=== PATIENT | female | born 1990 | race Caucasian/White ===

== ENCOUNTER 2019-10-26 16:44 | Emergency (ER) | payer SELFPAY ==
--- NOTE | ~2019-10-26 | XR_ITS ---
EXAMINATION: XR hand LT min 3V DATE: 10/26/2019 17:41 INDICATION: Left fourth finger swelling TECHNIQUE: Posteroanterior, lateral, and oblique views of the left hand were obtained. COMPARISON: 10/22/2012 FINDINGS: There is soft tissue swelling of the fourth finger. A tiny heterotopic ossification project s at the palmar base of the fourth middle phalanx on the lateral view. The joint spaces are normal. IMPRESSION: 1. Possible avulsion injury involving the palmar base of the fourth middle phalanx. Reviewed, dictated and finalized at location A. IMPRESSION: 1. Possible avulsion injury involving the palmar base of the fourth middle phal anx.
[2019-10-26 16:55] VITALS: BP 167/100; PULSE 101; RESP 20; TEMP 36.7; O2SAT 97
--- NOTE | 2019-10-26 17:15 | ED.GENADULT ---
HPI - General Adult General Chief complaint: Extremity Problem,Nontraumatic Stated complaint: swelling finger/ hand is throbbing Source: patient Mode of arrival: ambulatory Limitations: no limitations History of Present Illness HPI narrative: Samantha is a previously 28F that presented to the emergency department with pain in her left 4th digit of her hand. last night she started having increasing swelling and pain in her hand. It is worse with activity and better with rest. It is only comfortable if she holds it in a slightly flexed position. If it is straightened hurts. It is starting to develop some redness particularly on the lateral side. It is tender to the touch on the anterior side. she denies any chest pain, shortness of breath, nausea, vomiting, dizziness, and fatigue. Related Data Allergies Allergy/AdvReac Type Severity Reaction Status Date / Time No Known Allergies Allergy Unverified 12/03/18 13:46 Review of Systems Constitutional: Constitutional: Denies chills, Denies fatigue and Denies fever(s) Eyes: Eyes: Reports no additional eye complaints ENT: Reports system reviewed and no additional complaints, except as documented Cardiovascular: Cardiovascular: Reports no additional cardiovascular complaints Respiratory: Respiratory: Reports no additional respiratory complaints Gastrointestinal: Gastrointestinal: Reports no additional gastrointestinal complaints Genitourinary: Genitourinary: Reports no additional female genitourinary complaints Musculoskeletal: Musculoskeletal: Reports as per HPI Integumentary/Breasts: Skin/Breast: Reports system reviewed and no additional complaints, except as docu Neurologic: Reports system reviewed and no additional complaints, except as documented Psychiatric: Psychiatric: Reports no additional psychiatric complaints Endocrine: Endocrine: Reports no additional endocrine complaints Hematologic/Lymphatic: Hematologic/Lymphatic: Reports no additional hematologic/lymphatic complaints Allergic/Immunologic: Allergic/Immunologic: Reports no additional allergic/immunologic complaints [facility] Social History Social History Gender identity (if verbalized by the patient): Female Exam Const: General: no acute distress and alert Orientation/consciousness: patient oriented x3 Limitations: No altered mental status HENMT: Other: normocephalic, atraumatic Eyes: Conjunctivae: conjunctivae normal Pupils: Equal, round and reactive pupils present Neck: Neck: normal visual inspection Resp: Effort & Inspection: normal respiratory effort Auscultation: clear to auscultation bilaterally Cardio: Rate: regular rate Rhythm: regular rhythm GI: GI Palp: Yes Soft to palpation and No Tenderness to palpation present (GI) Skin: Other: The lateral side of the 4th digit of the left hand had mild to moderate erythema Neuro: General: patient oriented x3 and moves all extremities Other: Sensation intact in all of the 4th digit of the left hand Extrem: Other: The 4th digit of the left hand was circumferentially swollen proximally and distally, held in a flexed position, and had pain with passive extension, and the flexor surface was tender to palpation throughout the finger Psych: Mental Status: mental status grossly normal Course Course Emergency Course: Samantha was seen and evaluated. Her presentation was concerning for flexor tenosynovitis so labs and radiographs were ordered as well as labs. She was given vancomycin and ceftriaxone. As she had leukocytosis and the concerning symptoms Dr. Serrato of hand surgery at [facility] was consulted. She recommended sending the images over to [place] and to follow up with clinic at 0900. Further history revealed that she is monogamous with her and has no symptoms at this time. Vital Signs Vital signs: Vital Signs Temperature 36.7 C 10/26/19 16:5
[2019-10-26 17:37] LABS: Basophils Absolute Auto 0.05 K/mm3 (0.00-0.10); Basophils Percent Auto 0.4 % (0.0-1.0); Eosinophils Absolute Auto 0.47 K/mm3 (0.02-0.50); Eosinophils Percent Auto 4.2 % (1.0-6.0); Hematocrit 41.7 % (35.0-49.0); Hemoglobin 14.3 g/dL (12.0-15.0); Immature Granulocyte Absolute 0.03 K/mm3 (0.00-0.00); Immature Granulocyte Percent A 0.3 % (0.0-0.0); Lymphocytes Absolute Auto 3.08 K/mm3 (1.10-4.50); Lymphocytes Percent Auto 27.3 % (18.0-42.0); Mean Corpuscular HGB Conc 34.3 g/dL (32.0-36.0); Mean Corpuscular Hemoglobin 29.6 pg (27.0-31.0); Mean Corpuscular Volume 86.3 fL (78.0-102.0); Mean Platelet Volume 10.2 fl (9.2-11.8); Monocytes Absolute Auto 0.55 K/mm3 (0.10-0.90); Monocytes Percent Auto 4.9 % (2.0-11.0); Neutrophils Absolute Auto 7.1 K/mm3 (1.7-7.2); Neutrophils Percent Auto 62.9 % (50.0-70.0); Platelet Count Result 376 K/mm3 (150-420); Red Blood Count 4.83 M/mm3 (4.20-5.40); White Blood Count 11.3 K/mm3 (4.8-10.8)
[2019-10-26 17:52] LABS: Alanine Aminotransferase 22 U/L (14-59); Albumin Level 4.1 g/dL (3.4-5.0); Alkaline Phosphatase 73 U/L (46-116); Anion Gap 14.6 mmol/L (7-16); Aspartate Amino Transferase 18 U/L (15-37); Bilirubin,Total 0.3 mg/dL (0.00-1.00); Blood Urea Nitrogen 11 mg/dL (7-18); Calcium 9.5 mg/dL (8.5-10.1); Carbon Dioxide 30 mmol/L (21-32); Chloride 100 mmol/L (98-108); Estimated CRCL calculation 92 ml/min; Estimated Glomerular Filt Rate 57; Glucose 89 mg/dL (70-99); Osmolality Calculated 290 mOsm/kg (285-295); Potassium 3.6 mmol/L (3.5-5.1); Sodium 141 mmol/L (136-145); Total Protein 7.8 g/dL (6.4-8.2)
[2019-10-26 17:57] LABS: CRP 0.7 mg/dL (0.0-0.9)
--- NOTE | 2019-10-26 18:00 | PC.NURSE ---
Pt resting. Aware of plan for IV antibiotics and consult to [facility]. Will continue to monitor.
[2019-10-26] MEDS: WATER, STERILE FOR INJECTION 10 ML VIAL 40 ML XX (18:08)
[2019-10-26 18:39] LABS: Erythrocyte Sedimentation Rate 16 mm/hr (0-15)
--- NOTE | 2019-10-26 19:00 | PC.NURSE ---
Pt aware that IV Vancomycin infusion will be complete at approximately 1999. Requesting pain medication. Dr Funez aware, order rcvd.
[2019-10-26 19:01] LABS: Pregnancy On Board Control POS; Specific Gravity Ur <= 1.005 (1.010-1.035); Urine Pregnancy Test Negative
[2019-10-26] MEDS: IBUPROFEN 600 MG TABLET PO (19:26)
[2019-10-26 20:22] VITALS: BP 153/90; PULSE 80; RESP 20; O2SAT 98
== END 2019-10-26 20:23 | disposition home or self-care (01) ==
PROVIDERS: Emergency Provider Family Medicine; PCP Emergency Medicine
DX: M65.142 Other infective (teno)synovitis, left hand (principal)
CPT/HCPCS: 36415; 73130; 80053; 81025; 85025; 85610; 85652; 86140; 87040; 87077; 96365; 96366; 96367; 99283; 99284; A9270; J0696; J3370

== ENCOUNTER 2020-10-14 15:19 | Emergency (ER) | payer SELFPAY ==
[2020-10-14 15:30] VITALS: BP 170/105; PULSE 83; RESP 20; TEMP 36.4; O2SAT 99
--- NOTE | 2020-10-14 16:07 | ED.EYEPROB ---
HPI - Eye Problem General Chief complaint: Eye Problems Stated complaint: swollen eye Time Seen by Provider: 10/14/20 15:35 Source: patient and family Mode of arrival: ambulatory Limitations: no limitations History of Present Illness HPI Narrative: Patient comes in because she had felt she had irritated her eye yesterday. She left her contacts out and started wearing her glasses. This has continued to progress and she comes in now because she has been uncomfortable with irritation and what looks like a conjunctivitis to the left eye , and discomfort in that eye, chief complaint: eye pain and eye redness Onset (ago): hour(s) Onset description: sudden Duration: constant Location: left eye Eye Symptoms: burning, redness, pain and foreign body sensation Place: home and work Severity: moderate Severity scale (1-10): 4 If Pain, Quality: burning Associated symptoms: headache Treatments Prior to Arrival: other (removal of contants) Related Data Home Medications Medication Instructions Recorded Confirmed No Home Medications 10/14/20 10/14/20 Allergies Allergy/AdvReac Type Severity Reaction Status Date / Time morphine Allergy Itching Verified 10/14/20 16:01 Review of Systems Constitutional: Constitutional: Reports no additional constitutional complaints Eyes: Eyes: Reports photophobia ENT: Reports system reviewed and no additional complaints, except as documented Cardiovascular: Cardiovascular: Reports no additional cardiovascular complaints Respiratory: Respiratory: Reports no additional respiratory complaints Gastrointestinal: Gastrointestinal: Reports no additional gastrointestinal complaints Genitourinary: Genitourinary: Reports no additional female genitourinary complaints Musculoskeletal: Musculoskeletal: Reports no additional musculoskeletal complaints Integumentary/Breasts: Skin/Breast: Reports system reviewed and no additional complaints, except as docu Neurologic: Reports system reviewed and no additional complaints, except as documented Psychiatric: Psychiatric: Reports no additional psychiatric complaints Endocrine: Endocrine: Reports no additional endocrine complaints Hematologic/Lymphatic: Hematologic/Lymphatic: Reports no additional hematologic/lymphatic complaints Allergic/Immunologic: Allergic/Immunologic: Reports no additional allergic/immunologic complaints PMFSH Past Medical History Medical History No significant medical problems Surgical History Surgical History No significant past surgical history Family History Family History Mother Diabetes mellitus Heart disease Hypertension Father Hypertension Social History Social History Smoking packs per day: 0.33 Smoking cigarettes per day: 6.6 Smoking status: Current every day smoker Tobacco type: cigarettes Alcohol intake: never Gender identity (if verbalized by the patient): Female Exam Const: General: no acute distress and alert Orientation/consciousness: patient oriented x3 HENMT: Head: normal to inspection Ears: external ears normal and TM's normal bilaterally General nose exam: Normal external nose present Mouth: Yes Normal oral and palatal mucosa present Throat: posterior oropharynx normal Eyes: Other: She appears to have a conjunctivitis on the left eye, with mild inflammation and some discomfort from that eye. Exam with fluorescein to left eye was unremarkable. I saw no foreign objects in the eye, she does appear to have a tiny corneal abrasion though. Neck: Neck: normal visual inspection and no lymphadenopathy Chest: Chest palpation & inspection: normal inspection of the chest Resp: Effort & Inspection: normal respiratory effort Auscultation: clear to auscultation bilaterally Cardio:
[2020-10-14] MEDS: ERYTHROMYCIN OPHTH OINTMENT 3.5 GM TUBE 1 APPLIC LEFT EYE (16:11)
[2020-10-14 16:15] VITALS: BP 143/93; PULSE 80; RESP 20; TEMP 36.7; O2SAT 98
== END 2020-10-14 16:29 | disposition home or self-care (01) ==
PROVIDERS: Emergency Provider Emergency Medicine; PCP Emergency Medicine
DX: H10.9 Unspecified conjunctivitis (principal)
CPT/HCPCS: 99282; 99283; A9270

== ENCOUNTER 2021-10-28 19:43 | Emergency (ER) | payer MEDICAID, SELFPAY ==
[2021-10-28 19:48] VITALS: BP 148/101; PULSE 83; RESP 17; TEMP 37.3; O2SAT 100
[2021-10-28 22:07] LABS: Basophils Absolute Auto 0.1 K/mm3 (0.0-0.1); Basophils Percent Auto 0.5 % (0.2-1.2); Eosinophils Absolute Auto 0.4 K/mm3 (0-0.3); Eosinophils Percent Auto 4.2 % (0-4.4); Hematocrit 35.9 % (37.0-47.0); Hemoglobin 11.9 g/dL (12.0-15.0); Immature Granulocyte Absolute 0.03 K/mm3 (0.00-0.031); Immature Granulocyte Percent A 0.3 % (0-0.5); Lymphocytes Absolute Auto 2.17 K/mm3 (0.9-3.2); Lymphocytes Percent Auto 22.8 % (18.3-44.2); Mean Corpuscular HGB Conc 33.1 g/dl (32-36); Mean Corpuscular Hemoglobin 27.9 pg (26-34); Mean Corpuscular Volume 84.1 fl (80-100); Mean Platelet Volume 9.8 fl (7.4-10.4); Monocytes Absolute Auto 0.5 K/mm3 (0.1-0.6); Monocytes Percent Auto 4.8 % (2.6-8.5); Neutrophils Absolute Auto 6.4 K/mm3 (1.3-6.7); Neutrophils Percent Auto 67.4 % (45.5-73.1); Platelet Count Result 330 k/mm3 (150-375); Red Blood Count 4.27 M/mm3 (4.2-5.4); Red Cell Distribution Width 14.2 % (11.5-14.5); White Blood Count 9.5 K/mm3 (4.5-10.0)
[2021-10-28 22:12] LABS: Add Urine Microscopic? YES; Appearance Urine Cloudy (Clear); Bacteria Urine Trace /hpf; Bilirubin Urine Negative (Negative); Blood Urine Negative (Negative); Color Urine Yellow (Yellow); Glucose Urine UA Negative (Negative); Ketones Urine Negative (Negative); Leukocyte Esterase Ur 3+ LEU/UL (Negative); Nitrate Urine Negative (Negative); Protein Urine Negative (Negative); Specific Grav Ur 1.008 (1.001-1.035); Squamous Epithelial Cell Urine Few /hpf (Few); Urobilinogen Urine Negative mg/dL (<2.0)
[2021-10-28 22:17] LABS: Alanine Aminotransferase 61 U/L (4-35); Albumin Level 4.5 g/dL (3.5-5.1); Alkaline Phosphatase 81 U/L (38-126); Anion Gap 8 mmol/L (8-16); Aspartate Amino Transferase 35 U/L (14-36); Bilirubin,Total 0.4 mg/dL (0.2-1.3); Blood Urea Nitrogen 5 mg/dL (7-17); Calcium 9.3 mg/dL (8.4-10.2); Carbon Dioxide 26 mmol/L (22-30); Chloride 102 mmol/L (98-107); Estimated CRCL calculation 125 ml/min; Estimated Glomerular Filt Rate > 60; Glucose 95 mg/dL (65-110); Lipase 63 U/L (23-300); Potassium 3.2 mmol/L (3.4-5.0); Sodium 136 mmol/L (137-145)
--- NOTE | 2021-10-28 22:47 | ED.GENADULT ---
HPI - General Adult General Chief complaint: GI Bleed Stated complaint: pooping bright red blood x 1 week; no pcp Time Seen by Provider: 10/28/21 22:30 Source: patient Mode of arrival: ambulatory Limitations: no limitations History of Present Illness HPI narrative: Patient is a 30 y/o female who presents to the ED with report of rectal bleeding. Patient states she typically has 3-4 bowel movements a day at baseline. She reports over the past week, she has had bright red bleeding with every bowel movement. She states she has noticed blood mixed in the stool as well as notices blood after the stool has passed. She has had some mild discomfort over the past day with having a bowel movement, which she believes is more rawness from going so frequently. She denies pain with actually passing stool. Denies any abdominal pain, nausea, vomiting, fever, chills, vaginal bleeding, hematuria, dysuria, back pain, dizziness, lightheadedness, weakness. Patient is currently 10 weeks . She had a ultrasound confirming IUP last week. 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 Related Data Allergies Allergy/AdvReac Type Severity Reaction Status Date / Time morphine Allergy Itching Verified 10/14/20 16:01 Review of Systems Review of Systems: CONSTITUTIONAL: Denies fever, chills, or sweats. CARDIOVASCULAR: Denies chest pain, palpitations. RESPIRATORY: Denies cough or dyspnea. GASTROINTESTINAL: Reports bright red blood per rectum. Denies abdominal pain, nausea, vomiting, or diarrhea, constipation. GENITOURINARY: Denies vaginal bleeding, dysuria or hematuria. MUSCULOSKELETAL: Denies back pain, joint pain, or myalgia. NEUROLOGIC: Denies dizziness, lightheadedness, headache, numbness, or weakness.. All systems reviewed & are unremarkable except as noted in HPI and below PMFSH Past Medical History Medical History (Updated 10/29/21 @ 03:15 by Melania Campos PA-C) 10 weeks gestation of No significant medical problems Surgical History Surgical History No significant past surgical history Family History Family History Mother Diabetes mellitus Heart disease Hypertension Father Hypertension Social History Social History Smoking packs per day: 0.33 Smoking cigarettes per day: 6.6 Smoking status: Current every day smoker Tobacco type: cigarettes Alcohol intake: never Gender identity (if verbalized by the patient): Female Exam Narrative: GENERAL: Well appearing, well-nourished, non-toxic, in no acute distress. HEAD: Normocephalic, atraumatic. RESPIRATORY: Airway patent, respirations nonlabored. Clear to auscultation bilaterally, no rales, rhonchi, wheezing. CARDIOVASCULAR: Regular rate and rhythm without murmurs, rubs, or gallops. Peripheral pulses 2+ and equal bilaterally. ABDOMINAL: Soft, nontender, nondistended, no hepatosplenomegaly. Normoactive BS. RECTAL: Normal tone. Small nonerythematous nonthrombosed external hemorrhoid noted. No large internal hemorrhoids palpated on YAZ. Stool w/o gross blood. Guaiac positive. MUSCULOSKELETAL: Moves all extremities. Strength/ROM intact without gross deformities or TTP. No edema. No calf tenderness. SKIN: Warm, dry, normal color. No rashes. NEURO: A&O X3. Speech clear. Cranial nerves II-XII grossly intact. Steady gait. No ataxic movements. PSYCHIATRIC: Appropriate mood and affect. Normal interaction. Course Vital Signs Vital signs: Vital Signs Temperature 99.1 F 10/28/21 19:48 Pulse Rate 83 10/28/21 19:48 Respiratory Rate 17 10/28/21 19:48 Blood Pressure 148/101 H 10/28/21 19:48 Pulse Oximetry 100 10/28/21 19:48 Temperature 99.1 F 10/28/21 19:48 Pulse Rate 78 10/28/21 23:56 Respiratory Rate 14 10/28/21 23:56 Blood Pressure 140/90 10/28/21 23:56
[2021-10-28 23:13] VITALS: BP 139/75; PULSE 72; RESP 18; O2SAT 100
[2021-10-28 23:40] LABS: Pregnancy On Board Control Positive; Urine Pregnancy Test Positive
[2021-10-28] MEDS: POTASSIUM CHLORIDE 20 MEQ TABLET 40 MEQ PO (23:47)
[2021-10-28 23:56] VITALS: BP 140/90; PULSE 78; RESP 14; O2SAT 100
== END 2021-10-28 23:57 | disposition home or self-care (01) ==
PROVIDERS: Physician Assistant; Emergency Provider Emergency Medicine
DX: O99.611 Diseases of the digestive system complicating pregnancy, first trimester (principal); K62.5 Hemorrhage of anus and rectum; O99.331 Smoking (tobacco) complicating pregnancy, first trimester; F17.210 Nicotine dependence, cigarettes, uncomplicated; Z3A.10 10 weeks gestation of pregnancy
CPT/HCPCS: 36415; 80053; 81001; 81025; 83690; 85025; 87086; 87088; 99283; A9270

== ENCOUNTER 2022-04-14 11:03 | Outpatient (RCR) | payer OTHER, MEDICAID, SELFPAY ==
[2022-03-31 10:58] VITALS: BP 128/77; PULSE 109
[2022-04-14 11:34] VITALS: BP 130/74; PULSE 95
== END 2022-06-29 23:59 | disposition home or self-care (01) ==
LOC: ANHOBOP 11:03
PROVIDERS: Visit Provider Obstetrics & Gynecology
DX: O36.8130 Decreased fetal movements, third trimester, not applicable or unspecified (principal); O16.3 Unspecified maternal hypertension, third trimester; Z3A.30 30 weeks gestation of pregnancy
CPT/HCPCS: 59025

== ENCOUNTER 2022-04-30 14:04 | Outpatient (CLI) | payer OTHER, MEDICAID, SELFPAY ==
[2022-04-30] VITALS (13 sets, daily range): BP systolic 128–137; BP diastolic 81–101; PULSE 84–105; RESP 18; TEMP 36.6; BMI 41.3
[2022-04-30 14:53] LABS: Basophils Percent Auto 0.3 % (0.2-1.2); Eosinophils Absolute Auto 0.3 K/mm3 (0-0.3); Eosinophils Percent Auto 2.6 % (0-4.4); Hematocrit 33.3 % (37.0-47.0); Hemoglobin 10.6 g/dL (12.0-15.0); Immature Granulocyte Absolute 0.06 K/mm3 (0.00-0.031); Immature Granulocyte Percent A 0.5 % (0-0.5); Lymphocytes Absolute Auto 1.89 K/mm3 (0.9-3.2); Lymphocytes Percent Auto 16.2 % (18.3-44.2); Mean Corpuscular HGB Conc 31.8 g/dl (32-36); Mean Corpuscular Hemoglobin 25.7 pg (26-34); Mean Corpuscular Volume 80.8 fl (80-100); Monocytes Absolute Auto 0.6 K/mm3 (0.1-0.6); Monocytes Percent Auto 5.2 % (2.6-8.5); Neutrophils Absolute Auto 8.8 K/mm3 (1.3-6.7); Neutrophils Percent Auto 75.2 % (45.5-73.1); Platelet Count Result 289 k/mm3 (150-375); Red Blood Count 4.12 M/mm3 (4.2-5.4); Red Cell Distribution Width 13.9 % (11.5-14.5); White Blood Count 11.7 K/mm3 (4.5-10.0)
[2022-04-30 14:59] LABS: Total Protein Urine Random 17 mg/dL; Ur Ttl Prot Creatinine Ratio 0.13 mg/mg (0-0.20)
[2022-04-30 15:04] LABS: Alanine Aminotransferase 14 U/L (6-35); Albumin Level 3.3 g/dL (3.5-5.1); Alkaline Phosphatase 128 U/L (38-126); Anion Gap 9 mmol/L (8-16); Aspartate Amino Transferase 15 U/L (14-36); Bilirubin,Total 0.3 mg/dL (0.2-1.3); Blood Urea Nitrogen 3 mg/dL (7-17); Calcium 8.5 mg/dL (8.4-10.2); Carbon Dioxide 22 mmol/L (22-30); Chloride 104 mmol/L (98-107); Estimated Glomerular Filt Rate > 60; Glucose 111 mg/dL (65-110); Potassium 3.2 mmol/L (3.4-5.0); Sodium 135 mmol/L (137-145); Uric Acid 4.4 mg/dL (2.5-7.5)
[2022-04-30] MEDS: ACETAMINOPHEN/BUTALBITAL/CAFFEINE 325-50-40 MG TABLET (FIORICET) 1 TAB PO (15:24)
--- NOTE | 2022-04-30 15:58 | PC.NURSE ---
Dr. Segura informed of BP's, reactive NST, and lab results. Discussed pt's BP of 137/101 was taken when pt had just gotten out of bed to use the bathroom and she hopped back into bed for it to take. Repeat was 133/94 and then down to 137/81. informed pt has not taken a dose of her Labetalol since yesterday morning. Pt took 500 mg of Tylenol this morning when she got home from the office. Pt states her headache was starting to go down until the monitor started alarming when her BP was 137/101. informed it hasn't been an hour yet since Fioricet was given. Discussed K+ level. Orders received. May discharge to home if her headache decreases. Don't need to send the UA since pt doesn't have any urinary symptoms. If headache continues, order received for Reglan and Benadryl.
[2022-04-30] MEDS: POTASSIUM CHLORIDE 20 MEQ TABLET PO (16:33)
[2022-04-30] MEDS: LABETALOL HCL 100 MG TABLET 200 MG PO (16:40)
== END 2022-04-30 16:45 | disposition home or self-care (01) ==
LOC: ANHOBOP 14:16 → ANHOBPP 14:16
PROVIDERS: Visit Provider Obstetrics & Gynecology
DX: O13.3 Gestational [pregnancy-induced] hypertension without significant proteinuria, third trimester (principal); Z3A.34 34 weeks gestation of pregnancy
CPT/HCPCS: 36415; 59025; 80053; 82570; 84156; 84550; 85025; 99199; A9270

== ENCOUNTER 2022-05-07 13:07 | Observation (INO) | payer OTHER, MEDICAID, SELFPAY ==
[2022-05-07] VITALS (11 sets, daily range): BP systolic 114–138; BP diastolic 79–90; PULSE 91–106; TEMP 36.2–36.6; BMI 41.5
[2022-05-07] MEDS: FAMOTIDINE 20 MG TABLET PO (14:26)
[2022-05-07 15:08] LABS: Appearance Urine Slightly Cloudy (Clear); Bilirubin Urine Negative (Negative); Blood Urine Trace-intact (Negative); Color Urine Yellow (Yellow); Glucose Urine UA Negative (Negative); Ketones Urine Negative (Negative); Leukocyte Esterase Ur Negative LEU/UL (Negative); Nitrate Urine Negative (Negative); Protein Urine Negative (Negative); Specific Grav Ur 1.015 (1.001-1.035); Urobilinogen Urine 0.2 mg/dL (<2.0)
[2022-05-07 15:33] LABS: Amorphous Sediment Urine Few; Bacteria Urine Trace /hpf; RBC Urine 0-2 /hpf (0-2); Squamous Epithelial Cell Urine Rare /hpf (Few); WBC Urine 0-3 /hpf
[2022-05-07] MEDS: ONDANSETRON HCL ODT 4 MG TABLET PO (15:36)
[2022-05-07 15:40] LABS: Add Urine Microscopic? YES
[2022-05-07] MEDS: TERBUTALINE SULFATE 1 MG/ML VIAL 0.25 MG SUB-Q (16:25)
--- NOTE | 2022-05-09 07:28 | P.PNOB_ITS ---
OB - Triage/Final Diagnosis Visit Information Comments/Additional reasons for admission: I have assessed the risk for this patient, Samantha Templeton, and determined that she would benefit from observation care. Evaluation Laboratory results: Laboratory Tests 05/07/22 15:01 Urine Color Yellow Urine Appearance Slightly cloudy Urine pH 7.0 Ur Specific [place] 1.015 Urine Protein Negative Urine Glucose (UA) Negative Urine Ketones Negative Ur Blood (Man) Trace-intact Urine Nitrate Negative Urine Bilirubin Negative Urine Urobilinogen 0.2 Leukocyte Esterase Rfl Negative Urine RBC 0-2 Urine WBC 0-3 Ur Squamous Epith Cells Rare Amorphous Sediment Few H Urine Bacteria Trace Final Diagnosis (1) contractions: Code(s): O47.00 - False labor before 37 completed weeks of gestation, unspecified trimester Status: Acute
== END 2022-05-07 17:55 | disposition home or self-care (01) ==
PROVIDERS: Admitting Provider Obstetrics & Gynecology; Visit Provider Obstetrics & Gynecology
DX: O47.03 False labor before 37 completed weeks of gestation, third trimester (principal); Z3A.35 35 weeks gestation of pregnancy
CPT/HCPCS: 81001; 96372; A9270; G0378; G0379; J3105

== ENCOUNTER 2022-05-09 11:32 | Observation (INO) | payer OTHER, MEDICAID, SELFPAY ==
[2022-05-09] VITALS (8 sets, daily range): BP systolic 116–134; BP diastolic 74–90; PULSE 90–104; BMI 92.1
--- NOTE | 2022-05-09 11:57 | OBADM ---
This patient, Samantha Templeton, admitted to the OB room [facility] for observation. Patient/family oriented to hospital policies and general routines including ID bracelet, bed and alarms, visiting hours, pain management, procedures, bathroom and other care routines, personal items, smoking policy, room service/diet, and visiting hours. Patient/Family are encouraged to report perceived risks to care and to ask questions if they do not understand what they are told or what they should do.
--- NOTE | 2022-05-09 12:15 | PC.NURSE ---
Pt reports continual low abdominal sharp pain that is constant but has times of increased pain. Pt reports she was evaluated for this last time she is here. Pt is sitting comfortable and does not appear in distress with this sonia. Pt also reports nausea. Pt had a hamburger on the way here and has been able to keep it down. Pt reports contractions are inconsistent and can be about 5-20 minutes apart.
--- NOTE | 2022-05-09 12:51 | PC.NURSE ---
Report given to Dr. Segura about patient. Orders to monitor contractions. If contractions are more than 8 minutes apart and FHR is reassuring pt can be discharged. If FHR is less than 8 minutes apart then check patient and call Dr. Segura back.
[2022-05-09 12:58] LABS: Appearance Urine Slightly Cloudy (Clear); Bilirubin Urine Negative (Negative); Blood Urine Negative (Negative); Color Urine Yellow (Yellow); Glucose Urine UA Negative (Negative); Ketones Urine 1+ mg/dL (Negative); Leukocyte Esterase Ur 1+ LEU/UL (Negative); Nitrate Urine Negative (Negative); Protein Urine Trace mg/dL (Negative); Urobilinogen Urine 0.2 mg/dL (<2.0); pH Urine 7.5 (5.0-9.0)
--- NOTE | 2022-05-09 13:43 | PC.NURSE ---
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 Pt was given button to push when she was having contractions. Pt pressed button indicating contractions 3 times. they were 3-20 minutes apart.
[2022-05-09 14:02] LABS: Add Urine Microscopic? YES; Bacteria Urine Trace /hpf; Mucus Urine Rare /lpf; RBC Urine 0-2 /hpf (0-2); Squamous Epithelial Cell Urine Moderate /hpf (Few); WBC Urine 21-30 /hpf
--- NOTE | 2022-05-09 14:16 | PC.NURSE ---
Urine results discussed with Dr. Segura. No treatment at this time. Will wait for culture.
--- NOTE | 2022-05-14 07:20 | PM.OBTRLD ---
OB - Triage/Final Diagnosis Visit Information Comments/Additional reasons for admission: I have assessed the risk for this patient, Samantha Templeton, and determined that she would benefit from observation care. Evaluation Laboratory results: Laboratory Tests 05/09/22 12:07 Urine Color Yellow Urine Appearance Slightly cloudy Urine pH 7.5 Ur Specific [place] 1.020 Urine Protein Trace Urine Glucose (UA) Negative Urine Ketones 1+ H Ur Blood (Man) Negative Urine Nitrate Negative Urine Bilirubin Negative Urine Urobilinogen 0.2 Leukocyte Esterase Rfl 1+ H Urine RBC 0-2 Urine WBC 21-30 H Ur Squamous Epith Cells Moderate H Urine Bacteria Trace Urine Mucus Rare Final Diagnosis (1) contractions: Code(s): O47.00 - False labor before 37 completed weeks of gestation, unspecified trimester Status: Acute
== END 2022-05-09 13:59 | disposition home or self-care (01) ==
PROVIDERS: Admitting Provider Obstetrics & Gynecology; Visit Provider Obstetrics & Gynecology
DX: O47.00 False labor before 37 completed weeks of gestation, unspecified trimester (principal); O16.9 Unspecified maternal hypertension, unspecified trimester; Z3A.00 Weeks of gestation of pregnancy not specified
CPT/HCPCS: 81001; 87086; 87088; G0378; G0379

== ENCOUNTER 2022-05-23 04:54 | Inpatient (IN) | payer OTHER, MEDICAID, SELFPAY ==
[2022-05-23] VITALS (133 sets, daily range): BP systolic 96–156; BP diastolic 52–92; PULSE 72–199; RESP 16–18; TEMP 36.7–36.9; O2SAT 89–100; BMI 42.0
--- NOTE | 2022-05-23 05:25 | LDADM ---
This patient, Samantha Templeton, was admitted to Labor/Delivery/Recovery 105 on 05/23/22 at 04:54. Plans for labor, pain management and were discussed with patient. Patient/family oriented to hospital policies and general routines including ID bracelet, bed and alarms, visiting hours, pain management, procedures, bathroom and other care routines, personal items, smoking policy, room service/diet and guest tray routines, infant security routines, and visiting hours. Patient/Family are encouraged to report perceived risks to care and to ask questions if they do not understand what they are told or what they should do. See OBIX for further documentation.
[2022-05-23] MEDS: LACTATED RINGERS 1,000 ML 125 ML IV CONT ×3 (05:53→09:06)
[2022-05-23] MEDS: OXYTOCIN 30 UNITS/NS 500 ML 30 UNITS/500 ML BAG IV CONT (05:54)
[2022-05-23 05:56] LABS: Basophils Percent Auto 0.3 % (0.2-1.2); Eosinophils Absolute Auto 0.4 K/mm3 (0-0.3); Eosinophils Percent Auto 3.2 % (0-4.4); Hemoglobin 10.9 g/dL (12.0-15.0); Immature Granulocyte Absolute 0.05 K/mm3 (0.00-0.031); Immature Granulocyte Percent A 0.4 % (0-0.5); Lymphocytes Absolute Auto 2.01 K/mm3 (0.9-3.2); Lymphocytes Percent Auto 17.1 % (18.3-44.2); Mean Corpuscular HGB Conc 32.1 g/dl (32-36); Mean Corpuscular Hemoglobin 25.4 pg (26-34); Mean Corpuscular Volume 79.3 fl (80-100); Mean Platelet Volume 11.2 fl (7.4-10.4); Monocytes Absolute Auto 0.8 K/mm3 (0.1-0.6); Monocytes Percent Auto 6.4 % (2.6-8.5); Neutrophils Absolute Auto 8.5 K/mm3 (1.3-6.7); Neutrophils Percent Auto 72.6 % (45.5-73.1); Platelet Count Result 345 k/mm3 (150-375); Red Blood Count 4.29 M/mm3 (4.2-5.4); Red Cell Distribution Width 14.2 % (11.5-14.5); White Blood Count 11.7 K/mm3 (4.5-10.0)
[2022-05-23 07:08] LABS: Alanine Aminotransferase 11 U/L (6-35); Albumin Level 3.5 g/dL (3.5-5.1); Alkaline Phosphatase 143 U/L (38-126); Anion Gap 8 mmol/L (8-16); Aspartate Amino Transferase 15 U/L (14-36); Bilirubin,Total 0.3 mg/dL (0.2-1.3); Blood Urea Nitrogen 4 mg/dL (7-17); Calcium 8.7 mg/dL (8.4-10.2); Carbon Dioxide 23 mmol/L (22-30); Chloride 104 mmol/L (98-107); Estimated CRCL calculation 143 ml/min; Estimated Glomerular Filt Rate > 60; Glucose 93 mg/dL (65-110); Potassium 3.2 mmol/L (3.4-5.0); Sodium 135 mmol/L (137-145); Uric Acid 4.4 mg/dL (2.5-7.5)
--- NOTE | 2022-05-23 07:41 | PM.IMHP ---
H&P: HPI History of Present Illness Date/Time: 05/23/22 07:41 Chief Complaint: induction of labor Narrative: Samantha is a 31y G [id number] at 38.1 IOL for cHTN. otherwise uncomplicated, GBS neg. Review of Systems Review of Systems: All systems reviewed & are unremarkable except as noted in HPI and below PMFSH Past Medical History Medical History (Updated 05/23/22 @ 07:44 by Lea Segura MD) 10 weeks gestation of No significant medical problems Surgical History Surgical History No significant past surgical history Family History Family History Mother Diabetes mellitus Heart disease Hypertension Father Hypertension Social History Social History Smoking packs per day: 0.33 Smoking cigarettes per day: 6.6 Smoking status: Former smoker Tobacco type: cigarettes Second hand tobacco smoke exposure: Yes Alcohol intake: never Substance use: never Gender identity (if verbalized by the patient): Female Spiritual care concerns: No Meds Home Medications and Allergies Home Medications Medication Instructions Recorded Confirmed Type acetaminophen 500 mg tablet 500 mg PO Q6H PRN Headache 04/30/22 05/23/22 History (Tylenol Extra Strength) labetalol 200 mg tablet 200 mg PO BID 04/30/22 05/23/22 History Allergies Allergy/AdvReac Type Severity Reaction Status Date / Time latex Allergy Rash Verified 05/09/22 11:54 Vital Signs Vital Signs - 24 hr 05/23/22 05:48 05/23/22 05:10 05/23/22 06:51 Temperature Pulse Rate 92 84 Blood Pressure 133/92 H 134/85 Oxygen Delivery Room Air 05/23/22 06:30 05/23/22 07:01 05/23/22 07:31 Temperature 98.3 F Pulse Rate 85 79 Blood Pressure 129/76 144/81 H Oxygen Delivery Exam Const: General: no acute distress Resp: Effort & Inspection: normal respiratory effort Auscultation: clear to auscultation bilaterally Cardio: Rate: regular rate Rhythm: regular rhythm GI: GI Palp: Yes Soft to palpation Extrem: General: normal to inspection H&P: Results Labs Labs: Short CBC 05/23/22 Range/Units 05:23 WBC 11.7 H (4.5-10.0) K/mm3 Hgb 10.9 L (12.0-15.0) g/dL Hct 34.0 L (37.0-47.0) % Plt Count 345 (150-375) k/mm3 BMP 05/23/22 06:41 Sodium 135 L Potassium 3.2 L Chloride 104 Carbon Dioxide 23 BUN 4 L Creatinine 0.70 Glucose 93 Calcium 8.7 Liver Function 05/23/22 Range/Units 06:41 Total Bilirubin 0.3 (0.2-1.3) mg/dL AST 15 (14-36) U/L ALT 11 (6-35) U/L Alkaline Phosphatase 143 H (38-126) U/L Albumin 3.5 (3.5-5.1) g/dL Assessment and Plan Assessment and plan (1) Chronic hypertension affecting : Code(s): O10.919 - Unspecified pre-existing hypertension complicating , unspecified trimester Status: Acute Plan GBS neg FHT category 1 AROM clear 4.5/60/-3 pitocin per protocol anticipate normal PIH labs
--- NOTE | 2022-05-23 07:54 | WPDANESEPP ---
Anes - Eval Pre Procedure Procedure: Labor Epidural Date/Time: 05/23/22 07:54 Surgeon: Colton Preop Diagnosis: Labor Epidural Pre Op Diagnosis: IOL Patient Data Age: 31 Gender: F Height: 1.75 m Weight: 129 kg Last Vital Signs Temp 36.8 C 05/23/22 06:30 Pulse 79 05/23/22 07:31 BP 144/81 H 05/23/22 07:31 O2 Del Method Room Air 05/23/22 05:48 Allergies Allergy/AdvReac Type Severity Reaction Status Date / Time latex Allergy Rash Verified 05/09/22 11:54 Home Medications Medication Instructions Recorded Confirmed Type acetaminophen 500 mg tablet 500 mg PO Q6H PRN Headache 04/30/22 05/23/22 History (Tylenol Extra Strength) labetalol 200 mg tablet 200 mg PO BID 04/30/22 05/23/22 History Laboratory Tests 05/23/22 05/23/22 05/23/22 05:23 05:23 05:23 WBC 11.7 K/mm3 H K/mm3 (4.5-10.0) RBC 4.29 M/mm3 M/mm3 (4.2-5.4) Hgb 10.9 g/dL L g/dL (12.0-15.0) Hct 34.0 % L % (37.0-47.0) MCV 79.3 fl L fl (80-100) MCH 25.4 pg L pg (26-34) MCHC 32.1 g/dl g/dl (32-36) RDW 14.2 % % (11.5-14.5) Plt Count 345 k/mm3 k/mm3 (150-375) MPV 11.2 fl H fl (7.4-10.4) Immature Gran % (Auto) 0.4 % % (0-0.5) Neut % (Auto) 72.6 % % (45.5-73.1) Lymph % (Auto) 17.1 % L % (18.3-44.2) [place] % (Auto) 6.4 % % (2.6-8.5) Eos % (Auto) 3.2 % % (0-4.4) Baso % (Auto) 0.3 % % (0.2-1.2) Lymph # (Auto) 2.01 K/mm3 K/mm3 (0.9-3.2) [place] # (Auto) 0.8 K/mm3 H K/mm3 (0.1-0.6) Eos # (Auto) 0.4 K/mm3 H K/mm3 (0-0.3) Baso # (Auto) 0.0 K/mm3 K/mm3 (0.0-0.1) Abs Immat Gran (auto) 0.05 K/mm3 H K/mm3 (0.00-0.031) Absolute Neuts (auto) 8.5 K/mm3 H K/mm3 (1.3-6.7) Absolute Nucleated RBC 0.0 K/mm3 K/mm3 (0.0-0.012) Nucleated RBC % 0.0 % % (0.0-0.2) Sodium Potassium Chloride Carbon Dioxide Anion Gap BUN Creatinine Estim Creat Clear Calc Estimated GFR Glucose Uric Acid Calcium Total Bilirubin AST ALT Alkaline Phosphatase Total Protein Albumin RPR Pending Blood Type A Positive Antibody Screen Negative 05/23/22 06:41 WBC RBC Hgb Hct MCV MCH MCHC RDW Plt Count MPV Immature Gran % (Auto) Neut % (Auto) Lymph % (Auto) [place] % (Auto) Eos % (Auto) Baso % (Auto) Lymph # (Auto) [place] # (Auto) Eos # (Auto) Baso # (Auto) Abs Immat Gran (auto) Absolute Neuts (auto) Absolute Nucleated RBC Nucleated RBC % Sodium 135 mmol/L L mmol/L (137-145) Potassium 3.2 mmol/L L mmol/L (3.4-5.0) Chloride 104 mmol/L mmol/L (98-107) Carbon Dioxide 23 mmol/L mmol/L (22-30) Anion Gap 8 mmol/L mmol/L (8-16) BUN 4 mg/dL L mg/dL (7-17) Creatinine 0.70 mg/dL mg/dL (0.7-1.0) Estim Creat Clear Calc 143 ml/min ml/min Estimated GFR > 60 (59 - ) Glucose 93 mg/dL mg/dL (65-110) Uric Acid 4.4 mg/dL mg/dL (2.5-7.5) Calcium 8.7 mg/dL mg/dL (8.4-10.2) Total Bilirubin 0.3 mg/dL mg/dL (0.2-1.3) AST 15 U/L U/L (14-36) ALT 11 U/L U/L (6-35) Alkaline Phosphatase 143 U/L H U/L (38-126) Total Protein 6.0 g/dL L g/dL (6.3-8.2) Albumin 3.5 g/dL g/dL (3.5-5.1) RPR Blood Type Antibody Screen : gestational age (OK 06/05/22) Patient hx anesthesia problems: none Family hx anesthesia problems: none Results Review: All pre-operative results and documents have been reviewed as pa
[2022-05-23 12:41] LABS: Rapid Plasma Reagin Non-Reactive (NonReactive)
[2022-05-23] MEDS: FAMOTIDINE 20 MG/2 ML VIAL IV PUSH (13:16)
--- NOTE | 2022-05-23 15:10 | PM.OBPRVD ---
OB - Delivery Note Procedure Delivery date: 05/23/22 Procedure: Events: Chronic Hypertension Induction method: AROM and Per Pitocin Protocol Delivery monitor: External FHT and Internal Uterine Route of delivery: Laceration Description: Periurethral Quantitative Blood Loss (ml): 210 Anesthesia type: Epidural Disposition: Floor Narrative: With adequate expulsive efforts by the mother, the baby's head was delivered OA. The baby's anterior shoulder was delivered under the pubic symphysis without difficulty. The posterior shoulder and the rest of the baby delivered without difficulty. The was placed on the mothers chest and suctioned and stimulated. The cord was clamped and cut after 30 seconds. Mother and baby both stable. Baby Date of : 05/23/22 Time of : 14:54 Weeks of gestation at delivery: 38 Infant gender: Female Weight (pounds): 8 Weight (ounces): 0 presentation: vertex Placenta delivery description: Spontaneous Cord Vessel Description: 3 Vessels and Delayed Cord Clamping score one minute: 8 score five minutes: 9
[2022-05-23] MEDS: OXYTOCIN 30 UNITS/NS 500 ML 30 UNITS/500 ML BAG 125 UNITS IV CONT (15:54)
[2022-05-23] MEDS: WITCH HAZEL 40 PADS 1 PAD TOPICAL (17:07)
[2022-05-23] MEDS: DOCUSATE SODIUM 100 MG CAPSULE PO (17:53)
[2022-05-23] MEDS: IBUPROFEN 600 MG TABLET PO (17:53)
[2022-05-23] MEDS: LABETALOL HCL 100 MG TABLET 200 MG PO (19:09)
[2022-05-24 03:30] VITALS: BP 129/84; PULSE 79; RESP 14; TEMP 36.5; O2SAT 99
[2022-05-24] MEDS: IBUPROFEN 600 MG TABLET PO ×2 (03:31→17:25)
[2022-05-24 05:09] LABS: Hematocrit 30.2 % (37.0-47.0); Hemoglobin 9.5 g/dL (12.0-15.0)
[2022-05-24 08:00] VITALS: BP 146/93; PULSE 81; RESP 16; TEMP 36.5; O2SAT 99
[2022-05-24 09:57] VITALS: PULSE 81
[2022-05-24] MEDS: LABETALOL HCL 100 MG TABLET 200 MG PO ×2 (09:57→17:26)
[2022-05-24] MEDS: POLYSACCHARIDE IRON COMPLEX 150 MG CAPSULE PO ×2 (09:57→17:27)
[2022-05-24] MEDS: MULTIVIT/MIN/PREN/FOL AC/IRON TABLET 1 TAB PO (09:57)
[2022-05-24] MEDS: DOCUSATE SODIUM 100 MG CAPSULE PO (09:57)
[2022-05-24] MEDS: ACETAMINOPHEN 325 MG TABLET 650 MG PO (09:58)
[2022-05-24] MEDS: SIMETHICONE 80 MG TAB.CHEW PO (09:59)
[2022-05-24 11:46] VITALS: BP 141/90; PULSE 96; RESP 14; TEMP 36.6; O2SAT 98
--- NOTE | 2022-05-24 13:01 | WPDANLDPN2 ---
Anes-Prog Note L&D Date/Time: 05/24/22 13:01 Comfortable throughout: labor and delivery Neuraxial method: epidural Epidural/Spinal procedure site: clean & non-tender Neuro status: Neuro function grossly intact. Cardiovascular status: normal Respiratory status: normal Airway patency: baseline Mental status: baseline Post-Op hydration status: normal Vital Signs: Last Vital Signs Temp 36.6 C 05/24/22 11:46 Pulse 96 05/24/22 11:46 Resp 14 05/24/22 11:46 BP 141/90 H 05/24/22 11:46 Pulse Ox 98 05/24/22 11:46 O2 Del Method Room Air 05/23/22 19:00 Pain score (VAS): 08/19 I/O: Intake & Output 05/23/22 05/24/22 05/24/22 23:59 07:59 15:59 Intake Total 480 Output Total 291 Balance 189 Post-procedural complaints: none Patient feedback: Patient satisfied with anesthetic care.
[2022-05-24 17:26] VITALS: PULSE 70
[2022-05-24 19:30] VITALS: BP 127/72; PULSE 77; RESP 18; TEMP 36.6; O2SAT 99
[2022-05-25] VITALS: BP 105/56
[2022-05-25 04:00] VITALS: BP 142/92
[2022-05-25] MEDS: MULTIVIT/MIN/PREN/FOL AC/IRON TABLET 1 TAB PO (10:33)
[2022-05-25 10:34] VITALS: PULSE 80
[2022-05-25] MEDS: LABETALOL HCL 100 MG TABLET 200 MG PO (10:34)
[2022-05-25] MEDS: POLYSACCHARIDE IRON COMPLEX 150 MG CAPSULE PO (10:34)
[2022-05-25 10:42] VITALS: BP 137/88; PULSE 80; RESP 18; TEMP 36.4; O2SAT 99
[2022-05-25] MEDS: IBUPROFEN 600 MG TABLET PO (10:42)
[2022-05-25] MEDS: TETANUS,DIPHTHERIA,AC PERTUSSIS ADULT (0.5 ML) BOOSTRIX IM (10:43)
--- NOTE | 2022-05-25 11:58 | PM.OBPNVD ---
OB - PN: Subj Subjective Date/time seen: 05/25/22 11:58 Patient comments: no complaints, pain well controlled and tolerating diet OB - PN: Obj Data Labs CBC & Chem 7: 05/24/22 03:38 05/23/22 06:41 OB - PN A/P Plan day: 2 Plan: routine care and discharge home Time Spent With Patient Time: Total time spent is greater than 50% in coordination of care (as documented) at patient's floor/unit and/or counseling patient: Exam Const: General: comfortable and no acute distress Resp: Effort & Inspection: normal respiratory effort Auscultation: no rales, no rhonchi and no wheezes Cardio: Rate: regular rate Heart sounds: no click, no murmurs and no rubs GI: GI Palp: Yes Soft to palpation and No Tenderness to palpation present (GI) Auscultation: normal bowel sounds Extrem: General: normal to inspection, no pedal edema and no calf tenderness
--- NOTE | 2022-05-25 11:59 | PM.OBDSVD ---
DS: Admitting Diagnosis Discharge Date 05/25/22 Admitting Diagnosis term OB - DS: Summary OB Procedures : None OB Procedures Intrapartum: Spontaneous Vag Delivery OB Procedures: : None Time Spent with Patient Time attestation: Total time spent providing and/or coordinating discharge services: Discharge Plan Discharge Discharging Clinician: Froy Govea Patient Disposition: Home, Self-Care Activity: pelvic rest Diet: regular Patient Instructions: Antibiotic Form Stand Alone Forms: General Discharge Information Follow-up/Referrals: Froy Govea MD [Physician] - Discharge Medications: Continued labetalol 200 mg tablet 200 mg PO BID acetaminophen [Tylenol Extra Strength] 500 mg Tablet 500 mg PO Q6H PRN (Reason: Headache) Date of admission: 05/23/22 04:54 Primary Care Provider: UNKNOWN,DOCTOR Admitting Provider: Lea Segura Attending physician on admission: Lea Segura Condition: Stable
[2022-05-26 14:25] VITALS: BP 131/77; PULSE 82; RESP 20; TEMP 36.8; O2SAT 100
== END 2022-05-25 13:05 | disposition home or self-care (01) | DRG 807 ==
LOC: ANHOB2 05-25 12:06 → ANHLDR 05-28 07:02 → ANHOB2 05-28 07:02
PROVIDERS: Admitting Provider Obstetrics & Gynecology; Visit Provider Obstetrics & Gynecology
DX: O10.02 Pre-existing essential hypertension complicating childbirth (principal); Z37.0 Single live birth; O70.0 First degree perineal laceration during delivery; Z3A.38 38 weeks gestation of pregnancy; Z87.891 Personal history of nicotine dependence
CPT/HCPCS: 36415; 80053; 84550; 85014; 85018; 85025; 86592; 86850; 86900; 86901; 90715; A9270; J2590; J2795; J7120

== ENCOUNTER 2023-05-04 16:28 | Outpatient (CLI) | payer OTHER, MEDICAID, SELFPAY ==
[2023-05-04 17:20] VITALS: BP 144/84; PULSE 92
[2023-05-04 17:33] VITALS: BP 144/84; PULSE 88
== END 2023-05-04 17:30 | disposition home or self-care (01) ==
LOC: ANHOBOP 17:17 → ANHLDR 17:18
PROVIDERS: Visit Provider Obstetrics & Gynecology
DX: O42.90 Premature rupture of membranes, unspecified as to length of time between rupture and onset of labor, unspecified weeks of gestation (principal)
CPT/HCPCS: 59025; 84112; 99199

== ENCOUNTER 2023-05-15 05:56 | Inpatient (IN) | payer OTHER, MEDICAID, SELFPAY ==
[2023-05-15] VITALS (176 sets, daily range): BP systolic 100–157; BP diastolic 53–117; PULSE 79–113; RESP 18; TEMP 36.4–36.9; O2SAT 95–100; BMI 43.2
--- NOTE | 2023-05-15 06:34 | LDADM ---
This patient, Samantha Templeton, was admitted to Labor/Delivery/Recovery 105 on 05/15/23 at 05:56. Plans for labor, pain management and were discussed with patient. Patient/family oriented to hospital policies and general routines including ID bracelet, bed and alarms, visiting hours, pain management, procedures, bathroom and other care routines, personal items, smoking policy, room service/diet and guest tray routines, infant security routines, and visiting hours. Patient/Family are encouraged to report perceived risks to care and to ask questions if they do not understand what they are told or what they should do. See OBIX for further documentation.
[2023-05-15 06:50] LABS: Basophils Percent Auto 0.4 % (0.2-1.2); Eosinophils Absolute Auto 0.4 K/mm3 (0-0.3); Eosinophils Percent Auto 3.1 % (0-4.4); Hematocrit 31.9 % (37.0-47.0); Hemoglobin 9.8 g/dL (12.0-15.0); Immature Granulocyte Absolute 0.11 K/mm3 (0.00-0.031); Lymphocytes Absolute Auto 1.84 K/mm3 (0.9-3.2); Lymphocytes Percent Auto 16.3 % (18.3-44.2); Mean Corpuscular HGB Conc 30.7 g/dl (32-36); Mean Corpuscular Hemoglobin 23.8 pg (26-34); Mean Corpuscular Volume 77.6 fl (80-100); Mean Platelet Volume 11.2 fl (7.4-10.4); Monocytes Absolute Auto 0.8 K/mm3 (0.1-0.6); Monocytes Percent Auto 6.6 % (2.6-8.5); Neutrophils Absolute Auto 8.2 K/mm3 (1.3-6.7); Neutrophils Percent Auto 72.6 % (45.5-73.1); Platelet Count Result 330 k/mm3 (150-375); Red Blood Count 4.11 M/mm3 (4.2-5.4); Red Cell Distribution Width 15.4 % (11.5-14.5); White Blood Count 11.3 K/mm3 (4.5-10.0)
[2023-05-15] MEDS: OXYTOCIN 30 UNITS/NS 500 ML 30 UNITS/500 ML BAG IV CONT (07:05)
[2023-05-15] MEDS: LACTATED RINGERS 1,000 ML 125 ML IV CONT ×2 (07:05→11:39)
[2023-05-15] MEDS: FAMOTIDINE 20 MG/2 ML VIAL IV PUSH (07:14)
--- NOTE | 2023-05-15 08:27 | WPDHPUPDATE1 ---
History and Physical Update Update Date/Time: 05/15/23 08:27 32-year-old female, multipara, who presents for induction of labor -elective. Reassuring status. Artificial rupture membranes-clear. Cervical exam 70%/ 4 cm/ minus 2 position. IUPC was placed. Expected management History and Physical has been reviewed, including an updated exam of the patient. There are NO changes in the patient's condition. Risks, benefits, and alternatives have been discussed and questions answered. Patient agrees to proceed with procedure.
[2023-05-15] MEDS: ONDANSETRON INJ 4 MG/2 ML VIAL IV PUSH (09:00)
[2023-05-15 09:38] LABS: Rapid Plasma Reagin Non-Reactive (NonReactive)
--- NOTE | 2023-05-15 10:49 | WPDANESEPP ---
Anes - Eval Pre Procedure Procedure: labor epidural Date/Time: 05/15/23 10:49 Surgeon: Jeferson Preop Diagnosis: Labor Pain Pre Op Diagnosis: Induction of Labor Patient Data Age: 32 Gender: F Height: 1.75 m Weight: 133 kg Last Vital Signs Temp 36.7 C 05/15/23 08:24 Pulse 85 05/15/23 10:47 BP 100/56 L 05/15/23 10:47 O2 Del Method Room Air 05/15/23 06:33 Allergies Allergy/AdvReac Type Severity Reaction Status Date / Time adhesive Allergy Itching, Verified 05/15/23 06:31 hives latex Allergy Rash, Hives Verified 05/15/23 06:31 Home Medications Medication Instructions Recorded Confirmed Type acetaminophen 500 mg tablet 500 mg PO Q6H PRN Headache 04/30/22 05/15/23 History (Tylenol Extra Strength) labetalol 200 mg tablet 200 mg PO BID 04/30/22 05/15/23 History Laboratory Tests 05/15/23 06:26 WBC 11.3 H K/mm3 (4.5-10.0) RBC 4.11 L M/mm3 (4.2-5.4) Hgb 9.8 L g/dL (12.0-15.0) Hct 31.9 L % (37.0-47.0) MCV 77.6 L fl (80-100) MCH 23.8 L pg (26-34) MCHC 30.7 L g/dl (32-36) RDW 15.4 H % (11.5-14.5) Plt Count 330 k/mm3 (150-375) MPV 11.2 H fl (7.4-10.4) Immature Gran % (Auto) 1.0 H % (0-0.5) Neut % (Auto) 72.6 % (45.5-73.1) Lymph % (Auto) 16.3 L % (18.3-44.2) Bee % (Auto) 6.6 % (2.6-8.5) Eos % (Auto) 3.1 % (0-4.4) Baso % (Auto) 0.4 % (0.2-1.2) Lymph # (Auto) 1.84 K/mm3 (0.9-3.2) Bee # (Auto) 0.8 H K/mm3 (0.1-0.6) Eos # (Auto) 0.4 H K/mm3 (0-0.3) Baso # (Auto) 0.0 K/mm3 (0.0-0.1) Abs Immat Gran (auto) 0.11 H K/mm3 (0.00-0.031) Absolute Neuts (auto) 8.2 H K/mm3 (1.3-6.7) Absolute Nucleated RBC 0.0 K/mm3 (0.0-0.012) Nucleated RBC % 0.0 % (0.0-0.2) RPR Non-reactive (NonReactive) Blood Type A Positive Antibody Screen Negative : gestational age ( 1 para 0 OK 05/29/23) Patient hx anesthesia problems: none Family hx anesthesia problems: none Results Review: All pre-operative results and documents have been reviewed as part of the pre-operative evaluation. [facility] Past Medical History Medical History 10 weeks gestation of No significant medical problems Surgical History Surgical History No significant past surgical history Family History Family History Mother Diabetes mellitus Heart disease Hypertension Father Hypertension Social History Social History Smoking packs per day: 0.33 Smoking cigarettes per day: 6.6 Smoking status: Never smoker Tobacco type: cigarettes Second hand tobacco smoke exposure: Yes Alcohol intake: never Substance use: never Lack of Transportation: No Lack of Food: Never True Current Housing: I Have Housing Concerned About Future Housing: No Difficulty Paying Gas/Electric Bills: No Difficulty Paying for Meds: No Currently Unemployed: No Education: High School Diploma/GED Difficulty w/ Childcare or Family Care: No Gender identity (if verbalized by the patient): Female Spiritual care concerns: No Exam Day of Procedure 05/15/23 10:49 Patient weight: morbidly obese Heart: regular rate and rhythm Lungs: normal air movement Airway: Mallampati scale class II Neurological: alert and oriented
--- NOTE | 2023-05-15 16:01 | PC.NURSE ---
DENIS Christian asked RN to pull Fentanyl from Pyxis to mix with epidural bolus. Wasted ungiven amount. Fentanyl given by EARLY CHILDHOOD EDUCATOR AIDE in epidural.
--- NOTE | 2023-05-15 18:25 | PM.OBPRVD ---
OB - Delivery Note Procedure Delivery date: 05/15/23 Procedure: Induction method: AROM and Per Pitocin Protocol Delivery monitor: External FHT and Internal Uterine Route of delivery: Episiotomy description: None Laceration Description: None Quantitative Blood Loss (ml): 350 Anesthesia type: Epidural [place] Baby Date of : 05/15/23 Time of : 18:17 Weeks of gestation at delivery: 39 score one minute: 9 score five minutes: 9
[2023-05-15] MEDS: OXYTOCIN 30 UNITS/NS 500 ML 30 UNITS/500 ML BAG 125 UNITS IV CONT (18:45)
[2023-05-15] MEDS: IBUPROFEN 600 MG TABLET PO (20:39)
[2023-05-15] MEDS: WITCH HAZEL 40 PADS 1 PAD TOPICAL (20:40)
[2023-05-15] MEDS: BENZOCAINE 20% AER SPR (*SP) 56 GM CAN 1 SPRAY TOPICAL (20:40)
[2023-05-15] MEDS: LABETALOL HCL 100 MG TABLET 200 MG PO (20:56)
--- NOTE | 2023-05-15 21:00 | OBPPTRN ---
Patient transferred to post room #286 via (wheelchair). Support person present. Oriented to unit, room, information board, rooming in, admission packet and security measures. Patient verbalizes understanding.
[2023-05-16] VITALS: BP 126/76; PULSE 80; RESP 18; TEMP 36.6; O2SAT 97
[2023-05-16] MEDS: IBUPROFEN 600 MG TABLET PO ×2 (04:39→17:05)
[2023-05-16 05:21] LABS: Hemoglobin 8.5 g/dL (12.0-15.0)
[2023-05-16 08:00] VITALS: BP 142/86; PULSE 75; RESP 16; RESP 18; TEMP 36.4; O2SAT 99
[2023-05-16] MEDS: ACETAMINOPHEN 325 MG TABLET 650 MG PO (08:34)
[2023-05-16 08:37] VITALS: PULSE 74
[2023-05-16] MEDS: LABETALOL HCL 100 MG TABLET 200 MG PO ×2 (08:37→17:04)
[2023-05-16] MEDS: POLYSACCHARIDE IRON COMPLEX 150 MG CAPSULE PO ×2 (08:38→17:04)
[2023-05-16] MEDS: MULTIVIT/MIN/PREN/FOL AC/IRON TABLET 1 TAB PO (08:38)
--- NOTE | 2023-05-16 10:14 | PM.OBPNVD ---
OB - PN: Subj Subjective Date/time seen: 05/16/23 10:14 pp day 1 doing well wants to d/c home OB - PN: Obj Data Labs 05/16/23 04:36 Labs: Laboratory Results - last 24 hr 05/16/23 04:36 Hgb 8.5 L Hct 28.0 L OB - PN A/P Plan day: 1 Plan: routine care and discharge home Time Spent With Patient Time: Total time spent is greater than 50% in coordination of care (as documented) at patient's floor/unit and/or counseling patient: Review of Systems Review of Systems: All systems reviewed & are unremarkable except as noted in HPI and below Exam Const: General: cooperative and healthy appearing Chest: Chest palpation & inspection: normal inspection of the chest Resp: Effort & Inspection: normal respiratory effort Cardio: Rate: regular rate Rhythm: regular rhythm GI: Other: soft Skin: General skin exam: normal color Neuro: General: patient oriented x3 Extrem: Right lower extremity: normal to inspection Left lower extremity: normal to inspection
--- NOTE | 2023-05-16 10:18 | PM.OBDSVD ---
DS: Admitting Diagnosis Discharge Date 05/16/23 Admitting Diagnosis HTN, IOL DS: Discharge Diagnosis Discharge Diagnosis (1) Chronic hypertension affecting : Code(s): O10.919 - Unspecified pre-existing hypertension complicating , unspecified trimester Status: Acute (2) Vaginal delivery: Code(s): O80 - Encounter for full-term uncomplicated delivery Status: Acute OB - DS: Summary OB Procedures : None OB Procedures Intrapartum: Spontaneous Vag Delivery OB Procedures: : None Time Spent with Patient Time attestation: Total time spent providing and/or coordinating discharge services: DS: Data Data Completed and Pending Labs on day of discharge: Labs from last 24 hours 05/16/23 04:36 Hgb 8.5 L Hct 28.0 L Discharge Plan Discharge Attending physician on discharge: Froy Govea Discharging Clinician: Mel Carlson Patient Disposition: Home, Self-Care Activity: pelvic rest Diet: regular Patient Instructions: Antibiotic Form Stand Alone Forms: General Discharge Information Follow-up/Referrals: Froy Govea MD [Physician] - 1 Week Discharge Medications: New polysaccharide iron complex 150 mg iron Capsule 150 mg PO BIDWM Qty: 60 0RF ibuprofen 600 mg Tablet 600 mg PO Q6H PRN (Reason: Cramping) Qty: 30 0RF Continued labetalol 200 mg tablet 200 mg PO BID Discontinued acetaminophen [Tylenol Extra Strength] 500 mg Tablet 500 mg PO Q6H PRN (Reason: Headache) Date of admission: 05/15/23 05:56 Primary Care Provider: UNKNOWN,DOCTOR Admitting Provider: Froy Govea Attending physician on admission: Froy Govea Condition: Stable
--- NOTE | 2023-05-16 15:00 | PC.NURSE ---
PT introductions made and plan of care discussed per post , pain management, breast feeding, daily care activities and pending discharge to home. PT and spouse both recipients of such instructions and no barriers to learning identified at this time. PT received such instructions per one to one discussion, mom baby care guide and demonstrations this shift. PT verbalized understanding of such care.
--- NOTE | 2023-05-16 16:48 | WPDANLDPN2 ---
Anes-Prog Note L&D Date/Time: 05/16/23 16:48 Comfortable throughout: labor and delivery Neuraxial method: epidural Epidural/Spinal procedure site: clean & non-tender Neuro status: Neuro function grossly intact. Cardiovascular status: normal Respiratory status: normal Airway patency: baseline Mental status: baseline Post-Op hydration status: normal Vital Signs: Last Vital Signs Temp 36.4 C 05/16/23 08:00 Pulse 74 05/16/23 08:37 Resp 16 05/16/23 08:00 BP 142/86 H 05/16/23 08:00 Pulse Ox 99 05/16/23 08:00 O2 Del Method Room Air 05/16/23 08:00 Pain score (VAS): /10 I/O: Intake & Output 05/16/23 05/16/23 05/16/23 07:59 15:59 23:59 Intake Total 240 Balance 240 Post-procedural complaints: none Patient feedback: Patient satisfied with anesthetic care.
[2023-05-16 17:00] VITALS: BP 132/75; PULSE 80; RESP 18; TEMP 36.6; O2SAT 97
[2023-05-16 17:04] VITALS: PULSE 80
[2023-05-16] MEDS: DOCUSATE SODIUM 100 MG CAPSULE PO (17:04)
[2023-05-18 14:10] VITALS: BP 135/87; PULSE 92; RESP 18; TEMP 36.8; O2SAT 99
== END 2023-05-16 19:07 | disposition home or self-care (01) | DRG 807 ==
LOC: ANHLDR 06:30 → ANHOB2 21:06
PROVIDERS: Admitting Provider Obstetrics & Gynecology; Visit Provider Obstetrics & Gynecology
DX: O10.92 Unspecified pre-existing hypertension complicating childbirth (principal); Z37.0 Single live birth; Z3A.39 39 weeks gestation of pregnancy
CPT/HCPCS: 36415; 85014; 85018; 85025; 86592; 86850; 86900; 86901; A9270; J2405; J2590; J2795; J7120

== ENCOUNTER 2023-06-21 16:03 | Emergency (ER) | payer OTHER, MEDICAID, SELFPAY ==
--- NOTE | ~2023-06-21 | XR_ITS ---
EXAM: XR lumbar spine 2-3V DATE: 06/21/2023 17:15 HISTORY: BACK PAIN WITH SCIATICA . COMPARISON: None available. FINDINGS: 5 nonrib-bearing lumbar-type vertebral bodies. Pedicles intact. Normal vertebral body alig nment. Vertebral body heights preserved. Disc spaces maintained. Normal facets and posterior elements . No fracture or dislocation. IMPRESSION: Unremarkable lumbar spine radiograph findings. Reviewed, dictated and finalized at location K. D SALES MANAGER
[2023-06-21 16:31] VITALS: BP 146/90; PULSE 81; RESP 16; TEMP 37.3; O2SAT 100
--- NOTE | 2023-06-21 17:21 | ED.BACK ---
HPI - Back Pain/Injury General Chief Complaint: Back Pain/Injury Stated Complaint: Back pain;Hedache Time Seen by Provider: 06/21/23 17:10 Source: patient and RN notes reviewed Mode of arrival: ambulatory Limitations: no limitations History of Present Illness HPI Narrative: 32-year-old female who presents to [facility] Care and lumbar back pain the past 5 weeks. Patient initially stated was intermittently to the left lower back but for the past week pain is there prerry constantly and it runs down the back of her left legs to the ankle area. Patient reports pain in back is right where she had epidural 5 weeks ago for her latest child . Patient denies any tingling or numbness in her legs or any saddle paraesthesia or any difficulty with her bowels or bladder function.Patient is presently breast feeding. Patient reports that pain is worse with sitting and with lying. MD elicited complaint: back pain Pertinent past history: other (recent delivered child 5 weeks ago and had epidural) Onset (ago): week(s) (5 weeks increased 1 week) Pain scale (0-10): 5 Location: lumbar spine Radiation: left leg below the knee Relieving factors: other (less discomfort when standing) Treatments prior to arrival: NSAIDS and other (Lidocaine patch) Related Data Allergies Allergy/AdvReac Type Severity Reaction Status Date / Time adhesive Allergy Itching, Verified 06/21/23 16:50 hives latex Allergy Rash, Hives Verified 06/21/23 16:50 Review of Systems Review of Systems: CONSTITUTIONAL: Denies fever, chills, or sweats. EYES: Denies visual changes, redness, or discharge. ENT: Denies rhinorrhea, congestion, sore throat, or otalgia. CARDIOVASCULAR: Denies chest pain, palpitations, or edema. RESPIRATORY: Denies cough or dyspnea. GASTROINTESTINAL: Denies abdominal pain, nausea, vomiting, or diarrhea. GENITOURINARY: Denies dysuria or hematuria. SKIN: Denies rash or itching. MUSCULOSKELETAL:Reports lumbar back pain down lef le, or myalgia. NEUROLOGIC:Reports some headache,no numbness, or weakness. PSYCHIATRIC: Denies anxiety or depression. All systems reviewed & are unremarkable except as noted in HPI and below PMFSH Past Medical History Medical History (Updated 06/22/23 @ 13:48 by Aminata Keenan NP) 10 weeks gestation of ADHD (attention deficit hyperactivity disorder) as child Asthma as child Depression as adolescent Diverticulitis Hypertension affecting No significant medical problems Surgical History Surgical History Hx of cholecystectomy No significant past surgical history Family History Family History Mother Diabetes mellitus Heart disease Hypertension Father Hypertension Social History Social History Smoking packs per day: 0.33 Smoking cigarettes per day: 6.6 Smoking status: Never smoker Tobacco type: cigarettes Second hand tobacco smoke exposure: Yes Alcohol intake: never Substance use: never Lack of Transportation: No Lack of Food: Never True Current Housing: I Have Housing Concerned About Future Housing: No Difficulty Paying Gas/Electric Bills: No Difficulty Paying for Meds: No Currently Unemployed: No Education: High School Diploma/GED Difficulty w/ Childcare or Family Care: No Gender identity (if verbalized by the patient): Female Spiritual care concerns: No Comments At time of signature, agree with nursing past medical, surgical, social and family history. There is no relevant family history pertinent to the presenting complaint Exam Narrative: GENERAL: Well-appearing, well-nourished, and in no acute distress. HEAD: Normocephalic, atraumatic. EYES: PERRLA and EOMI. ENT: Nares clear, no rhinorrhea or epistaxis. Mucous membranes moist. NECK: Supple.no lymphadenopathy CHEST: Azul
== END 2023-06-21 17:46 | disposition home or self-care (01) ==
PROVIDERS: Emergency Provider Registered Nurse; PCP Emergency Medicine
DX: O90.89 Other complications of the puerperium, not elsewhere classified (principal); M54.50 Low back pain, unspecified
CPT/HCPCS: 72100; 99213; G0463

== ENCOUNTER 2024-12-26 11:00 | Observation (INO) | payer BC, SELFPAY ==
[2024-12-26 11:15] VITALS: BMI 42.1
[2024-12-26 11:30] VITALS: BP 128/80; PULSE 95
[2024-12-26 11:45] VITALS: BP 130/71; PULSE 95
--- OUTSIDE RECORDS SUMMARY | 2024-12-26 11:47 | XMS_ITS | Clinical Summary ---
Author Organization [facility] Address [facility] [place] [address] Phone Care Team Providers Care Customer Experience Manager Name Role Phone Provider, Unknown Primary Care Provider Unavaila ble Allergies No known active allergies Medications No known medications Active Problems No known active problems Social History Tobacco Use Types Packs/Day Years Used Date Smoking Tobacco: Never Smokeless Tobacco: Never Tobacco Cessation:Counseling Given: Not Answered Alcohol Use Standard Drinks/Week Comments Not Currently 0 (1 standard drink = 0.6 oz pur e alcohol) Comments Unknown Sex and Gender Information Value Date Recorded Sex Assigned at Not on file Legal Sex Female 10:58 AM CDT Gender Identity Not on file Sexual Orientation Not on file Last Filed Vital Signs Vital Sign Reading Time Taken Comments Blood Pressure 142/88 10/24/2023 11:06 AM CDT Pulse 82 10/24/2023 11:06 AM CDT Temperature 36.7 C (98 F) 10/24/2023 11:06 AM CDT Respiratory Rate 18 10/24/2023 11:06 AM CDT Oxygen Saturation 98% 10/24/2023 11:06 AM CDT Inhaled Oxygen Concentration - - Weight - - Height - - Body Mass Index - - Plan of Treatment Health Maintenance Due Date Last Done Comments Hepatitis C Virus (HCV) Screening 1989 TdaP Immunization 1989 Hepatitis B Immunization (1 of 3 - 19+ 3-dose series) 2008 Pap Smear 2010 Cervical Cancer Screening (CCS) 10/31/2019 HPV/Cotest 10/31/2019 Influenza Immunization (#1) 2024 SARS-COV-2 Immunization ( season) 2024 Respiratory Syncytial Virus (RSV) Immunization (Adult) (1 - 1-dose 75+ series) 2064 Meningococcal Immunization (ACWY) Aged Out No longer eligible based on patient's age to complete this topic Pneumococcal Immunization Combined Aged Out No longer eligible based on patient's age to complete this topic Rotavirus Immunization Aged Out No lo nger eligible based on patient's age to complete this topic Insurance [facility] Care Teams Customer Experience Manager Relationship Specialty Start Date End Date Provider, Unknown UNKNOWN PCP - General 10/24/23
--- OUTSIDE RECORDS SUMMARY | 2024-12-26 11:47 | XMS_ITS | Data Portability ---
Author Organization [facility] Address [address] [place] [address] Assessment Encounter Date Assessment Date Assessment LastModified by Organization Details LastModified Time 12/23/2024 12/23/2024 Patient is ___33weeks . Discussed plan. Not available 12/23/2024 20:58:46 Plan of Treatment Reminders Order Date Submit Date Provider Last Modified By Organization Details Last Modified Time Details Appointments U/S OB BPP 2024 02:00P M ULTRASOUND Not available Not available Not available NST 2024 02:30P M NST SCHEDULE Not available Not available Not available OB ROUTINE 2024 03:15P M JAMES FabianM Not available Not available Not available U/S OB BPP 2024 03:30P M ULTRASOUND Not available Not available Not available NST 2024 04:00P M NST SCHEDULE Not available Not available Not available OB ROUTINE 2024 04:45P M JAMES FabianM Not available Not available Not available U/S OB BPP 2024 03:30P M ULTRASOUND Not available Not available Not available NST 2024 04:00P M NST SCHEDULE Not available Not available Not available OB ROUTINE 2024 04:30P M JAMES FabianM Not available Not available Not available U/S OB BPP 2024 03:30P M ULTRASOUND Not available Not available Not available NST 2024 04:00P M NST SCHEDULE Not available Not available Not available OB ROUTINE 2024 04:45P M Mel Levygle, CNM Not available Not available Not available U/S OB BPP 2024 03:30P M ULTRASOUND Not available Not available Not available NST 2024 04:00P M NST SCHEDULE Not available Not available Not available OB ROUTINE 2024 04:45P M Mel Levygle, CNM Not available Not available Not available U/S OB BPP 2024 03:30P M ULTRASOUND Not available Not available Not available NST 2024 04:00P M NST SCHEDULE Not available Not available Not available OB ROUTINE 2024 04:45P M Mel Levygle, CNM Not available Not available Not available U/S OB BPP 2024 03:30P M ULTRASOUND Not available Not available Not available NST 2024 04:00P M NST SCHEDULE Not available Not available Not available OB ROUTINE 2024 04:45P M Mel Levygle, CNM Not available Not available Not available Lab bile acids, total, serum [address] [facility] (Lab), [address] [place], [address], 12/26/2024 10:38:38 CMP, serum or plasma [address] [facility] (Lab), [address] [place], [address], 12/23/2024 16:36:04 Referral None recorde d. Procedures None recorde d. Surgeries None recorde d. Imaging US, obstetr ic, biophys ical profile + non-str ess test 2024 025 [email or web address], [address], [place], [address], 12/21/2024 21:18:15 non-str ess test 2024 025 [email or web address] [address], [address], [place], [address], 12/22/2024 06:27:13 US, obstetr ic, follow- up 2024 025 [email or web address] [place], [address], [address], [place], [address], 12/02/2024 17:42:59 Medication Orders None recorde d. Patient TargetsNo targets recorded. Patient InstructionsNo instructions recorded. Reason for Referral None Reported. Results Created Date Observation Date Name Description Value Unit Range Abnormal Flag Note LastModifiedBy Organization Detail LastModifiedTime 12/03/1912/02/2024 HEMAT OCRIT (HCT) HCT 33.6 % (based on docume nted legal sex) 34.0-4 5.0 low Not Available [facility] (Lab) [address], [place], [address], 12/03/2024 13:00:44 12/03/19 25 12/02/2024 HEMOG LOBIN (HGB) HGB 10.4 g/dL (based on docume nted legal sex) 11.6-1 5.4 low Not Available [facility] (Lab) [address], [place], [address], 12/03/2024 13:00:45 12/03/19 25 12/02/2024 GTT - GESTA NICKI L SCREE N, ACOG OB glucose, 1 hour screen 97 mg/dL 70-135 Not Available [facility] (Lab) [address], [place], [address], 12/03/2024 13:00:45 12/03/19 25 12/02/2024 HIV 1/2 ANTIG EN/AN TIBOD Y, REFLE X CONFI RMATI ON HIV antigen/anti body Nonrea ctive nonrea ctive HIV-1 antig en and HIV-1 /HIV- 2 antib odies were not detec radha. No labor atory evide nce of HIV infec tion. Not Available [facility] (Lab) [address], [place], [address], 12/03/2024 13:00:45 12/03/19 25 12/02/2024 RPR SCREE N, REFLE X TITER /CONF IRMAT ION RPR qualitative Nonrea ctive nonrea ctive Not Available [facility] (Lab) [address], [place], [address], 12/03/2024 13:00:45 12/03/19 25 12/02/2024 US, obste tric, follo w-up No observ ation record ed. [email or web address] [facility] [address], [place], [address], 12/02/2024 13:30:23 12/03/19 25 12/02/2024 US, obste tric, follo w-up No observ ation record ed. [email or web address], [place], [address], 12/06/2024 14:21:19 12/22/19 25 12/21/2024 non-s tress test No observ ation record ed. [email or web address] [facility] [address], [place], [address], 12/21/2024 10:14:42 12/22/19 non-s tress test No observ ation record ed. [email or web address] [facility] [address], [place], [address], 12/21/2024 10:17:15 12/22/19 25 12/21/2024 US, adilene calvo, bioph ysica l profi le + non-s tress test No observ ation record ed. [email or web address] [facility] [address], [place], [address], 12/21/2024 10:41:15 12/22/19 25 12/21/2024 US, obste tric, follo w-up No observ ation record ed. [email or web address] [address], [place], [address], 12/22/2024 11:35:09 Result Notes None recorded. Problems Name Problem SNOMED Code Status Onset Date Resolution Date Notes Provider Name and Address Organization Details Recorded Time Polycyst ic ovaries Completed 201010/18/2021 Polycyst ic ovaries; Recorded Elsewher e: No Locat ion: [facility] S ource: EHR Sawmill Hand wes: N Practi ce ID: 0001 Sampson lable Time: 12:00:00 PM Gabrielle duggan [facility] 2 15:08:07 Type 2 diabetes mellitus without complica tion 153182667 Completed 201010/18/2021 Diabetes Mellitus Type 2, Uncompli cated;Re corded Elsewher e: No Locat ion: [facility] S ource: [facility] Hand wes: N Practi ce ID: 0001 Sampson lable Time: 12:00:00 PM Gabrielle duggan, [facility] 2 15:08:18 Amenorrh ea 96082535 Completed 201010/18/2021 Absence of menstrua tion;Rec orded Elsewher e: No Locat ion: [facility] S ource: [facility] Hand wes: N Practi ce ID: 0001 Sampson lable Time: 12:00:00 PM Gabrielle duggan, [facility] 2 15:07:58 Ill-defi tamara intestin al infectio n Completed 201210/18/2021 No Show Fee;Devin akiko ID: 0001 Gabrielle duggan, [facility] 2 15:08:01 Pregnanc y 98071683 Completed 202109/11/2022 Carol duggan, [facility] 5 17:49:46 Pregnanc y-induce d hyperten tiffany 56930552 Completed ASA, Baseline PIH labs WNL Lea Segura MD [address], [place], [address], [facility] 2 17:12:54 Prematur e delivery 648506975 Completed Geno. Radford is approved with insuranc e & sent form to [facility]. Lea Segura MD [address], [place], [address], [facility] 2 16:42:24 Obesity 520764385 Completed Antenata l testing @ 34wks Tracee duggan [facility] 3 14:26:29 Chlamydi al infectio n 649447445 Completed 2021 rpt MENA 12/16 Tracee duggan [facility] 3 14:26:29 Past pregnanc y history of prematur e delivery 664402421 Completed 2021 Radford failed with new insuranc e. pt giving up at 33+ weeks. Tracee duggan, [facility] 3 14:26:29 Past pregnanc y history of prematur e delivery 278359666 Active 2021 Radford failed with new insuranc e. pt giving up at 33+ weeks. Tracee duggan, [facility] 3 14:26:29 Chronic hyperten tiffany in obstetri c context 5264602 Completed supposed to be taking labetalo l 200 BID, delivery 38w Tracee duggan [facility] 3 14:26:29 Anemia 321029605 Completed slowfe 1 tab Tracee duggan [facility] 3 14:26:28 Essentia l hyperten tiffany 10766352 Active 2021 Lea Segura MD [address], [place], [address], [facility] 2 11:25:46 Severe obesity complica ting pregnanc y 5520620668 7159722 Active Gabrielle Jo null, [facility] 4 15:48:56 Pregnanc y 04771258 Completed 202205/25/2023 Carol Devine null, [facility] 5 17:49:46 Chlamydi al infectio n 042190450 Completed 2022 MENA neg - recheck 3rd trimeste r! Britaney Nikko null, [facility] 3 17:01:16 Chronic hyperten tiffany in obstetri c context 9684654 Completed supposed to be taking labetalo l 200 BID, delivery 38w, ante testing 32w Britaney Nikko null, [facility] 3 17:01:16 Pregnanc y-induce d hyperten tiffany 05218248 Completed Labetalo l Lea Segura MD [address], [place], [address], [facility] 3 15:18:38 Prematur e delivery 323916086 Completed 36 weeks - first pregnanc y Britaney Nikko null, [facility] 3 17:01:16 Social problem 993077027 Active with worsenin g MS, can barely walk Britaney Nikko null, [facility] 3 17:01:16 Social problem 156729042 Completed with worsenin g MS, can barely walk Britaney Nikko null, [facility] 3 17:01:16 Obesity 802756031 Completed Antenata l testing @ 34wks Ady El null, [facility] 3 17:01:16 Pregnanc y 58979486 Active 2024 Carol Devine null, [facility] 5 17:49:46 Maternal hyperten tiffany 541922730 Active delivere d at 38 weeks in last two pregnanc ies, well controll ed without medicati ons; baseline labs ordered; discusse d 32 week antenata l testing and 38 week DANIELA HARRISON MD [address], [place], [address], [facility] 5 17:54:57 Maternal hyperten tiffany 567701940 Active delivere d at 38 weeks in last two pregnanc ies, well controll ed without medicati ons; baseline labs ordered; discusse d 32 week antenata l testing and 38 week DANIELA HARRISON MD [address], [place], [address], [facility] 5 17:55:02 Erythema nodosum 87035656 Active LOIS HARRISON MD [address], [place], [address], [facility] 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 5 13:47:13 Body mass index 40+ - severely obese 071021682 Active BMI antenata l testing to start at 34wks Fern Jasper [facility], [facility] 5 13:50:22 Body mass index 40+ - severely obese 090772989 Active BMI antenata l testing to start at 34wks Fernbabak Hutchinson [facility], [facility] 5 13:50:22 Anemia of pregnanc y 81906581 Active 2024 Gabrielle Jo [facility], [facility] 12:26:33 Problem Notes None recorded. Procedures Surgical History Date Name Laterality Status Provider Name and Address Organization Details Recorded Time 09/24/19 23 Date of Last Pap Smear completed Carol Devine [facility] 08/11/2024 17:15:32 08/10/19 12 Date of Last Colonoscopy completed Gabrielle Jo [facility] 10/18/2021 15:09:05 08/10/19 12 Colonoscopy completed Gabrielle Jo [facility] 10/18/2021 16:52:20 08/10/19 09 Laparoscopy completed Gabriellecristóbal Jo [facility] 10/17/2021 15:56:58 08/10/19 06 cholecystectomy completed Gabrielle Jo [facility] 10/18/2021 16:53:20 Imaging Results Imaging Date Name Status LastModified by Organiz ation Details LastModified Time 12/02/2024 US, obstetric, follow-up completed [email or web address] [facility] [address], [place], [address], 12/02/2024 13:30:23 12/02/2024 US, obstetric, follow-up completed [email or web address], [place], [address], 12/06/2024 14:21:19 12/21/2024 non-stress test active [address], [place], [address], 12/21/2024 10:14:42 12/21/2024 non-stress test completed [email or web address] [facility] [address], [place], [address], 12/21/2024 10:17:15 12/21/2024 US, obstetric, biophysical profile + non-stress test completed [email or web address] [facility] [address], [place], [address], 12/21/2024 10:41:15 12/21/2024 US, obstetric, follow-up completed [address], [place], [address], 12/22/2024 11:35:09 Procedure Notes None recorded. Medical Equipment None Reported. Allergies Allergen ID Allergen Name Allergen Category Reaction Reaction Severity Criticality Documentation Date Start Date Code Code System Note Provider Name and Address Organization Details Recorded Time 76952 morphine medicatio n Not available Not available Not available 10/18/2021 7052 RxNorm Nevaeh Holman [facility] 2 16:28:38 51714 latex environme nt,medica tion hives Not available Not available 10/18/2021 55316 91 RxNorm Gabrielle Jo [facility] 2 15:07:48 Medications Name Sig Start Date Stop Date Status Note LastModified by Organization Details LastModified Time labetalol 200 mg tablet TAKE 1 TABLET BY MOUTH TWICE A DAY 07/13 completed Not Available Not Available Not Available ibuprofen 800 mg tablet TAKE 1 TABLET BY MOUTH EVERY 6 HOURS NEEDED 07/13 completed Not Available Not Available Not Available sumatript an 25 mg tablet TAKE 1 TABLET BY MOUTH NEEDED FOR MIGRAINE 12/02 completed Not Available Not Available Not Available hydroxyzi ne pamoate 50 mg capsule TAKE 1 CAPSULE (50 MG) BY ORAL ROUTE 4 TIMES PER DAY NEEDED FOR PAIN 10/17 completed Not Available Not Available Not Available metronida zole 500 mg tablet TAKE 4 TABLETS (2 GRAM) BY ORAL ROUTE ONCE DAILY 10/17 completed Not Available Not Available Not Available tramadol 50 mg tablet TAKE 1 TABLET BY MOUTH EVERY 6 HOURS NEEDED 07/13 completed Not Available Not Available Not Available amoxicill in 875 mg tablet TAKE 1 TABLET BY MOUTH TWICE A DAY 07/13 completed Not Available Not Available Not Available phenazopy ridine 100 mg tablet 10/17 completed Not Available Not Available Not Available pantopraz ole 40 mg tablet,de layed release TAKE 1 TABLET BY MOUTH AT BEDTIME 11/18 completed Not Available Not Available Not Available neomycin- polymyxin -dexameth 3.5 mg/mL-10, 000 unit/mL-0 .1% eye drops INSTILL 1-2 DROPS IN LEFT EYE FOUR TIMES A DAY 10/17 completed Not Available Not Available Not Available hydroxyzi ne HCl 25 mg tablet TAKE 1 TABLET BY MOUTH THREE TIMES DAILY NEEDED active Not Available Not Available No t Available methylpre dnisolone 4 mg tablets in a dose pack TAKE 6 TABLETS ON DAY 1 DIRECTED ON PACKAGE AND DECREASE BY 1 TAB EACH DAY FOR A TOTAL OF 6 DAYS 07/13 completed Not Available Not Available Not Available metoclopr amide 10 mg tablet TAKE 1 TABLET BY MOUTH FOUR TIMES DAILY NEEDED FOR NAUSEA/V OMITING 11/30 completed Not Available Not Available Not Available azithromy loida 500 mg tablet TAKE 2 TABLETS BY MOUTH 1 DOSE 11/12 completed Not Available Not Available Not Available nitrofura ntoin monohydra te/macroc rystals 100 mg capsule TAKE 1 CAPSULE BY MOUTH EVERY 12 HOURS FOR 7 DAYS 09/30 completed Not Available Not Available Not Available active Not Available Not Avai lable Not Available Vitamin 07/13 completed Not Available Not Available Not Available Baby Aspirin active Not Available Not Available Not Available sodium fluoride 1.1 % dental paste USE TO BRUSH TEETH TWICE DAILY 07/13 completed Not Available Not Available Not Available Lo Loestrin Fe 1 mg-10 mcg (24)/10 mcg (2) tablet take 1 tablet by oral route every day 10/17 completed Prescrib ed Elsewher e: No Locat ion: Jess esquivel [facility] M odify By: tgingric h Lois ter DateTime : 09/16/19 12 09:00:00 AM Not Available Not Available Not Available Radford (PF) 275 mg/1.1 mL subcutane ous auto-inje ctor Weekly injectio n 05/19 completed Not Available Not Available Not Available Vitals Date Recorded Body weight Body mass index (BMI) Body height Systolic blood pressure Diastolic blood pressure Provider Name and Address Organization Details Last Updated DateTime 12/02/2024 550628.4 5597 g 43.7 kg/m2 170.82 cm 145 mm[Hg] 88 mm[Hg] Gabrielle Jo [facility] 12:55:24 Date Recorded Body weight Systolic blood pressure Diastolic blood pressure Provider Name and Address Organization Details Last Updated DateTime 12/21/2024 977098.233 08 g 126 mm[Hg] 84 mm[Hg] Patricia Robleroer [facility] 12/21/2024 10:10:44 Date Recorded Body weight Body mass index (BMI) Body height Systolic blood pressure Diastolic blood pressure Provider Name and Address Organization Details Last Updated DateTime 12/23/2024 106611.8 2545 g 44.3 kg/m2 170.82 cm 142 mm[Hg] 90 mm[Hg] Gabrielle Jo [facility] 16:34:32 Social History Question Answer Notes LastModified by Organizat ion Details LastModified Time Tobacco Smoking Status Former Smoker Lara Branch [facility] 06/16/2023 11:15:34 Do You Have An Advance Directive? No [email or web address] Information not available 10/18/2021 If You Are , What Was Your Level Of Alcohol Consumption Prior To ? Occasional [email or web address] Information not available 07/13/2024 Are You Blind Or Do You Have Difficulty Seeing? No Information not available 10/18/2021 What Is Your Level Of Caffeine Consumption? Occasional [email or web address] Information not available 10/18/2021 How Much Tobacco Do You Chew? None Information not available 10/18/2021 In The 14 Days Before Symptom Onset, Have You Had Close Contact With A Laboratory-confir med COVID-19 While That Case Was Ill? No [email or web address] Information not available 10/18/2021 In The 14 Days Before Symptom Onset, Have You Had Close Contact With A Person Who Is Under Investigation For COVID-19 While That Person Was Ill? No [email or web address] Information not available 10/18/2021 Have You Been To An Area Known To Be High Risk For COVID-19? No [email or web address] Information not available 10/18/2021 Are You Deaf Or Do You Have Serious Difficulty Hearing? No [email or web address] Information not available 10/18/2021 What Type Of Diet Are You Following? REGULAR [email or web address] Information not available 08/11/2024 What Is The Highest Grade Or Level Of School You Have Completed Or The Highest Degree You Have Received? [id number] [email or web address] Information not available 10/18/2021 Are There Any Guns Present In Your Home? No [email or web address] Information not available 10/18/2021 Have You Ever Been Counseled For Unhealthy Alcohol Use? No [email or web address] Information not available 06/16/2023 Do You Use Protection During Sex? No [email or web address] Information not available 10/18/2021 Do You Use Your Seat Belt Or Car Seat Routinely? Yes [email or web address] Information not available 10/18/2021 Do You Have Smoke And Carbon Monoxide Detectors In Your Home? Yes [email or web address] Information not available 10/18/2021 How Much Tobacco Do You Smoke? No [email or web address] Information not available 10/18/2021 Do You Use Sunscreen Routinely? No [email or web address] Information not available 10/18/2021 Has Tobacco Cessation Counseling Been Provided? No [email or web address] Information not available 06/16/2023 Have You Used IV Drugs? No [email or web address] Information not available 10/18/2021 Do You Have Difficulty Walking Or Climbing Stairs? No [email or web address] Information not available 06/16/2023 Sex: Unknown Functional Status Question Answer Note LastModified by Organizat ion Details LastModified Time Do you use any illicit or recreational drugs? No Information not available 10/18/2021 Do you or have you ever used any other forms of tobacco or nicotine? No [email or web address] Information not available 06/16/2023 What is your level of alcohol consumption? None [email or web address] Information not available 07/13/2024 Are you able to walk? YESWOREST [email or web address] Information not available 10/18/2021 Are you able to care for yourself? 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 No [email or web address] Information not available 06/16/2023 What is your exercise level? Occasional [email or web address] Information not available 10/18/2021 Mental Status Question Answer Note LastModified by Organization D etails LastModified Time Do you feel stressed (tense, restless, nervous, or anxious, or unable to sleep at night)? [id number] [email or web address] Information not available 05/04/2023 Family History Relationship Description Onset Age of this Age Resolved Age Notes LastModified by Organization Details LastModified Time Maternal Grandmother Diabetes mellitus [email or web address] Not available 10/17 15:55:49 Mother Diabetes mellitus [email or web address] Not available 10/17 15:55:57 Mother Asthma [email or web address] Not available 10/17/2021 15:56:16 Mother Disorder of thyroid gland Not available 10/17 15:56:33 Sister Asthma [email or web address] Not available 10/17/2021 15:56:16 Paternal Grandmother Diabetes mellitus [email or web address] Not available 10/18 15:11:24 Maternal Uncle Malignant neoplasm of prostate [email or web address] Not available 2024 09:24:12 Maternal Aunt Malignant tumor of breast [email or web address] Not available 10/18 15:12:15 Medical History Condition Response Allergies (Food, seasonal, environmental ) N Other Y Breast Cancer N Drug/Latex Allergies/Reactions Y Blood Transfusion N Dermatologic Disorders N Lung Disease N Defects or Inherited Disease N Breast Problem N Gestational Diabetes N Hematologic disorders N Anesthesia Complications N History of STI N Deep Vein Thrombosis N Polycystic ovary syndrome Y Anxiety Disorder Y Autoimmune disease N Arthritis N Infertility N Polyps N Acid Reflux (GERD) N History of abnormal pap N Cancer N Stroke N Varicosities N Neurologic/Epilepsy N Endometriosis N High Cholesterol N Headaches Y Fibromyalgia N Kidney Disease N Heart Problems N Kidney or Bladder Problems N Thyroid Problems N GI Problems Y Eating Disorder N Anemia N Art (IVF or FET) N Psychiatric Illness N Ovarian Cancer N Diabetes N Pulmonary (TB, Asthma) N Hepatitis/Liver Disease N No Past Medical History N Eczema N Urinary Tract Infection N Abuse/Domestic Violence N Asthma N Trauma/Violence N Depression/ depression N Heart Disease N Pre-Eclampsia N Hypertension Y Osteoporosis N Thrombophilias N Gynecological History Statement/Question Response Abnormal Pap N Date of Last Mammogram Date of LMP 05/06/2024 N On BCP's at Conception? N STIs/STDs N Was last menstrual period normal N HPV Vaccine N Duration of Flow (days) 6 Current Control Method Age at First Child 30 Date of Last Colonoscopy 08/10/2011 Frequency of Cycle (Q days) 25 Most Recent Bone Density Sexually Active? Y Condoms Age of first menstrual cycle 12 Date of Last Pap Smear 09/24/2022 Sexual Problems? N LMP Definite Desired Control Method None N Obstetrics History GPAL:G 4 P 2 1 0 3 Type Value Full Term 2 Premature 1 Living 3 Total 4 Past Encounters Encounter ID Performer Location Encounter Start Date Encounter Closed Date Diagnosis/Indication Diagnosis SNOMED-CT Code Diagnosis ICD10 Code Diagnosis Note [id number] Gomez Govea MD [facility] [address] [address] 10/18/2021 13:32:18 10/18/2021 14:30:28 screening 206677192 Z36.87 [id number] Mel Carlson [facility] [address] [place] [address] 10/18/2021 13:33:22 10/18/2021 15:31:44 Amenorrhea 52301720 N91.2 Hypertensive disorder 38 488486 I10 [id number] Mel Carlson [facility] [address] [place] [address] 10/23/2021 18:17:01 10/24/2021 17:15:49 Nausea and vomiting 78249217 R11.2 Chronic hy pertension complicating AND/OR reason for care during 35731559 O16.9 [id number] Gomez Govea MD [facility] [address] [place] [address] 11/18/2021 15:27:10 11/18/2021 16:08:36 screening 191169533 Z36.82 [id number] Gomez Govea MD [facility] [address],[place] [address] 11/18/2021 15:27:51 11/18/2021 17:16:53 Routine care 910779059 Z34.81 [id number] Lea Segura MD [facility] [address],[place] [address] 12/16/2021 16:22:10 12/17/2021 14:47:59 Past history of premature delivery 115233810 Z87.51 Chlamydial infection 105 286165 A74.9 Routine an tenatal care 024191283 Z34.82 [id number] MD Minor Murdock [address],[place] [address] 12/24/2021 13:19:27 12/25/2021 14:29:18 Past history of premature delivery 334963664 Z87.51 [id number] Gomez Govea MD [facility] [address],[place] [address] 12/30/2021 14:41:36 12/31/2021 10:14:17 Past history of premature delivery 953364149 Z87.51 [id number] Lea Segura MD [facility] [address] [address],[place] [address] 01/07/2022 09:30:43 01/09/2022 15:24:53 Past history of premature delivery 306994742 Z87.51 [id number] Lea Segura MD [facility] [address],[place] [address] 1 01/13/2022 09:32:04 01/14/2022 15:28:16 Past history of premature delivery 933672694 Z87.51 [id number] MD Minor Anders [address],[place] [address] 1 01/20/2022 15:24:35 01/20/2022 16:34:42 screening for malformation 335569427 Z36.3 [id number] MD Minor Anders [address],[place] [address] 1 01/20/2022 15:25:06 01/21/2022 13:44:14 Past history of premature delivery 908162356 Z87.51 [id number] Gomez Govea MD [facility] [address],[place] [address] 1 01/27/2022 09:31:52 01/27/2022 17:17:15 Past history of premature delivery 178435789 Z87.51 [id number] Lea Segura MD [facility] [address],[place] [address] 1 02/17/2022 15:07:15 02/18/2022 15:20:43 Routine care 375623827 Z34.82 Past pregn eric history of premature delivery 012551256 Z87.51 [id number] Lea Segura MD [facility] [address],[place] [address] 1 03/12/2022 15:17:08 03/13/2022 15:11:28 Chronic hypertension in obstetric context 8240351 O16.9 Past pregn eric history of premature delivery 771820243 Z87.51 Obesity 479089260 E66.9 [id number] Lea Segura MD [facility] [address],[place] [address] 1 03/24/2022 16:40:28 03/24/2022 17:52:00 Past history of premature delivery 989527076 Z87.51 Chronic hy pertension in obstetric context 1398589 O16.9 [id number] MD Minor Anders [address],[place] [address] 1 04/07/2022 16:23:25 04/07/2022 17:27:28 Chronic hypertension complicating AND/OR reason for care during 59849576 O10.013 O99.213 Z3A.31 [id number] MD Minor Anders [address],[place] [address] 1 04/07/2022 16:24:48 04/07/2022 17:28:03 Maternal obesity complicating , childbirth and the puerperium, antepartum 6725959184 07 O99.213 [id number] Lea Segura MD [facility] [address] [place] [address] 1 04/07/2022 16:25:52 04/07/2022 17:08:28 Chronic hypertension in obstetric context 5117952 O16.9 Past pregn eric history of premature delivery 481682987 Z87.51 [id number] MD Lou [place] [address],[place] [address] 1 04/21/2022 15:48:52 04/21/2022 16:51:40 Maternal obesity complicating , childbirth and the puerperium, antepartum 4174680007 07 O99.213 [id number] Lea Segura MD [facility] [address],[place] [address] 1 04/21/2022 15:49:14 04/21/2022 17:14:13 Chronic hypertension complicating AND/OR reason for care during 97856406 O10.013 O99.213 Z3A.33 [id number] Lea Segura MD [facility] [address],[place] [address] 1 04/21/2022 15:49:33 04/23/2022 15:30:08 Chronic hypertension in obstetric context 9487377 O16.9 Past pregn eric history of premature delivery 345073858 Z87.51 Obesity 209981005 E66.9 [id number] Lea Segura MD [facility] [address],[place] [address] 1 04/28/2022 15:45:22 04/28/2022 16:43:01 Chronic hypertension complicating AND/OR reason for care during 45123962 O10.013 O99.213 Z3A.33 [id number] Lea Segura MD [facility] [address],[place] [address] 1 04/28/2022 15:45:55 04/28/2022 17:26:10 Chronic hypertension complicating AND/OR reason for care during 79171424 O10.013 O99.213 Z3A.34 [id number] Gomez Govea MD [facility] [address],[place] [address] 1 04/28/2022 15:48:38 04/28/2022 18:03:31 Routine care 149264112 Z34.81 [id number] Lea Segura MD [facility] [address],[place] [address] 1 04/30/2022 09:02:33 04/30/2022 13:48:05 Benign essential hypertension complicating , childbirth and the puerperium - not delivered 621337618 O10.019 Pt here for BP check. BP 146/101 upon arrival. Pt c/o headache that is worse today due to completing rpt 1hr gtt. Pt also c/o occasional spots in her visual field. Pt denies epigastric pain and denies generalize d edema. PIH labs drawn prior to BP check. Rpt BP 135/89. Per AD, pt provided with a note to take the day off work and pt instructed to return home, eat, take tylenol, rest, and call us around 12:00 to update us on her headache. Pt informed if her headache has not resolved, we will recommend L & D eval and BP monitoring . Pt verbalized understand ing and will call at 12:00. Rosalee lopez, RN [id number] Lea Segura MD [facility] [address],[place] [address] 1 05/05/2022 15:54:29 05/05/2022 17:04:41 Chronic hypertension complicating AND/OR reason for care during 45818057 O10.013 O99.213 Z3A.34 [id number] Lea Segura MD [facility] [address],[place] [address] 1 05/05/2022 15:55:05 05/05/2022 17:43:34 Chronic hypertension complicating AND/OR reason for care during 22553565 O10.013 O99.213 Z3A.35 [id number] Lea Segura MD [facility] [address],[place] [address] 1 05/05/2022 15:55:58 05/06/2022 15:28:01 Chronic hypertension in obstetric context 9967293 O16.9 Past pregn eric history of premature delivery 048912874 Z87.51 Obesity 058649610 E66.9 [id number] MD Minor Anders [address],[place] [address] 1 05/12/2022 15:47:41 05/12/2022 16:25:06 Chronic hypertension complicating AND/OR reason for care during 12514750 O10.013 O99.213 Z3A.35 [id number] MD Minor Anders [address],[place] [address] 1 05/12/2022 15:48:05 05/12/2022 17:05:05 Chronic hypertension complicating AND/OR reason for care during 32070861 O10.113 Z3A.36 [id number] Lea Segura MD [facility] [address],[place] [address] 1 05/12/2022 15:48:27 05/12/2022 17:18:30 Chronic hypertension in obstetric context 3182314 O16.9 Past pregn eric history of premature delivery 604146068 Z87.51 [id number] MD Minor Anders [address],[place] [address] 1 05/19/2022 16:13:20 05/19/2022 17:55:29 Chronic hypertension complicating AND/OR reason for care during 01105734 O10.013 Z3A.37 O99.213 [id number] MD Minor Anders [address],[place] [address] 1 05/19/2022 16:13:43 05/19/2022 17:06:51 Chronic hypertension complicating AND/OR reason for care during 19077223 O10.013 Z3A.37 O99.213 [id number] MD Minor Anders [address],[place] [address] 1 05/19/2022 16:13:56 05/20/2022 15:31:05 Chronic hypertension in obstetric context 5376344 O16.9 [id number] MD Minor Anders [address],[place] [address] 1 05/30/2022 12:08:59 05/30/2022 13:36:25 Chronic hypertension in obstetric context 3959300 O16.9 Noncomplia nce with treatment 4847289 Z91.199 [id number] Lea Segura MD [facility] [address],[place] [address] 1 06/24/2022 10:54:51 06/24/2022 13:56:06 care 385487111 Z39.2 Essential hypertension 44160079 I10 [id number] Lea Segura MD [facility] [address],[place] [address] 1 09/24/2022 16:46:30 09/24/2022 17:39:08 Screening procedure 36624748 Z13.9 Gynecologi c examination 56809534 Z01.419 Z11.51 test positive 252926114 Z32.01 Chronic hy pertension in obstetric context 7618755 O16.9 Past pregn eric history of premature delivery 083118565 Z87.51 Severe obe sity complicating 4810942659 4035888 O99.211 [id number] Lea Segura MD [facility] [address],[place] [address] 1 09/24/2022 17:06:23 09/24/2022 17:55:06 Uncertain viability of 239782199 O36.80X0 Z3A.00 [id number] Lea Segura MD [facility] [address],[place] [address] 1 10/13/2022 15:28:25 10/13/2022 15:58:29 [id number] Lea Segura MD [facility] [address],[place] [address] 1 10/13/2022 15:28:51 10/15/2022 15:15:22 test positive 540569365 Z32.01 Chronic hy pertension in obstetric context 7410349 O16.9 Past pregn eric history of premature delivery 435624467 Z87.51 Severe obe sity complicating 0242218498 5115396 O99.211 Chlamydial infection 105 243721 A74.9 [id number] Gomez Govea MD [facility] [address],[place] [address] 1 11/12/2022 16:52:23 11/12/2022 17:25:47 [id number] Gomez Govea MD [facility] [address],[place] [address] 1 11/12/2022 16:53:05 11/12/2022 18:31:29 Routine care 703687859 Z34.81 [id number] Gomez Govea MD [facility] [address],[place] [address] 1 12/10/2022 16:13:22 12/10/2022 18:28:33 screening 409930175 Z36.89 Routine an tenatal care 030882385 Z34.81 [id number] MD Minor Anders [address],[place] [address] 01/13/2023 13:54:02 01/13/2023 15:20:35 screening for malformation 867183701 Z36.3 [id number] MD Minor Anders [address],[place] [address] 1 01/13/2023 13:54:27 01/14/2023 10:11:31 Routine care 012224412 Z34.82 [id number] MD Minor Anders [address],[place] [address] 1 02/09/2023 16:37:02 02/11/2023 13:31:06 Routine care 631263979 Z34.82 Chronic hy pertension in obstetric context 8640197 O16.9 [id number] MD Minor Anders [address],[place] [address] 1 03/11/2023 14:55:14 03/11/2023 16:05:31 Chronic hypertension complicating AND/OR reason for care during 73634991 O16.9 O99.213 Z3A.28 [id number] MD Minor Anders [address],[place] [address] 1 03/11/2023 14:55:43 03/12/2023 17:08:32 Chronic hypertension in obstetric context 3827612 O16.9 Severe obe sity complicating 1786208527 5671774 O99.211 [id number] MD Minor Anders [address],[place] [address] 1 03/25/2023 16:53:00 03/26/2023 14:22:29 Chronic hypertension in obstetric context 9398852 O16.9 Severe obe sity complicating 3698647207 3309323 O99.211 Reduced fe geraldo movement 573527269 O36.8199 [id number] Lea Segura MD [facility] [address],[place] [address] 1 03/25/2023 17:22:43 03/25/2023 17:43:24 Reduced movement 571552076 O36.8199 [id number] Lea Segura MD [facility] [address],[place] [address] 1 04/06/2023 16:01:53 04/06/2023 16:48:29 Chronic hypertension complicating AND/OR reason for care during 95480066 O10.013 O99.213 Z3A.32 [id number] Lea Segura MD [facility] [address],[place] [address] 1 04/06/2023 16:02:16 04/06/2023 17:21:40 Chronic hypertension complicating AND/OR reason for care during 59364546 O10.013 O99.213 Z3A.32 [id number] MD Minor Anders [address],[place] [address] 1 04/06/2023 16:02:39 05/03/2023 22:37:08 [id number] MD Minor Anders [address],[place] [address] 1 04/14/2023 15:20:06 04/14/2023 16:14:14 Chronic hypertension complicating AND/OR reason for care during 75996424 O10.013 O99.213 Z3A.33 [id number] MD Minor Anders [address],[place] [address] 1 04/14/2023 15:20:41 04/14/2023 17:59:20 Benign essential hypertension complicating , childbirth and the puerperium - not delivered 840179755 O10.019 Z3A.33 [id number] Lea Segura MD [facility] [address],[place] [address] 1 04/14/2023 15:21:03 04/15/2023 11:29:42 Chronic hypertension in obstetric context 3754190 O16.9 Severe obe sity complicating 0963084918 7267084 O99.211 [id number] Lea Segura MD [facility] [address],[place] [address] 1 04/20/2023 16:00:13 04/20/2023 17:36:43 Chronic hypertension complicating AND/OR reason for care during 19982688 O10.013 O99.213 Z3A.34 [id number] Lea Segura MD [facility] [address],[place] [address] 1 04/20/2023 16:00:36 04/20/2023 17:34:34 Chronic hypertension complicating AND/OR reason for care during 37124540 O10.013 O99.213 Z3A.34 [id number] Lea Segura MD [facility] [address],[place] [address] 1 04/20/2023 16:01:05 04/22/2023 16:05:59 Chronic hypertension in obstetric context 8743516 O16.9 Severe obe sity complicating 7210910913 1649370 O99.211 [id number] Lea Segura MD [facility] [address],[place] [address] 1 04/27/2023 16:06:06 04/27/2023 16:38:28 Chronic hypertension complicating AND/OR reason for care during 56415736 O13.3 O99.213 Z3A.35 [id number] Lea Segura MD [facility] [address],[place] [address] 1 04/27/2023 16:06:28 04/27/2023 17:16:42 Chronic hypertension complicating AND/OR reason for care during 68068257 O13.3 O99.213 Z3A.35 [id number] Lea Segura MD [facility] [address],[place] [address] 1 04/27/2023 16:07:06 04/29/2023 14:31:24 Chronic hypertension in obstetric context 7921258 O16.9 [id number] LOIS HARRISON MD [facility] [address],[place] [address] 1 05/04/2023 15:59:57 05/04/2023 16:42:13 Chronic hypertension complicating AND/OR reason for care during 09863384 O16.9 O99.213 Z3A.36 892113 LOIS HARRISON MD [facility] [address],[place] [address] 1 05/04/2023 16:00:17 05/04/2023 17:23:05 Chronic hypertension complicating AND/OR reason for care during 86953790 O16.9 O99.213 Z3A.36 [id number] LOIS HARRISON MD [facility] [address],[place] [address] 1 05/04/2023 16:01:30 05/04/2023 17:23:17 Routine care 160299278 Z34.93 [id number] Gomez Govea MD [facility] [address],[place] [address] 1 05/11/2023 16:02:32 05/11/2023 16:56:26 Chronic hypertension complicating AND/OR reason for care during 38143817 O10.013 Z3A.37 [id number] Gomez Govea MD [facility] [address],[place] [address] 1 05/11/2023 16:02:54 05/12/2023 09:43:24 -induced hypertension 54902791 O13.9 [id number] Gomez Govea MD [facility] [address],[place] [address] 1 05/11/2023 16:03:10 05/11/2023 18:03:04 Routine care 700037649 Z34.82 [id number] Gomez Govea MD [facility] [address],[place] [address] 1 06/16/2023 11:15:19 06/16/2023 12:25:19 care 616366639 Z39.2 32-year-ol d female presents for follow-up. She is breastfeed ing, she is not bleeding, she is not had sex. She is considerin g subcutaneo us implant or IUD for contracept ion. Her baby is doing well. She is doing well. She will follow-up in 2 months for woman exam. She is to call for contracept ion. [id number] Gomez Govea MD [facility] [address],[place] [address] 1 07/13/2024 14:27:34 07/13/2024 15:10:51 [id number] Mel Carlson [facility] [address],[place] [address] 1 07/13/2024 14:28:47 07/13/2024 16:18:40 Venereal disease screening 430606710 Z11.3 Amenorrhea 00004975 N91. 2 [id number] Gomez Govea MD [facility] [address],[place] [address] 1 08/11/2024 16:22:48 08/11/2024 17:16:29 screening 188288826 Z36.82 Z3A.14 [id number] LOIS HARRISON MD [facility] [address],[place] [address] 1 08/11/2024 16:58:25 08/12/2024 11:05:59 Routine care 065444636 Z34.93 Chronic hy pertension complicating AND/OR reason for care during 13361079 O16.9 O99.213 Z3A.36 - well controlled off BP meds- asymptomat ic- discussed 32 week testing and 38 week MIL Gestation period, 14 weeks 35196989 Z3A.14 [id number] LOIS HARRISON MD [facility] [address],[place] [address] 1 08/31/2024 16:37:16 09/01/2024 09:41:12 Nausea and vomiting 69776596 R11.2 Chronic hy pertension complicating AND/OR reason for care during 01386795 O16.9 - well controlled off BP meds- asymptomat ic- discussed 32 week testing and 38 week MIL Gestation period, 16 weeks 59329832 Z3A.16 [id number] Mel Carlson [facility] [address],[place] [address] 1 09/09/2024 12:08:20 09/09/2024 12:54:06 Urinary symptoms 024257306 R39.9 [id number] Gomez Govea MD [facility] [address],[place] [address] 1 09/29/2024 16:03:36 09/29/2024 17:25:26 screening for malformation 373692582 Z36.3 Z3A.21 [id number] LOIS HARRISON MD [facility] [address],[place] [address] 1 09/30/2024 16:12:13 10/03/2024 09:16:07 Nausea and vomiting in 3752858282 O21.9 Headache 10327223 R51.9 Gestation period, 21 weeks 43524061 Z3A.21 [id number] Gomez Govea MD [facility] [address],[place] [address] 1 10/25/2024 16:50:05 10/25/2024 17:52:31 screening 498009055 Z36.2 Z3A.24 [id number] LOIS HARRISON MD [facility] [address],[place] [address] 1 10/25/2024 16:54:01 11/01/2024 06:40:08 Maternal obesity complicating , childbirth and the puerperium, antepartum 3760708324 07 O99.212 - BMI 43- plan to start testing at 32 weeks for chronic HTN Chronic hy pertension complicating AND/OR reason for care during 22363548 O16.9 - well controlled off BP meds- asymptomat ic- discussed 32 week testing and 38 week MIL Gestation period, 24 weeks 661097134 Z3A.24 [id number] Gomez Govea MD [facility] [address],[place] [address] 1 12/02/2024 11:39:11 12/02/2024 13:03:20 ultrasound scan abnormal 225592837 O35.EXX0 O99.213 Z3A.30 [id number] [facility] [address],[place] [address] 12/02/2024 11:39:39 12/02/2024 13:29:17 Gestation period, 30 weeks 79015062 Z3A.30 Pruritic d isorder of skin 2745906354 L29.9 [id number] [facility] [address],[place] [address] 12/21/2024 09:23:24 12/21/2024 10:15:55 Severe obesity complicating 0281149491 7358825 O99.211 Chronic hy pertension complicating AND/OR reason for care during 92103652 O10.919 [id number] Gomez Govea MD [facility] [address],[place] [address] 1 12/21/2024 09:24:04 12/21/2024 10:40:34 Obesity 121669316 O99.213 O10.013 Z3A.32 [id number] [facility] [address] [place] [address] 1 12/21/2024 09:24:20 12/22/2024 17:47:58 [id number] [facility] [address] [place] [address] 1 12/23/2024 15:52:46 12/24/2024 11:20:42 Pruritic disorder of skin 5046035234 L29.9 Gestation period, 33 weeks 65687176 Z3A.33 Health Concerns Section Related Observation LastModified by Organization Detai ls LastModified Time None Recorded Concern Status LastModified by Organization Details LastModified Time None Recorded Advance Directives Directive N: Payers Encounter Date Sequence Insurance Name Policy Number Policy Acosta Covered Member ID Acosta Member ID Guarantor Name 12/02/2024 1 [place] [id number] Leighanna Ruholl [id number] Leighanna Ruholl 12/21/2024 1 [place] [id number] Leighanna Ruholl [id number] Leighanna Ruholl 12/21/2024 1 [place] [id number] Leighanna Ruholl [id number] Leighanna Ruholl 12/21/2024 1 [place] [id number] Leighanna Ruholl [id number] Leighanna Ruholl 12/23/2024 1 [place] [id number] Leighanna Ruholl [id number] Leighanna Ruholl OBGyn Episode Ob Episode Information Episode Created Date Number of Fetuses Patient Bloodtype Patient rh Status Prepregnancy Weight lbs Domestic Partner Domestic Partner Phone Father Name 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 pt giving up at 33+ weeks. Anemia 115444421 slowfe 1 t ab Chronic hypertension in obstetric context 6228243 supposed t o be taking labetalol 200 BID, delivery 38w Rafal Calculation Initial Rafal Date Initial Exam Date Initial Exam Provider Initial Ultrasound Date Last Menstrual Period Date Ultra Sound Weeks Gestation 06/05/2022 11/18/2021 10/18/2021 09/22/2021 7 Eighteen To Twenty Week Rafal Update Ultra Sound Date Fundal Height At Umbil Quickening Date Ultra Sound Latest Weeks Gestation Final Rafal Confirmed By Final Rafal Confirmed Date Final Rafal Date Ultra Sound Latest Days Gestation 0 [email or web address] 11/18/2021 06/05/20 22 0 Pre- Flowsheet Flowsheet Date 11/18/2021 Mark Score Blood Edema Fundus Height Fundus Units Glucose Ketones Leukocytes Nitrite Labor Signs Protein Cervic Dilation Cervic Effacement Cervic Station 12 Type Weight in lbs Pre/Post Dialysis Refused Weight 270.89637638459 BP Diastolic BP Location Tested BP Systolic BP Type 86 R arm 135 sitting Fetus Heart Rate Present A 172 Fetus Movement Comments this patient is a 31-year-ol d 2 para 0101 at 11 weeks gestation who has a history of gestational hypertension and delivery. She would like to have the weekly progesterone shots. She has no complaints today. We talked about care in detail. She is not vaccinated for COVID. She was given the recommendation. She was given recommendations on flu shot and Tdap 2. I described care care to her in detail. She is given precautions and asked to follow-up in 4 weeks. PIH labs today Flowsheet Date 12/16/2021 Mark Score Blood Edema Fundus Height Fundus Units Glucose Ketones Leukocytes Nitrite Labor Signs Protein Cervic Dilation Cervic Effacement Cervic Station neg none none trace Type Weight in lbs Pre/Post Dialysis Refused Weight 270.83910295056 BP Diastolic BP Location Tested BP Systolic BP Type 81 138 Fetus Heart Rate Present A 150 Fetus Movement A No Comments Feeling well. MENA chlamydia done. Not taking ASA, will start. Has not returned calls re Geno pt given number to call. Will start, as this is also a short interval . BP stable. Anatomy US next visit. Flowsheet Date 12/24/2021 Mark Score Blood Edema Fundus Height Fundus Units Glucose Ketones Leukocytes Nitrite Labor Signs Protein Cervic Dilation Cervic Effacement Cervic Station Type Weight in lbs Pre/Post Dialysis Refused BP Diastolic BP Location Tested BP Systolic BP Type Fetus Heart Rate Present Fetus Movement Comments Radford injection administere d in right hip, patient tolerated well. Lot [id number] [facility] 16914-663-74 Exp 07/2022. 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 Flowsheet Date 12/30/2021 Mark Score Blood Edema Fundus Height Fundus Units Glucose Ketones Leukocytes Nitrite Labor Signs Protein Cervic Dilation Cervic Effacement Cervic Station Type Weight in lbs Pre/Post Dialysis Refused BP Diastolic BP Location Tested BP Systolic BP Type Fetus Heart Rate Present Fetus Movement Comments Flowsheet Date 01/07/2022 Mark Score Blood Edema Fundus Height Fundus Units Glucose Ketones Leukocytes Nitrite Labor Signs Protein Cervic Dilation Cervic Effacement Cervic Station Type Weight in lbs Pre/Post Dialysis Refused BP Diastolic BP Location Tested BP Systolic BP Type Fetus Heart Rate Present Fetus Movement Comments Flowsheet Date 01/13/2022 Mark Score Blood Edema Fundus Height Fundus Units Glucose Ketones Leukocytes Nitrite Labor Signs Protein Cervic Dilation Cervic Effacement Cervic Station Type Weight in lbs Pre/Post Dialysis Refused BP Diastolic BP Location Tested BP Systolic BP Type Fetus Heart Rate Present Fetus Movement Comments Flowsheet Date 01/20/2022 Mark Score Blood Edema Fundus Height Fundus Units Glucose Ketones Leukocytes Nitrite Labor Signs Protein Cervic Dilation Cervic Effacement Cervic Station Type Weight in lbs Pre/Post Dialysis Refused BP Diastolic BP Location Tested BP Systolic BP Type Fetus Heart Rate Present Fetus Movement Comments Flowsheet Date 01/20/2022 Mark Score Blood Edema Fundus Height Fundus Units Glucose Ketones Leukocytes Nitrite Labor Signs Protein Cervic Dilation Cervic Effacement Cervic Station neg none 23 none trace Type Weight in lbs Pre/Post Dialysis Refused Weight 273.792284337656 BP Diastolic BP Location Tested BP Systolic BP Type 90 142 80 132 Fetus Heart Rate Present A 165 Fetus Movement A Yes Comments Doing fine. Never signed lisset trisha form, so never got mroe than first dose. Form signed today, injection given today. Her EMT trained on how to do at home on the weeks she does not have appts. She stopped her labetalol because BPS were normal at home. Discussed BP huntre in 2nd trimester and will likely need labetalol again in the third trimester. Anatomy US today complete and wnl. Flowsheet Date 01/27/2022 Mark Score Blood Edema Fundus Height Fundus Units Glucose Ketones Leukocytes Nitrite Labor Signs Protein Cervic Dilation Cervic Effacement Cervic Station Type Weight in lbs Pre/Post Dialysis Refused BP Diastolic BP Location Tested BP Systolic BP Type Fetus Heart Rate Present Fetus Movement Comments Flowsheet Date 02/17/2022 Mark Score Blood Edema Fundus Height Fundus Units Glucose Ketones Leukocytes Nitrite Labor Signs Protein Cervic Dilation Cervic Effacement Cervic Station neg trace 28 Type Weight in lbs Pre/Post Dialysis Refused Weight 277.606272927069 BP Diastolic BP Location Tested BP Systolic BP Type 88 142 Fetus Heart Rate Present A 155 Fetus Movement A Yes Comments Doing well overall. SOme int ermittent pelvic pressure. GCT next. Not getting her Geno. New insurance, will help to arrange again. Is taking labetalol. Flowsheet Date 03/12/2022 Mark Score Blood Edema Fundus Height Fundus Units Glucose Ketones Leukocytes Nitrite Labor Signs Protein Cervic Dilation Cervic Effacement Cervic Station neg trace 30 none trace Type Weight in lbs Pre/Post Dialysis Refused Weight 276.757207730574 BP Diastolic BP Location Tested BP Systolic BP Type 85 136 Fetus Heart Rate Present Fetus Movement A Yes Comments Doing fine. Still awaiting a pproval of [place] from her new insurance. No s/sx PTL. doing GCT today. Discussed and encouraged Tdap. Stopped her labetalol because didn't get around to picking up refill. Encouraged to restart. testing to start at 32w for presumed cHTN. Flowsheet Date 03/24/2022 Mark Score Blood Edema Fundus Height Fundus Units Glucose Ketones Leukocytes Nitrite Labor Signs Protein Cervic Dilation Cervic Effacement Cervic Station neg trace none trace Type Weight in lbs Pre/Post Dialysis Refused Weight 275.709038478921 BP Diastolic BP Location Tested BP Systolic BP Type 97 146 88 142 Fetus Heart Rate Present Fetus Movement A Yes Comments Flowsheet Date 04/07/2022 Mark Score Blood Edema Fundus Height Fundus Units Glucose Ketones Leukocytes Nitrite Labor Signs Protein Cervic Dilation Cervic Effacement Cervic Station Type Weight in lbs Pre/Post Dialysis Refused BP Diastolic BP Location Tested BP Systolic BP Type Fetus Heart Rate Present Fetus Movement Comments Flowsheet Date 04/07/2022 Mark Score Blood Edema Fundus Height Fundus Units Glucose Ketones Leukocytes Nitrite Labor Signs Protein Cervic Dilation Cervic Effacement Cervic Station Type Weight in lbs Pre/Post Dialysis Refused BP Diastolic BP Location Tested BP Systolic BP Type Fetus Heart Rate Present Fetus Movement Comments Flowsheet Date 04/07/2022 Mark Score Blood Edema Fundus Height Fundus Units Glucose Ketones Leukocytes Nitrite Labor Signs Protein Cervic Dilation Cervic Effacement Cervic Station none none neg Type Weight in lbs Pre/Post Dialysis Refused Weight 278.248868370558 BP Diastolic BP Location Tested BP Systolic BP Type 90 136 Fetus Heart Rate Present A 130 Fetus Movement A Yes Comments Doing well, great FM. [place] led for Tdap next week. NST reactive. US pending. BP stable on labetalol. Next week NST at [place] on holiday. Still trying to get [place]. Flowsheet Date 04/21/2022 Mark Score Blood Edema Fundus Height Fundus Units Glucose Ketones Leukocytes Nitrite Labor Signs Protein Cervic Dilation Cervic Effacement Cervic Station Type Weight in lbs Pre/Post Dialysis Refused BP Diastolic BP Location Tested BP Systolic BP Type Fetus Heart Rate Present Fetus Movement Comments Flowsheet Date 04/21/2022 Mark Score Blood Edema Fundus Height Fundus Units Glucose Ketones Leukocytes Nitrite Labor Signs Protein Cervic Dilation Cervic Effacement Cervic Station Type Weight in lbs Pre/Post Dialysis Refused BP Diastolic BP Location Tested BP Systolic BP Type Fetus Heart Rate Present Fetus Movement Comments Flowsheet Date 04/21/2022 Mark Score Blood Edema Fundus Height Fundus Units Glucose Ketones Leukocytes Nitrite Labor Signs Protein Cervic Dilation Cervic Effacement Cervic Station neg trace 37 none trace Type Weight in lbs Pre/Post Dialysis Refused Weight 279.845073643543 BP Diastolic BP Location Tested BP Systolic BP Type 86 128 Fetus Heart Rate Present A 165 Fetus Movement A Yes Comments Doing well. Giving up on L[place] trisha since almost 34w and hasn't had it most of the . BP great. BPP 05/19. Plan delivery 38w, GBs by 35ish. Flowsheet Date 04/28/2022 Mark Score Blood Edema Fundus Height Fundus Units Glucose Ketones Leukocytes Nitrite Labor Signs Protein Cervic Dilation Cervic Effacement Cervic Station Type Weight in lbs Pre/Post Dialysis Refused BP Diastolic BP Location Tested BP Systolic BP Type Fetus Heart Rate Present Fetus Movement Comments Flowsheet Date 04/28/2022 Mark Score Blood Edema Fundus Height Fundus Units Glucose Ketones Leukocytes Nitrite Labor Signs Protein Cervic Dilation Cervic Effacement Cervic Station Type Weight in lbs Pre/Post Dialysis Refused BP Diastolic BP Location Tested BP Systolic BP Type Fetus Heart Rate Present Fetus Movement Comments Flowsheet Date 04/28/2022 Mark Score Blood Edema Fundus Height Fundus Units Glucose Ketones Leukocytes Nitrite Labor Signs Protein Cervic Dilation Cervic Effacement Cervic Station trace 34 trace trace Type Weight in lbs Pre/Post Dialysis Refused Weight 279.624757101203 BP Diastolic BP Location Tested BP Systolic BP Type 97 148 Fetus Heart Rate Present A 145 Fetus Movement A Decreased Comments no complaints, normal BPP, h igh normal ASHLEE, follow-up in 1 week Flowsheet Date 04/30/2022 Mark Score Blood Edema Fundus Height Fundus Units Glucose Ketones Leukocytes Nitrite Labor Signs Protein Cervic Dilation Cervic Effacement Cervic Station Type Weight in lbs Pre/Post Dialysis Refused BP Diastolic BP Location Tested BP Systolic BP Type Fetus Heart Rate Present Fetus Movement Comments Flowsheet Date 05/05/2022 Mark Score Blood Edema Fundus Height Fundus Units Glucose Ketones Leukocytes Nitrite Labor Signs Protein Cervic Dilation Cervic Effacement Cervic Station Type Weight in lbs Pre/Post Dialysis Refused BP Diastolic BP Location Tested BP Systolic BP Type Fetus Heart Rate Present Fetus Movement Comments Flowsheet Date 05/05/2022 Mark Score Blood Edema Fundus Height Fundus Units Glucose Ketones Leukocytes Nitrite Labor Signs Protein Cervic Dilation Cervic Effacement Cervic Station Type Weight in lbs Pre/Post Dialysis Refused BP Diastolic BP Location Tested BP Systolic BP Type Fetus Heart Rate Present Fetus Movement Comments Flowsheet Date 05/05/2022 Mark Score Blood Edema Fundus Height Fundus Units Glucose Ketones Leukocytes Nitrite Labor Signs Protein Cervic Dilation Cervic Effacement Cervic Station neg trace 40 none trace 3cm 50% -3 Type Weight in lbs Pre/Post Dialysis Refused Weight 282.260851063210 BP Diastolic BP Location Tested BP Systolic BP Type 88 134 Fetus Heart Rate Present A 145 Fetus Movement A No Comments Doing ok, just uncomfortable . Good FM. GBs done and discussed. US today 94%, ASHLEE 24, BPP 05/19. Precautions given, will schedule IOL 38w for cHTN. BP good today. Flowsheet Date 05/12/2022 Mark Score Blood Edema Fundus Height Fundus Units Glucose Ketones Leukocytes Nitrite Labor Signs Protein Cervic Dilation Cervic Effacement Cervic Station Type Weight in lbs Pre/Post Dialysis Refused BP Diastolic BP Location Tested BP Systolic BP Type Fetus Heart Rate Present Fetus Movement Comments Flowsheet Date 05/12/2022 Mark Score Blood Edema Fundus Height Fundus Units Glucose Ketones Leukocytes Nitrite Labor Signs Protein Cervic Dilation Cervic Effacement Cervic Station Type Weight in lbs Pre/Post Dialysis Refused BP Diastolic BP Location Tested BP Systolic BP Type Fetus Heart Rate Present Fetus Movement Comments Flowsheet Date 05/12/2022 Mark Score Blood Edema Fundus Height Fundus Units Glucose Ketones Leukocytes Nitrite Labor Signs Protein Cervic Dilation Cervic Effacement Cervic Station neg trace none trace 4cm 60% -2 Type Weight in lbs Pre/Post Dialysis Refused Weight 278.172073246775 BP Diastolic BP Location Tested BP Systolic BP Type 87 137 Fetus Heart Rate Present A 140 Fetus Movement A Decreased Comments Really uncomforable and real ly wants to deliver. IOL next week. GBS neg. Precautions given. Less FM today, but R NST and BPP 8/8 with normal fluid. Will do kick counts. BP good. Flowsheet Date 05/19/2022 Mark Score Blood Edema Fundus Height Fundus Units Glucose Ketones Leukocytes Nitrite Labor Signs Protein Cervic Dilation Cervic Effacement Cervic Station Type Weight in lbs Pre/Post Dialysis Refused BP Diastolic BP Location Tested BP Systolic BP Type Fetus Heart Rate Present Fetus Movement Comments Flowsheet Date 05/19/2022 Mark Score Blood Edema Fundus Height Fundus Units Glucose Ketones Leukocytes Nitrite Labor Signs Protein Cervic Dilation Cervic Effacement Cervic Station Type Weight in lbs Pre/Post Dialysis Refused BP Diastolic BP Location Tested BP Systolic BP Type Fetus Heart Rate Present Fetus Movement Comments Flowsheet Date 05/19/2022 Mark Score Blood Edema Fundus Height Fundus Units Glucose Ketones Leukocytes Nitrite Labor Signs Protein Cervic Dilation Cervic Effacement Cervic Station neg none trace Type Weight in lbs Pre/Post Dialysis Refused Weight 283.959668738483 BP Diastolic BP Location Tested BP Systolic BP Type 100 150 95 152 Fetus Heart Rate Present A 140 Fetus Movement A Yes Comments Doing well, denies SAN/BV/EP. IOL in 4 days. Precautions given. Discussed IOL. Had fast delivery last labor, but was . BPP 05/19 Flowsheet Date 05/30/2022 Mark Score Blood Edema Fundus Height Fundus Units Glucose Ketones Leukocytes Nitrite Labor Signs Protein Cervic Dilation Cervic Effacement Cervic Station Type Weight in lbs Pre/Post Dialysis Refused Weight 263.589728580350 BP Diastolic BP Location Tested BP Systolic BP Type 96 150 100 152 98 130 Fetus Heart Rate Present Fetus Movement Comments Flowsheet Date 06/24/2022 Mark Score Blood Edema Fundus Height Fundus Units Glucose Ketones Leukocytes Nitrite Labor Signs Protein Cervic Dilation Cervic Effacement Cervic Station Type Weight in lbs Pre/Post Dialysis Refused Weight 264.079475245070 BP Diastolic BP Location Tested BP Systolic BP Type 86 139 Fetus Heart Rate Present Fetus Movement Comments Menstrual History Last Menstrual Date Menses Monthly On Bcp Conception Prior Menses Frequency Hcg Plus Date Menarche Onset Age 0209/22/2021 Genetic Screening And Infection History Question Response Note Mental Retardation/Autism false Patient's Age Will Be 35 Years Or Older At Estim ated Date of Delivery false Thalassemia (Cambodian, Upper Sorbian, Mediterranean, Or Background): MCV < 80 false Neural Tube Defect (Meningomyelocele, Spina Bifi da, Or Anencephaly) false Congenital Heart Defect false Down Syndrome false Shailesh-Sachs (eg, Pentecostal, Cajun, Palauan-German) f alse Daisy Disease false Sickle Cell Disease Or Trait () false Hemophilia Or Other Blood Disorders false Muscular Dystrophy false Cystic Fibrosis false Plumas's Chorea false Intellectual Disability/Autism false If Yes, Was Person Tested For Fragile X? false Other Inherited Genetic Or Chromosomal Disorder false Maternal Metabolic Disorder (eg, Type 1 Diabetes , PKU) false Patient Or Baby's Father Had A Child With Defects Not Listed Above false Recurrent Loss, Or A Stillbirth false Medications (including Suppl ements, Vitamins, Herbs, OTC Drugs), Illicit/Recreational Drugs, Alcohol false If Yes, Agent(s) And Strength/Dosage false Any Other Genetic History false Live With Someone With TB Or Exposed To TB false Patient Or Partner Has History Of Genital Herpes false Rash Or Viral Illness Since Last Menstrual Perio d false History Of STD, Gonorrhea, Chlamydia, HPV, Syphi lis false Other Infection History false History of HIV false History of Hepatitis false Prior GBS-infected child false Hemoglobinopathy Or Carrier false Other Structural Defect false Recent Travel History Outside of Country false Delivery Information Delivery Date Delivery Type Labor Anesthesia Weeks Gestation Incision Type Labor Labor Length Hrs Delivered By Post Complications Tubal Sterilization Discharge Date Comments 2 Induce d Regional-Ep idural 38.1 false Lea Segura MD CHTN & Maternal Obesity Discharge Information Feeding Method Contraceptive Method Maternal HG B and HCT Levels Breast Ob Episode Information Episode Created Date Number of Fetuses Patient Bloodtype Patient rh Status Prepregnancy Weight lbs Domestic Partner Domestic Partner Phone Father Name 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 Status 11/13/19 23 1 269 CLOSED Fetus Data First Name Last Name Admitted to NICU Weight (g) Sex Living Outcome Pediatric Complications Fetus ID Race Codes Race Delivery Type 3146.79 45 F true Full Term [id number] Vaginal Delivery Problems Problem Notes cf/sma negative 11/18/2021, 3RD IN LESS THAN 2 YEARS Problem Name Start Date End Date Resolution Snomed Code Not e Obesity [id number] testing @ 34wks Social problem [id number] [place] with worsening MS, can barely walk Chlamydial infection 09/24/2022 [id number] MENA neg - recheck 3rd trimester! Chronic hypertension in obstetric context [id number] supposed t o be taking labetalol 200 BID, delivery 38w, ante testing 32w Premature delivery [id number] 3 6 weeks - first Rafal Calculation Initial Rafal Date Initial Exam Date Initial Exam Provider Initial Ultrasound Date Last Menstrual Period Date Ultra Sound Weeks Gestation 05/29/2023 11/12/2022 10/13/2022 08/22/2022 7 Eighteen To Twenty Week Rafal Update Ultra Sound Date Fundal Height At Umbil Quickening Date Ultra Sound Latest Weeks Gestation Final Rafal Confirmed By Final Rafal Confirmed Date Final Rafal Date Ultra Sound Latest Days Gestation 0 [email or web address] 11/12/2022 05/29/20 23 0 Pre-annmarie Flowsheet Flowsheet Date 11/12/2022 Mark Score Blood Edema Fundus Height Fundus Units Glucose Ketones Leukocytes Nitrite Labor Signs Protein Cervic Dilation Cervic Effacement Cervic Station 11 Type Weight in lbs Pre/Post Dialysis Refused Weight 274.062234902174 BP Diastolic BP Location Tested BP Systolic BP Type 85 R arm 130 sitting Fetus Heart Rate Present A 156 Fetus Movement Comments This patient is a 32-year-ol d 3 para 08/10/2002 at 11 weeks gestation who presents for initial care. She has had consecutive vaginal births of moderate-sized babies this will be her 3rd in less than 2 years. She has no complaints. History of gestational hypertension, chronic hypertension this ,1st baby was delivery.. We revisited care in great detail. She has not been infected with COVID or vaccinated. Flowsheet Date 12/10/2022 Mark Score Blood Edema Fundus Height Fundus Units Glucose Ketones Leukocytes Nitrite Labor Signs Protein Cervic Dilation Cervic Effacement Cervic Station 16 none trace Type Weight in lbs Pre/Post Dialysis Refused Weight 277.687191974291 BP Diastolic BP Location Tested BP Systolic BP Type 84 R arm 136 sitting Fetus Heart Rate Present A 155 Fetus Movement Comments Blood pressure stable on lab etalol. , no complaints, routine care. Flowsheet Date 01/13/2023 Mark Score Blood Edema Fundus Height Fundus Units Glucose Ketones Leukocytes Nitrite Labor Signs Protein Cervic Dilation Cervic Effacement Cervic Station Type Weight in lbs Pre/Post Dialysis Refused BP Diastolic BP Location Tested BP Systolic BP Type Fetus Heart Rate Present Fetus Movement Comments Flowsheet Date 01/13/2023 Mark Score Blood Edema Fundus Height Fundus Units Glucose Ketones Leukocytes Nitrite Labor Signs Protein Cervic Dilation Cervic Effacement Cervic Station neg trace none trace Type Weight in lbs Pre/Post Dialysis Refused Weight 278.302274796106 BP Diastolic BP Location Tested BP Systolic BP Type 88 138 Fetus Heart Rate Present A 165 Fetus Movement A Yes Comments Doing fine herself, but her 's MS is really bad right now, he can barely walk, and she is struggling to find a neurologist that will take his medicaid. Support given. US today anatomy complete and wnl. Plan growth and ante testing for cHTN. Is taking her labetalol. Flowsheet Date 02/09/2023 Mark Score Blood Edema Fundus Height Fundus Units Glucose Ketones Leukocytes Nitrite Labor Signs Protein Cervic Dilation Cervic Effacement Cervic Station neg trace 27 none trace Type Weight in lbs Pre/Post Dialysis Refused Weight 284.543936770877 BP Diastolic BP Location Tested BP Systolic BP Type 91 139 Fetus Heart Rate Present A 155 Fetus Movement A Yes Comments Doing well, no obstetrical c oncerns. GCT next visit. Growth US next visit. Schedule ante testing next visit. Flowsheet Date 03/11/2023 Mark Score Blood Edema Fundus Height Fundus Units Glucose Ketones Leukocytes Nitrite Labor Signs Protein Cervic Dilation Cervic Effacement Cervic Station Type Weight in lbs Pre/Post Dialysis Refused BP Diastolic BP Location Tested BP Systolic BP Type Fetus Heart Rate Present Fetus Movement Comments Flowsheet Date 03/11/2023 Mark Score Blood Edema Fundus Height Fundus Units Glucose Ketones Leukocytes Nitrite Labor Signs Protein Cervic Dilation Cervic Effacement Cervic Station neg trace none trace Type Weight in lbs Pre/Post Dialysis Refused Weight 290.1598395273 BP Diastolic BP Location Tested BP Systolic BP Type 85 145 90 140 Fetus Heart Rate Present A 150 Fetus Movement A Yes Comments Doing ok except for 2 weeks feeling thirsty, more gerd, vomiting liquids only. Will switch from tums to pepcid. GCT today. WIll do Tdap. US today 56% and BREECH. doing better on meds. BP stable. Discuss contraception next. Flowsheet Date 03/25/2023 Mark Score Blood Edema Fundus Height Fundus Units Glucose Ketones Leukocytes Nitrite Labor Signs Protein Cervic Dilation Cervic Effacement Cervic Station neg trace none trace Type Weight in lbs Pre/Post Dialysis Refused Weight 294.198223108645 BP Diastolic BP Location Tested BP Systolic BP Type 97 145 90 150 Fetus Heart Rate Present A 140 Fetus Movement A Decreased Comments Reports almost no FM for a w [place]. Hasn't slept much in the same amount of time. NST reactive for GA, plenty of FM heard on NST, pt states she does not feel it. Discussed kick counts and to be monitored if not feeling movement. US 2w when testing starts. Is taking iron. GCT wnl. Will do Tdap. SOme back pain, thinks she has UTI- UC sent. Discussed BC as has had 3 pregnancies in a row. She is considering a [facility], info given. Flowsheet Date 03/25/2023 Mark Score Blood Edema Fundus Height Fundus Units Glucose Ketones Leukocytes Nitrite Labor Signs Protein Cervic Dilation Cervic Effacement Cervic Station Type Weight in lbs Pre/Post Dialysis Refused BP Diastolic BP Location Tested BP Systolic BP Type Fetus Heart Rate Present Fetus Movement Comments Flowsheet Date 04/06/2023 Mark Score Blood Edema Fundus Height Fundus Units Glucose Ketones Leukocytes Nitrite Labor Signs Protein Cervic Dilation Cervic Effacement Cervic Station Type Weight in lbs Pre/Post Dialysis Refused BP Diastolic BP Location Tested BP Systolic BP Type Fetus Heart Rate Present Fetus Movement Comments Flowsheet Date 04/06/2023 Mark Score Blood Edema Fundus Height Fundus Units Glucose Ketones Leukocytes Nitrite Labor Signs Protein Cervic Dilation Cervic Effacement Cervic Station Type Weight in lbs Pre/Post Dialysis Refused BP Diastolic BP Location Tested BP Systolic BP Type Fetus Heart Rate Present Fetus Movement Comments Flowsheet Date 04/06/2023 Mark Score Blood Edema Fundus Height Fundus Units Glucose Ketones Leukocytes Nitrite Labor Signs Protein Cervic Dilation Cervic Effacement Cervic Station Type Weight in lbs Pre/Post Dialysis Refused BP Diastolic BP Location Tested BP Systolic BP Type Fetus Heart Rate Present Fetus Movement Comments Flowsheet Date 04/14/2023 Mark Score Blood Edema Fundus Height Fundus Units Glucose Ketones Leukocytes Nitrite Labor Signs Protein Cervic Dilation Cervic Effacement Cervic Station Type Weight in lbs Pre/Post Dialysis Refused BP Diastolic BP Location Tested BP Systolic BP Type Fetus Heart Rate Present Fetus Movement Comments Flowsheet Date 04/14/2023 Mark Score Blood Edema Fundus Height Fundus Units Glucose Ketones Leukocytes Nitrite Labor Signs Protein Cervic Dilation Cervic Effacement Cervic Station Type Weight in lbs Pre/Post Dialysis Refused BP Diastolic BP Location Tested BP Systolic BP Type Fetus Heart Rate Present Fetus Movement Comments Flowsheet Date 04/14/2023 Mark Score Blood Edema Fundus Height Fundus Units Glucose Ketones Leukocytes Nitrite Labor Signs Protein Cervic Dilation Cervic Effacement Cervic Station neg trace none trace Type Weight in lbs Pre/Post Dialysis Refused Weight 293.195247263231 BP Diastolic BP Location Tested BP Systolic BP Type 88 132 Fetus Heart Rate Present A 155 Fetus Movement A Yes Comments Doing well. BPP 8/8, NST non reactive. Vertex now. Some BH and mucous. Precautions given. BP at baseline. Flowsheet Date 04/20/2023 Mark Score Blood Edema Fundus Height Fundus Units Glucose Ketones Leukocytes Nitrite Labor Signs Protein Cervic Dilation Cervic Effacement Cervic Station Type Weight in lbs Pre/Post Dialysis Refused BP Diastolic BP Location Tested BP Systolic BP Type Fetus Heart Rate Present Fetus Movement Comments Flowsheet Date 04/20/2023 Mark Score Blood Edema Fundus Height Fundus Units Glucose Ketones Leukocytes Nitrite Labor Signs Protein Cervic Dilation Cervic Effacement Cervic Station Type Weight in lbs Pre/Post Dialysis Refused BP Diastolic BP Location Tested BP Systolic BP Type Fetus Heart Rate Present Fetus Movement Comments Flowsheet Date 04/20/2023 Mark Score Blood Edema Fundus Height Fundus Units Glucose Ketones Leukocytes Nitrite Labor Signs Protein Cervic Dilation Cervic Effacement Cervic Station neg trace none trace Type Weight in lbs Pre/Post Dialysis Refused Weight 290.8234446041 BP Diastolic BP Location Tested BP Systolic BP Type 96 144 90 142 Fetus Heart Rate Present A 160 Fetus Movement A Yes Comments Doing fine. Planning nexplan on after delivery. BP a little higher than usual, will do PIH labs. FLu shot done, Tdap this week. Wants to schedule IOL next week. BPP 05/19. Flowsheet Date 04/27/2023 Mark Score Blood Edema Fundus Height Fundus Units Glucose Ketones Leukocytes Nitrite Labor Signs Protein Cervic Dilation Cervic Effacement Cervic Station Type Weight in lbs Pre/Post Dialysis Refused BP Diastolic BP Location Tested BP Systolic BP Type Fetus Heart Rate Present Fetus Movement Comments Flowsheet Date 04/27/2023 Mark Score Blood Edema Fundus Height Fundus Units Glucose Ketones Leukocytes Nitrite Labor Signs Protein Cervic Dilation Cervic Effacement Cervic Station Type Weight in lbs Pre/Post Dialysis Refused BP Diastolic BP Location Tested BP Systolic BP Type Fetus Heart Rate Present Fetus Movement Comments Flowsheet Date 04/27/2023 Mark Score Blood Edema Fundus Height Fundus Units Glucose Ketones Leukocytes Nitrite Labor Signs Protein Cervic Dilation Cervic Effacement Cervic Station neg trace trace trace 3cm 50% -2 Type Weight in lbs Pre/Post Dialysis Refused Weight 292.069533776042 BP Diastolic BP Location Tested BP Systolic BP Type 94 148 Fetus Heart Rate Present A 155 Fetus Movement A Yes Comments Doing fine. PIH labs last we ek wnl. PC ratio 0.12. IOL scheduled for 38w on 05/15. Discussed may need delivery before depending on BPs. Is having a stressful few weeks. Precautions given. Denies any PreE sx. Flowsheet Date 05/04/2023 Mark Score Blood Edema Fundus Height Fundus Units Glucose Ketones Leukocytes Nitrite Labor Signs Protein Cervic Dilation Cervic Effacement Cervic Station Type Weight in lbs Pre/Post Dialysis Refused BP Diastolic BP Location Tested BP Systolic BP Type Fetus Heart Rate Present Fetus Movement Comments Flowsheet Date 05/04/2023 Mark Score Blood Edema Fundus Height Fundus Units Glucose Ketones Leukocytes Nitrite Labor Signs Protein Cervic Dilation Cervic Effacement Cervic Station Type Weight in lbs Pre/Post Dialysis Refused BP Diastolic BP Location Tested BP Systolic BP Type Fetus Heart Rate Present Fetus Movement Comments Flowsheet Date 05/04/2023 Mark Score Blood Edema Fundus Height Fundus Units Glucose Ketones Leukocytes Nitrite Labor Signs Protein Cervic Dilation Cervic Effacement Cervic Station trace none neg Type Weight in lbs Pre/Post Dialysis Refused Weight 295.947730500047 BP Diastolic BP Location Tested BP Systolic BP Type 87 144 Fetus Heart Rate Present A 130 Fetus Movement A Yes Comments Reports painful contractions at night. Also reports leakage of clear fluid with standing and coughing. No vaginal bleeding. Good movement. Swelling stable. Denies other preeclampsia symptoms. BP stable. Sent to L&D for rule out rupture. BPP 03/17. NST reactive. Flowsheet Date 05/11/2023 Mark Score Blood Edema Fundus Height Fundus Units Glucose Ketones Leukocytes Nitrite Labor Signs Protein Cervic Dilation Cervic Effacement Cervic Station Type Weight in lbs Pre/Post Dialysis Refused BP Diastolic BP Location Tested BP Systolic BP Type Fetus Heart Rate Present Fetus Movement Comments Flowsheet Date 05/11/2023 Mark Score Blood Edema Fundus Height Fundus Units Glucose Ketones Leukocytes Nitrite Labor Signs Protein Cervic Dilation Cervic Effacement Cervic Station Type Weight in lbs Pre/Post Dialysis Refused BP Diastolic BP Location Tested BP Systolic BP Type Fetus Heart Rate Present Fetus Movement Comments Flowsheet Date 05/11/2023 Mark Score Blood Edema Fundus Height Fundus Units Glucose Ketones Leukocytes Nitrite Labor Signs Protein Cervic Dilation Cervic Effacement Cervic Station 37 Type Weight in lbs Pre/Post Dialysis Refused Weight 293.225078155535 BP Diastolic BP Location Tested BP Systolic BP Type 95 R arm 145 sitting Fetus Heart Rate Present A 145 Fetus Movement Comments Complaints, no problems, to induce in 4 days for chronic hypertension. Menstrual History Last Menstrual Date Menses Monthly On Bcp Conception Prior Menses Frequency Hcg Plus Date Menarche Onset Age 0108/22/2022 Genetic Screening And Infection History Question Response Note Mental Retardation/Autism false Patient's Age Will Be 35 Years Or Older At Estim ated Date of Delivery false Thalassemia (Cambodian, Upper Sorbian, Mediterranean, Or Background): MCV < 80 false Neural Tube Defect (Meningomyelocele, Spina Bifi da, Or Anencephaly) false Congenital Heart Defect false Down Syndrome false Shailesh-Sachs (eg, Pentecostal, Cajun, Palauan-German) f alse Daisy Disease false Sickle Cell Disease Or Trait () false Hemophilia Or Other Blood Disorders false Muscular Dystrophy false Cystic Fibrosis false Plumas's Chorea false Intellectual Disability/Autism false If Yes, Was Person Tested For Fragile X? false Other Inherited Genetic Or Chromosomal Disorder false Maternal Metabolic Disorder (eg, Type 1 Diabetes , PKU) false Patient Or Baby's Father Had A Child With Defects Not Listed Above false Recurrent Loss, Or A Stillbirth false Medications (including Suppl ements, Vitamins, Herbs, OTC Drugs), Illicit/Recreational Drugs, Alcohol false If Yes, Agent(s) And Strength/Dosage false Any Other Genetic History false Live With Someone With TB Or Exposed To TB false Patient Or Partner Has History Of Genital Herpes false Rash Or Viral Illness Since Last Menstrual Perio d false History Of STD, Gonorrhea, Chlamydia, HPV, Syphi lis false Other Infection History false History of HIV false History of Hepatitis false Prior GBS-infected child false Hemoglobinopathy Or Carrier false Other Structural Defect false Recent Travel History Outside of Country false Delivery Information Delivery Date Delivery Type Labor Anesthesia Weeks Gestation Incision Type Labor Labor Length Hrs Delivered By Post Complications Tubal Sterilization Discharge Date Comments 3 Induce d [facility] 38 oGmez Escobedo MD Chlamydia l infection , GHTN, Chronic hypertens ion in obstetric context, Obesity Discharge Information Feeding Method Contraceptive Method Maternal HG B and HCT Levels Ob Episode Information Episode Created Date Number of Fetuses Patient Bloodtype Patient rh Status Prepregnancy Weight lbs Domestic Partner Domestic Partner Phone Father Name 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 Status 10/18/19 22 1 CLOSED Fetus Data First Name Last Name Admitted to NICU Weight (g) Sex Living Outcome Pediatric Complications Fetus ID Race Codes Race Delivery Type 2948.34 8 M Prematur e [id number] Vaginal Delivery Rafal Calculation Initial Rafal Date Initial Exam Date Initial Exam Provider Initial Ultrasound Date Last Menstrual Period Date Ultra Sound Weeks Gestation 0 Eighteen To Twenty Week Rafal Update Ultra Sound Date Fundal Height At Umbil Quickening Date Ultra Sound Latest Weeks Gestation Final Rafal Confirmed By Final Rafal Confirmed Date Final Rafal Date Ultra Sound Latest Days Gestation 0 0 Menstrual History Last Menstrual Date Menses Monthly On Bcp Conception Prior Menses Frequency Hcg Plus Date Menarche Onset Age Delivery Information Delivery Date Delivery Type Labor Anesthesia Weeks Gestation Incision Type Labor Labor Length Hrs Delivered By Post Complications Tubal Sterilization Discharge Date Comments 1 36.3 true GHTN Discharge Information Feeding Method Contraceptive Method Maternal HG B and HCT Levels Ob Episode Information Episode Created Date Number of Fetuses Patient Bloodtype Patient rh Status Prepregnancy Weight lbs Domestic Partner Domestic Partner Phone Father Name 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 Status 08/11/19 25 1 A Positive OPEN Fetus Data First Name Last Name Admitted to NICU Weight (g) Sex Living Outcome Pediatric Complications Fetus ID Race Codes Race Delivery Type [id number] Problems Problem Notes Problem Name Start Date End Date Resolution Snomed Code Not e Erythema nodosum [id number] Body mass index 40+ - severely obese 143930347 BMI testing to start at 34wks Maternal hypertension [id number] 1 delivered at 38 weeks in last two pregnancies, well controlled without medications; baseline labs ordered; discussed 32 week testing and 38 week MIL Dilatation of renal pelvis [id number] Anemia of 12/05/2024 [id number] Rafal Calculation Initial Rafal Date Initial Exam Date Initial Exam Provider Initial Ultrasound Date Last Menstrual Period Date Ultra Sound Weeks Gestation 02/09/2025 08/11/2024 07/13/2024 05/05/2024 9 Eighteen To Twenty Week Rafal Update Ultra Sound Date Fundal Height At Umbil Quickening Date Ultra Sound Latest Weeks Gestation Final Rafal Confirmed By Final Rafal Confirmed Date Final Rafal Date Ultra Sound Latest Days Gestation 0 [email or web address] 08/11/2024 02/10/20 25 0 Pre- Flowsheet Flowsheet Date 08/11/2024 Mark Score Blood Edema Fundus Height Fundus Units Glucose Ketones Leukocytes Nitrite Labor Signs Protein Cervic Dilation Cervic Effacement Cervic Station Type Weight in lbs Pre/Post Dialysis Refused Weight 272.416094693464 BP Diastolic BP Location Tested BP Systolic BP Type 84 L arm 136 sitting Fetus Heart Rate Present A Present Fetus Movement Comments Patient presents to [facility] care. Has had some swelling in her legs already, no calf pain or redness. Hx of cHTN with her prior two pregnancies, well controlled off of medications. Discussed ldASA ppx starting now. Also discussed 32 week testing and 38 week MIL. otherwise uncomplicated. No severe nausea or cramping. NT/NB wnl today, declines NIPT. Will draw new OB labs today. RTC 4 weeks for routine care. Flowsheet Date 08/31/2024 Mark Score Blood Edema Fundus Height Fundus Units Glucose Ketones Leukocytes Nitrite Labor Signs Protein Cervic Dilation Cervic Effacement Cervic Station neg trace Type Weight in lbs Pre/Post Dialysis Refused 276.573109862992 BP Diastolic BP Location Tested BP Systolic BP Type 88 L arm 142 sitting Fetus Heart Rate Present A 140 Fetus Movement A Yes Comments Patient c/o slight nausea, l ower back pain, and constant leg pain. Erythema nodosum of , discussed tylenol, heating pad, compression stockings. Denies symptoms of preeclampsia. Started ldASA. Discussed anatomy US for next visit. Other new OB labs wnl. RTC 4 weeks. Flowsheet Date 09/09/2024 Mark Score Blood Edema Fundus Height Fundus Units Glucose Ketones Leukocytes Nitrite Labor Signs Protein Cervic Dilation Cervic Effacement Cervic Station neg none Type Weight in lbs Pre/Post Dialysis Refused 276.015125489145 BP Diastolic BP Location Tested BP Systolic BP Type 95 136 Fetus Heart Rate Present A 155 Present Fetus Movement A Decreased Comments Patient is having left abdom inal pain, back and leg pain, nausea and vomiting and decrease movement since yesterday. increase hydration good FHR, send urine for culture, hip/ back stretches f/u ob as scheduled. ED precautions reviewed Flowsheet Date 09/29/2024 Mark Score Blood Edema Fundus Height Fundus Units Glucose Ketones Leukocytes Nitrite Labor Signs Protein Cervic Dilation Cervic Effacement Cervic Station Type Weight in lbs Pre/Post Dialysis Refused BP Diastolic BP Location Tested BP Systolic BP Type Fetus Heart Rate Present Fetus Movement Comments Flowsheet Date 09/30/2024 Mark Score Blood Edema Fundus Height Fundus Units Glucose Ketones Leukocytes Nitrite Labor Signs Protein Cervic Dilation Cervic Effacement Cervic Station neg none Type Weight in lbs Pre/Post Dialysis Refused Weight 278.84704849601 BP Diastolic BP Location Tested BP Systolic BP Type 87 L arm 144 sitting Fetus Heart Rate Present A 150 Fetus Movement A Yes Comments Patient c/o of lower abdomen pains, and slight nausea. Patient reports increased headaches, unrelieved with tylenol. Will try reglan and sumatriptan. Anatomy incomplete, need AA, spine and lateral foot views. Repeat in 4 weeks. RTC 4 weeks. Flowsheet Date 10/25/2024 Mark Score Blood Edema Fundus Height Fundus Units Glucose Ketones Leukocytes Nitrite Labor Signs Protein Cervic Dilation Cervic Effacement Cervic Station Type Weight in lbs Pre/Post Dialysis Refused BP Diastolic BP Location Tested BP Systolic BP Type Fetus Heart Rate Present Fetus Movement Comments Flowsheet Date 10/25/2024 Mark Score Blood Edema Fundus Height Fundus Units Glucose Ketones Leukocytes Nitrite Labor Signs Protein Cervic Dilation Cervic Effacement Cervic Station neg none Type Weight in lbs Pre/Post Dialysis Refused Weight 281.340172511062 BP Diastolic BP Location Tested BP Systolic BP Type 83 L arm 139 sitting Fetus Heart Rate Present A Present Fetus Movement A Yes Comments Good movement. No cram ping or bleeding. Headaches resolved overall. Having a boy! Discussd GCT and labs for next visit. EFW 72%, anatomy now complete and normal aside from mild bilateral pyelectasis. Repeat in 4 weeks. RTC 4 weeks. Flowsheet Date 12/02/2024 Mark Score Blood Edema Fundus Height Fundus Units Glucose Ketones Leukocytes Nitrite Labor Signs Protein Cervic Dilation Cervic Effacement Cervic Station Type Weight in lbs Pre/Post Dialysis Refused BP Diastolic BP Location Tested BP Systolic BP Type Fetus Heart Rate Present Fetus Movement Comments Flowsheet Date 12/02/2024 Mark Score Blood Edema Fundus Height Fundus Units Glucose Ketones Leukocytes Nitrite Labor Signs Protein Cervic Dilation Cervic Effacement Cervic Station neg trace Type Weight in lbs Pre/Post Dialysis Refused 281.946405028734 BP Diastolic BP Location Tested BP Systolic BP Type 88 145 Fetus Heart Rate Present Fetus Movement A Yes Comments Patient is having cramping i n legs, rash all over and swelling. reviewed US, mild dilation bilateral renal pelvis, breech, start testing, hydroxyzine called to pharmacy precautions and education f/u 2 weeks Flowsheet Date 12/21/2024 Mark Score Blood Edema Fundus Height Fundus Units Glucose Ketones Leukocytes Nitrite Labor Signs Protein Cervic Dilation Cervic Effacement Cervic Station Type Weight in lbs Pre/Post Dialysis Refused 284.066965374191 BP Diastolic BP Location Tested BP Systolic BP Type 84 L arm 126 sitting Fetus Heart Rate Present Fetus Movement A Yes Comments Flowsheet Date 12/21/2024 Mark Score Blood Edema Fundus Height Fundus Units Glucose Ketones Leukocytes Nitrite Labor Signs Protein Cervic Dilation Cervic Effacement Cervic Station Type Weight in lbs Pre/Post Dialysis Refused BP Diastolic BP Location Tested BP Systolic BP Type Fetus Heart Rate Present Fetus Movement Comments Flowsheet Date 12/21/2024 Mark Score Blood Edema Fundus Height Fundus Units Glucose Ketones Leukocytes Nitrite Labor Signs Protein Cervic Dilation Cervic Effacement Cervic Station Type Weight in lbs Pre/Post Dialysis Refused BP Diastolic BP Location Tested BP Systolic BP Type Fetus Heart Rate Present Fetus Movement Comments Flowsheet Date 12/23/2024 Mark Score Blood Edema Fundus Height Fundus Units Glucose Ketones Leukocytes Nitrite Labor Signs Protein Cervic Dilation Cervic Effacement Cervic Station neg trace 148 cm Type Weight in lbs Pre/Post Dialysis Refused 285.307966363729 BP Diastolic BP Location Tested BP Systolic BP Type 90 142 Fetus Heart Rate Present Fetus Movement A Yes Comments Patient is having itching, p ain, contractions, discharge and swelling. reviewd bpp 05/19 +FM check labs precautions and education f/u one week. call for preadmit Menstrual History Last Menstrual Date Menses Monthly On Bcp Conception Prior Menses Frequency Hcg Plus Date Menarche Onset Age 0905/05/2025 Delivery Information Delivery Date Delivery Type Labor Anesthesia Weeks Gestation Incision Type Labor Labor Length Hrs Delivered By Post Complications Tubal Sterilization Discharge Date Comments Discharge Information Feeding Method Contraceptive Method Maternal HG B and HCT Levels
--- OUTSIDE RECORDS SUMMARY | 2024-12-26 11:47 | XMS_ITS | Data Portability ---
Author Organization [facility] , [facility] Address [address] [place] [address] Assessment Encounter Date Assessment Date Assessment LastModified by Organization Details LastModified Time 06/18/2021 06/18/2021 Continue twice weekly NST's and weekly BPP. IOL scheduled on 06/26 at 2000. [email or web address] Not available 06/18/2021 17:39:27 Plan of Treatment Reminders Order Date Submit Date Provider Last Modified By Organization Details Last Modified Time Details Appointments None recorded. Lab None recorded. Referral None recorded. Procedures None recorded. Surgeries None recorded. Imaging US, obstetric, biophysical profile + non-stress test 2020 021 [email or web address] Not available 17:40:58 Medication Orders None recorded. Patient TargetsNo targets recorded. Patient Instructions Encounter Date Encounter Id Patient Instructions Last Modified By Organization Details Last Modified Time 07/08/2021 [id number] edinburgh depression scale* [email or web address] Not available 07/08/2021 13:24:36 08/05/2021 [id number] Care at Home With Your Baby: Care Instructions [email or web address] Not available 08/05/2021 12:09:08 edinburgh depression scale* [email or web address] Not available 09/12/2021 17:39:37 control after counseling [email or web address] Not available 08/05/2021 12:09:08 Reason for Referral None Reported. Results Created Date Observation Date Name Description Value Unit Range Abnormal Flag Note LastModifiedBy Organization Detail LastModifiedTime 06/18/20 21 06/18/2021 US, obste tric, bioph ysica l profi le + non-s tress test No observ ation record ed. [email or web address] [address], [place], [address], 06/20/2021 17:10:44 07/11/2006/18/2021 US, obste tric, bioph ysica l profi le + non-s tress test No observ ation record ed. [email or web address] [address], [place], [address], 08/27/2021 16:56:30 Result Notes None recorded. 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 ; Severity : Moderate Progress : Stable Added By: Bianca Garcia Add to Current Problems : YES ProblemS tatus: Current Evelyn Castellanos null, [place] [facility] IV 16:24:51 Gestatio n period, 20 weeks [id number] Completed 202006/18/2021 20 weeks gestatio n of pregnanc y; Severity : Moderate Progress : Stable Added By: Hailey Stover Add to Current Problems : YES ProblemS tatus: Current Evelyn Castellanos null, [place] [facility] IV 16:24:56 Syphilis test finding [id number] Completed 202006/18/2021 Encounte r for screenin g for infectio ns with a predomin antly sexual mode of transmis tiffany; Severity : Moderate Progress : Stable Added By: Evelyn Castellanos Add to Current Problems : YES ProblemS tatus: Current Evelyn Castellanos null, [place] [facility] IV 16:24:33 Gestatio n period, 17 weeks [id number] Completed 202006/18/2021 17 weeks gestatio n of pregnanc y; Severity : Moderate Progress : Stable Added By: Bianca Garcia Add to Current Problems : YES ProblemS tatus: Current Evelyn Castellanos null, [place] [facility] IV 16:24:24 Pregnanc y, childbir th and puerperi um finding Completed 202006/18/2021 Encounte r for supervis ion of normal first pregnanc y, second trimeste r; Severity : Moderate Progress : Stable Added By: Evelyn Castellanos Add to Current Problems : YES ProblemS tatus: Current Evelyn Castellanos null, [place] [facility] 16:24:45 Clinical finding Completed 202006/18/2021 Other specifie d pregnanc y related conditio ns, unspecif ied trimeste r; Severity : Moderate Progress : Stable Added By: Tabby Atwood Add to Current Problems : YES ProblemS tatus: Current Evelyn Cheng null, [facility] IV 16:25:02 Clinical finding Completed 202006/18/2021 Other general symptoms and signs; Severity : Moderate Progress : Stable Added By: Tabby Atwood Add to Current Problems : YES ProblemS tatus: Current Evelyn Castellanos null, [place] [facility] IV 16:24:59 Pregnanc y, childbir th and puerperi um finding Completed 202006/18/2021 Encounte r for supervis ion of normal first pregnanc y, first trimeste r; Severity : Moderate Progress : Stable Added By: Evelyn Castellanos Add to Current Problems : YES ProblemS tatus: Current Evelyn Cheng null, [place] [facility] 16:24:43 Maternal hyperten tiffany 144153564 Active 2020 Gestatio nal [pregnan cy-induc ed] hyperten tiffany without signific ant proteinu merari, second trimeste r; Progress : Stable Added By: Alesha Mendez Add to Current Problems : YES ProblemS tatus: Current Not Available [facility] 2 15:23:57 Pregnanc y, childbir th and puerperi um finding Active 2020 Encounte r for supervis ion of normal first pregnanc y, third trimeste r; Progress : Stable Added By: Hailey Stover Add to Current Problems : YES ProblemS tatus: Current Not Available [facility] 2 15:23:56 Gestatio n period, 24 weeks [id number] Completed 202006/18/2021 24 weeks gestatio n of pregnanc y; Severity : Moderate Progress : Stable Added By: Evelyn Castellanos Add to Current Problems : YES ProblemS tatus: Current Evelyn Castellanos null, [facility] 16:24:26 Gestatio n period, 28 weeks [id number] Completed 202006/18/2021 28 weeks gestatio n of pregnanc y; Severity : Moderate Progress : Stable Added By: Suellen Taylor Add to Current Problems : YES ProblemS tatus: Current Evelyn Castellanos null, [facility] 16:24:28 Normal pregnanc y in multigra kyle [id number] 4106 Completed 202006/18/2021 Encounte r for supervis ion of other normal pregnanc y, third trimeste r; Severity : Moderate Progress : Stable Added By: Suellen Taylor Add to Current Problems : YES ProblemS tatus: Current Arlene Mcmahan MD [address] [facility], [place], [address] , [place] [facility] IV 17:15:20 Gestatio n period, 29 weeks 11613087 Completed 202006/18/2021 29 weeks gestatio n of pregnanc y; Severity : Moderate Progress : Stable Added By: Hailey Stover Add to Current Problems : YES ProblemS tatus: Current Evelyn Castellanos null, [facility] 16:24:53 Pregnanc y 27242852 Completed 202008/05/2021 Hailey Stover null, [facility] 12/27/202 1 11:32:02 Blood pressure taking Active 2020 Encounte r for examinat ion of blood pressure without abnormal findings ; Progress : Stable Added By: Hailey Stover Add to Current Problems : YES ProblemS tatus: Current Not Available [facility] 2 15:23:57 Screenin g for malignan t neoplasm of cervix Active 2020 Encounte r for screenin g for malignan t neoplasm of cervix; Progress : Stable Added By: Evelyn Castellanos Add to Current Problems : YES ProblemS tatus: Current Not Available [facility] 2 15:23:58 Gestatio n period, 35 weeks 90436912 Active 2020 35 weeks gestatio n of pregnanc y; Progress : Stable Added By: Evelyn Castellanos Add to Current Problems : YES ProblemS tatus: Current Not Available [facility] 2 15:23:58 Gestatio n period, 32 weeks 3369038 Active 2020 32 weeks gestatio n of pregnanc y; Progress : Stable Added By: Hailey Stover Add to Current Problems : YES ProblemS tatus: Current Not Available [facility] 2 15:23:58 Gestatio n period, 34 weeks 49431011 Active 2020 34 weeks gestatio n of pregnanc y; Progress : Stable Added By: Bianca Garcia Add to Current Problems : YES ProblemS tatus: Current Not Available [facility] 2 15:23:59 Gestatio n period, 30 weeks 30712967 Active 2020 30 weeks gestatio n of pregnanc y; Progress : Stable Added By: Hailey Stover Add to Current Problems : YES ProblemS tatus: Current Not Available [facility] 2 15:24:00 Antenata l screenin g for malforma tion Active 2020 Encounte r for antenata l screenin g for malforma tions; Progress : Stable Added By: Hailey Stover Add to Current Problems : YES ProblemS tatus: Current Not Available [facility] 2 15:24:01 Antenata l screenin g Active 2020 Encounte r for antenata l screenin g for Streptoc occus B; Progress : Stable Added By: Evelyn Castellanos Add to Current Problems : YES ProblemS tatus: Current Encounte r for antenata l screenin g for cervical length; Progress : Stable Added By: Hailey Stover Add to Current Problems : YES ProblemS tatus: Current; Start Date : 03/01/20 21 Encou nter for other specifie d antenata l screenin g; Progress : Stable Added By: Evelyn Castellanos Add to Current Problems : YES ProblemS tatus: Current; Start Date : 01/11/20 21 Not Available [facility] 2 15:24:[address] Concept Active 2020 Supervis ion of other high risk pregnanc ies, third trimeste r; Progress : Stable Added By: Evelyn Castellanos Add to Current Problems : YES ProblemS tatus: Current Not Available [facility] 2 21:42:49 Gestatio n period, 33 weeks 59650096 Active 2020 33 weeks gestatio n of pregnanc y; Progress : Stable Added By: Bianca Garcia Add to Current Problems : YES ProblemS tatus: Current Not Available [facility] 2 21:42:49 Problem Notes None recorded. Procedures Surgical History Date Name Laterality Status Provider Name and Address Organization Details Recorded Time 01/11/20 Date of Last Pap Smear completed [facility] 06/17/2021 20:36:36 cholecystectomy completed [facility] 06/17/2021 20:37:22 Removal of ovarian cyst(s) completed [facility] 06/17/2021 20:37:30 Imaging Results Imaging Date Name Status LastModified by Organcarrier clinic Details LastModified Time 06/18/2021 US, obstetric, biophysical profile + non-stress test completed [email or web address] [address], [place], [address], 06/20/2021 17:10:44 06/18/2021 US, obstetric, biophysical profile + non-stress test completed [facility] [address], [place], [address], 08/27/2021 16:56:30 Procedure Notes None recorded. Medical Equipment None Reported. Allergies No known drug allergies Medications Name Sig Start Date Stop Date Status Note LastModified by Organization Details LastModified Time labetalol 200 mg tablet take 2 tablet (400 mg) by oral route 2 times per day active labetalo L 200 mg oral tablet RxNorm: 436465 Allow Substitu tion: True Refill Denied: No Edited by: Alesha Graham) on 05/28/20 Stopped by: Alesha Graham) on Not Available Not Available Not Available Flagyl 500 mg tablet take 4 tablets (2 gram) by oral route once daily 02/25 completed FlagyL 500 mg oral tablet RxNorm: 204421 Allow Substitu tion: True Refill Denied: No Edited by: Evelyn Ziegler ) on 02/26/20 Stopped by: Evelyn Ziegler ) on 02/26/20 Not Available Not Available Not Available neomycin- polymyxin -dexameth 3.5 mg/mL-10, 000 unit/mL-0 .1% eye drops 07/08 completed Not Available Not Available Not Available labetalol 100 mg tablet take 1 tablet (100 mg) by oral route 2 times per day with 200mg dose to equal 300mg po BID 2020 active labetalo L 100 mg oral tablet RxNorm: 728793 Allow Substitu tion: True Refill Denied: No Edited by: Alesha Graham) on 05/31/20 Stopped by: Alesha Graham) on Not Available Not Available Not Available Vistaril 50 mg capsule take 1 capsule (50 mg) by oral route 4 times per day prn pain 03/29 completed VistariL 50 mg oral capsule RxNorm: 598925 Allow Substitu tion: True Refill Denied: No Edited by: Evelyn Ziegler ) on 03/29/20 Stopped by: Evelyn Ziegler ) on 03/29/20 Not Available Not Available Not Available azithromy loida 500 mg tablet take 2 tablets (1,000 mg) by oral route once 02/25 completed azithrom ycin 500 mg oral tablet RxNorm: 864542 Allow Substitu tion: True Refill Denied: No Edited by: Evelyn Ziegler ) on 02/26/20 Stopped by: Evelyn Ziegler ) on 02/26/20 Not Available Not Available Not Available 01/14 completed Refill Denied: No Refill Note: Refill Prescrib ed Refill DateOccu rred: 01/11/20 Edited by: Evelyn Ziegler ) on 01/11/20 Stopped by: Evelyn Ziegler ) on 01/15/20 Not Available Not Available Not Available vit no.95-rupesh ronny fumarate 28 mg-folic acid 800 mcg tablet Take 1 po daily 08/05 completed PNV cmb#95-f errous fumarate -FA 28 mg iron- 800 mcg oral tablet Allow Substitu tion: True Refill Denied: No Edited by: Alesha Graham) on 01/15/20 Stopped by: Alesha Graham) on Not Available Not Available Not Available Vitals Date Recorded Body height Body mass index (BMI) Body weight Body temperature Systolic blood pressure Diastolic blood pressure Provider Name and Address Organization Details Last Updated DateTime 1 175.26 cm 41.9 kg/m2 190270. 773511 g 97.5 [degF] 140 mm[Hg] 88 mm[Hg] Evelyn Castellanos [facility] IV 16:23:35 Date Recorded Body height Body mass index (BMI) Body weight Body temperature Systolic blood pressure Diastolic blood pressure Provider Name and Address Organization Details Last Updated DateTime 1 175.26 cm 38.7 kg/m2 398662. 992505 g 97.8 [degF] 124 mm[Hg] 84 mm[Hg] Hailey Clements Ck [facility] 12:49:38 Date Recorded Body height Body mass index (BMI) Body weight Body temperature Systolic blood pressure Diastolic blood pressure Provider Name and Address Organization Details Last Updated DateTime 1 175.26 cm 38 kg/m2 043204. 91717 g 97.4 [degF] 134 mm[Hg] 82 mm[Hg] Hailey Stover [facility] 11:30:32 Date Recorded Systolic blood pressure Diastolic blood pressure Provider Name and Address Organization Details Last Updated DateTime 06/20/2021 141 mm[Hg] 83 mm[Hg] Not Available [facility] 10/23/2021 08:23:09 Social History Question Answer Notes LastModified by Organizat ion Details LastModified Time Tobacco Smoking Status Former Smoker Lea Flores olga lidia, [facility] 06/17/2021 20:37:13 Are You Blind Or Do You Have Difficulty Seeing? No [email or web address] Information not available 07/08/2021 Are You Deaf Or Do You Have Serious Difficulty Hearing? No [email or web address] Information not available 07/08/2021 What Is The Highest Grade Or Level Of School You Have Completed Or The Highest Degree You Have Received? [id number] [email or web address] Information not available 07/08/2021 When Did You Quit Smoking? 1-5yearssince lastcigarette Information not available 06/17/2021 How Many Children Do You Have? 1 [email or web address] Information not available 07/08/2021 What Is Your Relationship Status? [email or web address] Information not available 07/08/2021 Are You Sexually Active? Yes [email or web address] Information not available 08/05/2021 At What Age Did You Start Smoking Tobacco? 24 [email or web address] Information not available 07/08/2021 Sex: Female Functional Status Question Answer Note LastModified by Organizat ion Details LastModified Time Do you use any illicit or recreational drugs? No [email or web address] Information not available 06/17/2021 Do you or have you ever used any other forms of tobacco or nicotine? No [email or web address] Information not available 06/17/2021 What is your level of alcohol consumption? 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 [employer], [employer] Information not available 07/08/2021 Mental Status None recorded. Family History Relationship Description Onset Age of this Age Resolved Age Notes LastModified by Organization Details LastModified Time Maternal Grandmother Malignant tumor of breast [email or web address] Not available 2020 20:36:54 Medical History No medical history recorded. Gynecological History Statement/Question Response Date of last HPV 01/10/2021 Date of LMP Date of Last Pap Smear 01/10/2021 Most Recent Mammogram Current Control Method None Age at Menarche 13 Obstetrics History GPAL:G 1 P 0 1 0 1 Type Value Premature 1 Living 1 Total 1 Past Encounters Encounter ID Performer Location Encounter Start Date Encounter Closed Date Diagnosis/Indication Diagnosis SNOMED-CT Code Diagnosis ICD10 Code Diagnosis Note [id number] Arlene Mcmahan MD [facility] [address] [place] [address] 06/18/2021 16:00:17 06/19/2021 17:40:58 Chronic hypertension in obstetric context 1937711 O16.9 Routine an tenatal care 443506931 Z34.03 [id number] Alesha Mendez CNM [facility] [address] [place] [address] 07/08/2021 12:42:15 07/08/2021 13:15:10 state, 2 weeks 56796557 Z39.2 Unsure of contracept ion at 6 week appt. Breastfeed ing, discussed options and will decide at 6 week follow up. [id number] Alesha Mendez CNM [facility] [address] [place] [address] 08/05/2021 11:03:56 08/05/2021 11:48:30 state 61150823 Z39.2 Health Concerns Section Related Observation LastModified by Organization Detai ls LastModified Time None Recorded Concern Status LastModified by Organization Details LastModified Time None Recorded Advance Directives Directive None Recorded Payers Insurance Date Sequence Insurance Name Policy Number Policy Acosta Covered Member ID Acosta Member ID Guarantor Name 08/02/2021 1 [facility] Samantha Templeton [id number] Samantha Templeton Notes Date Note Type Note Provider Name and Address Organization Details Recorded Time 06/18/2021 text/html Samantha is being followed for chronic hypertension, and her NST and BPP are good today. She is supposed to be on labetalol 300 mg bid, and recent PIH labs were all WNL. She is unclear on her dosage of labetalol, and says she is taking one pill bid, and thinks it is 800 mg. I asked her to bring her actual pill bottle with her next time. Growth was excellent on US on 05/28/21. Recent GBS was negative. She has lower back and sometimes pelvic pain with movement. She is scheduled for Cytotec at 1999 on 06/26. Arlene Mcmahan MD [facility] [place], [address], [facility] 06/18/2021 17:49:19 07/08/2021 text/html VisitReported bypatient.Onset/Young ing:date of delivery: (06-22-21) Quality: Context:complicatio ns of : GHTN; complications of labor: none; complications: none; feeding choice: breast; good support from partner/family Associated Symptoms:baby blues Contraception Plan:declines contraceptionNotes: was shipped to [facility] for lung immaturity, doing well. Alesha Mendez CNM [address] [place], [address], [facility] 07/09/2021 10:02:41 08/05/2021 text/html VisitReported bypatient.Onset/Young ing:date of delivery: (06/22/2021) Quality: Context:complicatio ns of : GHTN; complications of labor: none; complications: none; feeding choice: breast; good support from partner/family; resumed sexual activity Associated Symptoms:no abnormal bleeding; no vaginal discharge; no pelvic pain; laceration well healed; no constipation; no fecal incontinence; no dysuria; no urinary incontinence; no fever; no problems; no mastitis; normal mood Contraception Plan:declines contraception Alesha Mendez CNM [address] [place], [address], [facility] 08/05/2021 15:14:35 OBGyn Episode Ob Episode Information Episode Created Date Number of Fetuses Patient Bloodtype Patient rh Status Prepregnancy Weight lbs Domestic Partner Domestic Partner Phone Father Name Independent Living Instructor Status 06/17/20 21 1 A Positive CLOSED Fetus Data First Name Last Name Admitted to NICU Weight (g) Sex Living Outcome Pediatric Complications Fetus ID Race Codes Race Delivery Type Nicholasiso n Ruhol l true 2948.34 8 M [place] [address] 2106-3 White Rafal Calculation Initial Rafal Date Initial Exam Date Initial Exam Provider Initial Ultrasound Date Last Menstrual Period Date Ultra Sound Weeks Gestation 07/17/2021 06/17/2021 01/10/2021 10/10/2020 13 Eighteen To Twenty Week Rafal Update Ultra Sound Date Fundal Height At Umbil Quickening Date Ultra Sound Latest Weeks Gestation Final Rafal Confirmed By Final Rafal Confirmed Date Final Rafal Date Ultra Sound Latest Days Gestation 0 07/17/20 21 0 Pre-annmarie Flowsheet Flowsheet Date 06/18/2021 Mark Score Blood Edema Fundus Height Fundus Units Glucose Ketones Leukocytes Nitrite Labor Signs Protein Cervic Dilation Cervic Effacement Cervic Station 1+ 38 none Backpain neg Type Weight in lbs Pre/Post Dialysis Refused Weight 283.056686031797 BP Diastolic BP Location Tested BP Systolic BP Type 88 140 Fetus Heart Rate Present A 130 Fetus Movement A Yes Comments Flowsheet Date 07/08/2021 Mark Score Blood Edema Fundus Height Fundus Units Glucose Ketones Leukocytes Nitrite Labor Signs Protein Cervic Dilation Cervic Effacement Cervic Station Type Weight in lbs Pre/Post Dialysis Refused Weight 262.617846518780 BP Diastolic BP Location Tested BP Systolic BP Type 84 R arm 124 sitting Fetus Heart Rate Present Fetus Movement Comments Flowsheet Date 08/05/2021 Mark Score Blood Edema Fundus Height Fundus Units Glucose Ketones Leukocytes Nitrite Labor Signs Protein Cervic Dilation Cervic Effacement Cervic Station Type Weight in lbs Pre/Post Dialysis Refused Weight 257.777056274357 BP Diastolic BP Location Tested BP Systolic BP Type 82 R arm 134 sitting Fetus Heart Rate Present Fetus Movement Comments Menstrual History Last Menstrual Date Menses Monthly On Bcp Conception Prior Menses Frequency Hcg Plus Date Menarche Onset Age 0310/10/2020 Genetic Screening And Infection History Question Response Note History Of STD, Gonorrhea, Chlamydia, HPV, Syphi lis true chlamydia and trich Delivery Information Delivery Date Delivery Type Labor Anesthesia Weeks Gestation Incision Type Labor Labor Length Hrs Delivered By Post Complications Tubal [facility]ilization Discharge Date Comments [facility]M None 06/22/2021 Discharge Information Feeding Method Contraceptive Method Maternal HG B and HCT Levels Ob Episode Information Episode Created Date Number of Fetuses Patient Bloodtype Patient rh Status Prepregnancy Weight lbs Domestic Partner Domestic Partner Phone Father Name Independent Living Instructor Status 07/08/20 21 1 CLOSED Fetus Data First Name Last Name Admitted to NICU Weight (g) Sex Living Outcome Pediatric Complications Fetus ID Race Codes Race Delivery Type 2948.34 8 M Prematur [place] [id number] Rafal Calculation Initial Rafal Date Initial Exam [...] Complications Tubal Sterilization Discharge Date Comments 1 [facility] idural 36.3 true Discharge Information Feeding Method Contraceptive Method Maternal HG B and HCT Levels Ob Episode Information Episode Created Date Number of Fetuses Patient Bloodtype Patient rh Status Prepregnancy Weight lbs Domestic Partner Domestic Partner Phone Father Name Independent Living Instructor Status 10/25/19 22 1 CLOSED Fetus Data First Name Last Name Admitted to NICU Weight (g) Sex Living Outcome Pediatric Complications Fetus ID Race Codes Race Delivery Type F [id number] Rafal Calculation Initial Rafal Date Initial Exam [...] Complications Tubal Sterilization Discharge Date Comments 1 None false Discharge Information Feeding Method Contraceptive Method Maternal HG B and HCT Levels
--- OUTSIDE RECORDS SUMMARY | 2024-12-26 11:47 | XMS_ITS | Continuity of Care Document ---
Author Organization [facility] Address [address] [facility] [place] [address] Phone Care Team Providers Care Button Buttonhole Marker Name Role Phone Yamil ANTON, William Unavailable Unavailable Allergies, Adverse Reactions, Alerts Substance Reaction Status Criticality No Known Allergies Active No Inform ation Medications Medication Instructions Dosage Effective Dates (start - stop) Status Comments ProAir HFA 90 mcg/actuation Aerosol Inhaler inhale 2 puff by inhalation route every 4 - 6 hours as needed - Active Protonix 40 mg tablet,delayed release take 1 tablet (40MG) by oral route every day 40 MG - Active amitriptyline 10 mg tablet take 1 tablet (10MG) by oral route every bedtime 10 MG - Active Procedures Procedure Date OFFICE/OUTPATIENT VISIT, EST PREV VISIT, EST, AGE 18-39 OFFICE/OUTPATIENT VISIT, EST OFFICE/OUTPATIENT VISIT, EST Advance Directives Directive Yes / No Effective Date File Name No Information Encounters Encounter Description Practice Location Reason(s) For Visit Diagnoses Date Provider Providers Copied on Encounter [facility], [address] [place], [id number], [place] tel:[phone] [facility] No Information 0 4 Yamil Thomas. [address] [facility] [facility] [place] [address] , [place]. tel:[phone] Referring Provider: William Lobo, [address] [facility] [address], [place], [place], [address]. tel:[phone] OFFICE/OUTPA TIENT VISIT, EST [facility], [address], [place], [place], [address], [place] tel:[phone] [facility] Medicine chest pain (chief complaint) knee (chief complaint) Chest Pain, UnspecifiedRespirat ory abnormality, unspecifiedPain in joint involving lower legDietary surveillance and counselingHypertens ion, Unspecified 3 Yamil Thomas. [address], [place], [place], [address] , [place]. [phone] Referring Provider: Rohan Orosco [address], [place], [place], [address]. tel:[phone] PREV VISIT, EST, AGE 18-39 [facility], [address], [place], [place], [address], [place] tel:[phone] [facility] Physical (chief complaint) Dietary surveillance and counselingRoutine Medical ExamGERDPain in joint involving lower legHypertension, UnspecifiedRoutine Medical Exam 3 Yamil Thomas. [address], [place], [place], [address] , [place]. tel:[phone] Referring Provider: Rohan Orosco [address], [place], [place], [address]. tel:[phone] OFFICE/OUTPA TIENT VISIT, EST [facility], [address], [place], [place], [address], [place] tel:[phone] [facility] Medicine chest pain (chief complaint) abdominal pain (chief complaint) SOB (chief complaint) Dietary surveillance and counselingGERDChest Pain, UnspecifiedRespirat ory abnormality, unspecified 2 Yamil Thomas. [address], [place], [place], [address] , [place]. tel:[phone] Referring Provider: [address], [place], [place], [address]. tel:[phone] Family History Family Member Type Diagnosis Age At Onset Mother Problem (finding) CHF Sister Problem (finding) Alive and well Problem (finding) Family history of Diabe johann mellitus Father Problem (finding) Alive and well Mother Problem (finding) No Family hist ory of No history of Coronary artery disease Payers Payer name Insurance type Covered green party ID Authoriza tion(s) No Information Social History Type Description Quantity Date Captured Comments Sex Female Smoking Status No Information Chief Complaint And Reason For Visit No Information Plan Of Treatment Date Type Action Status Referral Ordered: Ortho Surg ordered Referral Ordered: CHEST X-RAY PA/LAT TWO-VIEWS ordered Referral Ordered: CARDIOVASCULAR STRESS TEST ordered Referral Ordered: Referral: Ortho Surg. Evaluate and treat. ordered Referral Ordered: KNEE XRAY TWO-VIEW ordered Referral Referred To: Physical Therapy Ordered: Referral: Physical Therapy. ordered History Of Present Illness Encounter Date Complaint History Of Prese nt Illness No Information Instructions Date Instruction Additional Infor maria luisa Decrease caloric intake Related to Dietary surveillance counseling Dietary counseling Related to Di etary surveillance counseling Decrease caloric intake Related to Dietary surveillance counseling Dietary counseling Related to Di etary surveillance counseling Decrease caloric intake Related to Dietary surveillance counseling Dietary counseling Related to Di etary surveillance counseling Assessments Type Assessment Date No Information
[2024-12-26 12:35] LABS: Add Urine Microscopic? YES; Appearance Urine Turbid (Clear); Bacteria Urine 4+ /hpf; Bilirubin Urine Negative (Negative); Blood Urine Negative (Negative); Color Urine Dark Yellow (Yellow); Glucose Urine UA Negative (Negative); Ketones Urine Trace mg/dL (Negative); Leukocyte Esterase Ur 3+ LEU/UL (Negative); Need Manual Microscopic Reviewed; Nitrate Urine Negative (Negative); Non Pathogenic Casts 0-2; Protein Urine 1+ mg/dL (Negative); Specific Grav Ur 1.023 (1.001-1.035); Squamous Epithelial Cell Urine Many /hpf (Few); WBC Urine >100 /hpf (0-3); pH Urine 6.5 (5.0-9.0)
--- NOTE | 2024-12-26 13:01 | PC.NURSE ---
Dr Govea notified of UA results. Orders received.
--- NOTE | 2025-01-17 07:37 | PM.OBTRLD ---
OB - Triage/Final Diagnosis Visit Information Comments/Additional reasons for admission: I have assessed the risk for this patient, Samantha Ceballos, and determined that she would benefit from observation care. Evaluation Laboratory results: Laboratory Tests 12/26/24 11:58 Urine Color Dark yellow Urine Appearance Turbid H Urine pH 6.5 Ur Specific [place] 1.023 Urine Protein 1+ H Urine Glucose (UA) Negative Urine Ketones Trace H Ur Blood (Man) Negative Urine Nitrate Negative Urine Bilirubin Negative Urine Urobilinogen 1.0 Ur Leukocyte Esterase 3+ H Add Ur Microanalysis Reviewed Urine RBC 11-20 H Urine WBC >100 H Ur Squamous Epith Cells Many H Urine Bacteria 4+ H Urine Casts 0-2 Final Diagnosis (1) Dizziness: Code(s): R42 - Dizziness and giddiness Status: Acute
== END 2024-12-26 13:11 | disposition home or self-care (01) ==
PROVIDERS: Admitting Provider Obstetrics & Gynecology; PCP Emergency Medicine; Referring Provider Advanced Practice Midwife; Visit Provider Obstetrics & Gynecology
DX: O26.893 Other specified pregnancy related conditions, third trimester (principal); R42 Dizziness and giddiness; Z3A.33 33 weeks gestation of pregnancy
CPT/HCPCS: 81001; 87086; G0378; G0379

== ENCOUNTER 2025-01-04 17:22 | Outpatient (CLI) | payer BC, SELFPAY ==
--- OUTSIDE RECORDS SUMMARY | 2025-01-04 17:28 | XMS_ITS | Data Portability ---
Author Organization [employer] [facility] , [facility] Address [address] [place] [address] Assessment Encounter Date Assessment Date Assessment LastModified [...] By Organization Details Last Modified Time 07/08/2021 [id number] edinburgh depression scale* [email or web address] Not available 07/08/2021 13:24:36 08/05/2021 [id number] Care at Home With Your Baby: Care Instructions [email or web address] Not available 08/05/2021 12:09:08 edinburgh depression scale* Not available 09/12/2021 17:39:37 control after counseling [email or web address] Not available 08/05/2021 12:09:08 Reason for Referral None Reported. Results Created Date Observation Date Name Description Value Unit Range Abnormal Flag Note LastModifiedBy Organization Detail LastModifiedTime 06/18/20 21 06/18/2021 [place], obste tric, bioph ysica l profi le + non-s tress test No observ ation record ed. [facility] [address], [place], [address], 06/20/2021 17:10:44 07/11/2006/18/2021 [place], obste tric, bioph ysica l profi le + non-s tress test No observ ation record ed. [email or web address] [address], [place], [address], 08/27/2021 16:56:30 Result Notes None recorded. 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 ; Severity : Moderate Progress : Stable Added By: Bianca Garcia Add to Current Problems : YES ProblemS tatus: Current Evelyn Castellanos null, [place] [facility] 16:24:51 Gestatio n period, 20 weeks [id number] Completed 202006/18/2021 20 weeks gestatio n of pregnanc y; Severity : Moderate Progress : Stable Added By: Hailey Stover Add to Current Problems : YES ProblemS tatus: Current Evelyn Castellanos null, [place] [facility] 16:24:56 Syphilis test finding [id number] Completed 202006/18/2021 Encounte r for screenin g for infectio ns with a predomin antly sexual mode of transmis tiffany; Severity : Moderate Progress : Stable Added By: Evelyn Castellanos Add to Current Problems : YES ProblemS tatus: Current Evelyn Castellanos null, [place] [facility] 16:24:33 Gestatio n period, 17 weeks 10239465 Completed 202006/18/2021 17 weeks gestatio n of [...] [facility] 16:24:43 Maternal hyperten tiffany 452474871 Active 2020 Gestatio nal [pregnan cy-induc ed] [...] : YES ProblemS tatus: Current Not Available [facility] 2 15:23:56 Gestatio n period, 24 weeks 490882787 Completed 202006/18/2021 24 weeks gestatio n of pregnanc y; Severity : Moderate Progress : Stable Added By: Evelyn Castellanos Add to Current Problems : YES ProblemS tatus: Current Evelyn Castellanos null, [place] [facility] 16:24:26 Gestatio n period, 28 weeks 80520933 Completed 202006/18/2021 28 weeks gestatio n of pregnanc y; Severity : Moderate Progress : Stable Added By: Suellen Taylor Add to Current Problems : YES ProblemS tatus: Current Evelyn Castellanos null, [place] [facility] 16:24:28 Normal pregnanc y in multigra kyle [id number] 4106 Completed 202006/18/2021 Encounte r for supervis ion of other normal pregnanc y, third trimeste r; Severity : Moderate Progress : Stable Added By: Suellen Taylor Add to Current Problems : YES ProblemS tatus: Current Arlene Mcmahan MD [address] [facility] [address], [place], [address] , [place] [facility] 17:15:20 Gestatio n period, 29 weeks 72755814 Completed 202006/18/2021 29 weeks gestatio n of pregnanc y; Severity : Moderate Progress : Stable Added By: Hailey Stover Add to Current Problems : YES ProblemS tatus: Current Evelyn Castellanos null, [place] [facility] 16:24:53 Pregnanc y 44133109 Completed 202008/05/2021 Hailey Stover null, [place] [facility] 12/27/202 1 11:32:02 Blood pressure taking Active 2020 Encounte r for examinat ion of blood pressure without abnormal findings ; Progress : Stable Added By: Hailey Stover Add to Current Problems : YES ProblemS tatus: Current Not Available [facility] 2 15:23:57 Screenin g for malignan t neoplasm of cervix Active 2020 Encounte r for screenin g for malignan t neoplasm of cervix; Progress : Stable Added By: Evelyn Castellanos Add to Current Problems : YES ProblemS tatus: Current Not Available [facility] 2 15:23:58 Gestatio n period, 35 weeks 53944904 Active 2020 35 weeks gestatio n of pregnanc y; Progress : Stable Added By: Evelyn Castellanos Add to Current Problems : YES ProblemS tatus: Current Not Available [facility] 2 15:23:58 Gestatio n period, 32 weeks 9660421 Active 2020 32 weeks gestatio n of pregnanc y; Progress : Stable Added By: Hailey Stover Add to Current Problems : YES ProblemS tatus: Current Not Available [facility] 2 15:23:58 Gestatio n period, 34 weeks 69169566 Active 2020 34 weeks gestatio n of pregnanc y; Progress : Stable Added By: Bianca Garcia Add to Current Problems : YES ProblemS tatus: Current Not Available [facility] 2 15:23:59 Gestatio n period, 30 weeks 19985558 Active 2020 30 weeks gestatio n of pregnanc y; Progress : Stable Added By: Hailey Stover Add to Current Problems : YES ProblemS tatus: Current Not Available [facility] 2 15:24:00 Antenata l screenin g for malforma tion Active 2020 Encounte r for antenata l screenin g for malforma tions; Progress : Stable Added By: Hailey Stover Add to Current Problems : YES ProblemS tatus: Current Not Available [facility] 2 15:24:01 Antenata l screenin g Active [...] ProblemS tatus: Current; Start Date : 03/01/20 Encou nter for other specifie d antenata l screenin g; Progress : Stable Added By: Evelyn Castellanos Add to Current Problems : YES ProblemS tatus: Current; Start Date : 01/11/20 21 Not Available [facility] 2 15:24:[address] Concept Active 2020 Supervis ion of other high risk pregnanc ies, third trimeste r; Progress : Stable Added By: Evelyn Castellanos Add to Current Problems : YES ProblemS tatus: Current Not Available [facility] 2 21:42:49 Gestatio n period, 33 weeks 42197961 Active 2020 33 weeks gestatio n of pregnanc y; Progress : Stable Added By: Bianca Garcia Add to Current Problems : YES ProblemS tatus: Current Not Available [facility] 2 21:42:49 Problem Notes None recorded. Procedures Surgical History Date Name Laterality Status Provider Name and Address Organization Details Recorded Time 01/11/20 Date of Last Pap Smear completed [facility] 06/17/2021 20:36:36 cholecystectomy completed [facility] 06/17/2021 20:37:22 Removal of ovarian cyst(s) completed [facility] 06/17/2021 20:37:30 Imaging Results None recorded. Procedure Notes None recorded. Medical Equipment None Reported. Allergies No known drug allergies Medications Name Sig Start Date Stop Date Status Note LastModified by Organization Details LastModified Time labetalol 200 mg tablet take 2 tablet (400 mg) by oral route 2 times per day active labetalo L 200 mg oral tablet RxNorm: 260269 Allow Substitu tion: True Refill Denied: No Edited by: Alesha Graham) on 05/28/20 21 Stopped by: Alesha Graham) on Not Available Not Available Not Available Flagyl 500 mg tablet take 4 tablets (2 gram) by oral route once daily 02/25 completed FlagyL 500 mg oral tablet RxNorm: 410085 Allow Substitu tion: True Refill Denied: No Edited by: Evelyn Ziegler ) on 02/26/20 Stopped by: jermain(Evelyn Greene ) on 02/26/20 Not Available Not Available Not Available neomycin- polymyxin -dexameth 3.5 mg/mL-10, 000 unit/mL-0 .1% eye drops 07/08 completed Not Available Not Available Not Available labetalol 100 mg tablet take 1 tablet (100 mg) by oral route 2 times per day with 200mg dose to equal 300mg po BID 2020 active labetalo L 100 mg oral tablet RxNorm: 980974 Allow Substitu tion: True Refill Denied: No Edited by: Alesha Graham) on 05/31/20 Stopped by: Alesha Graham) on Not Available Not Available Not Available Vistaril 50 mg capsule take 1 capsule (50 mg) by oral route 4 times per day prn pain 03/29 completed VistariL 50 mg oral capsule RxNorm: 436486 Allow Substitu tion: True Refill Denied: No Edited by: Evelyn Ziegler ) on 03/29/20 Stopped by: Evelyn Ziegler ) on 03/29/20 Not Available Not Available Not Available azithromy loida 500 mg tablet take 2 tablets (1,000 mg) by oral route once 02/25 completed azithrom ycin 500 mg oral tablet RxNorm: 201621 Allow Substitu tion: True Refill Denied: No Edited by: Evelyn Ziegler ) on 02/26/20 Stopped by: Evelyn Ziegler ) on 02/26/20 Not Available Not Available Not Available 01/14 completed Refill Denied: No Refill Note: Refill Prescrib ed Refill DateOccu rred: 01/11/20 Edited by: Evelyn Ziegler ) on 01/11/20 21 Stopped by: [email or web address](Evelyn Greene ) on 01/15/20 21 Not Available Not Available Not Available vit [...] Updated DateTime 1 175.26 cm 41.9 kg/m2 034305. 777905 g 97.5 [degF] 140 mm[Hg] 88 mm[Hg] Evelyn Castellanos [facility] 1 16:23:35 Date Recorded Systolic blood pressure Diastolic blood pressure Provider Name and Address Organization Details Last Updated DateTime 06/20/2021 141 mm[Hg] 83 mm[Hg] Not Available [facility] 0 10/23/2021 08:23:09 Date Recorded Body height Body mass index (BMI) Body weight Body temperature Systolic blood pressure Diastolic blood pressure Provider Name and Address Organization Details Last Updated DateTime 1 175.26 cm 38.7 kg/m2 153381. 065136 g 97.8 [degF] 124 mm[Hg] 84 mm[Hg] Hailey Starr [facility] 1 12:49:38 Date Recorded Body height Body mass index (BMI) Body weight Body temperature Systolic blood pressure Diastolic blood pressure Provider Name and Address Organization Details Last Updated DateTime 1 175.26 cm 38 kg/m2 547272. 29668 g 97.4 [degF] 134 mm[Hg] 82 mm[Hg] Hailey Clements Stover [facility] 11:30:32 Social History Question Answer Notes LastModified by Organizat ion Details LastModified Time Tobacco Smoking Status [facility]/17/2021 20:37:13 Are You Blind Or Do You Have Difficulty Seeing? No Information not available 07/08/2021 Are You Deaf Or Do You Have Serious Difficulty Hearing? No [email or web address] Information not available 07/08/2021 What Is The Highest Grade Or Level Of School You Have Completed Or The Highest Degree You Have Received? XV61618-2 [email or web address] Information not available 07/08/2021 When Did You Quit Smoking? 1-5yearssince lastcigarette [email or web address] Information not available 06/17/2021 How Many Children Do You Have? 1 [email or web address] Information not available 07/08/2021 What Is Your Relationship Status? [email or web address] Information not available 07/08/2021 Are You Sexually Active? Yes [email or web address] Information not available 08/05/2021 At What Age Did You Start Smoking Tobacco? 24 [email or web address] Information not available 07/08/2021 Sex: Female Functional Status Question Answer Note LastModified by Organizat ion Details LastModified Time Do you use any illicit or recreational drugs? No Information not available 06/17/2021 Do you or have you ever used any other forms of tobacco or nicotine? No [email or web address] Information not available 06/17/2021 What is your level of alcohol consumption? None [email or web address] Information not available 06/17/2021 Are you currently employed? 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 Family History Relationship Description Onset Age of this Age Resolved Age Notes LastModified by Organization Details LastModified Time Maternal Grandmother Malignant tumor of breast [email or web address] Not available 2020 20:36:54 Medical History No [...] SNOMED-CT Code Diagnosis ICD10 Code Diagnosis Note [id number] Arlene Mcmahan MD [facility] [address] [place] [address] 06/18/2021 16:00:17 06/19/2021 17:40:58 Chronic hypertension in obstetric context 9412213 O16.9 Routine an tenatal care 683869503 Z34.03 [id number] Alesha Mendez CNM [facility] [address] [place] [address] 07/08/2021 12:42:15 07/08/2021 13:15:10 state, 2 weeks 19984745 Z39.2 Unsure of contracept ion at 6 week appt. Breastfeed ing, discussed options and will decide at 6 week follow up. [id number] Alesha Mendez CNM [facility] [address] [place] [address] 08/05/2021 11:03:56 08/05/2021 11:48:30 state 29434023 Z39.2 Health Concerns Section Related Observation LastModified by Organization Detai ls LastModified Time None Recorded Concern Status LastModified by Organization Details LastModified Time None Recorded Advance Directives Directive None Recorded Payers Insurance Date Sequence Insurance Name Policy Number Policy Acosta Covered Member ID Acosta Member ID Guarantor Name 08/02/2021 1 [place] [facility] Samantha Fuller Jareth [id number] Samantha Templeton Notes Date Note Type Note [...] at 1999 on 06/26. Arlene Mcmahan MD [address] [place], [address], [facility] 06/18/2021 17:49:19 07/08/2021 text/html VisitReported bypatient.Onset/Young ing:date of delivery: (06-22-21) Quality: Context:complicatio ns of : GHTN; complications of labor: none; complications: none; feeding choice: breast; good support from partner/family Associated Symptoms:baby blues Contraception Plan:declines contraceptionNotes: was shipped to [facility] for lung immaturity, doing well. Alesha Mendez CNM [address] [place], [address], [facility] 07/09/2021 10:02:41 08/05/2021 text/html VisitReported bypatient.Onset/Young [...] Contraception Plan:declines contraception Alesha Mendez CNM [address] [place], [address], [facility] 08/05/2021 15:14:35 OBGyn Episode Ob Episode Information Episode Created Date Number of Fetuses Patient Bloodtype Patient rh Status Prepregnancy Weight lbs Domestic Partner Domestic Partner Phone Father Name Elementary Special Education Teacher Status 06/17/20 21 1 A Positive CLOSED Fetus Data First Name Last Name Admitted to NICU Weight (g) Sex Living Outcome Pediatric Complications Fetus ID Race Codes Race Delivery Type Rivera Mohamud l true 2948.34 8 M true Prematur e 73169 2106-3 White Rafal Calculation Initial Rafal Date [...] Weight in lbs Pre/Post Dialysis Refused Weight 283.780839569189 BP Diastolic BP Location Tested BP Systolic BP Type 88 140 Fetus Heart Rate Present A 130 Fetus Movement A Yes Comments Flowsheet Date 07/08/2021 Mark Score Blood Edema Fundus Height Fundus Units Glucose Ketones Leukocytes Nitrite Labor Signs Protein Cervic Dilation Cervic Effacement Cervic Station Type Weight in lbs Pre/Post Dialysis Refused Weight 262.255707792057 BP Diastolic BP Location Tested BP Systolic BP Type 84 R arm 124 sitting Fetus Heart Rate Present Fetus Movement Comments Flowsheet Date 08/05/2021 Mark Score Blood Edema Fundus Height Fundus Units Glucose Ketones Leukocytes Nitrite Labor Signs Protein Cervic Dilation Cervic Effacement Cervic Station Type Weight in lbs Pre/Post Dialysis Refused Weight 257.489482001849 BP Diastolic BP Location Tested BP Systolic [...] Post Complications Tubal Sterilization Discharge Date Comments [facility] 36.3 Alesha Mendez CNM None 06/22/2021 Discharge Information Feeding Method Contraceptive Method Maternal HG B and HCT Levels Ob Episode Information Episode Created Date Number of Fetuses Patient Bloodtype Patient rh Status Prepregnancy Weight lbs Domestic Partner Domestic Partner Phone Father Name Elementary Special Education Teacher Status 07/08/20 21 1 CLOSED Fetus Data First Name Last Name Admitted to NICU Weight (g) Sex Living Outcome Pediatric Complications Fetus ID Race Codes Race Delivery Type 2948.34 8 M Prematur e 72702 Rafal Calculation Initial Rafal Date Initial Exam [...] Complications Tubal Sterilization Discharge Date Comments 1 Regional- idural 36.3 true Discharge Information Feeding Method Contraceptive Method Maternal HG B and HCT Levels Ob Episode Information Episode Created Date Number of Fetuses Patient Bloodtype Patient rh Status Prepregnancy Weight lbs Domestic Partner Domestic Partner Phone Father Name Elementary Special Education Teacher Status 10/25/19 22 1 CLOSED Fetus Data First Name Last Name Admitted to NICU Weight (g) Sex Living Outcome Pediatric Complications Fetus ID Race Codes Race Delivery Type F [id number] Rafal Calculation Initial Rafal Date Initial Exam [...]
--- OUTSIDE RECORDS SUMMARY | 2025-01-04 17:28 | XMS_ITS | Clinical Summary ---
Author Organization [facility] Address [facility] [place] [address] Phone Care Team Providers Care Band Tacker Name Role Phone Provider, Unknown Primary Care [...] patient's age to complete this topic Insurance [facility] Care Teams Band Tacker Relationship Specialty Start Date End Date Provider, Unknown UNKNOWN PCP - General 10/24/23
--- OUTSIDE RECORDS SUMMARY | 2025-01-04 17:29 | XMS_ITS | Continuity of Care Document ---
Author Organization [facility] Address [address] [place] [address] Phone Care Team Providers Care Upward Bound Director Name Role Phone Yamil ANTON, William Unavailable [...] Diagnoses Date Provider Providers Copied on Encounter [facility], [address] [place], [id number], [place] tel:[phone] [facility] No Information 0 4 Yamil Thomas. [address] [place], [id number] , [place]. tel:[phone] Referring Provider: William Lobo, [address] [facility] [address], [place], [place], [id number]. tel:[phone] OFFICE/OUTPA TIENT VISIT, EST [facility], [address], [place], [place], [id number], [place] tel:[phone] [facility] chest pain (chief complaint) knee (chief complaint) Chest Pain, UnspecifiedRespirat ory abnormality, unspecifiedPain in joint involving lower legDietary surveillance and counselingHypertens ion, Unspecified 3 Yamil Thomas. [address], [place], [place], [address] , [place]. [phone] Referring Provider: Rohan Orosco [address], [place], [place], [id number]. tel:[phone] PREV VISIT, EST, AGE 18-39 [facility], [address], [place], [place], [id number], [place] tel:[phone] [facility] Physical (chief complaint) Dietary surveillance and counselingRoutine Medical ExamGERDPain in joint involving lower legHypertension, UnspecifiedRoutine Medical Exam 3 Yamil Thomas. [address], [place], [place], [id number] , [place]. tel:[phone] Referring Provider: Rohan Orosco [address], [place], [place], [id number]. tel:[phone] OFFICE/OUTPA TIENT VISIT, EST [facility], [address], [place], [place], [id number], [place] tel:[phone] [facility] chest pain (chief complaint) abdominal pain (chief complaint) SOB (chief complaint) Dietary surveillance and counselingGERDChest Pain, UnspecifiedRespirat ory abnormality, unspecified 2 Yamil Thomas. [address], [place], [place], [address] , [place]. tel:[phone] Referring Provider: [address], [place], [place], [id number]. tel:[phone] Family History Family Member Type Diagnosis Age At Onset Mother Problem (finding) CHF Sister Problem (finding) Alive and well Problem (finding) Family history of Diabe johann mellitus Father Problem (finding) Alive and well Mother Problem (finding) No Family hist ory of No history of Coronary artery disease Payers Payer name Insurance type Covered democrat ID Authoriza tion(s) No Information Social History [...]
--- OUTSIDE RECORDS SUMMARY | 2025-01-04 17:29 | XMS_ITS | Data Portability ---
Author Organization [facility] Address [address] [place] [address] Assessment No assessment recorded. Plan of Treatment Reminders Order Date Submit Date Provider Last Modified By Organization Details Last Modified Time Details Appointments U/S OB BPP 2024 03:30P M ULTRASOUND Not available Not available Not available NST 2024 04:00P M NST SCHEDULE Not available Not available Not available OB ROUTINE 2024 04:45P M Mel Carlson CNM Not available Not available Not available U/S OB BPP 2024 03:30P M ULTRASOUND Not available Not available Not available NST 2024 04:00P M NST SCHEDULE Not available Not available Not available OB ROUTINE 2024 04:30P M Mel Carlson CNM Not available Not available Not available U/S OB BPP 2024 03:30P M ULTRASOUND Not available Not available Not available NST 2024 04:00P M NST SCHEDULE Not available Not available Not available OB ROUTINE 2024 04:45P M Mel Carlson CNM Not available Not available Not available INDUCTI ON 2024 04:00P M Mel Carlson CNM Not available Not available Not available U/S OB BPP 2024 03:30P M ULTRASOUND Not available Not available Not available NST 2024 04:00P M NST SCHEDULE Not available Not available Not available OB ROUTINE 2024 04:45P M Mel Carlson CNM Not available Not available Not available U/S OB BPP 2024 03:30P M ULTRASOUND Not available Not available Not available NST 2024 04:00P M NST SCHEDULE Not available Not available Not available OB ROUTINE 2024 04:45P M Mel Carlson, CNM Not available Not available Not available U/S OB BPP 2024 03:30P M ULTRASOUND Not available Not available Not available NST 2024 04:00P M NST SCHEDULE Not available Not available Not available OB ROUTINE 2024 04:45P M Mel Carlson, CNM Not available Not available Not available Lab None recorde d. Referral None recorde d. Procedures None recorde d. Surgeries None recorde d. Imaging US, obstetr ic, biophys ical profile + non-str ess test 2024 [address], [address], [place], [address], 01/04/2025 17:11:03 non-str ess test 2024 [address], [address], [place], [address], 12/29/2024 14:02:16 US, obstetr ic, follow- up [address], [address], [place], [address], 12/29/2024 18:29:56 US, obstetr ic, biophys ical profile + non-str ess test [address], [address], [place], [address], 12/29/2024 18:29:56 Medication Orders None recorde d. Patient TargetsNo targets recorded. Patient InstructionsNo instructions recorded. Reason for Referral None Reported. Results Created Date Observation Date Name Description Value Unit Range Abnormal Flag Note LastModifiedBy Organization Detail LastModifiedTime 12/03/19 12/02/2024 HEMAT OCRIT (HCT) HCT 33.6 % (based on docume nted legal sex) 34.0-4 5.0 low Not Available [facility] (Lab) [address], [place], [address], 12/03/2024 13:00:44 12/03/19 25 12/02/2024 HEMOG LOBIN (HGB) HGB 10.4 g/dL (based on docume nted legal sex) 11.6-1 5.4 low Not Available [facility] (Lab) [address], [place], [address], 12/03/2024 13:00:45 12/03/19 25 12/02/2024 GTT - GESTA NICKI L SCREE N, ACOG OB glucose, 1 hour screen 97 mg/dL 70-135 Not Available [facility] (Lab) [address], [place], [address], 12/03/2024 13:00:45 12/03/19 25 12/02/2024 HIV 1/2 ANTIG EN/AN TIBOD Y, REFLE X CONFI RMATI ON HIV antigen/anti body Nonrea ctive nonrea ctive HIV-1 antig en and HIV-1 /HIV- 2 antib odies were not detec radha. No labor atory evide nce of HIV infec tion. Not Available [facility] (Lab) [address], [place], [address], 12/03/2024 13:00:45 12/03/19 25 12/02/2024 RPR SCREE N, REFLE X TITER /CONF IRMAT ION RPR qualitative Nonrea ctive nonrea ctive Not Available [facility] (Lab) [address] [place], [address], 12/03/2024 13:00:45 12/24/19 25 12/23/2024 CBC W/DIF F WBC 14.4 10'3/ uL 3.5-10 .5 high Not Available [facility] (Lab) [address], [place], [address], 12/26/2024 10:38:36 12/24/1912/23/2024 CBC W/DIF F RBC 4.48 10'6/ uL (based on docume nted legal sex) 3.80-5 .20 Not Available [facility] (Lab) [address], [place], [address], 12/26/2024 10:38:36 12/24/19 25 12/23/2024 CBC W/DIF F HGB 10.7 g/dL (based on docume nted legal sex) 11.6-1 5.4 low Not Available [facility] (Lab) [address], [place], [address], 12/26/2024 10:38:36 12/24/19 25 12/23/2024 CBC W/DIF F HCT 35.5 % (based on docume nted legal sex) 34.0-4 5.0 Not Available [facility] (Lab) [address], [place], [address], 12/26/2024 10:38:36 12/24/1912/23/2024 CBC W/DIF F MCV 79.2 fL 80.0-9 9.0 low Not Available [facility] (Lab) [address], [place], [address], 12/26/2024 10:38:36 12/24/1912/23/2024 CBC W/DIF F MCH 23.9 pg 27.0-3 4.0 low Not Available [facility] (Lab) [address] [place], [address], 12/26/2024 10:38:36 12/24/19 25 12/23/2024 CBC W/DIF F MCHC 30.1 g/dL 32.0-3 5.5 low Not Available [facility] (Lab) [address] [place], [address], 12/26/2024 10:38:36 12/24/19 25 12/23/2024 CBC W/DIF F RDW 14.9 % 11.0-1 5.0 Not Available [facility] (Lab) [address], [place], [address], 12/26/2024 10:38:36 12/24/19 25 12/23/2024 CBC W/DIF F plt 376 10'3/ uL 150-40 0 Not Available [facility] (Lab) [address], [place], [address], 12/26/2024 10:38:36 12/24/19 25 12/23/2024 CBC W/DIF F MPV 11.3 fL 8.8-12 .1 Not Available [facility] (Lab) [address], [place], [address], 12/26/2024 10:38:36 12/24/19 25 12/23/2024 CBC W/DIF F NRBC's 0.0 % 0.0 Not Available [facility] (Lab) [address], [place], [address], 12/26/2024 10:38:36 12/24/19 25 12/23/2024 CBC W/DIF F absolute NRBCs 0.0 10'3/ uL no refere nce range establ ished Not Available [facility] (Lab) [address], [place], [address], 12/26/2024 10:38:36 12/24/19 25 12/23/2024 CBC W/DIF F neutrophils 72.7 % 34.0-7 3.0 Not Available [facility] (Lab) [address], [place], [address], 12/26/2024 10:38:36 12/24/19 25 12/23/2024 CBC W/DIF F lymphocytes 18.0 % 15.0-5 0.0 Not Available [facility] (Lab) [address], [place], [address], 12/26/2024 10:38:36 12/24/19 25 12/23/2024 CBC W/DIF F monocytes 5.5 % 1.0-15 .0 Not Available [facility] (Lab) [address], [place], [address], 12/26/2024 10:38:36 12/24/19 25 12/23/2024 CBC W/DIF F eosinophils 2.7 % 0.0-8. 0 Not Available [facility] (Lab) [address], [place], [address], 12/26/2024 10:38:36 12/24/19 25 12/23/2024 CBC W/DIF F basophils 0.4 % 0.0-2. 0 Not Available [facility] (Lab) [address], [place], [address], 12/26/2024 10:38:36 12/24/19 25 12/23/2024 CBC W/DIF F immature granulocytes 0.7 % no define d refere nce range Immat ure Granu locyt es (IG) repre sents autom ated enume ratio n of Metam yeloc ytes, Myelo cytes and Promy elocy johann when IG is < 5%. Blast s are not inclu ded in IG and repor radha separ ately if prese nt. Not Available [facility] (Lab) [address], [place], [address], 12/26/2024 10:38:36 12/24/19 25 12/23/2024 CBC W/DIF F absolute neutrophils 10.5 10'3/ uL 1.5-8. 0 high Not Available [facility] (Lab) [address], [place], [address], 12/26/2024 10:38:36 12/24/19 25 12/23/2024 CBC W/DIF F absolute lymphocytes 2.6 10'3/ uL 1.0-4. 0 Not Available [facility] (Lab) [address], [place], [address], 12/26/2024 10:38:36 12/24/19 25 12/23/2024 CBC W/DIF F absolute monocytes 0.8 10'3/ uL 0.2-1. 0 Not Available [facility] (Lab) [address], [place], [address], 12/26/2024 10:38:36 12/24/19 25 12/23/2024 CBC W/DIF F absolute eosinophils 0.4 10'3/ uL 0.0-0. 6 Not Available [facility] (Lab) [address], [place], [address], 12/26/2024 10:38:36 12/24/19 25 12/23/2024 CBC W/DIF F absolute basophils 0.1 10'3/ uL 0.0-0. 3 Not Available [facility] (Lab) [address], [place], [address], 12/26/2024 10:38:36 12/24/1912/23/2024 CBC W/DIF F absolute immature granulocytes 0.1 10'3/ uL 0.00-0 .10 Refer ence range s for nonbi nary/ inter sex or unspe cifie d gende r patie nts have not been estab lishe d. Pleas e refer to the jerrodo wing table for range s estab lishe d for cisge nder patie nts and evalu ate in the clini candis sobeida xt of the indiv idual patie nt: [email or web address] :[email or web address] ishaan book. nm.or g/gen derx Not Available [facility] (Lab) [address], [place], [address], 12/26/2024 10:38:36 12/24/19 25 12/23/2024 PROTE IN/CR EATIN INE RATIO , URINE creatinine, urine 25.4 mg/dL R-No refer ence range estab lishe d for this assay Not Available [facility] (Lab) [address], [place], [address], 12/26/2024 10:38:37 12/24/19 25 12/23/2024 PROTE IN/CR EATIN INE RATIO , URINE protein, urine <4 mg/dL R-No refer ence range estab lishe d for this assay Not Available [facility] (Lab) [address], [place], [address], 12/26/2024 10:38:37 12/24/19 25 12/23/2024 PROTE IN/CR EATIN INE RATIO , URINE protein/crea tinine ratio, urine . No Refer ence Range avail able for Rando m Urine s. Unabl e to perfo rm calcu latio n due to low nneka te deepika ntrat ion A prote in to creat inine ratio of >=0.1 9 is a good predi ctor of signi fican t prote inuri a. A level of <0.14 can rule out signi fican t prote inuri a. Not Available [facility] (Lab) [address], [place], [address], 12/26/2024 10:38:37 12/24/19 25 12/23/2024 CMP(C OMPRE HENSI VE METAB OLIC PANEL ) sodium 136 mmol/ L 133-14 6 Not Available [facility] (Lab) [address] [place], [address], 12/26/2024 10:38:37 12/24/19 25 12/23/2024 CMP(C OMPRE HENSI VE METAB OLIC PANEL ) potassium 3.7 mmol/ L 3.5-5. 1 Not Available [facility] (Lab) [address] [place], [address], 12/26/2024 10:38:37 12/24/19 25 12/23/2024 CMP(C OMPRE HENSI VE METAB OLIC PANEL ) chloride 103 mmol/ L 98-107 Not Available [facility] (Lab) [address] [facility] [place], [address], 12/26/2024 10:38:37 12/24/19 25 12/23/2024 CMP(C OMPRE HENSI VE METAB OLIC PANEL ) carbon dioxide 25 mmol/ L 21-31 Not Available [facility] (Lab) [address], [place], [address], 12/26/2024 10:38:37 12/24/19 25 12/23/2024 CMP(C OMPRE HENSI VE METAB OLIC PANEL ) anion gap 8 mmol/ L 4-13 Not Available [facility] (Lab) [address], [place], [address], 12/26/2024 10:38:37 12/24/19 25 12/23/2024 CMP(C OMPRE HENSI VE METAB OLIC PANEL ) blood urea nitrogen 3 mg/dL 7-25 low Not Available [facility] (Lab) [address], [place], [address], 12/26/2024 10:38:37 12/24/19 25 12/23/2024 CMP(C OMPRE HENSI VE METAB OLIC PANEL ) creatinine 0.77 mg/dL 0.60-1 .30 Not Available [facility] (Lab) [address], [place], [address], 12/26/2024 10:38:37 12/24/19 25 12/23/2024 CMP(C OMPRE HENSI VE METAB OLIC PANEL ) egfrcr (CKD-epi 2020) >90 mL/mi n/1.7 3_m2 >=60 Not Available [facility] (Lab) [address], [place], [address], 12/26/2024 10:38:37 12/24/19 25 12/23/2024 CMP(C OMPRE HENSI VE METAB OLIC PANEL ) calcium 9.0 mg/dL 8.3-10 .5 Not Available [facility] (Lab) [address], [place], [address], 12/26/2024 10:38:37 12/24/19 25 12/23/2024 CMP(C OMPRE HENSI VE METAB OLIC PANEL ) glucose 81 mg/dL 70-100 Not Available [facility] (Lab) [address], [place], [address], 12/26/2024 10:38:37 12/24/19 25 12/23/2024 CMP(C OMPRE HENSI VE METAB OLIC PANEL ) protein, total 6.4 g/dL 6.4-8. 3 Not Available [facility] (Lab) [address], [place], [address], 12/26/2024 10:38:37 12/24/19 25 12/23/2024 CMP(C OMPRE HENSI VE METAB OLIC PANEL ) albumin 3.6 g/dL 3.5-5. 0 Not Available [facility] (Lab) [address], [place], [address], 12/26/2024 10:38:37 12/24/19 25 12/23/2024 CMP(C OMPRE HENSI VE METAB OLIC PANEL ) ALT 7 units /L 9-43 low Not Available [facility] (Lab) [address], [place], [address], 12/26/2024 10:38:37 12/24/19 25 12/23/2024 CMP(C OMPRE HENSI VE METAB OLIC PANEL ) alkaline phosphatase 114 units /L 34-104 high Not Available [facility] (Lab) [address], [place], [address], 12/26/2024 10:38:37 12/24/19 25 12/23/2024 CMP(C OMPRE HENSI VE METAB OLIC PANEL ) AST 9 units /L 13-39 low Not Available [facility] (Lab) [address], [place], [address], 12/26/2024 10:38:37 12/24/19 25 12/23/2024 CMP(C OMPRE HENSI VE METAB OLIC PANEL ) bilirubin, total 0.3 mg/dL 0.2-1. 2 Not Available [facility] (Lab) [address], [place], [address], 12/26/2024 10:38:37 12/24/19 25 12/23/2024 URIC ACID uric acid 4.6 mg/dL 2.3-6. 6 Not Available [facility] (Lab) [address], [place], [address], 12/26/2024 10:38:38 12/24/19 25 12/23/2024 BILE ACIDS , TOTAL bile acids, total 5 umol/ L 0-10 Test Perfo rmed by: [facility] [address] [address] Not Available [facility] (Lab) [address], [place], [address], 12/26/2024 10:38:38 12/03/19 25 12/02/2024 US, obste tric, follo w-up No observ ation record ed. [email or web address] [address], [place], [address], 12/02/2024 13:30:23 12/03/19 25 12/02/2024 US, obste tric, follo w-up No observ ation record ed. [address] [facility], [place], [address], 12/06/2024 14:21:19 12/22/19 25 12/21/2024 non-s tress test No observ ation record ed. [email or web address] [address], [place], [address], 12/21/2024 10:14:42 12/22/19 non-s tress test No observ ation record ed. [email or web address] [address], [place], [address], 12/21/2024 10:17:15 12/22/19 25 12/21/2024 US, obste tric, bioph ysica l profi le + non-s tress test No observ ation record ed. [email or web address] [address], [place], [address], 12/21/2024 10:41:15 12/22/19 25 12/21/2024 US, obste tric, follo w-up No observ ation record ed. [email or web address] [address], [place], [address], 12/22/2024 11:35:09 12/29/19 25 12/29/2024 US, obste tric, follo w-up No observ ation record ed. [email or web address] [address], [place], [address], 12/29/2024 11:29:40 12/29/19 25 12/29/2024 US, obste tric, bioph ysica l profi le + non-s tress test No observ ation record ed. [email or web address] [address], [place], [address], 12/29/2024 11:29:51 12/29/19 25 12/28/2024 US, obste tric, follo w-up No observ ation record ed. [email or web address] [address], [place], [address], 01/03/2025 22:22:46 12/29/19 25 12/28/2024 non-s tress test No observ ation record ed. [email or web address] [address], [place], [address], 12/28/2024 20:00:54 12/29/19 25 12/28/2024 non-s tress test No observ ation record ed. [email or web address] [address], [place], [address], 12/28/2024 20:03:00 01/05/20 25 01/04/2025 US, obste tric, bioph ysica l profi le + non-s tress test No observ ation record ed. [email or web address] [address], [place], [address], 01/04/2025 17:31:59 01/05/20 25 01/04/2025 US, obste tric, bioph ysica l profi le + non-s tress test No observ ation record ed. [email or web address], [place], [address], 01/04/2025 17:06:37 Result Notes None recorded. Problems Name Problem SNOMED Code Status Onset Date Resolution Date Notes Provider Name and Address Organization Details Recorded Time Polycyst ic ovaries Completed 201010/18/2021 Polycyst ic ovaries; Recorded Elsewher e: No Locat ion: [facility] S ource: EHR Dials Supervisor wes: N Sher ce ID: [email or web address] Sampson lable Time: 12:00:00 PM Gabrielle duggan [facility] 2 15:08:07 Type 2 diabetes mellitus without complica tion 853640071 Completed 201010/18/2021 Diabetes Mellitus Type 2, Uncompli cated;Re corded Elsewher e: No Locat ion: [facility] S ource: EHR Dials Supervisor wes: N Practi ce ID: [email or web address] Sampson lable Time: 12:00:00 PM Gabrielle duggan [facility] 2 15:08:18 Amenorrh ea 01775885 Completed 11/08/ 2011 10/18/2021 Absence of menstrua tion;Rec orded Elsewher e: No Locat ion: [facility] S ource: EHR Dials Supervisor wes: N Practi ce ID: [id number] Sampson lable Time: 12:00:00 PM Gabrielle Deysi duggan, [facility] 2 15:07:58 Ill-defi tamara intestin al infectio n Completed 201210/18/2021 No Show Fee;Prac akiko ID: [email or web address] Gabrielle Sandhubismark duggan, [facility] 2 15:08:01 Pregnanc y 20867028 Completed 202109/11/2022 Carol duggan, [facility] 5 17:49:46 Pregnanc y-induce d hyperten tiffany 90656621 Completed ASA, Baseline PIH labs WNL Lea Segura MD [address], [place], [address], [facility] 2 17:12:54 Prematur e delivery 812497980 Completed [place]. [place] is approved with insuranc e & sent form to [facility] ons. Lea Segura MD [address], [place], [address], [facility] 2 16:42:24 Obesity 430334303 Completed Antenata l testing @ 34wks Tracee duggan, [facility] 3 14:26:29 Chlamydi al infectio n 851773226 Completed 2021 rpt MENA 12/16 Tracee duggan, [facility] 3 14:26:29 Past pregnanc y history of prematur e delivery 694373863 Completed 2021 Geno failed with new insuranc e. pt giving up at 33+ weeks. Tracee duggan [facility] 3 14:26:29 Past pregnanc y history of prematur e delivery 452572093 Active 2021 [place] failed with new insuranc e. pt giving up at 33+ weeks. Tracee gilliland null, [facility] 3 14:26:29 Chronic hyperten tiffany in obstetri c context 9605855 Completed supposed to be taking labetalo l 200 BID, delivery 38w Tracee gilliland null, [facility] 3 14:26:29 Anemia 749920570 Completed slowfe 1 tab Tracee gilliland null, [facility] 3 14:26:28 Essentia l hyperten tiffany 67187074 Active 2021 Lea Segura MD [address], [place], [address], [facility] 2 11:25:46 Severe obesity complica ting pregnanc y 0519282442 8434788 Active Gabrielle Jo null, [facility] 4 15:48:56 Pregnanc y 06886837 Completed 202205/25/2023 Carol Devine null, [facility] 5 17:49:46 Chlamydi al infectio n 833372039 Completed 2022 MENA neg - recheck 3rd trimeste r! Ady El null, [facility] 3 17:01:16 Chronic hyperten tiffany in obstetri c context 5945587 Completed supposed to be taking labetalo l 200 BID, delivery 38w, ante testing 32w Ady El null, [facility] 3 17:01:16 Pregnanc y-induce d hyperten tiffany 06067942 Completed Labetalo l Lea Segura MD [address], [place], [address], [facility] 3 15:18:38 Prematur e delivery 152374727 Completed 36 weeks - first pregnanc y Ady Condonle null, [facility] 3 17:01:16 Social problem 461804732 Active with worsenin g MS, can barely walk Ady Condonle null, [facility] 3 17:01:16 Social problem 626670568 Completed with worsenin g MS, can barely walk Ady Condonle [facility], [facility] 3 17:01:16 Obesity 634465114 Completed Antenata l testing @ 34wks Ady El [facility], [facility] 3 17:01:16 Pregnanc y 99588733 Active 2024 Carol Devine null, [facility] 5 17:49:46 Maternal hyperten tiffany 311900363 Active delivere d at 38 weeks in last two pregnanc ies, well controll ed without medicati ons; baseline labs ordered; discusse d 32 week antenata l testing and 38 week DANIELA HARRISON MD [address], [place], [address], [facility] 5 17:54:57 Maternal hyperten tiffany 462232963 Active delivere d at 38 weeks in last two pregnanc ies, well controll ed without medicati ons; baseline labs ordered; discusse d 32 week antenata l testing and 38 week DANIELA HARRISON MD [address], [place], [address], [facility] 5 17:55:02 Erythema nodosum 15400254 Active LOIS HARRISON MD [address], [place], [address], [place] [facility] 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 5 13:47:13 Body mass index 40+ - severely obese 304349618 Active BMI antenata l testing to start at 34wks Fern Hutchinson [facility], [facility] 5 13:50:22 Body mass index 40+ - severely obese 266682774 Active BMI antenata l testing to start at 34wks Fern Hutchinson [facility] 5 13:50:22 Anemia of pregnanc y 75992336 Active [address] [facility] 5 12:26:33 Problem Notes None recorded. Procedures Surgical History Date Name Laterality Status Provider Name and Address Organization Details Recorded Time 09/24/19 23 Date of Last Pap Smear completed Carol Devine [facility] 08/11/2024 17:15:32 08/10/19 12 Date of Last Colonoscopy completed [facility] 10/18/2021 15:09:05 08/10/19 12 Colonoscopy completed [facility] 10/18/2021 16:52:20 08/10/19 09 Laparoscopy completed Gabrielle [facility] 10/17/2021 15:56:58 08/10/19 06 cholecystectomy completed [facility] 10/18/2021 16:53:20 Imaging Results None recorded. Procedure Notes None recorded. Medical Equipment None Reported. Allergies Allergen ID Allergen Name Allergen Category Reaction Reaction Severity Criticality Documentation Date Start Date Code Code System Note Provider Name and Address Organization Details Recorded Time 35484 morphine medicatio n Not available Not available Not available 10/18/2021 7052 RxNorm Nevaeh Holman null, [facility] 2 16:28:38 48912 latex environme nt,medica tion hives Not available Not available 10/18/2021 34012 91 RxNorm Gabrielle Jo [facility], [facility] 2 15:07:48 Medications Name Sig Start [...] TABLET BY MOUTH THREE TIMES DAILY NEEDED 01/04 completed Not Available Not Available Not Available methylpre dnisolone 4 mg tablets in [...] MOUTH EVERY 12 HOURS FOR 7 DAYS DIRECTED 01/04 completed Not Available Not Available Not Available [...] route every day 10/17 completed Prescrib ed Carissa e: No Locat ion: Jess esquivel [facility] M odify By: martha franklin DateTime : 09/16/19 12 09:00:00 AM Not Available Not Available Not Available Geno (PF) 275 mg/1.1 mL subcutane ous auto-inje ctor Weekly injectio n 05/19 completed Not Available Not Available Not Available Vitals Date Recorded Body weight Body mass index (BMI) Body height Body height Body mass index (BMI) Body weight Systolic blood pressure Diastolic blood pressure Systolic blood pressure Diastolic blood pressure Provider Name and Address Organization Details Last Updated DateTime 5 370552. 38623 g 44.5 kg/m2 170.82 cm 170.82 cm 44.5 kg/m2 432125. 42 g 141 mm[Hg] 87 mm[Hg] 141 mm[Hg] 87 mm[Hg] Gabrielle oJ [facility] 5 19:59:14 Date Recorded Body weight Body mass index (BMI) Body height Systolic blood pressure Diastolic blood pressure Provider Name and Address Organization Details Last Updated DateTime 01/04/2025 677649.6 4071 g 44 kg/m2 170.82 cm 149 mm[Hg] 97 mm[Hg] Gabrielle Jo [facility] 18:06:22 Social History Question Answer Notes LastModified by Organizat ion Details LastModified Time Tobacco Smoking Status Former Smoker Lara Branch olga lidia, [facility] 06/16/2023 11:15:34 Do You Have An Advance Directive? No [email or web address] Information not available 10/18/2021 If You Are , What Was Your Level Of Alcohol Consumption Prior To ? Occasional [email or web address] Information not available 07/13/2024 Are You Blind Or Do You Have Difficulty Seeing? No [email or web address] Information not available 10/18/2021 What Is Your Level Of Caffeine Consumption? Occasional Information not available 10/18/2021 How Much Tobacco Do You Chew? None [email or web address] Information not available 10/18/2021 In The 14 Days Before Symptom Onset, Have You Had Close Contact With A Laboratory-confir med COVID-19 While That Case Was Ill? No [email or web address] Information not available 10/18/2021 In The 14 Days Before Symptom Onset, Have You Had Close Contact With A Person Who Is Under Investigation For COVID-19 While That Person Was Ill? No [email or web address] Information not available 10/18/2021 Have You Been To An Area Known To Be High Risk For COVID-19? No [email or web address] Information not available 10/18/2021 Are You Deaf Or Do You Have Serious Difficulty Hearing? No [email or web address] Information not available 10/18/2021 What Type Of Diet Are You Following? REGULAR [email or web address] Information not available 08/11/2024 What Is The Highest Grade Or Level Of School You Have Completed Or The Highest Degree You Have Received? [id number] Information not available 10/18/2021 Are There Any Guns Present In Your Home? No [email or web address] Information not available 10/18/2021 Have You Ever Been Counseled For Unhealthy Alcohol Use? No Information not available 06/16/2023 Do You Use Protection During Sex? No [email or web address] Information not available 10/18/2021 Do You Use Your Seat Belt Or Car Seat Routinely? Yes [email or web address] Information not available 10/18/2021 Do You Have Smoke And Carbon Monoxide Detectors In Your Home? Yes [email or web address] Information not available 10/18/2021 How Much Tobacco Do You Smoke? No [email or web address] Information not available 10/18/2021 Do You Use Sunscreen Routinely? No [email or web address] Information not available 10/18/2021 Has Tobacco Cessation Counseling Been Provided? No [email or web address] Information not available 06/16/2023 Have You Used IV Drugs? No [email or web address] Information not available 10/18/2021 Do You Have Difficulty Walking Or Climbing Stairs? No Information not available 06/16/2023 Sex: Unknown Functional Status Question Answer Note LastModified by Organizat ion Details LastModified Time Do you use any illicit or recreational drugs? No Information not available 10/18/2021 Do you or have you ever used any other forms of tobacco or nicotine? No [email or web address] Information not available 06/16/2023 What is your level of alcohol consumption? None [email or web address] Information not available 07/13/2024 Are you able to walk? YESWOREST [email or web address] Information not available 10/18/2021 Are you able to care for yourself? 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 No [email or web address] Information not available 06/16/2023 What is your exercise level? Occasional [email or web address] Information not available 10/18/2021 Mental Status Question Answer Note LastModified by Organization D etails LastModified Time Do you feel stressed (tense, restless, nervous, or anxious, or unable to sleep at night)? [id number] [email or web address] Information not available 05/04/2023 Family History Relationship Description Onset Age of this Age Resolved Age Notes LastModified by Organization Details LastModified Time Maternal Grandmother Diabetes mellitus Not available 10/17 15:55:49 Mother Diabetes mellitus [email or web address] Not available 10/17 15:55:57 Mother Asthma Not available 10/17/2021 15:56:16 Mother Disorder of thyroid gland [email or web address] Not available 10/17 15:56:33 Sister Asthma [email or web address] Not available 10/17/2021 15:56:16 Paternal Grandmother Diabetes mellitus Not available 10/18 15:11:24 Maternal Uncle Malignant neoplasm of prostate [email or web address] Not available 12/09 16:29:34 Maternal Aunt Malignant tumor of breast [email or web address] Not available 10/18 15:12:15 Medical History Condition Response Other Y Blood Transfusion N Dermatologic Disorders N Gestational Diabetes N Anxiety Disorder Y Autoimmune disease N Arthritis N Polyps N Infertility N Acid Reflux (GERD) N Cancer N Varicosities N Stroke N Neurologic/Epilepsy N Fibromyalgia N Headaches Y Kidney Disease N Heart Problems N Kidney or Bladder Problems N Eating Disorder N Art (IVF or FET) N Hepatitis/Liver Disease N No Past Medical History N Urinary Tract Infection N Asthma N Trauma/Violence N Thrombophilias N Allergies (Food, seasonal, environmental ) N Breast Cancer N Drug/Latex Allergies/Reactions Y Lung Disease N Defects or Inherited Disease N Breast Problem N Hematologic disorders N Anesthesia Complications N History of STI N Deep Vein Thrombosis N Polycystic ovary syndrome Y History of abnormal pap N Endometriosis N High Cholesterol N Thyroid Problems N GI Problems Y Anemia N Psychiatric Illness N Ovarian Cancer N Diabetes N Pulmonary (TB, Asthma) N Eczema N Abuse/Domestic Violence N Depression/ depression N Heart Disease N Pre-Eclampsia N Hypertension Y Osteoporosis N Gynecological History Statement/Question Response Abnormal Pap [...] SNOMED-CT Code Diagnosis ICD10 Code Diagnosis Note [id number] Gomez Govea MD [facility] [address],[place] [address] 10/18/2021 13:32:18 10/18/2021 14:30:28 screening 051004486 Z36.[id number] [facility] [address],[place] [address] 10/18/2021 13:33:22 10/18/2021 15:31:44 Amenorrhea 95184424 N91.2 Hypertensive disorder 38 549[id number] [facility] [address],[place] [address] 10/23/2021 18:17:01 10/24/2021 17:15:49 Nausea and vomiting 80282559 R11.2 Chronic hy pertension complicating AND/OR reason for care during 66987495 O16.9 [id number] Gomez Govea MD [facility] [address],[place] [address] 11/18/2021 15:27:10 11/18/2021 16:08:36 screening 672935449 Z36.82 [id number] Gomez Govea MD [facility] [address],[place] [address] 11/18/2021 15:27:51 11/18/2021 17:16:53 Routine care 334112785 Z34.81 [id number] Lea Segura MD [facility] [address],[place] [address] 12/16/2021 16:22:10 12/17/2021 14:47:59 Past history of premature delivery 142860108 Z87.51 Chlamydial infection 105 623731 A74.9 Routine an tenatal care 125769104 Z34.82 [id number] Gomez Govea MD [facility] [address],[place] [address] 12/24/2021 13:19:27 12/25/2021 14:29:18 Past history of premature delivery 981042876 Z87.51 [id number] MD Minor Murdock [address],[place] [address] 12/30/2021 14:41:36 12/31/2021 10:14:17 Past history of premature delivery 804770723 Z87.51 [id number] MD Minor Anders [address],[place] [address] 01/07/2022 09:30:43 01/09/2022 15:24:53 Past history of premature delivery 504287183 Z87.51 [id number] MD Minor Anders [address],[place] [address] 01/13/2022 09:32:04 01/14/2022 15:28:16 Past history of premature delivery 288547193 Z87.51 [id number] MD Minor Anders [address],[place] [address] 01/20/2022 15:24:35 01/20/2022 16:34:42 screening for malformation 110283835 Z36.3 [id number] MD Lou [place] [address],[place] [address] 01/20/2022 15:25:06 01/21/2022 13:44:14 Past history of premature delivery 839314792 Z87.51 [id number] MD Minor Murdock [address],[place] [address] 01/27/2022 09:31:52 01/27/2022 17:17:15 Past history of premature delivery 766746483 Z87.51 [id number] MD Minor Anders [address],[place] [address] 1 02/17/2022 15:07:15 02/18/2022 15:20:43 Routine care 864099157 Z34.82 Past pregn eric history of premature delivery 789685845 Z87.51 [id number] MD Minor Anders [address],[place] [address] 03/12/2022 15:17:08 03/13/2022 15:11:28 Chronic hypertension in obstetric context 3201641 O16.9 Past pregn eric history of premature delivery 743467919 Z87.51 Obesity 833599370 E66.9 [id number] MD Minor Anders [address],[place] [address] 03/24/2022 16:40:28 03/24/2022 17:52:00 Past history of premature delivery 466161146 Z87.51 Chronic hy pertension in obstetric context 3585101 O16.9 [id number] Lea Segura MD [facility] [address],[place] [address] 04/07/2022 16:23:25 04/07/2022 17:27:28 Chronic hypertension complicating AND/OR reason for care during 18004792 O10.013 O99.213 Z3A.31 [id number] Lea Segura MD [facility] [address],[place] [address] 04/07/2022 16:24:48 04/07/2022 17:28:03 Maternal obesity complicating , childbirth and the puerperium, antepartum 7146500678 07 O99.213 [id number] Lea Segura MD [facility] [address],[place] [address] 04/07/2022 16:25:52 04/07/2022 17:08:28 Chronic hypertension in obstetric context 9673676 O16.9 Past pregn eric history of premature delivery 873856503 Z87.51 [id number] MD Minor Anders [address],[place] [address] 04/21/2022 15:48:52 04/21/2022 16:51:40 Maternal obesity complicating , childbirth and the puerperium, antepartum 2776755370 07 O99.213 [id number] MD Minor Anders [address],[place] [address] 1 04/21/2022 15:49:14 04/21/2022 17:14:13 Chronic hypertension complicating AND/OR reason for care during 27531911 O10.013 O99.213 Z3A.33 [id number] Lea Segura MD [facility] [address],[place] [address] 04/21/2022 15:49:33 04/23/2022 15:30:08 Chronic hypertension in obstetric context 8679951 O16.9 Past pregn eric history of premature delivery 594638360 Z87.51 Obesity 604001785 E66.9 [id number] Lea Segura MD [facility] [address],[place] [address] 04/28/2022 15:45:22 04/28/2022 16:43:01 Chronic hypertension complicating AND/OR reason for care during 23908821 O10.013 O99.213 Z3A.33 [id number] Lea Segura MD [facility] [address],[place] [address] 04/28/2022 15:45:55 04/28/2022 17:26:10 Chronic hypertension complicating AND/OR reason for care during 00036472 O10.013 O99.213 Z3A.34 [id number] Gomez Govea MD [facility] [address],[place] [address] 04/28/2022 15:48:38 04/28/2022 18:03:31 Routine care 934316187 Z34.81 [id number] Lea Segura MD [facility] [address],[place] [address] 04/30/2022 09:02:33 04/30/2022 13:48:05 Benign essential hypertension complicating , childbirth and the puerperium - not delivered 235017633 O10.019 Pt here for BP check. BP [...] will call at 12:00. Rosalee lopez, RN [id number] Lea Segura MD [facility] [address],[place] [address] 05/05/2022 15:54:29 05/05/2022 17:04:41 Chronic hypertension complicating AND/OR reason for care during 06747573 O10.013 O99.213 Z3A.34 [id number] Lea Segura MD [facility] [address],[place] [address] 05/05/2022 15:55:05 05/05/2022 17:43:34 Chronic hypertension complicating AND/OR reason for care during 15848326 O10.013 O99.213 Z3A.35 [id number] Lea Segura MD [facility] [address],[place] [address] 05/05/2022 15:55:58 05/06/2022 15:28:01 Chronic hypertension in obstetric context 8988928 O16.9 Past pregn eric history of premature delivery 405241527 Z87.51 Obesity 502620689 E66.9 [id number] Lea Segura MD [facility] [address],[place] [address] 1 05/12/2022 15:47:41 05/12/2022 16:25:06 Chronic hypertension complicating AND/OR reason for care during 01809585 O10.013 O99.213 Z3A.35 [id number] Lea Segura MD [facility] [address],[place] [address] 05/12/2022 15:48:05 05/12/2022 17:05:05 Chronic hypertension complicating AND/OR reason for care during 15971981 O10.113 Z3A.36 [id number] Lea Segura MD [facility] [address],[place] [address] 05/12/2022 15:48:27 05/12/2022 17:18:30 Chronic hypertension in obstetric context 8493287 O16.9 Past pregn eric history of premature delivery 897399480 Z87.51 [id number] Lea Segura MD [facility] [address],[place] [address] 05/19/2022 16:13:20 05/19/2022 17:55:29 Chronic hypertension complicating AND/OR reason for care during 64319678 O10.013 Z3A.37 O99.213 [id number] Lea Segura MD [facility] [address],[place] [address] 1 05/19/2022 16:13:43 05/19/2022 17:06:51 Chronic hypertension complicating AND/OR reason for care during 43023405 O10.013 Z3A.37 O99.213 [id number] Lea Segura MD [facility] [address],[place] [address] 1 05/19/2022 16:13:56 05/20/2022 15:31:05 Chronic hypertension in obstetric context 5746686 O16.9 [id number] Lea Segura MD [facility] [address],[place] [address] 05/30/2022 12:08:59 05/30/2022 13:36:25 Chronic hypertension in obstetric context 4481208 O16.9 Noncomplia nce with treatment 8854967 Z91.199 [id number] Lea Segura MD [facility] [address],[place] [address] 06/24/2022 10:54:51 06/24/2022 13:56:06 care 413853911 Z39.2 Essential hypertension 17754043 I10 [id number] Lea Segura MD [facility] [address],[place] [address] 09/24/2022 16:46:30 09/24/2022 17:39:08 Screening procedure 99637033 Z13.9 Gynecologi c examination 96919795 Z01.419 Z11.51 test positive 278580515 Z32.01 Chronic hy pertension in obstetric context 1933149 O16.9 Past pregn eric history of premature delivery 160168015 Z87.51 Severe obe sity complicating 5727027324 3517164 O99.211 [id number] Lea Segura MD [facility] [address],[place] [address] 09/24/2022 17:06:23 09/24/2022 17:55:06 Uncertain viability of 012924866 O36.80X0 Z3A.00 [id number] Lea Segura MD [facility] [address],[place] [address] 10/13/2022 15:28:25 10/13/2022 15:58:29 [id number] Lea Segura MD [facility] [address],[place] [address] 10/13/2022 15:28:51 10/15/2022 15:15:22 test positive 719686886 Z32.01 Chronic hy pertension in obstetric context 9701779 O16.9 Past pregn eric history of premature delivery 022987374 Z87.51 Severe obe sity complicating 2530853660 5739627 O99.211 Chlamydial infection 105 901461 A74.9 [id number] Goemz Govea MD [facility] [address],[place] [address] 11/12/2022 16:52:23 11/12/2022 17:25:47 [id number] MD Minor Murdock [address],[place] [address] 11/12/2022 16:53:05 11/12/2022 18:31:29 Routine care 734369629 Z34.81 [id number] MD Minor Murdock [address],[place] [address] 12/10/2022 16:13:22 12/10/2022 18:28:33 screening 488772383 Z36.89 Routine an tenatal care 836607941 Z34.81 [id number] MD Minor Anders [address],[place] [address] 01/13/2023 13:54:02 01/13/2023 15:20:35 screening for malformation 955651808 Z36.3 [id number] MD Minor Anders [address],[place] [address] 01/13/2023 13:54:27 01/14/2023 10:11:31 Routine care 677436787 Z34.82 [id number] MD Minor Anders [address],[place] [address] 1 02/09/2023 16:37:02 02/11/2023 13:31:06 Routine care 134586126 Z34.82 Chronic hy pertension in obstetric context 0567090 O16.9 [id number] Lea Segura MD [facility] [address],[place] [address] 03/11/2023 14:55:14 03/11/2023 16:05:31 Chronic hypertension complicating AND/OR reason for care during 04658883 O16.9 O99.213 Z3A.28 [id number] Lea Segura MD [facility] [address],[place] [address] 03/11/2023 14:55:43 03/12/2023 17:08:32 Chronic hypertension in obstetric context 6759994 O16.9 Severe obe sity complicating 6018595082 8958485 O99.211 [id number] MD Minor Anders [address],[place] [address] 03/25/2023 16:53:00 03/26/2023 14:22:29 Chronic hypertension in obstetric context 9764096 O16.9 Severe obe sity complicating 4930874502 1519832 O99.211 Reduced fe geraldo movement 958682254 O36.8199 [id number] MD Minor Anders [address],[place] [address] 03/25/2023 17:22:43 03/25/2023 17:43:24 Reduced movement 478200566 O36.8199 [id number] Lea Segura MD [facility] [address],[place] [address] 04/06/2023 16:01:53 04/06/2023 16:48:29 Chronic hypertension complicating AND/OR reason for care during 12656895 O10.013 O99.213 Z3A.32 [id number] Lea Segura MD [facility] [address],[place] [address] 04/06/2023 16:02:16 04/06/2023 17:21:40 Chronic hypertension complicating AND/OR reason for care during 45178368 O10.013 O99.213 Z3A.32 [id number] Lea Segura MD [facility] [address],[place] [address] 04/06/2023 16:02:39 05/03/2023 22:37:08 [id number] Lea Segura MD [facility] [address],[place] [address] 1 04/14/2023 15:20:06 04/14/2023 16:14:14 Chronic hypertension complicating AND/OR reason for care during 45339223 O10.013 O99.213 Z3A.33 [id number] Lea Segura MD [facility] [address],[place] [address] 04/14/2023 15:20:41 04/14/2023 17:59:20 Benign essential hypertension complicating , childbirth and the puerperium - not delivered 901695576 O10.019 Z3A.33 [id number] MD Minor Anders [address],[place] [address] 04/14/2023 15:21:03 04/15/2023 11:29:42 Chronic hypertension in obstetric context 3355031 O16.9 Severe obe sity complicating 0293511588 0906945 O99.211 [id number] MD Minor Anders [address],[place] [address] 04/20/2023 16:00:13 04/20/2023 17:36:43 Chronic hypertension complicating AND/OR reason for care during 86722712 O10.013 O99.213 Z3A.34 [id number] MD Minor Anders [address],[place] [address] 1 04/20/2023 16:00:36 04/20/2023 17:34:34 Chronic hypertension complicating AND/OR reason for care during 54575507 O10.013 O99.213 Z3A.34 [id number] MD Minor Anders [address],[place] [address] 04/20/2023 16:01:05 04/22/2023 16:05:59 Chronic hypertension in obstetric context 7037903 O16.9 Severe obe sity complicating 9150122080 5354094 O99.211 [id number] Lea Segura MD [facility] [address],[place] [address] 04/27/2023 16:06:06 04/27/2023 16:38:28 Chronic hypertension complicating AND/OR reason for care during 51453996 O13.3 O99.213 Z3A.35 [id number] Lea Segura MD [facility] [address],[place] [address] 1 04/27/2023 16:06:28 04/27/2023 17:16:42 Chronic hypertension complicating AND/OR reason for care during 22506918 O13.3 O99.213 Z3A.35 [id number] Lea Segura MD [facility] [address],[place] [address] 04/27/2023 16:07:06 04/29/2023 14:31:24 Chronic hypertension in obstetric context 9866847 O16.9 [id number] LOIS HARRISON MD [facility] [address],[place] [address] 05/04/2023 15:59:57 05/04/2023 16:42:13 Chronic hypertension complicating AND/OR reason for care during 45410358 O16.9 O99.213 Z3A.36 [id number] LOIS HARRISON MD [facility] [address],[place] [address] 05/04/2023 16:00:17 05/04/2023 17:23:05 Chronic hypertension complicating AND/OR reason for care during 01597177 O16.9 O99.213 Z3A.36 [id number] LOIS HARRISON MD [facility] [address],[place] [address] 05/04/2023 16:01:30 05/04/2023 17:23:17 Routine care 225555715 Z34.93 [id number] Gomez Govea MD [facility] [address],[place] [address] 05/11/2023 16:02:32 05/11/2023 16:56:26 Chronic hypertension complicating AND/OR reason for care during 69458637 O10.013 Z3A.37 [id number] Gomez Govea MD [facility] [address],[place] [address] 05/11/2023 16:02:54 05/12/2023 09:43:24 -induced hypertension 01944756 O13.9 [id number] Gomez Govea MD [facility] [address],[place] [address] 1 05/11/2023 16:03:10 05/11/2023 18:03:04 Routine care 798078444 Z34.82 [id number] Gomez Govea MD [facility] [address],[place] [address] 06/16/2023 11:15:19 06/16/2023 12:25:19 care 140769862 Z39.2 32-year-ol d female presents for follow-up. She is breastfeed ing, she is not bleeding, she is not had sex. She is considerin g subcutaneo us implant or IUD for contracept ion. Her baby is doing well. She is doing well. She will follow-up in 2 months for woman exam. She is to call for contracept ion. [id number] Gomez Govea MD [facility] [address],[place] [address] 07/13/2024 14:27:34 07/13/2024 15:10:51 [id number] [facility] [address],[place] [address] 07/13/2024 14:28:47 07/13/2024 16:18:40 Venereal disease screening 763711395 Z11.3 Amenorrhea 65068203 N91. 2 [id number] Gomez Govea MD [facility] [address],[place] [address] 08/11/2024 16:22:48 08/11/2024 17:16:29 screening 153077132 Z36.82 Z3A.14 [id number] LOIS HARRISON MD [facility] [address],[place] [address] 1 08/11/2024 16:58:25 08/12/2024 11:05:59 Routine care 009374370 Z34.93 Chronic hy pertension complicating AND/OR reason for care during 82581416 O16.9 O99.213 Z3A.36 - well controlled off BP meds- asymptomat ic- discussed 32 week testing and 38 week MIL Gestation period, 14 weeks 19892092 Z3A.14 [id number] LOIS HARRISON MD [facility] [address],[place] [address] 08/31/2024 16:37:16 09/01/2024 09:41:12 Nausea and vomiting 72214813 R11.2 Chronic hy pertension complicating AND/OR reason for care during 36611343 O16.9 - well controlled off BP meds- asymptomat ic- discussed 32 week testing and 38 week MIL Gestation period, 16 weeks 20349709 Z3A.16 [id number] [facility] [address],[place] [address] 09/09/2024 12:08:20 09/09/2024 12:54:06 Urinary symptoms 452208785 R39.9 [id number] Gomez Govea MD [facility] [address],[place] [address] 09/29/2024 16:03:36 09/29/2024 17:25:26 screening for malformation 766143207 Z36.3 Z3A.21 [id number] LOIS HARRISON MD [facility] [address],[place] [address] 09/30/2024 16:12:13 10/03/2024 09:16:07 Nausea and vomiting in 3795628473 O21.9 Headache 04473522 R51.9 Gestation period, 21 weeks 94444925 Z3A.21 [id number] Gomez Govea MD [facility] [address],[place] [address] 1 10/25/2024 16:50:05 10/25/2024 17:52:31 screening 970475713 Z36.2 Z3A.24 [id number] LOIS HARRISON MD [facility] [address],[place] [address] 1 10/25/2024 16:54:01 11/01/2024 06:40:08 Maternal obesity complicating , childbirth and the puerperium, antepartum 1152042401 07 O99.212 - BMI 43- plan to start testing at 32 weeks for chronic HTN Chronic hy pertension complicating AND/OR reason for care during 56734616 O16.9 - well controlled off BP meds- asymptomat ic- discussed 32 week testing and 38 week MIL Gestation period, 24 weeks 863569345 Z3A.24 [id number] Gomez Govea MD [facility] [address],[place] [address] 12/02/2024 11:39:11 12/02/2024 13:03:20 ultrasound scan abnormal 621285983 O35.EXX0 O99.213 Z3A.30 [id number] [facility] [address],[place] [address] 12/02/2024 11:39:39 12/02/2024 13:29:17 Gestation period, 30 weeks 27975991 Z3A.30 Pruritic d isorder of skin 0741229848 L29.9 [id number] [facility] [address],[place] [address] 12/21/2024 09:23:24 12/21/2024 10:15:55 Severe obesity complicating [id number] O99.211 Chronic hy pertension complicating AND/OR reason for care during [id number] O10.919 [id number] Gomez Govea MD [place] [address],[place] [address] 12/21/2024 09:24:04 12/21/2024 10:40:34 Obesity [id number] O99.213 O10.013 Z3A.32 [id number] [facility] [address],[place] [address] 12/21/2024 09:24:20 12/22/2024 17:47:58 [id number] [facility] [address] [place] [address] 12/23/2024 15:52:46 12/24/2024 11:20:42 Pruritic disorder of skin 3576136513 L29.9 Gestation period, 33 weeks 11338364 Z3A.33 [id number] Gomez Govea MD [facility] [address] [address] 12/28/2024 14:59:15 12/28/2024 15:57:40 Pre-existing hypertension in obstetric context 56187646 O10.919 O99.210 Z3A.33 [id number] [facility] [address] [place] [address] 12/28/2024 15:01:07 12/29/2024 14:02:16 Chronic hypertension complicating AND/OR reason for care during 03332262 O10.919 [id number] [facility] [address] [place] [address] 12/28/2024 15:01:39 12/28/2024 16:42:04 Gestation period, 33 weeks 47332343 Z3A.33 [id number] Gomez Govea MD [facility] [address] [address] 01/04/2025 16:26:50 01/04/2025 17:11:03 Chronic hypertension complicating AND/OR reason for care during 28188234 O10.919 O99.210 Z3A.34 Health Concerns Section Related Observation LastModified by Organization Detai ls LastModified Time None Recorded Concern Status LastModified by Organization Details LastModified Time None Recorded Advance Directives Directive N: Payers Encounter Date Sequence Insurance Name Policy Number Policy Acosta Covered Member ID Acosta Member ID Guarantor Name 12/28/2024 1 [place] [id number] Leighanna Ruholl [id number] Leighanna Ruholl 12/28/2024 1 [employer] [id number] Leighanna Ruholl [id number] Leighanna Ruholl 01/04/2025 1 [place] [id number] Leighanna Ruholl [id number] Leighanna Ruholl OBGyn Episode Ob Episode Information Episode Created Date Number of Fetuses Patient Bloodtype Patient rh Status Prepregnancy Weight lbs Domestic Partner Domestic Partner Phone Father Name 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 pt giving up at 33+ weeks. Anemia 876113542 slowfe 1 t ab Chronic hypertension in obstetric context 7588216 supposed t o be taking labetalol 200 [...] Weight in lbs Pre/Post Dialysis Refused Weight 270.01270805041 BP Diastolic BP Location Tested BP Systolic [...] Weight in lbs Pre/Post Dialysis Refused Weight 270.98262979116 BP Diastolic BP Location Tested BP Systolic BP Type 81 138 Fetus Heart Rate Present A 150 Fetus Movement A No Comments Feeling well. MENA chlamydia done. Not taking ASA, will start. Has not returned calls re nilson Lora given number to call. Will start, as [...] Fetus Heart Rate Present Fetus Movement Comments Geno injection administere d in right hip, patient tolerated well. Lot [id number] 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 Discussed BP hunter in 2nd trimester and will likely need [...] Weight in lbs Pre/Post Dialysis Refused Weight 277.982754253095 BP Diastolic BP Location Tested BP Systolic [...] Weight in lbs Pre/Post Dialysis Refused Weight 276.827460733381 BP Diastolic BP Location Tested BP Systolic BP Type 85 136 Fetus Heart Rate Present Fetus Movement A Yes Comments Doing fine. Still awaiting a pproval of [place] from her new insurance. No s/sx PTL. [...] Weight in lbs Pre/Post Dialysis Refused Weight 275.093926097883 BP Diastolic BP Location Tested BP Systolic [...] Weight in lbs Pre/Post Dialysis Refused Weight 278.234843813146 BP Diastolic BP Location Tested BP Systolic BP Type 90 136 Fetus Heart Rate Present A 130 Fetus Movement A Yes Comments Doing well, great FM. [place] led for Tdap next week. NST reactive. US pending. BP stable on labetalol. Next week NST at [place] on holiday. Still trying to get Geno. Flowsheet Date 04/21/2022 Mark Score Blood Edema [...] Weight in lbs Pre/Post Dialysis Refused Weight 279.453414863844 BP Diastolic BP Location Tested BP Systolic BP Type 86 128 Fetus Heart Rate Present A 165 Fetus Movement A Yes Comments Doing well. Giving up on Lisset trisha since almost 34w and hasn't had it most of the . BP great. BPP 10/10. Plan delivery 38w, GBs by 35ish. Flowsheet [...] Weight in lbs Pre/Post Dialysis Refused Weight 279.228830502148 BP Diastolic BP Location Tested BP Systolic [...] Weight in lbs Pre/Post Dialysis Refused Weight 282.606607621138 BP Diastolic BP Location Tested BP Systolic [...] Weight in lbs Pre/Post Dialysis Refused Weight 278.092805150291 BP Diastolic BP Location Tested BP Systolic [...] Weight in lbs Pre/Post Dialysis Refused Weight 283.050494157396 BP Diastolic BP Location Tested BP Systolic BP Type 100 150 95 152 Fetus Heart Rate Present A 140 Fetus Movement A Yes Comments Doing well, denies ASN/BV/EP. IOL in 4 days. Precautions given. Discussed IOL. Had fast delivery last labor, but was . BPP 05/19 Flowsheet Date 05/30/2022 Mark Score Blood Edema Fundus Height Fundus Units Glucose Ketones Leukocytes Nitrite Labor Signs Protein Cervic Dilation Cervic Effacement Cervic Station Type Weight in lbs Pre/Post Dialysis Refused Weight 263.691880175420 BP Diastolic BP Location Tested BP Systolic BP Type 96 150 100 152 98 130 Fetus Heart Rate Present Fetus Movement Comments Flowsheet Date 06/24/2022 Mark Score Blood Edema Fundus Height Fundus Units Glucose Ketones Leukocytes Nitrite Labor Signs Protein Cervic Dilation Cervic Effacement Cervic Station Type Weight in lbs Pre/Post Dialysis Refused Weight 264.080347084230 BP Diastolic BP Location Tested BP Systolic [...] Estim ated Date of Delivery false Thalassemia (Israeli, Chinese, Mediterranean, Or Background): MCV < 80 false Neural Tube Defect (Meningomyelocele, Spina Bifi da, Or Anencephaly) false Congenital Heart Defect false Down Syndrome false Shailesh-Sachs (eg, Hoahaoism, Cajun, Citizen Of [place]) f alse Daisy Disease false Sickle Cell Disease Or Trait () false Hemophilia Or Other Blood Disorders false Muscular Dystrophy false Cystic Fibrosis false Chester's Chorea false Intellectual Disability/Autism false If Yes, [...] Domestic Partner Domestic Partner Phone Father Name Sales Enablement Consultant Status 11/13/19 23 1 269 CLOSED Fetus Data First Name Last Name Admitted to NICU Weight (g) Sex Living Outcome Pediatric Complications Fetus ID Race Codes Race Delivery Type 3146.79 45 F true Full Term [id number] Vaginal Delivery Problems Problem Notes cf/sma negative 11/18/2021, 3RD IN LESS THAN 2 YEARS Problem Name Start Date End Date Resolution Snomed Code Not e Obesity 802311008 testing @ 34wks Social problem 969801395 [place] [address] with worsening MS, can barely walk Chlamydial infection 09/24/2022 59069579 0 MNEA neg - recheck 3rd trimester! Chronic hypertension in obstetric context 6057086 supposed t o be taking labetalol 200 BID, delivery 38w, ante testing 32w Premature delivery 167865910 3 6 weeks - first Rafal Calculation [...] Gestation 0 [email or web address] 11/12/2022 05/29/20 23 0 Pre- Flowsheet Flowsheet Date 11/12/2022 Mark Score Blood Edema Fundus Height Fundus Units Glucose Ketones Leukocytes Nitrite Labor Signs Protein Cervic Dilation Cervic Effacement Cervic Station 11 Type Weight in lbs Pre/Post Dialysis Refused Weight 274.540668312722 BP Diastolic BP Location Tested BP Systolic [...] Weight in lbs Pre/Post Dialysis Refused Weight 277.895825352194 BP Diastolic BP Location Tested BP Systolic [...] Weight in lbs Pre/Post Dialysis Refused Weight 278.150003514157 BP Diastolic BP Location Tested BP Systolic [...] Weight in lbs Pre/Post Dialysis Refused Weight 284.412690322582 BP Diastolic BP Location Tested BP Systolic [...] Weight in lbs Pre/Post Dialysis Refused Weight 290.5362546281 BP Diastolic BP Location Tested BP Systolic [...] Weight in lbs Pre/Post Dialysis Refused Weight 294.734644284041 BP Diastolic BP Location Tested BP Systolic BP Type 97 145 90 150 Fetus Heart Rate Present A 140 Fetus Movement A Decreased Comments Reports almost no FM for a w tatitlek. Hasn't slept much in the same amount [...] Weight in lbs Pre/Post Dialysis Refused Weight 293.714249047575 BP Diastolic BP Location Tested BP Systolic [...] Weight in lbs Pre/Post Dialysis Refused Weight 290.9285469326 BP Diastolic BP Location Tested BP Systolic [...] Weight in lbs Pre/Post Dialysis Refused Weight 292.089575248405 BP Diastolic BP Location Tested BP Systolic [...] Weight in lbs Pre/Post Dialysis Refused Weight 295.768500247553 BP Diastolic BP Location Tested BP Systolic [...] Weight in lbs Pre/Post Dialysis Refused Weight 293.457034164884 BP Diastolic BP Location Tested BP Systolic [...] Estim ated Date of Delivery false Thalassemia (Israeli, Chinese, Mediterranean, Or Background): MCV < 80 false Neural Tube Defect (Meningomyelocele, Spina Bifi da, Or Anencephaly) false Congenital Heart Defect false Down Syndrome false Shaielsh-Sachs (eg, Hoahaoism, Cajun, Citizen Of [place]) f alse Daisy Disease false Sickle Cell Disease Or Trait () false Hemophilia Or Other Blood Disorders false Muscular Dystrophy false Cystic Fibrosis false Marty's Chorea false Intellectual Disability/Autism false If Yes, [...] Comments 3 Induce d Regional-Ep idural 38 false Gomez Govea MD Chlamydia l infection , GHTN, Chronic hypertens ion in obstetric context, Obesity Discharge Information Feeding Method Contraceptive Method Maternal HG B and HCT Levels Ob Episode Information Episode Created Date Number of Fetuses Patient Bloodtype Patient rh Status Prepregnancy Weight lbs Domestic Partner Domestic Partner Phone Father Name Sales Enablement Consultant Status 10/18/19 22 1 CLOSED Fetus Data First Name Last Name Admitted to NICU Weight (g) Sex Living Outcome Pediatric Complications Fetus ID Race Codes Race Delivery Type 2948.34 8 M Prematur e 74649 Vaginal Delivery Rafal Calculation Initial Rafal Date [...] Domestic Partner Domestic Partner Phone Father Name Sales Enablement Consultant Status 08/11/19 25 1 A Positive OPEN Fetus Data First Name Last Name Admitted to NICU Weight (g) Sex Living Outcome Pediatric Complications Fetus ID Race Codes Race Delivery Type 02647 Problems Problem Notes Problem Name Start Date End Date Resolution Snomed Code Not e Erythema nodosum 63437594 Body mass index 40+ - severely obese 886574335 BMI testing to start at 34wks Maternal hypertension 55554100 1 delivered at 38 weeks in last two pregnancies, well controlled without medications; baseline labs ordered; discussed 32 week testing and 38 week MIL Dilatation of renal pelvis 318841423 Anemia of 12/05/2024 84428148 Rafal Calculation Initial Rafal Date Initial Exam [...] Date Ultra Sound Latest Days Gestation 0 [email or web address] 08/11/2024 02/10/20 25 0 Pre-annmarie Flowsheet Flowsheet Date 08/11/2024 Mark Score Blood Edema Fundus Height Fundus Units Glucose Ketones Leukocytes Nitrite Labor Signs Protein Cervic Dilation Cervic Effacement Cervic Station Type Weight in lbs Pre/Post Dialysis Refused Weight 272.788634106609 BP Diastolic BP Location Tested BP Systolic BP Type 84 L arm 136 sitting Fetus Heart Rate Present A Present Fetus Movement Comments Patient presents to [facility] care. Has had some swelling in her [...] Type Weight in lbs Pre/Post Dialysis Refused 276.527566998827 BP Diastolic BP Location Tested BP Systolic [...] Type Weight in lbs Pre/Post Dialysis Refused 276.796075520604 BP Diastolic BP Location Tested BP Systolic [...] Weight in lbs Pre/Post Dialysis Refused Weight 278.50694906262 BP Diastolic BP Location Tested BP Systolic [...] Weight in lbs Pre/Post Dialysis Refused Weight 281.008613208638 BP Diastolic BP Location Tested BP Systolic [...] Type Weight in lbs Pre/Post Dialysis Refused 281.563345293067 BP Diastolic BP Location Tested BP Systolic [...] Type Weight in lbs Pre/Post Dialysis Refused 284.135846782207 BP Diastolic BP Location Tested BP Systolic [...] Type Weight in lbs Pre/Post Dialysis Refused 285.044676572668 BP Diastolic BP Location Tested BP Systolic BP Type 90 142 Fetus Heart Rate Present Fetus Movement A Yes Comments Patient is having itching, p ain, contractions, discharge and swelling. reviewd bpp 05/19 +FM check labs precautions and education f/u one week. call for preadmit Flowsheet Date 12/28/2024 Mark Score Blood Edema Fundus Height Fundus Units Glucose Ketones Leukocytes Nitrite Labor Signs Protein Cervic Dilation Cervic Effacement Cervic Station Type Weight in lbs Pre/Post Dialysis Refused BP Diastolic BP Location Tested BP Systolic BP Type Fetus Heart Rate Present Fetus Movement Comments Flowsheet Date 12/28/2024 Mark Score Blood Edema Fundus Height Fundus Units Glucose Ketones Leukocytes Nitrite Labor Signs Protein Cervic Dilation Cervic Effacement Cervic Station Type Weight in lbs Pre/Post Dialysis Refused Weight 286.057888608230 BP Diastolic BP Location Tested BP Systolic BP Type 87 141 Fetus Heart Rate Present Fetus Movement Comments Flowsheet Date 12/28/2024 Mark Score Blood Edema Fundus Height Fundus Units Glucose Ketones Leukocytes Nitrite Labor Signs Protein Cervic Dilation Cervic Effacement Cervic Station neg none Type Weight in lbs Pre/Post Dialysis Refused 286.084956543923 BP Diastolic BP Location Tested BP Systolic BP Type 87 141 Fetus Heart Rate Present Fetus Movement A Yes Comments Patient is having migraines, pain, contractions, discharge and was treated for UTI over at l&D. labs wnl , try exedrin migraine, cont to monitor pih sxs. plan 37 week IOL 01/19 at 1600. bpp 8/8, f/u one week, has preadmission Flowsheet Date 01/04/2025 Mark Score Blood Edema Fundus Height Fundus Units Glucose Ketones Leukocytes Nitrite Labor Signs Protein Cervic Dilation Cervic Effacement Cervic Station Type Weight in lbs Pre/Post Dialysis Refused BP Diastolic BP Location Tested BP Systolic BP Type Fetus Heart Rate Present Fetus Movement Comments Flowsheet Date 01/04/2025 Mark Score Blood Edema Fundus Height Fundus Units Glucose Ketones Leukocytes Nitrite Labor Signs Protein Cervic Dilation Cervic Effacement Cervic Station Type Weight in lbs Pre/Post Dialysis Refused BP Diastolic BP Location Tested BP Systolic BP Type Fetus Heart Rate Present Fetus Movement Comments Flowsheet Date 01/04/2025 Mark Score Blood Edema Fundus Height Fundus Units Glucose Ketones Leukocytes Nitrite Labor Signs Protein Cervic Dilation Cervic Effacement Cervic Station neg trace Type Weight in lbs Pre/Post Dialysis Refused 283.992934276267 BP Diastolic BP Location Tested BP Systolic BP Type 97 149 Fetus Heart Rate Present Fetus Movement A Yes Comments Patient is having some contr actions, discharge with some blood, swelling, nausea and vomiting. Menstrual History Last Menstrual Date Menses Monthly [...]
--- OUTSIDE RECORDS SUMMARY | 2025-01-04 17:29 | XMS_ITS | Continuity of Care Document ---
Author Organization [facility] Address [address] [place] [address] Assessment No assessment recorded. Plan of Treatment [...] profile + non-str ess test 2024 025 [email or web address] [place], [facility] [address], [place], [address], 01/04/2025 17:11:03 Medication Orders None recorde d. Patient TargetsNo targets recorded. Patient InstructionsNo instructions recorded. Reason for Referral None Reported. Results Created Date Observation Date Name Description Value Unit Range Abnormal Flag Note LastModifiedBy Organization Detail LastModifiedTime 08/11/19 25 08/11/2024 US, obste tric, nucha l trans lucen cy No observ ation record ed. [email or web address] [place] [address], [place], [address], 08/11/2024 18:21:12 08/11/19 25 08/11/2024 US, obste tric, nucha l trans lucen cy No observ ation record ed. [email or web address] [address], [place], [address], 08/11/2024 22:08:50 09/29/19 25 09/29/2024 US, obste tric, 2nd or 3rd trime ster No observ ation record ed. [email or web address] [place] [address], [place], [address], 09/29/2024 18:16:37 09/29/19 25 09/29/2024 US, obste tric, follo w-up No observ ation record ed. [email or web address] [address], [place], [address], 10/04/2024 15:28:54 10/26/19 25 10/25/2024 US, obste tric, follo w-up No observ ation record ed. [email or web address] [place] [address], [place], [address], 10/25/2024 18:52:39 10/26/1910/25/2024 US, obste tric, follo w-up No observ ation record ed. [email or web address] [address], [place], [address], 10/28/2024 13:53:30 12/03/19 25 12/02/2024 US, obste tric, follo w-up No observ ation record ed. [email or web address] [place] [address], [place], [address], 12/02/2024 13:30:23 12/03/19 25 12/02/2024 US, obste tric, follo w-up No observ ation record ed. [email or web address] [address], [place], [address], 12/06/2024 14:21:19 12/22/1912/21/2024 non-s tress test No observ ation record ed. [email or web address] [place] [address], [place], [address], 12/21/2024 10:14:42 12/22/19 non-s tress test No observ ation record ed. [email or web address] [place] [address], [place], [address], 12/21/2024 10:17:15 12/22/19 25 12/21/2024 US, obste tric, bioph ysica l profi le + non-s tress test No observ ation record ed. [email or web address] [place] [address], [place], [address], 12/21/2024 10:41:15 12/22/19 25 12/21/2024 US, obste tric, follo w-up No observ ation record ed. [address], [place], [address], 12/22/2024 11:35:09 12/29/19 25 12/29/2024 US, obste tric, follo w-up No observ ation record ed. [email or web address] [place] [address], [place], [address], 12/29/2024 11:29:40 12/29/19 25 12/29/2024 US, obste tric, bioph ysica l profi le + non-s tress test No observ ation record ed. [email or web address] [place] [address], [place], [address], 12/29/2024 11:29:51 12/29/19 25 12/28/2024 US, obste tric, follo w-up No observ ation record ed. [address], [place], [address], 01/03/2025 22:22:46 12/29/19 25 12/28/2024 non-s tress test No observ ation record ed. [email or web address] [place] [address], [place], [address], 12/28/2024 20:00:54 12/29/19 25 12/28/2024 non-s tress test No observ ation record ed. [email or web address] [place] [address], [place], [address], 12/28/2024 20:03:00 01/05/2001/04/2025 US, obste tric, bioph ysica l profi le + non-s tress test No observ ation record ed. [email or web address] [place] [address], [place], [address], 01/04/2025 17:31:59 01/05/2001/04/2025 US, obste tric, bioph ysica l profi le + non-s tress test No observ ation record ed. [email or web address] [address], [place], [address], 01/04/2025 17:06:37 Result Notes None recorded. Problems Name Problem SNOMED Code Status Onset Date Resolution Date Notes Provider Name and Address Organization Details Recorded Time Polycyst ic ovaries Completed 201010/18/2021 Polycyst ic ovaries; Recorded Elsewher e: No Locat ion: [facility] S ource: EHR Family Helper wes: Neeta Olivarez ce ID: [email or web address] Sampson lable Time: 12:00:00 PM Gabrielle duggan [facility] 2 15:08:07 Type 2 diabetes mellitus without complica tion 062996353 Completed 201010/18/2021 Diabetes Mellitus Type 2, Uncompli cated;Re corded Elsewher e: No Locat ion: [facility] S ource: EHR Family Helper wes: N Sher ce ID: [email or web address] Sampson lable Time: 12:00:00 PM Gabrielle duggan [facility] 2 15:08:18 Amenorrh ea 82307012 Completed 201010/18/2021 Absence of menstrua tion;Rec orded Elsewher e: No Locat ion: [facility] S ource: EHR Family Helper wes: N Practi ce ID: 0001 Sampson lable Time: 12:00:00 PM Gabrielle Jo null, [facility] 2 15:07:58 Ill-defi tamara intestin al infectio n Completed 201210/18/2021 No Show Fee;Prac akiko ID: [email or web address] Gabrielle Deysi null, [facility] 2 15:08:01 Pregnanc y 72719464 Completed 202109/11/2022 Carol Devine null, [facility] 5 17:49:46 Pregnanc y-induce d hyperten tiffany 36117632 Completed ASA, Baseline PIH labs WNL Lea Segura MD [address], [place], [address], [facility] 2 17:12:54 Prematur e delivery 927655780 Completed Geno. Geno is approved with insuranc e & sent form to [facility] ons. Lea Segura MD [address], [place], [address], [facility] 2 16:42:24 Obesity 554650324 Completed Antenata l testing @ 34wks Tracee duggan, [facility] 3 14:26:29 Chlamydi al infectio n 773421547 Completed 2021 rpt MENA 12/16 Tracee duggan, [facility] 3 14:26:29 Past pregnanc y history of prematur e delivery 495577072 Completed 2021 Geno failed with new insuranc e. pt giving up at 33+ weeks. Tracee duggan, [facility] 3 14:26:29 Past pregnanc y history of prematur e delivery 222676634 Active 2021 [place] failed with new insuranc e. pt giving up at 33+ weeks. Tracee Daleyalma rosarigoberto gilliland null, [facility] 3 14:26:29 Chronic hyperten tiffany in obstetri c context 4911446 Completed supposed to be taking labetalo l 200 BID, delivery 38w Tracee Daleyalma rosarigoberto gilliland null, [facility] 3 14:26:29 Anemia 081135274 Completed slowfe 1 tab Tracee Daleyalma rosarigoberto gilliland null, [facility] 3 14:26:28 Essentia l hyperten tiffany 28970828 Active 2021 Lea Segura MD [address], [place], [address], [facility] 2 11:25:46 Severe obesity complica ting pregnanc y 6672295731 0970206 Active Gabriellecristóbal Jo null, [facility] 4 15:48:56 Pregnanc y 51093930 Completed 202205/25/2023 Carol Devine null, [facility] 5 17:49:46 Chlamydi al infectio n 535756051 Completed 2022 MENA neg - recheck 3rd trimeste r! Ady El null, [facility] 3 17:01:16 Chronic hyperten tiffany in obstetri c context 9662163 Completed supposed to be taking labetalo l 200 BID, delivery 38w, ante testing 32w Ady El null, [facility] 3 17:01:16 Pregnanc y-induce d hyperten tiffany 30825417 Completed Labetalo l Lea Segura MD [address], [place], [address], [facility] 3 15:18:38 Prematur e delivery 505966264 Completed 36 weeks - first pregnanc y Ady El null, [facility] 3 17:01:16 Social problem 005413939 Active with worsenin g MS, can barely walk Ady El null, [facility] 3 17:01:16 Social problem 377690714 Completed with worsenin g MS, can barely walk Ady El [facility], [facility] 3 17:01:16 Obesity 610118649 Completed Antenata l testing @ 34wks Ady El [facility], [facility] 3 17:01:16 Pregnanc y 51579922 Active 2024 Carolsierra Devine null, [facility] 5 17:49:46 Maternal hyperten tiffany 016140443 Active delivere d at 38 weeks in last two pregnanc ies, well controll ed without medicati ons; baseline labs ordered; discusse d 32 week antenata l testing and 38 week DANIELA HARRISON MD [address], [place], [address], [facility] 5 17:54:57 Maternal hyperten tiffany 043784608 Active delivere d at 38 weeks in last two pregnanc ies, well controll ed without medicati ons; baseline labs ordered; discusse d 32 week antenata l testing and 38 week DANIELA HARRISON MD [address], [place], [address], [facility] 5 17:55:02 Erythema nodosum 72296314 Active LOIS HARRISON MD [address], [place], [address], [facility] 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 5 13:47:13 Body mass index 40+ - severely obese 848146047 Active BMI antenata l testing to start at 34wks Fern Hutchinson [facility] 5 13:50:22 Body mass index 40+ - severely obese 684053360 Active BMI antenata l testing to start at 34wks Fern Hutchinson [facility] 5 13:50:22 Anemia of pregnanc y 82995320 Active [address] [facility] 5 12:26:33 Problem Notes None recorded. Procedures Surgical History Date Name Laterality Status Provider Name and Address Organization Details Recorded Time 09/24/19 23 Date of Last Pap Smear completed Carol Devine [facility] 08/11/2024 17:15:32 08/10/19 12 Date of Last Colonoscopy completed Gabrielle [facility] 10/18/2021 15:09:05 08/10/19 12 Colonoscopy completed [facility] 10/18/2021 16:52:20 08/10/19 09 Laparoscopy completed [facility] 10/17/2021 15:56:58 08/10/19 06 cholecystectomy completed [facility] 10/18/2021 16:53:20 Imaging Results None recorded. Procedure Notes None recorded. Medical Equipment None Reported. Allergies Allergen ID Allergen Name Allergen Category Reaction Reaction Severity Criticality Documentation Date Start Date Code Code System Note Provider Name and Address Organization Details Recorded Time 17308 morphine medicatio n Not available Not available Not available 10/18/20[address] [facility] 2 16:28:38 14990 latex environme nt,medica tion hives Not available Not available 10/18/2021 28598 91 RxNorm Gabrielle Jo [place], [place] - [facility] 2 15:07:48 Medications Name Sig Start [...] Prescrib ed Elsewher e: No Locat ion: [facility] M odify By: martha franklin DateTime : 09/16/19 09:00:00 AM Not Available Not Available Not Available Geno (PF) 275 mg/1.1 mL subcutane ous auto-inje ctor Weekly injectio n 05/19 completed Not Available Not Available Not Available Vitals Date Recorded Body weight Body mass index (BMI) Body height Systolic blood pressure Diastolic blood pressure Provider Name and Address Organization Details Last Updated DateTime 01/04/2025 581452.6 4071 g 44 kg/m2 170.82 cm 149 mm[Hg] 97 mm[Hg] Gabrielle Jo [facility] 18:06:22 Social History Question Answer Notes LastModified by Organizat ion Details LastModified Time Tobacco Smoking Status Former Smoker Lara duggan [facility] 06/16/2023 11:15:34 Do You Have An Advance Directive? No [email or web address] Information not available 10/18/2021 If You Are , What Was Your Level Of Alcohol Consumption Prior To ? Occasional [email or web address] Information not available 07/13/2024 Are You Blind Or Do You Have Difficulty Seeing? No [email or web address] Information not available 10/18/2021 What Is Your Level Of Caffeine Consumption? Occasional [email or web address] Information not available 10/18/2021 How Much Tobacco Do You Chew? None [email or web address] Information not available 10/18/2021 In The 14 Days Before Symptom Onset, Have You Had Close Contact With A Laboratory-confir med COVID-19 While That Case Was Ill? No [email or web address] Information not available 10/18/2021 In The 14 Days Before Symptom Onset, Have You Had Close Contact With A Person Who Is Under Investigation For COVID-19 While That Person Was Ill? No [email or web address] Information not available 10/18/2021 Have You Been To An Area Known To Be High Risk For COVID-19? No [email or web address] Information not available 10/18/2021 Are You Deaf Or Do You Have Serious Difficulty Hearing? No Information not available 10/18/2021 What Type Of Diet Are You Following? REGULAR Information not available 08/11/2024 What Is The Highest Grade Or Level Of School You Have Completed Or The Highest Degree You Have Received? [id number] [email or web address] Information not available 10/18/2021 Are There Any Guns Present In Your Home? No [email or web address] Information not available 10/18/2021 Have You Ever Been Counseled For Unhealthy Alcohol Use? No [email or web address] Information not available 06/16/2023 Do You Use Protection During Sex? No [email or web address] Information not available 10/18/2021 Do You Use Your Seat Belt Or Car Seat Routinely? Yes [email or web address] Information not available 10/18/2021 Do You Have Smoke And Carbon Monoxide Detectors In Your Home? Yes [email or web address] Information not available 10/18/2021 How Much Tobacco Do You Smoke? No [email or web address] Information not available 10/18/2021 Do You Use Sunscreen Routinely? No [email or web address] Information not available 10/18/2021 Has Tobacco Cessation Counseling Been Provided? No [email or web address] Information not available 06/16/2023 Have You Used IV Drugs? No [email or web address] Information not available 10/18/2021 Do You Have Difficulty Walking Or Climbing Stairs? No Information not available 06/16/2023 Sex: Unknown Functional Status Question Answer Note LastModified by Organizat ion Details LastModified Time Do you use any illicit or recreational drugs? No Information not available 10/18/2021 Do you or have you ever used any other forms of tobacco or nicotine? No [email or web address] Information not available 06/16/2023 What is your level of alcohol consumption? None Information not available 07/13/2024 Are you able to walk? YESWOREST [email or web address] Information not available 10/18/2021 Are you able to care for yourself? 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 No Information not available 06/16/2023 What is your exercise level? Occasional [email or web address] Information not available 10/18/2021 Mental Status Question Answer Note LastModified by Organization D etails LastModified Time Do you feel stressed (tense, restless, nervous, or anxious, or unable to sleep at night)? [id number] [email or web address] Information not available 05/04/2023 Family History Relationship Description Onset Age of this Age Resolved Age Notes LastModified by Organization Details LastModified Time Maternal Grandmother Diabetes mellitus [email or web address] Not available 10/17 15:55:49 Mother Diabetes mellitus [email or web address] Not available 10/17 15:55:57 Mother Asthma [email or web address] Not available 10/17/2021 15:56:16 Mother Disorder of thyroid gland [email or web address] Not available 10/17 15:56:33 Sister Asthma [email or web address] Not available 10/17/2021 15:56:16 Paternal Grandmother Diabetes mellitus [email or web address] Not available 10/18 15:11:24 Maternal Uncle Malignant neoplasm of prostate [email or web address] Not available 12/09 16:29:34 Maternal Aunt Malignant tumor of breast [email or web address] Not available 10/18 15:12:15 Medical History Condition [...] SNOMED-CT Code Diagnosis ICD10 Code Diagnosis Note [id number] Mel Carlson CNM [place] [address] [address] 12/21/2024 09:23:24 12/21/2024 10:15:55 Severe obesity complicating 1209135626 0826257 O99.211 Chronic hy pertension complicating AND/OR reason for care during 81611258 O10.919 [id number] Gomez Govea MD [place] [address] [address] 12/21/2024 09:24:04 12/21/2024 10:40:34 Obesity 465377935 O99.213 O10.013 Z3A.32 [id number] Mel Carlson [facility] [address],[place] [address] 12/21/2024 09:24:20 12/22/2024 17:47:58 [id number] Mel Carlson [facility] [address],[place] [address] 12/23/2024 15:52:46 12/24/2024 11:20:42 Pruritic disorder of skin 1821736667 L29.9 Gestation period, 33 weeks 48990093 Z3A.33 [id number] Gomez Govea MD [place] [address],[place] [address] 12/28/2024 14:59:15 12/28/2024 15:57:40 Pre-existing hypertension in obstetric context 53631074 O10.919 O99.210 Z3A.33 [id number] Mel Carlson [facility] [address],[place] [address] 12/28/2024 15:01:07 12/29/2024 14:02:16 Chronic hypertension complicating AND/OR reason for care during 77224492 O10.919 [id number] Mel Carlson [facility] [address],[place] [address] 12/28/2024 15:01:39 12/28/2024 16:42:04 Gestation period, 33 weeks 82005995 Z3A.33 [id number] Gomez Govea MD [place] [address],[place] [address] 01/04/2025 16:26:50 01/04/2025 17:11:03 Chronic hypertension complicating AND/OR reason for care during 74392563 O10.919 O99.210 Z3A.34 Health Concerns Section Related Observation LastModified by Organization Detai ls LastModified Time None Recorded Concern Status LastModified by Organization Details LastModified Time None Recorded Payers Encounter Date Sequence Insurance Name Policy Number Policy Acosta Covered Member ID Acosta Member ID Guarantor Name 01/04/2025 1 [place] [id number] Samantha Ceballos [id number] Samantha Ceballos OBGyn Episode Ob Episode Information Episode Created Date Number of Fetuses Patient Bloodtype Patient rh Status Prepregnancy Weight lbs Domestic Partner Domestic Partner Phone Father Name Device Processing Engineer Status 08/11/19 25 1 A Positive OPEN Fetus Data First Name Last Name Admitted to NICU Weight (g) Sex Living Outcome Pediatric Complications Fetus ID Race Codes Race Delivery Type [id number] Problems Problem Notes Problem Name Start Date End Date Resolution Snomed Code Not e Erythema nodosum 79252647 Body mass index 40+ - severely obese 155826325 BMI testing to start at 34wks Maternal hypertension 30480745 1 delivered at 38 weeks in last two pregnancies, well controlled without medications; baseline labs ordered; discussed 32 week testing and 38 week MIL Dilatation of renal pelvis 582065608 Anemia of 12/05/2024 97693248 Rafal Calculation Initial Rafal Date Initial Exam [...] Date Ultra Sound Latest Days Gestation 0 [email or web address] 08/11/2024 02/10/20 25 0 Pre-annmarie Flowsheet Flowsheet Date 08/11/2024 Mark Score Blood Edema Fundus Height Fundus Units Glucose Ketones Leukocytes Nitrite Labor Signs Protein Cervic Dilation Cervic Effacement Cervic Station Type Weight in lbs Pre/Post Dialysis Refused Weight 272.975277221114 BP Diastolic BP Location Tested BP Systolic BP Type 84 L arm 136 sitting Fetus Heart Rate Present A Present Fetus Movement Comments Patient presents to [facility]. Has had some swelling in her [...] Type Weight in lbs Pre/Post Dialysis Refused 276.382085689889 BP Diastolic BP Location Tested BP Systolic [...] Type Weight in lbs Pre/Post Dialysis Refused 276.141126306418 BP Diastolic BP Location Tested BP Systolic [...] Weight in lbs Pre/Post Dialysis Refused Weight 278.28375696173 BP Diastolic BP Location Tested BP Systolic [...] Weight in lbs Pre/Post Dialysis Refused Weight 281.204345488471 BP Diastolic BP Location Tested BP Systolic [...] Type Weight in lbs Pre/Post Dialysis Refused 281.025965621061 BP Diastolic BP Location Tested BP Systolic [...] Type Weight in lbs Pre/Post Dialysis Refused 284.107988420049 BP Diastolic BP Location Tested BP Systolic [...] Type Weight in lbs Pre/Post Dialysis Refused 285.613474231790 BP Diastolic BP Location Tested BP Systolic [...] Weight in lbs Pre/Post Dialysis Refused Weight 286.730438899903 BP Diastolic BP Location Tested BP Systolic BP Type 87 141 Fetus Heart Rate Present Fetus Movement Comments Flowsheet Date 12/28/2024 Mark Score Blood Edema Fundus Height Fundus Units Glucose Ketones Leukocytes Nitrite Labor Signs Protein Cervic Dilation Cervic Effacement Cervic Station neg none Type Weight in lbs Pre/Post Dialysis Refused 286.556487629935 BP Diastolic BP Location Tested BP Systolic BP Type 87 141 Fetus Heart Rate Present Fetus Movement A Yes Comments Patient is having migraines, pain, contractions, discharge and was treated for UTI over at l&D. labs wnl , try exedrin migraine, cont to monitor pih sxs. plan 37 week IOL 01/19 at 1600. bpp 8/, f/u one week, has preadmission Flowsheet Date [...] Type Weight in lbs Pre/Post Dialysis Refused 283.451896493662 BP Diastolic BP Location Tested BP Systolic [...]
[2025-01-04 17:56] VITALS: BP 136/80; PULSE 101
[2025-01-04 18:01] VITALS: BP 122/76; PULSE 98
[2025-01-04 18:04] LABS: Basophils Absolute Auto 0.1 K/mm3 (0.0-0.1); Basophils Percent Auto 0.4 % (0.2-1.2); Eosinophils Absolute Auto 0.6 K/mm3 (0-0.3); Eosinophils Percent Auto 4.1 % (0-4.4); Hematocrit 33.7 % (37.0-47.0); Hemoglobin 10.5 g/dL (12.0-15.0); Immature Granulocyte Percent A 0.8 % (0-0.5); Lymphocytes Absolute Auto 2.27 K/mm3 (0.9-3.2); Mean Corpuscular HGB Conc 31.2 g/dl (32-36); Mean Corpuscular Volume 77.1 fl (80-100); Mean Platelet Volume 10.4 fl (7.4-10.4); Monocytes Absolute Auto 0.7 K/mm3 (0.1-0.6); Monocytes Percent Auto 5.3 % (2.6-8.5); Neutrophils Absolute Auto 9.7 K/mm3 (1.3-6.7); Neutrophils Percent Auto 72.4 % (45.5-73.1); Platelet Count Result 329 k/mm3 (150-375); Red Blood Count 4.37 M/mm3 (4.2-5.4); Red Cell Distribution Width 14.8 % (11.5-14.5); White Blood Count 13.3 K/mm3 (4.5-10.0)
[2025-01-04 18:08] LABS: Add Urine Microscopic? YES; Appearance Urine Clear (Clear); Bacteria Urine 1+ /hpf; Bilirubin Urine Negative (Negative); Blood Urine Negative (Negative); Color Urine Dark Yellow (Yellow); Glucose Urine UA Negative (Negative); Ketones Urine Trace mg/dL (Negative); Leukocyte Esterase Ur 2+ LEU/UL (Negative); Nitrate Urine Negative (Negative); Non Pathogenic Casts 0-2; Protein Urine 1+ mg/dL (Negative); RBC Urine 0-2 /hpf (0-2); Squamous Epithelial Cell Urine Few /hpf (Few); WBC Urine 21-50 /hpf (0-3)
[2025-01-04 18:14] LABS: Creatinine Urine 272.2 mg/dL; Total Protein Urine Random 9 mg/dL; Ur Ttl Prot Creatinine Ratio 0.03 mg/mg (0-0.20)
[2025-01-04 18:16] VITALS: BP 138/97; PULSE 103
[2025-01-04 18:17] LABS: Alanine Aminotransferase 13 U/L (6-35); Albumin Level 3.6 g/dL (3.5-5.1); Alkaline Phosphatase 123 U/L (38-126); Anion Gap 7 mmol/L (4-12); Aspartate Amino Transferase 20 U/L (14-36); Bilirubin,Total 0.4 mg/dL (0.2-1.3); Blood Urea Nitrogen 3 mg/dL (7-17); Carbon Dioxide 23 mmol/L (22-30); Chloride 103 mmol/L (98-107); Estimated Glomerular Filt Rate > 60; Glucose 98 mg/dL (65-110); Potassium 3.2 mmol/L (3.4-5.0); Sodium 133 mmol/L (137-145); Uric Acid 4.9 mg/dL (2.5-7.5)
[2025-01-04 18:31] VITALS: BP 132/80; PULSE 98
[2025-01-04 18:46] VITALS: BP 128/78; PULSE 95
--- NOTE | 2025-01-04 18:48 | PC.NURSE ---
Dahlia Carlson CNM called and stated pt has UTI, will start keflex BID.
--- NOTE | 2025-01-04 18:54 | PC.NURSE ---
Called Dahlia Carlson CNM, notified pt already on macrobid 100mg BID x 7 days with two days left. Dahlia Carlson says to AMADO phillips and have pt finish macrobid then she will have UA done next week in office.
== END 2025-01-04 19:07 | disposition home or self-care (01) ==
LOC: ANHOBOP 17:27 → ANHLDR 01-10 07:04
PROVIDERS: PCP Emergency Medicine; Visit Provider Advanced Practice Midwife
DX: O13.9 Gestational [pregnancy-induced] hypertension without significant proteinuria, unspecified trimester (principal); O23.40 Unspecified infection of urinary tract in pregnancy, unspecified trimester; Z3A.00 Weeks of gestation of pregnancy not specified
CPT/HCPCS: 36415; 59025; 80053; 81001; 82570; 84156; 84550; 85025; 87086; 99199

== ENCOUNTER 2025-01-10 07:00 | Outpatient (CLI) | payer BC, SELFPAY ==
--- OUTSIDE RECORDS SUMMARY | 2025-01-10 07:05 | XMS_ITS | Clinical Summary ---
Author Organization [facility] Address [facility] [place] [address] Phone Care Team Providers Care Cheese Cook Name Role Phone Provider, Unknown Primary Care [...] patient's age to complete this topic Insurance [facility] Care Teams Cheese Cook Relationship Specialty Start Date End Date Provider, Unknown UNKNOWN PCP - General 10/24/23
--- OUTSIDE RECORDS SUMMARY | 2025-01-10 07:05 | XMS_ITS | Continuity of Care Document ---
Author Organization [facility] Address [address] [place] [address] Phone Care Team Providers Care Jewelry Dipper Name Role Phone Yamil ANTON, William Unavailable [...] Diagnoses Date Provider Providers Copied on Encounter [facility], [address] [place], [address], [place] tel:[phone] [facility] No Information 0 4 Yamil Thomas. [address] [facility] [address] [place], [address] , [place]. tel:[phone] Referring Provider: William Lobo, [address] [facility] [address], [place], [place], [address]. tel:[phone] OFFICE/OUTPA TIENT VISIT, EST [facility], [address], [place], [place], [address], [place] tel:[phone] [facility] Medicine chest pain (chief complaint) knee (chief complaint) Chest Pain, UnspecifiedRespirat ory abnormality, unspecifiedPain in joint involving lower legDietary surveillance and counselingHypertens ion, Unspecified 3 Yamil Thomas. [address], [place], [place], [address] , [place]. [phone] Referring Provider: Rohan Orosco [address], [place], [place], [address]. tel:[phone] PREV VISIT, EST, AGE 18-39 [facility], [address], [place], [place], [address], [place] tel:[phone] [facility] Physical (chief complaint) Dietary surveillance and counselingRoutine Medical ExamGERDPain in joint involving lower legHypertension, UnspecifiedRoutine Medical Exam 3 Yamil Thomas. [address], [place], [place], [address] , [place]. tel:[phone] Referring Provider: Rohan Orosco [address], [place], [place], [address]. tel:[phone] OFFICE/OUTPA TIENT VISIT, EST [facility], [address], [place], [place], [address], [place] tel:[phone] [facility] Medicine chest pain (chief complaint) abdominal pain (chief complaint) SOB (chief complaint) Dietary surveillance and counselingGERDChest Pain, UnspecifiedRespirat ory abnormality, unspecified 2 Yamil Thomas. [address], [place], [place], [address] , [place]. tel:[phone] Referring Provider: Rohan [address], [place], [place], [address]. tel:[phone] Family History Family Member Type Diagnosis Age At Onset Mother Problem (finding) CHF Sister Problem (finding) Alive and well Problem (finding) Family history of Diabe johann mellitus Father Problem (finding) Alive and well Mother Problem (finding) No Family hist ory of No history of Coronary artery disease Payers Payer name Insurance type Covered alliance party ID Authoriza tion(s) No Information Social [...]
--- NOTE | 2025-01-10 07:15 | PC.NURSE ---
Dahlia Carlson CNM at bedside. Ultrasound done at bedside and found to be vertex. No need for NST or further evaluation per Dahlia Carlson CNM. May D/C home.
--- NOTE | 2025-01-10 07:17 | PM.IMHP ---
H&P: HPI History of Present Illness Date/Time: 01/10/25 07:17 Chief Complaint: pt admitted to triage for potential external version. at 35.5 weeks gestation, complicated by obesity, and chronic HTN. on admission fetus vertex, procedure cancelled. +FM, pt has f/u in office tomorrow am with testing scheduled PMF Past Medical History Medical History (Updated 01/10/25 @ 07:22 by Mel Carlson CNM) Diverticulitis Asthma as child Hypertension affecting Depression as adolescent ADHD (attention deficit hyperactivity disorder) as child 10 weeks gestation of No significant medical problems Surgical History Surgical History Hx of cholecystectomy No significant past surgical history Family History Family History Mother Diabetes mellitus Heart disease Hypertension Father Hypertension Social History Social History Smoking packs per day: 0.33 Smoking cigarettes per day: 6.6 Smoking status: Never smoker Tobacco type: cigarettes Second hand tobacco smoke exposure: Yes Alcohol intake: never Substance use: never Do You Feel Safe in your Home?: Yes Lack of Transportation: No Lack of Food: Never True Current Housing: I Have Housing Concerned About Future Housing: No Difficulty Paying Gas/Electric Bills: No Difficulty Paying for Meds: No Currently Unemployed: No Education: Decline to Answer Difficulty w/ Childcare or Family Care: No Gender identity (if verbalized by the patient): Female Spiritual care concerns: No Meds Home Medications and Allergies Home Medications ?Medication ?Instructions ?Recorded ?Confirmed ?Type nitrofurantoin 100 mg PO Q12H 7 days #14 caps 12/26/24 Rx monohydrate/macrocrystals 100 mg capsule (Macrobid) Allergies Allergy/AdvReac Type Severity Reaction Status Date / Time adhesive Allergy Itching, Verified 06/21/23 16:50 hives latex Allergy Rash, Hives Verified 06/21/23 16:50 Exam Narrative: bedside us : vertex Const: General: cooperative and healthy appearing Chest: Chest palpation & inspection: normal inspection of the chest Resp: Effort & Inspection: normal respiratory effort Cardio: Rate: regular rate GI: Other: soft Back/Spine/Pelvis: Back: no CVA tenderness Assessment and Plan Assessment and plan (1) Breech presentation of fetus: Code(s): O32.1XX0 - Maternal care for breech presentation, not applicable or unspecified Status: Acute Plan continue care in office, vertex by bedside US
== END 2025-01-10 07:19 | disposition home or self-care (01) ==
LOC: ANHOBOP 07:03 → ANHOBPP 07:05
PROVIDERS: PCP Emergency Medicine; Visit Provider Advanced Practice Midwife
DX: O32.1XX0 Maternal care for breech presentation, not applicable or unspecified (principal); O99.213 Obesity complicating pregnancy, third trimester; O10.919 Unspecified pre-existing hypertension complicating pregnancy, unspecified trimester; Z3A.35 35 weeks gestation of pregnancy
CPT/HCPCS: 99199

== ENCOUNTER 2025-01-19 15:54 | Inpatient (IN) | payer BC, SELFPAY ==
[2025-01-19] VITALS (41 sets, daily range): BP systolic 113–168; BP diastolic 54–104; PULSE 77–152; RESP 18–20; TEMP 36.6–36.9; O2SAT 95–100; BMI 42.3
--- OUTSIDE RECORDS SUMMARY | 2025-01-19 16:07 | XMS_ITS | Data Portability ---
Author Organization [employer] , [facility] Address [address] [place] [address] Assessment Encounter Date Assessment Date Assessment LastModified [...] By Organization Details Last Modified Time 07/08/2021 [id number] edinburgh depression scale* [email or web address] Not available 07/08/2021 13:24:36 08/05/2021 [id number] Care at Home With Your Baby: Care Instructions [email or web address] Not available 08/05/2021 12:09:08 edinburgh depression scale* [email or web address] Not available 09/12/2021 17:39:37 control after counseling [email or web address] Not available 08/05/2021 12:09:08 Reason for Referral None Reported. Results Created Date Observation Date Name Description Value Unit Range Abnormal Flag Note LastModifiedBy Organization Detail LastModifiedTime 06/18/20 21 06/18/2021 US, obste tric, bioph ysica l profi le + non-s tress test No observ ation record ed. [facility] [address], [place], [address], 06/20/2021 17:10:44 07/11/2006/18/2021 US, obste tric, bioph ysica l profi le + non-s tress test No observ ation record ed. [email or web address] [address], [place], [address], 08/27/2021 16:56:30 Result Notes None recorded. Problems [...] YES ProblemS tatus: Current Evelyn Castellanos null, [facility] 16:24:36 High risk heterose xual behavior [id number] 9101 Completed 202006/18/2021 High risk heterose xual behavior ; Severity : Moderate Progress : Stable Added By: Bianca Garcia Add to Current Problems : YES ProblemS tatus: Current Evelyn Castellanos null, [place] [facility] 16:24:51 Gestatio n period, 20 weeks 16943529 Completed 202006/18/2021 20 weeks gestatio n of pregnanc y; Severity : Moderate Progress : Stable Added By: Hailey Stover Add to Current Problems : YES ProblemS tatus: Current Evelyn Castellanos null, [place] [facility] 16:24:56 Syphilis test finding [id number] Completed 202006/18/2021 Encounte r for screenin g for infectio ns with a predomin antly sexual mode of transmis tiffany; Severity : Moderate Progress : Stable Added By: Evelyn Castellanos Add to Current Problems : YES ProblemS tatus: Current Evelyn Castellanos null, [place] [facility] 16:24:33 Gestatio n period, 17 weeks [id number] Completed 202006/18/2021 17 weeks gestatio n of [...] [facility] 16:24:43 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 2 15:23:56 Gestatio n period, 24 weeks 828175687 Completed 202006/18/2021 24 weeks gestatio n of pregnanc y; Severity : Moderate Progress : Stable Added By: Evelyn Castellanos Add to Current Problems : YES ProblemS tatus: Current Evelyn Castellanos null, [place] [facility] 16:24:26 Gestatio n period, 28 weeks 28890734 Completed 202006/18/2021 28 weeks gestatio n of pregnanc y; Severity : Moderate Progress : Stable Added By: Suellen Taylor Add to Current Problems : YES ProblemS tatus: Current Evelyn Castellanos null, [facility] 16:24:28 Normal pregnanc y in multigra kyle [id number] 4106 Completed 202006/18/2021 Encounte r for supervis ion of other normal pregnanc y, third trimeste r; Severity : Moderate Progress : Stable Added By: Suellen Taylor Add to Current Problems : YES ProblemS tatus: Current Arlene Mcmahan MD [address] [facility], [place], [address] , [place] [facility] 17:15:20 Gestatio n period, 29 weeks 13687038 Completed 202006/18/2021 29 weeks gestatio n of pregnanc y; Severity : Moderate Progress : Stable Added By: Hailey Stover Add to Current Problems : YES ProblemS tatus: Current Evelyn Castellanos null, [place] [facility] 16:24:53 Pregnanc y 62355335 Completed 202008/05/2021 Hailey Stover null, [place] [facility] 12/27/202 1 11:32:02 Blood pressure taking Active 2020 Encounte r for examinat ion of blood pressure without abnormal findings ; Progress : Stable Added By: Hailey Stover Add to Current Problems : YES ProblemS tatus: Current Not Available [facility] 2 15:23:57 Screenin g for malignan t neoplasm of cervix Active 2020 Encounte r for screenin g for malignan t neoplasm of cervix; Progress : Stable Added By: Evelyn Castellanos Add to Current Problems : YES ProblemS tatus: Current Not Available [facility] 2 15:23:58 Gestatio n period, 35 weeks 53448342 Active 2020 35 weeks gestatio n of pregnanc y; Progress : Stable Added By: Evelyn Castellanos Add to Current Problems : YES ProblemS tatus: Current Not Available [facility] 2 15:23:58 Gestatio n period, 32 weeks 1655500 Active 2020 32 weeks gestatio n of pregnanc y; Progress : Stable Added By: Hailey Stover Add to Current Problems : YES ProblemS tatus: Current Not Available [facility] 2 15:23:58 Gestatio n period, 34 weeks 15815552 Active 2020 34 weeks gestatio n of pregnanc y; Progress : Stable Added By: Bianca Garcia Add to Current Problems : YES ProblemS tatus: Current Not Available [facility] 2 15:23:59 Gestatio n period, 30 weeks 40521858 Active 2020 30 weeks gestatio n of pregnanc y; Progress : Stable Added By: Hailey Stover Add to Current Problems : YES ProblemS tatus: Current Not Available [facility] 2 15:24:00 Antenata l screenin g for malforma tion Active 2020 Encounte r for antenata l screenin g for malforma tions; Progress : Stable Added By: Hailey Stover Add to Current Problems : YES ProblemS tatus: Current Not Available [facility] 2 15:24:01 Antenata l screenin g [...] screenin g; Progress : Stable Added By: vEelyn Castellanos Add to Current Problems : YES ProblemS tatus: Current; Start Date : 01/11/20 21 Not Available [facility] 2 15:24:[address] Concept Active 2020 Supervis ion of other high risk pregnanc ies, third trimeste r; Progress : Stable Added By: Evelyn Castellanos Add to Current Problems : YES ProblemS tatus: Current Not Available [facility] 2 21:42:49 Gestatio n period, 33 weeks 66795745 Active 2020 33 weeks gestatio n of pregnanc y; Progress : Stable Added By: Bianca Garcia Add to Current Problems : YES ProblemS tatus: Current Not Available [facility] 2 21:42:49 Problem Notes None recorded. Procedures Surgical History Date Name Laterality Status Provider Name and Address Organization Details Recorded Time 01/11/20 Date of Last Pap Smear completed [facility] 06/17/2021 20:36:36 cholecystectomy completed [facility] 06/17/2021 20:37:22 Removal of ovarian cyst(s) completed [facility] 06/17/2021 20:37:30 Imaging Results None recorded. Procedure Notes None recorded. Medical Equipment None Reported. Allergies No known drug allergies Medications Name Sig Start Date Stop Date Status Note LastModified by Organization Details LastModified Time labetalol 200 mg tablet take 2 tablet (400 mg) by oral route 2 times per day active labetalo L 200 mg oral tablet RxNorm: 416098 Allow Substitu tion: True Refill Denied: No Edited by: Alesha Graham) on 05/28/20 21 Stopped by: Alesha Graham) on Not Available Not Available Not Available Flagyl 500 mg tablet take 4 tablets (2 gram) by oral route once daily 02/25 completed FlagyL 500 mg oral tablet RxNorm: 011145 Allow Substitu tion: True Refill Denied: No [...] labetalo L 100 mg oral tablet RxNorm: 098333 Allow Substitu tion: True Refill Denied: No Edited by: Alesha Graham) on 05/31/20 Stopped by: Alesha Graham) on Not Available Not Available Not Available Vistaril 50 mg capsule take 1 capsule (50 mg) by oral route 4 times per day prn pain 03/29 completed VistariL 50 mg oral capsule RxNorm: 585080 Allow Substitu tion: True Refill Denied: No Edited by: Evelyn Ziegler ) on 03/29/20 Stopped by: Evelyn Ziegler ) on 03/29/20 Not Available Not Available Not Available azithromy loida 500 mg tablet take 2 tablets (1,000 mg) by oral route once 02/25 completed azithrom ycin 500 mg oral tablet RxNorm: 953080 Allow Substitu tion: True Refill Denied: No [...] Updated DateTime 1 175.26 cm 41.9 kg/m2 877515. 320587 g 97.5 [degF] 140 mm[Hg] 88 mm[Hg] Evelyn Castellanos [facility] 1 16:23:35 Date Recorded Systolic blood pressure Diastolic blood pressure Provider Name and Address Organization Details Last Updated DateTime 06/20/2021 141 mm[Hg] 83 mm[Hg] Not Available [employer] 0 10/23/2021 08:23:09 Date Recorded Body height Body mass index (BMI) Body weight Body temperature Systolic blood pressure Diastolic blood pressure Provider Name and Address Organization Details Last Updated DateTime 1 175.26 cm 38.7 kg/m2 036217. 275622 g 97.8 [degF] 124 mm[Hg] 84 mm[Hg] Hailey Starr Salvador[facility] 1 12:49:38 Date Recorded Body height Body mass index (BMI) Body weight Body temperature Systolic blood pressure Diastolic blood pressure Provider Name and Address Organization Details Last Updated DateTime 1 175.26 cm 38 kg/m2 935978. 87167 g 97.4 [degF] 134 mm[Hg] 82 mm[Hg] Hailey Clements Stover [facility] IV 11:30:32 Social History Question Answer Notes LastModified by Organizat ion Details LastModified Time Tobacco Smoking Status [facility] 06/17/2021 20:37:13 Are You Blind Or Do You Have Difficulty Seeing? No [email or web address] Information not available 07/08/2021 Are You Deaf Or Do You Have Serious Difficulty Hearing? No [email or web address] Information not available 07/08/2021 What Is The Highest Grade Or Level Of School You Have Completed Or The Highest Degree You Have Received? DT11159-7 [email or web address] Information not available 07/08/2021 When Did You Quit Smoking? 1-5yearssince lastcigarette [email or web address] Information not available 06/17/2021 How Many Children Do You Have? 1 [email or web address] Information not available 07/08/2021 What Is Your Relationship Status? [email or web address] Information not available 07/08/2021 Are You Sexually Active? Yes [email or web address] Information not available 08/05/2021 At What Age Did You Start Smoking Tobacco? 24 [email or web address] Information not available 07/08/2021 Sex: Female Functional Status Question Answer Note LastModified by Organizat ion Details LastModified Time Do you use any illicit or recreational drugs? No [email or web address] Information not available 06/17/2021 Do you or have you ever used any other forms of tobacco or nicotine? No [email or web address] Information not available 06/17/2021 What is your level of alcohol consumption? None [email or web address] Information not available 06/17/2021 Are you currently employed? 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 Family History Relationship Description Onset Age of this Age Resolved Age Notes LastModified by Organization Details LastModified Time Maternal Grandmother Malignant tumor of breast [email or web address] Not available 2020 20:36:54 Medical History No [...] SNOMED-CT Code Diagnosis ICD10 Code Diagnosis Note [id number] Arlene Mcmahan MD [facility] [address] [place] [address] 06/18/2021 16:00:17 06/19/2021 17:40:58 Chronic hypertension in obstetric context 2394800 O16.9 Routine an tenatal care [id number] Z34.03 [id number] Alesha Mendez CNM [facility] [address] [place] [address] 07/08/2021 12:42:15 07/08/2021 13:15:10 state, 2 weeks 47036463 Z39.2 Unsure of contracept ion at 6 week appt. Breastfeed ing, discussed options and will decide at 6 week follow up. [id number] Alesha Mendez CNM [facility] [address] [place] [address] 08/05/2021 11:03:56 08/05/2021 11:48:30 state [id number] Z39.2 Health Concerns Section Related Observation LastModified by Organization Detai ls LastModified Time None Recorded Concern Status LastModified by Organization Details LastModified Time None Recorded Advance Directives Directive None Recorded Payers Insurance Date Sequence Insurance Name Policy Number Policy Acosta Covered Member ID Acosta Member ID Guarantor Name 08/02/2021 1 [place] [facility] Samantha Fuller Jareth [id number] Samantha Templeton Notes Date Note Type Note [...] 1999 on 06/26. Arlene Mcmahan MD [address] [place], [address], [facility] [employer] [facility] 06/18/2021 17:49:19 07/08/2021 text/html VisitReported bypatient.Onset/Young ing:date of delivery: (06-22-21) Quality: Context:complicatio ns of : GHTN; complications of labor: none; complications: none; feeding choice: breast; good support from partner/family Associated Symptoms:baby blues Contraception Plan:declines contraceptionNotes: was shipped to [facility] for [facility] immat[facility], doing well. Alesha Mendez CNM [address] [place], [address], [facility] [employer] [facility] 07/09/2021 10:02:41 08/05/2021 text/html VisitReported bypatient.Onset/Young [...] Contraception Plan:declines contraception Alesha Mendez CNM [address] [place], [address], [facility] [employer] [facility] 08/05/2021 15:14:35 OBGyn Episode Ob Episode Information Episode Created Date Number of Fetuses Patient Bloodtype Patient rh Status Prepregnancy Weight lbs Domestic Partner Domestic Partner Phone Father Name Vendor Quality Supervisor Status 06/17/20 21 1 A Positive CLOSED Fetus Data First Name Last Name Admitted to NICU Weight (g) Sex Living Outcome Pediatric Complications Fetus ID Race Codes Race Delivery Type Rivera Mohamud l true 2948.34 8 M true [place]atur [place] [id number] 2106-3 White Rafal Calculation Initial Rafal Date [...] Weight in lbs Pre/Post Dialysis Refused Weight 283.807076232859 BP Diastolic BP Location Tested BP Systolic BP Type 88 140 Fetus Heart Rate Present A 130 Fetus Movement A Yes Comments Flowsheet Date 07/08/2021 Mark Score Blood Edema Fundus Height Fundus Units Glucose Ketones Leukocytes Nitrite Labor Signs Protein Cervic Dilation Cervic Effacement Cervic Station Type Weight in lbs Pre/Post Dialysis Refused Weight 262.154216480996 BP Diastolic BP Location Tested BP Systolic BP Type 84 R arm 124 sitting Fetus Heart Rate Present Fetus Movement Comments Flowsheet Date 08/05/2021 Mark Score Blood Edema Fundus Height Fundus Units Glucose Ketones Leukocytes Nitrite Labor Signs Protein Cervic Dilation Cervic Effacement Cervic Station Type Weight in lbs Pre/Post Dialysis Refused Weight 257.541484211854 BP Diastolic BP Location Tested BP Systolic [...] Domestic Partner Domestic Partner Phone Father Name Vendor Quality Supervisor Status 07/08/20 21 1 CLOSED Fetus Data First Name Last Name Admitted to NICU Weight (g) Sex Living Outcome Pediatric Complications Fetus ID Race Codes Race Delivery Type 2948.34 8 M Prematur [place] [address]76[address] Rafal Calculation Initial Rafal Date Initial Exam [...] Domestic Partner Domestic Partner Phone Father Name Vendor Quality Supervisor Status 10/25/19 22 1 CLOSED Fetus Data First Name Last Name Admitted to NICU Weight (g) Sex Living Outcome Pediatric Complications Fetus ID Race Codes Race Delivery Type F [id number] Rafal Calculation Initial Rafal Date Initial Exam [...]
--- OUTSIDE RECORDS SUMMARY | 2025-01-19 16:08 | XMS_ITS | Continuity of Care Document ---
Author Organization [facility] Address [address] [place] [place] [address] [place] [address] Assessment No assessment recorded. Plan of Treatment Reminders Order Date Submit Date Provider Last Modified By Organization Details Last Modified Time Details Appointments [place]DUCT[place] ON 2024 04:00P M JAMES FabianM Not available Not available [...] FabianM Not available Not available Not available Lab None recorde d. Referral None recorde d. Procedures None recorde d. Surgeries None recorde d. Imaging US, obstetr ic, biophys ical profile + non-str ess test 2024 025 [email or web address] [place], [address], [place], [address], 01/18/2025 19:10:16 Medication Orders None recorde d. Patient TargetsNo targets recorded. Patient InstructionsNo instructions recorded. Reason for Referral None Reported. Results Created Date Observation Date Name Description Value Unit Range Abnormal Flag Note LastModifiedBy Organization Detail LastModifiedTime 08/11/19 25 08/11/2024 US, obste tric, nucha l trans [place] No observ ation record ed. [email or web address] [place] [address], [place], [address], 08/11/2024 18:21:12 08/11/19 25 08/11/2024 US, obste tric, nucha l trans [place] No observ ation record ed. [email or web address] [address], [place], [address], 08/11/2024 22:08:50 09/29/19 25 09/29/2024 US, obste tric, 2nd or 3rd trime ster No observ ation record ed. [email or web address] [place] [address], [place], [address], 09/29/2024 18:16:37 09/29/19 25 09/29/2024 US, obste tric, follo w-up No observ ation record ed. [address], [place], [address], 10/04/2024 15:28:54 10/26/19 25 10/25/2024 US, obste tric, follo w-up No observ ation record ed. [email or web address] [place] [address], [place], [address], 10/25/2024 18:52:39 10/26/19 25 10/25/2024 US, obste tric, follo w-up No observ ation record ed. [email or web address] [address], [place], [address], 10/28/2024 13:53:30 12/03/19 25 12/02/2024 US, obste tric, follo w-up No observ ation record ed. [email or web address] [place] [address], [place], [address], 12/02/2024 13:30:23 12/03/19 25 12/02/2024 US, obste tric, follo w-up No observ ation record ed. [address], [place], [address], 12/06/2024 14:21:19 12/22/1912/21/2024 non-s tress test No observ ation record ed. [email or web address] [place] [address], [place], [address], 12/21/2024 10:14:42 12/22/19 non-s tress test No observ ation record ed. [email or web address] [place] [address], [place], [address], 12/21/2024 10:17:15 12/22/19 25 12/21/2024 US, adilene calvo, bioph ysica l profi le + non-s tress test No observ ation record ed. [email or web address] [place] [address], [place], [address], 12/21/2024 10:41:15 12/22/19 25 12/21/2024 US, obste tric, follo w-up No observ ation record ed. [email or web address] [address], [place], [address], 12/22/2024 11:35:09 12/29/19 25 12/29/2024 US, obste tric, follo w-up No observ ation record ed. [email or web address] [place] [address], [place], [address], 12/29/2024 11:29:40 12/29/19 25 12/29/2024 US, obste tric, bioph ysica l profi le + non-s tress test No observ ation record ed. [email or web address] [place] [address], [place], [address], 12/29/2024 11:29:51 12/29/19 25 12/28/2024 US, obste tric, follo w-up No observ ation record ed. [email or web address] [address], [place], [address], 01/03/2025 22:22:46 12/29/19 25 12/28/2024 non-s tress test No observ ation record ed. [email or web address] [place] [address], [place], [address], 12/28/2024 20:00:54 12/29/19 25 12/28/2024 non-s tress test No observ ation record ed. [email or web address] [place] [address], [place], [address], 12/28/2024 20:03:00 01/05/20 25 01/04/2025 US, obstsierra tric, bioph ysica l profi le + non-s tress test No observ ation record ed. [email or web address] [place] [address], [place], [address], 01/04/2025 17:31:59 01/05/20 25 01/04/2025 US, obste tric, follo w-up No observ ation record ed. [email or web address] [address], [place], [address], 01/10/2025 18:37:23 01/05/20 25 01/04/2025 non-s tress test No observ ation record ed. [email or web address] [place] [address], [place], [address], 01/04/2025 20:54:26 01/05/20 25 01/04/2025 non-s tress test No observ ation record ed. [email or web address] [place] [address], [place], [address], 01/04/2025 20:56:03 01/12/20 25 01/11/2025 US, obstsierra tric, bioph ysica l profi le + non-s tress test No observ ation record ed. [email or web address] [place] [address], [place], [address], 01/11/2025 17:38:17 01/12/20 25 01/11/2025 US, obste tric, follo w-up No observ ation record ed. [address] [facility], [place], [address], 01/12/2025 13:11:40 01/12/20 25 01/11/2025 non-s tress test No observ ation record ed. [address], [place], [address], 01/11/2025 19:24:45 01/17/20 25 01/16/2025 US, obste tric, follo w-up No observ ation record ed. [facility] [address], [place], [address], 01/16/2025 18:50:02 01/17/20 25 01/16/2025 US, adilene calvo, bioph ysica l profi le No observ ation record ed. [facility] [address], [place], [address], 01/16/2025 18:50:11 01/19/20 25 01/16/2025 US, obste tric, follo w-up No observ ation record ed. [email or web address], [place], [address], 01/18/2025 09:32:42 01/19/20 25 01/18/2025 US, obste tric, bioph ysica l profi le + non-s tress test No observ ation record ed. [email or web address] [place] [address], [place], [address], 01/18/2025 18:29:36 01/19/20 25 01/18/2025 US, obste tric, bioph ysica l profi le + non-s tress test No observ ation record ed. [email or web address], [place], [address], 01/18/2025 17:15:28 01/19/20 25 01/18/2025 non-s tress test No observ ation record ed. [email or web address] [place] [address], [place], [address], 01/18/2025 19:31:49 01/19/20 25 01/18/2025 non-s tress test No observ ation record ed. [email or web address] [place] [address], [place], [address], 01/18/2025 19:33:38 Result Notes None recorded. Problems Name Problem SNOMED Code Status Onset Date Resolution Date Notes Provider Name and Address Organization Details Recorded Time Polycyst ic ovaries Completed 201010/18/2021 Polycyst ic ovaries; Recorded Elsewher e: No Locat ion: [facility] S ource: EHR Management Development Specialist wes: N Practi ce ID: 0001 Sampson lable Time: 12:00:00 PM Gabrielle duggan, [facility] 2 15:08:07 Type 2 diabetes mellitus without complica tion 882773657 Completed 201010/18/2021 Diabetes Mellitus Type 2, Uncompli cated;Re corded Elsewher e: No Locat ion: [facility] S ource: EHR Management Development Specialist wes: N Practi ce ID: 0001 Sampson lable Time: 12:00:00 PM Gabrielle duggan, [facility] 2 15:08:18 Amenorrh ea 11076500 Completed 201010/18/2021 Absence of menstrua tion;Rec orded Elsewher e: No Locat ion: [facility] S ource: EHR Management Development Specialist wes: N Practi ce ID: 0001 Sampson lable Time: 12:00:00 PM Gabriellecristóbal Jo olga lidia, [facility] 2 15:07:58 Ill-defi tamara intestin al infectio n Completed 201210/18/2021 No Show Fee;Prac akiko ID: 0001 Gabrielle Jo olga lidia, [facility] 2 15:08:01 Pregnanc y 87970483 Completed 202109/11/2022 Carol duggan, [facility] 5 17:49:46 Pregnanc y-induce d hyperten tiffany 82301991 Completed ASA, Baseline PIH labs WNL Lea Segura MD [address], [place], [address], [place] [facility] 2 17:12:54 Prematur e delivery 490424286 Completed [place]. Geno is approved with insuran e & sent form to [facility] ons. Lea Segura MD [address], [place], [address], [facility] 2 16:42:24 Obesity 130951656 Completed Antenata l testing @ 34wks Tracee Daleyalma rosarigoberto darshana duggan, [facility] 3 14:26:29 Chlamydi al infectio n 625274492 Completed 2021 rpt MENA 12/16 Tracee Daleyalma rosarigoberto darshana duggan, [facility] 3 14:26:29 Past pregnanc y history of prematur e delivery 611102670 Completed 2021 [place] failed with new insuranc e. pt giving up at 33+ weeks. Tracee Houseramy duggan, [facility] 3 14:26:29 Past pregnanc y history of prematur e delivery 321612982 Active 2021 [place] failed with new insuranc e. pt giving up at 33+ weeks. Tracee Houseramy duggan, [facility] 3 14:26:29 Chronic hyperten tiffany in obstetri c context 3324812 Completed supposed to be taking labetalo l 200 BID, delivery 38w Tracee Houserwilfrednellienabil duggan, [facility] 3 14:26:29 Anemia 145653336 Completed slowfe 1 tab Tracee Houseramy duggan, [facility] 3 14:26:28 Essentia l hyperten tiffany 32140869 Active 2021 Lea Segura MD [address], [place], [address], [place] [facility] 2 11:25:46 Severe obesity complica ting pregnanc y 6539506321 2288799 Active Gabrielle duggan, [facility] 4 15:48:56 Pregnanc y 21462675 Completed 202205/25/2023 Carol duggan, [facility] 5 17:49:46 Chlamydi al infectio n 603686971 Completed 2022 MENA neg - recheck 3rd trimeste r! Ady Condonle null, [facility] 3 17:01:16 Chronic hyperten tiffany in obstetri c context 3551941 Completed supposed to be taking labetalo l 200 BID, delivery 38w, ante testing 32w Ady Condonle null, [facility] 3 17:01:16 Pregnanc y-induce d hyperten tiffany 13897190 Completed Labetalo l Lea Segura MD [address], [place], [address], [facility] 3 15:18:38 Prematur e delivery 828424800 Completed 36 weeks - first pregnanc y Ady Condonle null, [facility] 3 17:01:16 Social problem 696603146 Active with worsenin g MS, can barely walk Nitzay Nikko [facility], [facility] 3 17:01:16 Social problem 520723064 Completed with worsenin g MS, can barely walk Ady Condonle [facility], [facility] 3 17:01:16 Obesity 786157245 Completed Antenata l testing @ 34wks Ady Condonle null, [facility] 3 17:01:16 Pregnanc y 69411615 Active 2024 Carolmanjinder Baeren null, [facility] 5 17:49:46 Maternal hyperten tiffany 584215416 Active delivere d at 38 weeks in last two pregnanc ies, well controll ed without medicati ons; baseline labs ordered; discusse d 32 week antenata l testing and 38 week DANIELA HARRISON MD [address], [place], [address], [facility] 17:54:57 Maternal hyperten tiffany 715639382 Active delivere d at 38 weeks in last two pregnanc ies, well controll ed without medicati ons; baseline labs ordered; discusse d 32 week antenata l testing and 38 week DANIELA HARRISON MD [address], [place], [address], [facility] 17:55:02 Erythema nodosum 99676181 Active LOIS HARRISON MD [address], [place], [address], [facility] 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 5 13:47:13 Body mass index 40+ - severely obese 648923123 Active BMI antenata l testing to start at 34wks Fern Hutchinson [facility], [facility] 5 13:50:22 Body mass index 40+ - severely obese 592233390 Active BMI antenata l testing to start at 34wks Fern Hutchinson [facility] 5 13:50:22 Anemia of pregnanc y 69954670 Active 2024 Gabrielle Jo [facility], [facility] 5 12:26:33 Problem Notes None recorded. Procedures Surgical History Date Name Laterality Status Provider Name and Address Organization Details Recorded Time 09/24/19 23 Date of Last Pap Smear completed Carol Devine [facility] 08/11/2024 17:15:32 08/10/19 12 Date of Last Colonoscopy completed Gabrielle Jo [facility] 10/18/2021 15:09:05 08/10/19 12 Colonoscopy completed [facility] 10/18/2021 16:52:20 08/10/19 09 Laparoscopy completed [facility] 10/17/2021 15:56:58 08/10/19 06 cholecystectomy completed [facility] 10/18/2021 16:53:20 Imaging Results None recorded. Procedure Notes None recorded. Medical Equipment None Reported. Allergies Allergen ID Allergen Name Allergen Category Reaction Reaction Severity Criticality Documentation Date Start Date Code Code System Note Provider Name and Address Organization Details Recorded Time 82739 morphine medicatio n Not available Not available Not available 10/18/2021 7052 RxNorm Nevaeh Holman [facility] 2 16:28:38 02833 latex environme nt,medica tion hives Not available Not available 10/18/2021 72604 91 [facility]Norm [facility] 15:07:48 Medications Name Sig Start [...] Prescrib ed Elsewher e: No Locat ion: [facility] M odify By: martha franklin DateTime [...] and Address Organization Details Last Updated DateTime 01/18/2025 170.82 cm 44.1 kg/m2 780653.2 3 g 140 mm[Hg] 93 mm[Hg] Gabrielle oJ [facility] 19:30:24 Social History Question Answer Notes LastModified by Organizat ion Details LastModified Time Tobacco Smoking Status Former Smoker Lara duggan, [facility] 06/16/2023 11:15:34 Do You Have An Advance Directive? No [email or web address] Information not available 10/18/2021 If You Are , What Was Your Level Of Alcohol Consumption Prior To ? Occasional [email or web address] Information not available 07/13/2024 Are You Blind Or Do You Have Difficulty Seeing? No [email or web address] Information not available 10/18/2021 What Is Your Level Of Caffeine Consumption? Occasional [email or web address] Information not available 10/18/2021 How Much Tobacco Do You Chew? None [email or web address] Information not available 10/18/2021 In The 14 Days Before Symptom Onset, Have You Had Close Contact With A Laboratory-confir med COVID-19 While That Case Was Ill? No [email or web address] Information not available 10/18/2021 In The 14 Days Before Symptom Onset, Have You Had Close Contact With A Person Who Is Under Investigation For COVID-19 While That Person Was Ill? No [email or web address] Information not available 10/18/2021 Have You Been To An Area Known To Be High Risk For COVID-19? No [email or web address] Information not available 10/18/2021 Are You Deaf Or Do You Have Serious Difficulty Hearing? No [email or web address] Information not available 10/18/2021 What Type Of Diet Are You Following? REGULAR [email or web address] Information not available 08/11/2024 What Is The Highest Grade Or Level Of School You Have Completed Or The Highest Degree You Have Received? FD40920-7 [email or web address] Information not available 10/18/2021 Are There Any Guns Present In Your Home? No [email or web address] Information not available 10/18/2021 Have You Ever Been Counseled For Unhealthy Alcohol Use? No Information not available 06/16/2023 Do You Use Protection During Sex? No [email or web address] Information not available 10/18/2021 Do You Use Your Seat Belt Or Car Seat Routinely? Yes [email or web address] Information not available 10/18/2021 Do You Have Smoke And Carbon Monoxide Detectors In Your Home? Yes [email or web address] Information not available 10/18/2021 How Much Tobacco Do You Smoke? No [email or web address] Information not available 10/18/2021 Do You Use Sunscreen Routinely? No [email or web address] Information not available 10/18/2021 Has Tobacco Cessation Counseling Been Provided? No [email or web address] Information not available 06/16/2023 Have You Used IV Drugs? No [email or web address] Information not available 10/18/2021 Do You Have Difficulty Walking Or Climbing Stairs? No [email or web address] Information not available 06/16/2023 Sex: Unknown Functional Status Question Answer Note LastModified by Organizat ion Details LastModified Time Do you use any illicit or recreational drugs? No [email or web address] Information not available 10/18/2021 Do you or have you ever used any other forms of tobacco or nicotine? No [email or web address] Information not available 06/16/2023 What is your level of alcohol consumption? None [email or web address] Information not available 07/13/2024 Are you able to walk? YESWOREST [email or web address] Information not available 10/18/2021 Are you able to care for yourself? 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 No [email or web address] Information not available 06/16/2023 What is your exercise level? Occasional [email or web address] Information not available 10/18/2021 Mental Status Question Answer Note LastModified by Organization D etails LastModified Time Do you feel stressed (tense, restless, nervous, or anxious, or unable to sleep at night)? [id number] dswayne Information not available 05/04/2023 Family History Relationship Description Onset Age of this Age Resolved Age Notes LastModified by Organization Details LastModified Time Maternal Grandmother Diabetes mellitus [email or web address] Not available 10/17 15:55:49 Mother Diabetes mellitus [email or web address] Not available 10/17 15:55:57 Mother Asthma [email or web address] Not available 10/17/2021 15:56:16 Mother Disorder of thyroid gland Not available 10/17 15:56:33 Sister Asthma [email or web address] Not available 10/17/2021 15:56:16 Paternal Grandmother Diabetes mellitus [email or web address] Not available 10/18 15:11:24 Maternal Uncle Malignant neoplasm of prostate [email or web address] Not available 11/2024 16:09:40 Maternal Aunt Malignant tumor of breast [email or web address] Not available 10/18 15:12:15 Medical History Condition Response Allergies (Food, seasonal, environmental ) N Other Y Drug/Latex Allergies/Reactions Y Blood Transfusion N Breast Cancer N Dermatologic Disorders N Lung Disease N Defects or Inherited Disease N Breast Problem N Gestational Diabetes N Hematologic disorders N Anesthesia Complications N History of STI N Deep Vein Thrombosis N Polycystic ovary syndrome Y Anxiety Disorder Y Autoimmune disease N Arthritis N Polyps N Infertility N Acid Reflux (GERD) N History of abnormal pap N Cancer N Varicosities N Stroke N Neurologic/Epilepsy N Endometriosis N High Cholesterol N Fibromyalgia N Headaches Y Kidney Disease N Heart Problems N Thyroid Problems N Kidney or Bladder Problems N GI Problems Y Eating Disorder [...] SNOMED-CT Code Diagnosis ICD10 Code Diagnosis Note [id number] [facility] [address],[place] [address] 12/21/2024 09:23:24 12/21/2024 10:15:55 Severe obesity complicating 7380915194 8710440 O99.211 Chronic hy pertension complicating AND/OR reason for care during 44913108 O10.919 [id number] Gomez Edwards MD [place] [address],[place] [address] 12/21/2024 09:24:04 12/21/2024 10:40:34 Obesity 346352250 O99.213 O10.013 Z3A.[id number] [facility] [address],[place] [address] 12/21/2024 09:24:20 12/22/2024 17:47:[id number] [facility] [address] [place] [address] 12/23/2024 15:52:46 12/24/2024 11:20:42 Pruritic disorder of skin 2865862432 L29.9 Gestation period, 33 weeks 45555853 Z3A.33 [id number] Gomez Edwards MD [place] [address],[place] [address] 12/28/2024 14:59:15 12/28/2024 15:57:40 Pre-existing hypertension in obstetric context 36681991 O10.919 O99.210 Z3A.33 [id number] Mel Carlson CNM [place] [address] [place] [address] 12/28/2024 15:01:07 12/29/2024 14:02:16 Chronic hypertension complicating AND/OR reason for care during 55110278 O10.919 [id number] Mel Carlson CNM [place] [address],[place] [address] 12/28/2024 15:01:39 12/28/2024 16:42:04 Gestation period, 33 weeks 79165232 Z3A.33 [id number] Gomez Edwards MD [place] [address],[place] [address] 01/04/2025 16:26:50 01/04/2025 17:11:03 Chronic hypertension complicating AND/OR reason for care during 56559281 O10.919 O99.210 Z3A.34 [id number] Mel Carlson [facility] [address],[place] [address] 01/04/2025 16:29:22 01/05/2025 09:46:19 Hypertensive disorder 61572771 I10 [id number] Mel Carlson [facility] [address],[place] [address] 01/04/2025 16:29:49 01/06/2025 02:17:54 Gestation period, 35 weeks 97407998 Z3A.35 [id number] Gomez Edwards MD [place] [address],[place] [address] 01/11/2025 16:07:36 01/11/2025 17:16:44 Essential hypertension complicating AND/OR reason for care during 41914932 O10.013 O99.213 Z3A.35 [id number] Mel Carlson [facility] [address],[place] [address] 01/11/2025 16:08:59 01/12/2025 09:05:23 Chronic hypertension complicating AND/OR reason for care during 55851881 O10.919 [id number] Mel Carlson [facility] [address],[place] [address] 01/11/2025 16:09:27 01/12/2025 09:07:05 Gestation period, 35 weeks 26346983 Z3A.35 [id number] Gomez Edwards MD [place] [address],[place] [address] 01/16/2025 14:33:01 01/17/2025 09:33:08 Chronic hypertension complicating AND/OR reason for care during 21480695 O10.913 O99.210 Z3A.36 [id number] Gomez Edwards MD [place] [address],[place] [address] 01/18/2025 16:25:22 01/18/2025 17:10:41 Essential hypertension complicating AND/OR reason for care during 67989932 O10.013 Z3A.[id number] [facility] [address],[place] [address] 01/18/2025 16:27:14 01/18/2025 18:51:00 [id number] LOIS HARRISON MD [place] [address],[place] [address] 01/18/2025 16:27:43 01/19/2025 09:07:57 Pre-existing hypertension in obstetric context 99959511 O10.919 Health Concerns Section Related Observation LastModified by Organization Detai ls LastModified Time None Recorded Concern Status LastModified by Organization Details LastModified Time None Recorded Payers Encounter Date Sequence Insurance Name Policy Number Policy Acosta Covered Member ID Acosta Member ID Guarantor Name 01/18/2025 1 [employer] [id number] Samantha Ceballos [id number] Samantha Ceballos OBGyn Episode Ob Episode Information Episode Created Date Number of Fetuses Patient Bloodtype Patient rh Status Prepregnancy Weight lbs Domestic Partner Domestic Partner Phone Father Name Hanger Status 08/11/19 25 1 A Positive OPEN Fetus Data First Name Last Name Admitted to NICU Weight (g) Sex Living Outcome Pediatric Complications Fetus ID Race Codes Race Delivery Type [id number] Problems Problem Notes Problem Name Start Date End Date Resolution Snomed Code Not e Erythema nodosum 01163128 Body mass index 40+ - severely obese 808216495 BMI testing to start at 34wks Maternal hypertension 24797660 1 delivered at 38 weeks in last two pregnancies, well controlled without medications; baseline labs ordered; discussed 32 week testing and 38 week MIL Dilatation of renal pelvis 949395107 Anemia of 12/05/2024 29744352 Rafal Calculation Initial Rafal Date Initial Exam [...] Date Ultra Sound Latest Days Gestation 0 08/11/2024 02/10/20 25 0 Pre-annmarie Flowsheet Flowsheet Date 08/11/2024 Mark Score Blood Edema Fundus Height Fundus Units Glucose Ketones Leukocytes Nitrite Labor Signs Protein Cervic Dilation Cervic Effacement Cervic Station Type Weight in lbs Pre/Post Dialysis Refused Weight 272.240674328199 BP Diastolic BP Location Tested BP Systolic BP Type 84 L arm 136 sitting Fetus Heart Rate Present A Present Fetus Movement Comments Patient [facility] [facility]. Has had some swelling in [...] Type Weight in lbs Pre/Post Dialysis Refused [id number] BP Diastolic BP Location Tested BP Systolic [...] Type Weight in lbs Pre/Post Dialysis Refused [id number] BP Diastolic BP Location Tested BP Systolic [...] Weight in lbs Pre/Post Dialysis Refused Weight 278.57859660746 BP Diastolic BP Location Tested BP Systolic [...] Weight in lbs Pre/Post Dialysis Refused Weight 281.666808053158 BP Diastolic BP Location Tested BP Systolic [...] Type Weight in lbs Pre/Post Dialysis Refused 281.121664435236 BP Diastolic BP Location Tested BP Systolic [...] Type Weight in lbs Pre/Post Dialysis Refused 284.963331487732 BP Diastolic BP Location Tested BP Systolic [...] Type Weight in lbs Pre/Post Dialysis Refused 285.126474860020 BP Diastolic BP Location Tested BP Systolic BP Type 90 142 Fetus Heart Rate Present Fetus Movement A Yes Comments Patient is having itching, p ain, contractions, discharge and swelling. reviewd bpp 10 +FM check labs precautions and education f/u [...] Weight in lbs Pre/Post Dialysis Refused Weight 286.882258346946 BP Diastolic BP Location Tested BP Systolic BP Type 87 141 Fetus Heart Rate Present Fetus Movement Comments Flowsheet Date 12/28/2024 Mark Score Blood Edema Fundus Height Fundus Units Glucose Ketones Leukocytes Nitrite Labor Signs Protein Cervic Dilation Cervic Effacement Cervic Station neg none Type Weight in lbs Pre/Post Dialysis Refused 286.467864023456 BP Diastolic BP Location Tested BP Systolic [...] Weight in lbs Pre/Post Dialysis Refused Weight 283.07947614238 BP Diastolic BP Location Tested BP Systolic BP Type 97 149 Fetus Heart Rate Present Fetus Movement Comments Flowsheet Date 01/04/2025 Mark Score Blood Edema Fundus Height Fundus Units Glucose Ketones Leukocytes Nitrite Labor Signs Protein Cervic Dilation Cervic Effacement Cervic Station neg trace Type Weight in lbs Pre/Post Dialysis Refused 283.044378874804 BP Diastolic BP Location Tested BP Systolic BP Type 97 149 Fetus Heart Rate Present Fetus Movement A Yes Comments Patient is having some contr actions, discharge with some blood, swelling, nausea and vomiting. bp elevated dennies sxs, breech presentation, will send to ld for evaluation, discussed risk of placental abruption with version, will discuss with dr. edwards bpp 03/17 Flowsheet Date 01/10/2025 Mark Score Blood Edema Fundus Height Fundus Units Glucose Ketones Leukocytes Nitrite Labor Signs Protein Cervic Dilation Cervic Effacement Cervic Station Type Weight in lbs Pre/Post Dialysis Refused BP Diastolic BP Location Tested BP Systolic BP Type Fetus Heart Rate Present Fetus Movement Comments Flowsheet Date 01/11/2025 Mrak Score Blood Edema Fundus Height Fundus Units Glucose Ketones Leukocytes Nitrite Labor Signs Protein Cervic Dilation Cervic Effacement Cervic Station Type Weight in lbs Pre/Post Dialysis Refused BP Diastolic BP Location Tested BP Systolic BP Type Fetus Heart Rate Present Fetus Movement Comments Flowsheet Date 01/11/2025 Mark Score Blood Edema Fundus Height Fundus Units Glucose Ketones Leukocytes Nitrite Labor Signs Protein Cervic Dilation Cervic Effacement Cervic Station Type Weight in lbs Pre/Post Dialysis Refused Weight 283.09002326695 BP Diastolic BP Location Tested BP Systolic BP Type 90 L arm 137 sitting Fetus Heart Rate Present Fetus Movement Comments Flowsheet Date 01/11/2025 Mark Score Blood Edema Fundus Height Fundus Units Glucose Ketones Leukocytes Nitrite Labor Signs Protein Cervic Dilation Cervic Effacement Cervic Station neg none Type Weight in lbs Pre/Post Dialysis Refused 283.895585979011 BP Diastolic BP Location Tested BP Systolic BP Type 90 137 Fetus Heart Rate Present Fetus Movement A Yes Comments Patient is having some back pain, contractions, discharge, nausea and vomiting. baby footling breech, bpp 03/17, was vertex yesterday at hospital, plan US on thursday if breech, talk to harrison about version thu or IOL?? +FM Flowsheet Date 01/16/2025 Mark Score Blood Edema Fundus Height Fundus Units Glucose Ketones Leukocytes Nitrite Labor Signs Protein Cervic Dilation Cervic Effacement Cervic Station Type Weight in lbs Pre/Post Dialysis Refused BP Diastolic BP Location Tested BP Systolic BP Type Fetus Heart Rate Present Fetus Movement Comments Flowsheet Date 01/18/2025 Mark Score Blood Edema Fundus Height Fundus Units Glucose Ketones Leukocytes Nitrite Labor Signs Protein Cervic Dilation Cervic Effacement Cervic Station Type Weight in lbs Pre/Post Dialysis Refused BP Diastolic BP Location Tested BP Systolic BP Type Fetus Heart Rate Present Fetus Movement Comments Flowsheet Date 01/18/2025 Mark Score Blood Edema Fundus Height Fundus Units Glucose Ketones Leukocytes Nitrite Labor Signs Protein Cervic Dilation Cervic Effacement Cervic Station Type Weight in lbs Pre/Post Dialysis Refused Weight 284.260591867118 BP Diastolic BP Location Tested BP Systolic BP Type 93 140 Fetus Heart Rate Present Fetus Movement Comments Flowsheet Date 01/18/2025 Mark Score Blood Edema Fundus Height Fundus Units Glucose Ketones Leukocytes Nitrite Labor Signs Protein Cervic Dilation Cervic Effacement Cervic Station Type Weight in lbs Pre/Post Dialysis Refused BP Diastolic BP Location Tested BP Systolic BP Type Fetus Heart Rate Present Fetus Movement Comments Flowsheet Date 01/19/2025 Mark Score Blood Edema Fundus Height Fundus [...]
--- OUTSIDE RECORDS SUMMARY | 2025-01-19 16:08 | XMS_ITS | Continuity of Care Document ---
Author Organization [facility] Address [address] [place] [address] Assessment No assessment recorded. Plan of Treatment Reminders Order Date Submit Date Provider Last Modified By Organization Details Last Modified Time Details [place] 2024 04:00P M Mel Carlson [...] recorde d. Surgeries None recorde d. Imaging None recorde d. Medication Orders None recorde d. Patient TargetsNo targets recorded. Patient InstructionsNo instructions recorded. Reason for Referral None Reported. Results Created Date Observation Date Name Description Value Unit Range Abnormal Flag Note LastModifiedBy Organization Detail LastModifiedTime 08/11/19 25 08/11/2024 US, obste tric, nucha l trans lucen cy No observ ation record ed. [email or web address] [address], [place], [address], 08/11/2024 18:21:12 08/11/19 25 08/11/2024 US, obste tric, nucha l trans lucen cy No observ ation record ed. [email or web address] [address], [place], [address], 08/11/2024 22:08:50 09/29/19 25 09/29/2024 US, obste tric, 2nd or 3rd trime ster No observ ation record ed. [email or web address] [facility] [address], [place], [address], 09/29/2024 18:16:37 09/29/19 25 09/29/2024 US, obste tric, follo w-up No observ ation record ed. [email or web address] [address], [place], [address], 10/04/2024 15:28:54 10/26/19 25 10/25/2024 US, obste tric, follo w-up No observ ation record ed. [email or web address] [facility] [address], [place], [address], 10/25/2024 18:52:39 10/26/19 25 10/25/2024 US, obste tric, follo w-up No observ ation record ed. [email or web address] [address], [place], [address], 10/28/2024 13:53:30 12/03/19 25 12/02/2024 US, obste tric, follo w-up No observ ation record ed. [email or web address] [facility] [address], [place], [address], 12/02/2024 13:30:23 12/03/19 25 12/02/2024 US, obste lunba, follo w-up No observ ation record ed. [email or web address] [address], [place], [address], 12/06/2024 14:21:19 12/22/19 25 12/21/2024 non-s tress test No observ ation record ed. [email or web address] [address], [place], [address], 12/21/2024 10:14:42 12/22/19 non-s tress test No observ ation record ed. [email or web address] [address], [place], [address], 12/21/2024 10:17:15 12/22/19 25 12/21/2024 US, adilene calvo, bioph ysica l profi le + non-s tress test No observ ation record ed. [email or web address] [address], [place], [address], 12/21/2024 10:41:15 12/22/19 25 12/21/2024 US, obste tric, follo w-up No observ ation record ed. [email or web address] [address], [place], [address], 12/22/2024 11:35:09 12/29/19 25 12/29/2024 US, obste tric, follo w-up No observ ation record ed. [email or web address] [address], [place], [address], 12/29/2024 11:29:40 12/29/19 25 12/29/2024 US, obstsierra tric, bioph ysica l profi le + non-s tress test No observ ation record ed. [email or web address] [address], [place], [address], 12/29/2024 11:29:51 12/29/19 25 12/28/2024 US, adilene calvo follo w-up No observ ation record ed. [email or web address] [address], [place], [address], 01/03/2025 22:22:46 12/29/19 25 12/28/2024 non-s tress test No observ ation record ed. [email or web address] [address], [place], [address], 12/28/2024 20:00:54 12/29/19 25 12/28/2024 non-s tress test No observ ation record ed. [email or web address] [address], [place], [address], 12/28/2024 20:03:00 01/05/20 25 01/04/2025 , adilene calvo, [facility] ysica l profi le + non-s tress test No observ ation record ed. [email or web address] [address], [place], [address], 01/04/2025 17:31:59 01/05/20 25 01/04/2025 US, adilene calvo, follo w-up No observ ation record ed. [email or web address] [address], [place], [address], 01/10/2025 18:37:23 01/05/20 25 01/04/2025 non-s tress test No observ ation record ed. [email or web address] [address], [place], [address], 01/04/2025 20:54:26 01/05/20 25 01/04/2025 non-s tress test No observ ation record ed. [email or web address] [address], [place], [address], 01/04/2025 20:56:03 01/12/20 25 01/11/2025 US, obste tric, bioph ysica l profi le + non-s tress test No observ ation record ed. [email or web address] [address], [place], [address], 01/11/2025 17:38:17 01/12/20 25 01/11/2025 US, obste tric, follo w-up No observ ation record ed. [email or web address] [address], [place], [address], 01/12/2025 13:11:40 01/12/20 25 01/11/2025 non-s tress test No observ ation record ed. [email or web address] [address], [place], [address], 01/11/2025 19:24:45 01/17/20 25 01/16/2025 US, obste tric, follo w-up No observ ation record ed. [facility] [address], [place], [address], 01/16/2025 18:50:02 01/17/20 25 01/16/2025 US, obste tric, bioph ysica l profi le No observ ation record ed. [facility] [address], [place], [address], 01/16/2025 18:50:11 01/19/20 25 01/16/2025 US, obste tric, follo w-up No observ ation record ed. [email or web address], [place], [address], 01/18/2025 09:32:42 01/19/20 25 01/18/2025 US, obste tric, bioph ysica l profi le + non-s tress test No observ ation record ed. [email or web address] [address], [place], [address], 01/18/2025 18:29:36 01/19/20 25 01/18/2025 US, obste tric, bioph ysica l profi le + non-s tress test No observ ation record ed. [email or web address], [place], [address], 01/18/2025 17:15:28 01/19/20 25 01/18/2025 non-s tress test No observ ation record ed. [email or web address] [address], [place], [address], 01/18/2025 19:31:49 01/19/20 25 01/18/2025 non-s tress test No observ ation record ed. [address], [place], [address], 01/18/2025 19:33:38 Result Notes None recorded. Problems Name Problem SNOMED Code Status Onset Date Resolution Date Notes Provider Name and Address Organization Details Recorded Time Polycyst ic ovaries Completed 201010/18/2021 Polycyst ic ovaries; Recorded Elsewher e: No Locat ion: [facility] S ource: EHR Marker Machine Attendant wes: N Devinti ce ID: [email or web address] Sampson lable Time: 12:00:00 PM Gabrielle duggan [place] - [facility] 15:08:07 Type 2 diabetes mellitus without complica tion 972500814 Completed 201010/18/2021 Diabetes Mellitus Type 2, Uncompli cated;Re corded Elsewher e: No Locat ion: [facility] S ource: EHR Marker Machine Attendant wes: N Practi ce ID: [id number] Sampson lable Time: 12:00:00 PM Gabrielle duggan, [facility] 2 15:08:18 Amenorrh ea 49749508 Completed 201010/18/2021 Absence of menstrua tion;Rec orded Elsewher e: No [facility] Mark[facility] Machine Attendant wes: N Practi ce ID: [id number] Sampson lable Time: 12:00:00 PM Gabrielle duggan, [facility] 2 15:07:58 Ill-defi tamara intestin al infectio n Completed 201210/18/2021 No Show Fee;Prac akiko ID: [email or web address] Gabrielle duggan, [facility] 2 15:08:01 Pregnanc y 60893873 Completed 202109/11/2022 Carol Devine null, [facility] 5 17:49:46 Pregnanc y-induce d hyperten tiffany 71076123 Completed ASA, Baseline PIH labs WNL Lea Segura MD [address], [place], [address], [facility] 2 17:12:54 Prematur e delivery 461281805 Completed Geno. Geno is approved with insulegacy health e & sent form to [facility] ons. Lea Segura MD [address], [place], [address], [facility] 2 16:42:24 Obesity 582849628 Completed [facility] l [facility] @ [facility] Tracee gilliland null, [facility] 3 14:26:29 Chlamydi al infectio n 695507849 Completed 2021 rpt MENA 5/9 Tracee gilliland null, [facility] 3 14:26:29 Past pregnanc y history of prematur e delivery 421235940 Completed 2021 Roots failed with new insuranc e. pt giving up at 33+ weeks. Tracee gilliland olga lidia, [facility] 3 14:26:29 Past pregnanc y history of prematur e delivery 037282512 Active 2021 Geno failed with new insuranc e. pt giving up at 33+ weeks. Tracee gilliland olga lidia, [facility] 3 14:26:29 Chronic hyperten tiffany in obstetri c context 3380141 Completed supposed to be taking labetalo l 200 BID, delivery 38w Tracee gilliland olga lidia, [facility] 3 14:26:29 Anemia 705530082 Completed slowfe 1 tab Tracee gilliland olga lidia, [facility] 3 14:26:28 Essentia l hyperten tiffany 05490576 Active 2021 Lea Segura MD [address], [place], [address], [facility] 2 11:25:46 Severe obesity complica ting pregnanc y 8652026078 7101661 Active Gabrielle Jo null, [facility] 4 15:48:56 Pregnanc y 69593696 Completed 202205/25/2023 Carol Devine null, [facility] 5 17:49:46 Chlamydi al infectio n 559020286 Completed 2022 MENA neg - recheck 3rd trimeste r! Ady El null, [facility] 3 17:01:16 Chronic hyperten tiffany in obstetri c context 8596097 Completed supposed to be taking labetalo l 200 BID, delivery 38w, ante testing 32w Ady El null, [facility] 3 17:01:16 Pregnanc y-induce d hyperten tiffany 03869516 Completed Labetalo l Lea Segura MD [address], [place], [address], [facility] 3 15:18:38 Prematur e delivery 961528826 Completed 36 weeks - first pregnanc y Ady Condonle null, [facility] 3 17:01:16 Social problem 910485593 Active with worsenin g MS, can barely walk Ady Condonle [facility], [facility] 3 17:01:16 Social problem 147329979 Completed with worsenin g MS, can barely walk Ady Condonle [facility], [facility] 3 17:01:16 Obesity 411277069 Completed Antenata l testing @ 34wks Ady El null, [facility] 3 17:01:16 Pregnanc y 49349848 Active 2024 Carol Devine null, [facility] 5 17:49:46 Maternal hyperten tiffany 195462288 Active delivere d at 38 weeks in last two pregnanc ies, well controll ed without medicati ons; baseline labs ordered; discusse d 32 week antenata l testing and 38 week DANIELA HARRISON MD [address], [place], [address], [place] [facility] 5 17:54:57 Maternal hyperten tiffany 471685627 Active delivere d at 38 weeks in last two pregnanc ies, well controll ed without medicati ons; baseline labs ordered; [facility] 32 week antenata l testing and 38 week MIL LOIS HARRISON MD [address], [place], [address], [facility] 5 17:55:02 Erythema nodosum 82549829 Active LOIS HARRISON MD [address], [place], [address], [facility] 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 5 13:47:13 Body mass index 40+ - severely obese 454289036 Active BMI antenata l testing to start at 34wks Fern Hutchinson [facility] 5 13:50:22 Body mass index 40+ - severely obese 237972466 Active BMI antenata l testing to start at 34wks Fern Hutchinson [facility] 5 13:50:22 Anemia of pregnanc y 87223905 Active 2024 Gabrielle Jo [facility] 5 12:26:33 Problem Notes None recorded. Procedures Surgical History Date Name Laterality Status Provider Name and Address Organization Details Recorded Time 09/24/19 23 Date of Last Pap Smear completed Carol Devine [facility] 08/11/2024 17:15:32 08/10/19 12 Date of Last Colonoscopy completed Gabrielle Jo [facility] 10/18/2021 15:09:05 08/10/19 12 Colonoscopy completed Gabrielle Jo [facility] 10/18/2021 16:52:20 08/10/19 09 Laparoscopy completed Gabrielle Jo [facility] 10/17/2021 15:56:58 08/10/19 06 cholecystectomy completed Gabrielle Jo [facility] 10/18/2021 16:53:20 Imaging Results None recorded. Procedure Notes None recorded. Medical Equipment None Reported. Allergies Allergen ID Allergen Name Allergen Category Reaction Reaction Severity Criticality Documentation Date Start Date Code Code System Note Provider Name and Address Organization Details Recorded Time 47768 morphine medicatio n Not available Not available Not available 10/18/2021 7052 RxNorm Nevaeh Holman [facility] 2 16:28:38 94120 latex environme nt,medica tion hives Not available Not available 10/18/2021 62173 91 RxNorm Gabrielle Jo [facility] 2 15:07:48 Medications Name Sig [...] route every day 10/17 completed Prescrib ed Anatolyher e: No Locat ion: [facility] M odify By: tgingric h Lois [...] Updated DateTime 01/18/2025 170.82 cm 44.1 kg/m2 740129.2 3 g 140 mm[Hg] 93 mm[Hg] Gabrielle Jo [place] - [facility] 19:30:24 Social History Question Answer Notes LastModified by Organizat ion Details LastModified Time Tobacco Smoking Status Former Smoker Lara Branch [facility] 06/16/2023 11:15:34 Do You Have An Advance Directive? No [email or web address] Information not available 10/18/2021 If You Are , What Was Your Level Of Alcohol Consumption Prior To ? Occasional [email or web address] Information not available 07/13/2024 Are You Blind Or Do You Have Difficulty Seeing? No Information not available 10/18/2021 What Is Your Level Of Caffeine Consumption? Occasional [email or web address] Information not available 10/18/2021 How Much Tobacco Do You Chew? None Information not available 10/18/2021 In The 14 Days Before Symptom Onset, Have You Had Close Contact With A Laboratory-confir med COVID-19 While That Case Was Ill? No [email or web address] Information not available 10/18/2021 In The 14 Days Before Symptom Onset, Have You Had Close Contact With A Person Who Is Under Investigation For COVID-19 While That Person Was Ill? No [email or web address] Information not available 10/18/2021 Have You Been To An Area Known To Be High Risk For COVID-19? No [email or web address] Information not available 10/18/2021 Are You Deaf Or Do You Have Serious Difficulty Hearing? No [email or web address] Information not available 10/18/2021 What Type Of Diet Are You Following? REGULAR [email or web address] Information not available 08/11/2024 What Is The Highest Grade Or Level Of School You Have Completed Or The Highest Degree You Have Received? LV71411-4 [email or web address] Information not available 10/18/2021 Are There Any Guns Present In Your Home? No [email or web address] Information not available 10/18/2021 Have You Ever Been Counseled For Unhealthy Alcohol Use? No [email or web address] Information not available 06/16/2023 Do You Use Protection During Sex? No [email or web address] Information not available 10/18/2021 Do You Use Your Seat Belt Or Car Seat Routinely? Yes [email or web address] Information not available 10/18/2021 Do You Have Smoke And Carbon Monoxide Detectors In Your Home? Yes [email or web address] Information not available 10/18/2021 How Much Tobacco Do You Smoke? No [email or web address] Information not available 10/18/2021 Do You Use Sunscreen Routinely? No [email or web address] Information not available 10/18/2021 Has Tobacco Cessation Counseling Been Provided? No [email or web address] Information not available 06/16/2023 Have You Used IV Drugs? No [email or web address] Information not available 10/18/2021 Do You Have Difficulty Walking Or Climbing Stairs? No [email or web address] Information not available 06/16/2023 Sex: Unknown Functional Status Question Answer Note LastModified by Organizat ion Details LastModified Time Do you use any illicit or recreational drugs? No [email or web address] Information not available 10/18/2021 Do you or have you ever used any other forms of tobacco or nicotine? No [email or web address] Information not available 06/16/2023 What is your level of alcohol consumption? None [email or web address] Information not available 07/13/2024 Are you able to walk? YESWOREST [email or web address] Information not available 10/18/2021 Are you able to care for yourself? 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 No [email or web address] Information not available 06/16/2023 What is your exercise level? Occasional [email or web address] Information not available 10/18/2021 Mental Status Question Answer Note LastModified by Organization D etails LastModified Time Do you feel stressed (tense, restless, nervous, or anxious, or unable to sleep at night)? [id number] [email or web address] Information not available 05/04/2023 Family History Relationship Description Onset Age of this Age Resolved Age Notes LastModified by Organization Details LastModified Time Maternal Grandmother Diabetes mellitus [email or web address] Not available 10/17 15:55:49 Mother Diabetes mellitus [email or web address] Not available 10/17 15:55:57 Mother Asthma [email or web address] Not available 10/17/2021 15:56:16 Mother Disorder of thyroid gland [email or web address] Not available 10/17 15:56:33 Sister Asthma [email or web address] Not available 10/17/2021 15:56:16 Paternal Grandmother Diabetes mellitus [email or web address] Not available 10/18 15:11:24 Maternal Uncle Malignant neoplasm of prostate [email or web address] Not available 11/2024 16:09:40 Maternal Aunt Malignant tumor of breast [email or web address] Not available 10/18 15:12:15 Medical History Condition Response Allergies (Food, seasonal, environmental ) N Other Y Drug/Latex Allergies/Reactions Y Breast Cancer N Blood Transfusion N Lung Disease N Dermatologic Disorders N Defects or Inherited Disease N Breast Problem N Gestational Diabetes N Hematologic disorders N Anesthesia Complications N History of STI N Deep Vein Thrombosis N Polycystic ovary syndrome Y Anxiety Disorder Y Autoimmune disease N Arthritis N Polyps N Infertility N History of abnormal pap N Acid Reflux (GERD) N Cancer N Varicosities N Stroke N Neurologic/Epilepsy N Endometriosis N High Cholesterol N Headaches Y Fibromyalgia N Kidney Disease N Heart Problems N Thyroid [...] SNOMED-CT Code Diagnosis ICD10 Code Diagnosis Note [id number] Mel Carlson CNM [facility] [address] [address] 12/21/2024 09:23:24 12/21/2024 10:15:55 Severe obesity complicating 2374986447 8113611 O99.211 Chronic hy pertension complicating AND/OR reason for care during 05955379 O10.919 [id number] Gomez Edwards MD [facility] [address],[place] [address] 12/21/2024 09:24:04 12/21/2024 10:40:34 Obesity 350938795 O99.213 O10.013 Z3A.32 [id number] Mel Carlson [facility] [address],[place] [address] 12/21/2024 09:24:20 12/22/2024 17:47:58 [id number] [facility] [address],[place] [address] 12/23/2024 15:52:46 12/24/2024 11:20:42 Pruritic disorder of skin 1394868832 L29.9 Gestation period, 33 weeks 54441432 Z3A.33 [id number] Gomez Edwards MD [facility] [address],[place] [address] 12/28/2024 14:59:15 12/28/2024 15:57:40 Pre-existing hypertension in obstetric context 92632957 O10.919 O99.210 Z3A.33 [id number] [facility] [address],[place] [address] 12/28/2024 15:01:07 12/29/2024 14:02:16 Chronic hypertension complicating AND/OR reason for care during 71370822 O10.919 [id number] [facility] [address],[place] [address] 12/28/2024 15:01:39 12/28/2024 16:42:04 Gestation period, 33 weeks 00768586 Z3A.33 [id number] Gomez Edwards MD [facility] [address],[place] [address] 01/04/2025 16:26:50 01/04/2025 17:11:03 Chronic hypertension complicating AND/OR reason for care during 20510207 O10.919 O99.210 Z3A.34 [id number] Mel Carlson [facility] [address],[place] [address] 01/04/2025 16:29:22 01/05/2025 09:46:19 Hypertensive disorder 79547595 I10 [id number] Mel Carlson [facility] [address],[place] [address] 01/04/2025 16:29:49 01/06/2025 02:17:54 Gestation period, 35 weeks 49489324 Z3A.35 [id number] Gomez Edwards MD [facility] [address],[place] [address] 01/11/2025 16:07:36 01/11/2025 17:16:44 Essential hypertension complicating AND/OR reason for care during 80167260 O10.013 O99.213 Z3A.35 [id number] Mel Carlson [facility] [address],[place] [address] 01/11/2025 16:08:59 01/12/2025 09:05:23 Chronic hypertension complicating AND/OR reason for care during 84087232 O10.919 [id number] Mel Carlson [facility] [address],[place] [address] 01/11/2025 16:09:27 01/12/2025 09:07:05 Gestation period, 35 weeks 05388982 Z3A.35 [id number] Gomez Edwards MD [facility] [address],[place] [address] 01/16/2025 14:33:01 01/17/2025 09:33:08 Chronic hypertension complicating AND/OR reason for care during 38821431 O10.913 O99.210 Z3A.36 [id number] Gomez Edwards MD [facility] [address],[place] [address] 01/18/2025 16:25:22 01/18/2025 17:10:41 Essential hypertension complicating AND/OR reason for care during 37691852 O10.013 Z3A.36 [id number] [facility] [address],[place] [address] 01/18/2025 16:27:14 01/18/2025 18:51:00 [id number] LOIS HARRISON MD [facility] [address],[place] [address] 01/18/2025 16:27:43 01/19/2025 09:07:57 Pre-existing hypertension in obstetric context 31823729 O10.919 Health Concerns Section Related Observation LastModified by Organization Detai ls LastModified Time None Recorded Concern Status LastModified by Organization Details LastModified Time None Recorded Payers Encounter Date Sequence Insurance Name Policy Number Policy Acosta Covered Member ID Acosta Member ID Guarantor Name 01/18/2025 1 [employer] [id number] Samantha Ceballos [id number] Samantha Ceballos OBGyn Episode Ob Episode Information Episode Created Date Number of Fetuses Patient Bloodtype Patient rh Status Prepregnancy Weight lbs Domestic Partner Domestic Partner Phone Father Name [employer] Finisher Status 08/11/19 25 1 A Positive OPEN Fetus Data First Name Last Name Admitted to NICU Weight (g) Sex Living Outcome Pediatric Complications Fetus ID Race Codes Race Delivery Type [id number] Problems Problem Notes Problem Name Start Date End Date Resolution Snomed Code Not e Erythema nodosum 04050857 Body mass index 40+ - severely obese 279868848 BMI testing to start at 34wks Maternal hypertension 25571762 1 delivered at 38 weeks in last two pregnancies, well controlled without medications; baseline labs ordered; discussed 32 week testing and 38 week MIL Dilatation of renal pelvis 066114422 Anemia of 12/05/2024 36888205 Rafal Calculation Initial Rafal Date Initial Exam [...] Date Ultra Sound Latest Days Gestation 0 [email or web address] 08/11/2024 02/10/20 25 0 Pre- Flowsheet Flowsheet Date 08/11/2024 Mark Score Blood Edema Fundus Height Fundus Units Glucose Ketones Leukocytes Nitrite Labor Signs Protein Cervic Dilation Cervic Effacement Cervic Station Type Weight in lbs Pre/Post Dialysis Refused Weight 272.521262528841 BP Diastolic BP Location Tested BP Systolic BP Type 84 L arm 136 sitting Fetus Heart Rate Present A Present Fetus Movement Comments Patient [facility]. Has had some swelling in [...] Type Weight in lbs Pre/Post Dialysis Refused 276.474959893676 BP Diastolic BP Location Tested BP Systolic [...] Type Weight in lbs Pre/Post Dialysis Refused 276.157934276437 BP Diastolic BP Location Tested BP Systolic [...] Weight in lbs Pre/Post Dialysis Refused Weight 278.03769072987 BP Diastolic BP Location Tested BP Systolic [...] Weight in lbs Pre/Post Dialysis Refused Weight 281.769229723832 BP Diastolic BP Location Tested BP Systolic [...] Type Weight in lbs Pre/Post Dialysis Refused 281.598787471181 BP Diastolic BP Location Tested BP Systolic [...] Type Weight in lbs Pre/Post Dialysis Refused 284.671215709829 BP Diastolic BP Location Tested BP Systolic [...] Type Weight in lbs Pre/Post Dialysis Refused 285.427959011345 BP Diastolic BP Location Tested BP Systolic BP Type 90 142 Fetus Heart Rate Present Fetus Movement A Yes Comments Patient is having itching, p ain, contractions, discharge and swelling. reviewd bpp /10 +FM check labs precautions and education f/u [...] Weight in lbs Pre/Post Dialysis Refused Weight 286.741707937673 BP Diastolic BP Location Tested BP Systolic BP Type 87 141 Fetus Heart Rate Present Fetus Movement Comments Flowsheet Date 12/28/2024 Mark Score Blood Edema Fundus Height Fundus Units Glucose Ketones Leukocytes Nitrite Labor Signs Protein Cervic Dilation Cervic Effacement Cervic Station neg none Type Weight in lbs Pre/Post Dialysis Refused 286.446148147896 BP Diastolic BP Location Tested BP Systolic [...] Weight in lbs Pre/Post Dialysis Refused Weight 283.97538804543 BP Diastolic BP Location Tested BP Systolic BP Type 97 149 Fetus Heart Rate Present Fetus Movement Comments Flowsheet Date 01/04/2025 Mark Score Blood Edema Fundus Height Fundus Units Glucose Ketones Leukocytes Nitrite Labor Signs Protein Cervic Dilation Cervic Effacement Cervic Station neg trace Type Weight in lbs Pre/Post Dialysis Refused 283.319131585651 BP Diastolic BP Location Tested BP Systolic [...] Weight in lbs Pre/Post Dialysis Refused Weight 283.23039956533 BP Diastolic BP Location Tested BP Systolic BP Type 90 L arm 137 sitting Fetus Heart Rate Present Fetus Movement Comments Flowsheet Date 01/11/2025 Mark Score Blood Edema Fundus Height Fundus Units Glucose Ketones Leukocytes Nitrite Labor Signs Protein Cervic Dilation Cervic Effacement Cervic Station neg none Type Weight in lbs Pre/Post Dialysis Refused 283.387178345358 BP Diastolic BP Location Tested BP Systolic BP Type 90 137 Fetus Heart Rate Present Fetus Movement A Yes Comments Patient is having some back pain, contractions, discharge, nausea and vomiting. baby footling breech, bpp 03/17, was vertex yesterday at hospital, plan US on thursday if breech, talk to harrison about version thu or or IOL?? +FM Flowsheet Date 01/16/2025 Mark [...] Weight in lbs Pre/Post Dialysis Refused Weight 284.495231460147 BP Diastolic BP Location Tested BP Systolic [...]
--- OUTSIDE RECORDS SUMMARY | 2025-01-19 16:08 | XMS_ITS | Continuity of Care Document ---
Author Organization [facility] Address [address] [place] [address] Phone Care Team Providers Care Community Health Nurse Name Role Phone Yamil ANTON, William Unavailable [...] Diagnoses Date Provider Providers Copied on Encounter [facility], [address] [place], [id number], [place] tel:[phone] [facility] No Information 0 4 Yamil Thomas. [address] [facility] [place] [address] , [place]. tel:[phone] Referring Provider: William Lobo, [address] [facility] [address], [place], [place], [id number]. tel:[phone] OFFICE/OUTPA TIENT VISIT, EST [facility], [address], [place], [place], [address], [place] tel:[phone] [facility] Medicine chest pain (chief complaint) knee (chief complaint) Chest Pain, UnspecifiedRespirat ory abnormality, unspecifiedPain in joint involving lower legDietary surveillance and counselingHypertens ion, Unspecified 3 Yamil Thoams. [address], [place], [place], [address] , [place]. [phone] Referring Provider: Rohan Orosco [address], [place], [place], [address]. tel:[phone] PREV VISIT, EST, AGE 18-39 [facility], [address], [place], [place], [address], [place] tel:[phone] [facility] Physical (chief complaint) Dietary surveillance and counselingRoutine Medical ExamGERDPain in joint involving lower legHypertension, UnspecifiedRoutine Medical Exam 3 Yamil Thomas. [address], [place], [place], [address] , [place]. tel:[phone] Referring Provider: Rohan Orosco [address], [place], [place], [address]. tel:[phone] OFFICE/OUTPA TIENT VISIT, EST [facility], [address], [place], [place], [address], [place] tel:[phone] [facility] Medicine chest pain (chief complaint) abdominal pain (chief complaint) SOB (chief complaint) Dietary surveillance and counselingGERDChest Pain, UnspecifiedRespirat ory abnormality, unspecified 2 Yamil Thomas. [address], [place], [place], [address] , [place]. tel:[phone] Referring Provider: Rohan [address], [place], [place], [address]. tel:[phone] Family History Family Member Type Diagnosis Age [...]
--- OUTSIDE RECORDS SUMMARY | 2025-01-19 16:08 | XMS_ITS | Clinical Summary ---
Author Organization [facility] Address 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
--- OUTSIDE RECORDS SUMMARY | 2025-01-19 16:09 | XMS_ITS | Continuity of Care Document ---
Author Organization [facility] Address [address] [place] [address] [place] [address] Assessment No assessment recorded. Plan of Treatment [...] recorde d. Surgeries None recorde d. Imaging non-str ess test 2024 025 [email or web address] [place], [address], [address], [place], [address], 01/19/2025 10:14:56 Medication Orders None recorde d. Patient TargetsNo targets recorded. Patient InstructionsNo instructions recorded. Reason for Referral None Reported. Results Created Date Observation Date Name Description Value Unit Range Abnormal Flag Note LastModifiedBy Organization Detail LastModifiedTime 08/11/19 25 08/11/2024 US, obste tric, nucha l trans lucen cy No observ ation record ed. [email or web address] [facility] [address], [place], [address], 08/11/2024 18:21:12 08/11/19 25 08/11/2024 US, obste tric, nucha l trans lucen cy No observ ation record ed. [email or web address] [address], [place], [address], 08/11/2024 22:08:50 09/29/19 25 09/29/2024 US, obste tric, 2nd or 3rd trime ster No observ ation record ed. [email or web address] [facility] [address], [place], [address], 09/29/2024 18:16:37 09/29/19 25 09/29/2024 US, obste tric, follo w-up No observ ation record ed. [address], [place], [address], 10/04/2024 15:28:54 10/26/19 25 10/25/2024 US, obste tric, follo w-up No observ ation record ed. [email or web address] [facility] [address], [place], [address], 10/25/2024 18:52:39 10/26/19 25 10/25/2024 US, obste tric, follo w-up No observ ation record ed. [email or web address] [address], [place], [address], 10/28/2024 13:53:30 12/03/19 25 12/02/2024 US, obste tric, follo w-up No observ ation record ed. [email or web address] [facility] [address], [place], [address], 12/02/2024 13:30:23 12/03/19 25 12/02/2024 US, obste tric, follo w-up No observ ation record ed. [email or web address] [address], [place], [address], 12/06/2024 14:21:19 12/22/1912/21/2024 non-s tress test No observ ation record ed. [email or web address] [facility] [address], [place], [address], 12/21/2024 10:14:42 12/22/19 non-s tress test No observ ation record ed. [email or web address] [facility] [address], [place], [address], 12/21/2024 10:17:15 12/22/19 25 12/21/2024 US, obstsierra calvo, bioph ysica l profi le + non-s tress test No observ ation record ed. [email or web address] [facility] [address], [place], [address], 12/21/2024 10:41:15 12/22/19 25 12/21/2024 US, obste tric, follo w-up No observ ation record ed. [email or web address] [address], [place], [address], 12/22/2024 11:35:09 12/29/19 25 12/29/2024 US, obste tric, follo w-up No observ ation record ed. [email or web address] [facility] [address], [place], [address], 12/29/2024 11:29:40 12/29/19 25 12/29/2024 US, obste tric, bioph ysica l profi le + non-s tress test No observ ation record ed. [email or web address] [facility] [address], [place], [address], 12/29/2024 11:29:51 12/29/19 25 12/28/2024 US, obste tric, follo w-up No observ ation record ed. [email or web address] [address], [place], [address], 01/03/2025 22:22:46 12/29/19 25 12/28/2024 non-s tress test No observ ation record ed. [email or web address] [facility] [address], [place], [address], 12/28/2024 20:00:54 12/29/19 25 12/28/2024 non-s tress test No observ ation record ed. [place] [address] [facility] [address], [place], [address], 12/28/2024 20:03:00 01/05/20 25 01/04/2025 US, obstsierra calvo, bioph ysica l profi le + non-s tress test No observ ation record ed. [email or web address] [facility] [address], [place], [address], 01/04/2025 17:31:59 01/05/20 25 01/04/2025 US, obste tric, follo w-up No observ ation record ed. [email or web address] [address], [place], [address], 01/10/2025 18:37:23 01/05/20 25 01/04/2025 non-s tress test No observ ation record ed. [email or web address] [facility] [address], [place], [address], 01/04/2025 20:54:26 01/05/20 25 01/04/2025 non-s tress test No observ ation record ed. [email or web address] [facility] [address], [place], [address], 01/04/2025 20:56:03 01/12/20 25 01/11/2025 US, adilene tric, bioph ysica l profi le + non-s tress test No observ ation record ed. [email or web address] [facility] [address], [place], [address], 01/11/2025 17:38:17 01/12/20 25 01/11/2025 US, adilene tric, follo w-up No observ ation record ed. [email or web address] [address], [place], [address], 01/12/2025 13:11:40 01/12/20 25 01/11/2025 non-s tress test No observ ation record ed. [address], [place], [address], 01/11/2025 19:24:45 01/17/20 25 01/16/2025 US, adilene tric, follo w-up No observ ation record ed. [facility] [address], [place], [address], 01/16/2025 18:50:02 01/17/20 25 01/16/2025 US, adilene calvo, bioph ysica l profi le No observ ation record ed. [facility] [address], [place], [address], 01/16/2025 18:50:11 01/19/20 25 01/16/2025 US, obste tric, follo w-up No observ ation record ed. [email or web address] [address], [place], [address], 01/18/2025 09:32:42 01/19/20 25 01/18/2025 US, obste tric, bioph ysica l profi le + non-s tress test No observ ation record ed. [email or web address] [facility] [address], [place], [address], 01/18/2025 18:29:36 01/19/20 25 01/18/2025 US, obste tric, bioph ysica l profi le + non-s tress test No observ ation record ed. [email or web address], [place], [address], 01/18/2025 17:15:28 01/19/20 25 01/18/2025 non-s tress test No observ ation record ed. [email or web address] [facility] [address], [place], [address], 01/18/2025 19:31:49 01/19/20 25 01/18/2025 non-s tress test No observ ation record ed. [email or web address] [facility] [address], [place], [address], 01/18/2025 19:33:38 Result Notes None recorded. 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 2 15:08:07 Type 2 diabetes mellitus without complica tion 530479110 Completed 201010/18/2021 Diabetes Mellitus Type 2, Uncompli cated;Re corded Elsewher e: No Locat ion: [facility] S ource: EHR Victorian Literature Professor wes: N Practi ce ID: 0001 Sampson lable Time: 12:00:00 PM Gabrielle Snadhubismark duggan, [facility] 2 15:08:18 Amenorrh ea 45598610 Completed 201010/18/2021 Absence of menstrua tion;Rec orded Elsewher e: No Locat ion: [facility] S ource: EHR Victorian Literature Professor wes: N Practi ce ID: 0001 Sampson lable Time: 12:00:00 PM Gabrielle Deysi duggan, [facility] 2 15:07:58 Ill-defi tamara intestin al infectio n Completed 201210/18/2021 No Show Fee;Prac akiko ID: [email or web address] Gabrielle Jo null, [facility] 2 15:08:01 Pregnanc y 82008581 Completed 202109/11/2022 Carol duggan, [facility] 5 17:49:46 Pregnanc y-induce d hyperten tiffany 36942971 Completed ASA, Baseline PIH labs WNL Lea Segura MD [address], [place], [address], [facility] 2 17:12:54 Prematur e delivery 670955072 Completed Superior. Geno is approved with insuranc e & sent form to [facility] ons. Lea Segura MD [address], [place], [address], [place] [facility] 2 16:42:24 Obesity 186442547 Completed Antenata l testing @ 34wks Tracee gilliland olga lidia, [facility] 3 14:26:29 Chlamydi al infectio n 915825372 Completed 2021 rpt MENA 12/16 Tracee gilliland olga lidia, [facility] 3 14:26:29 Past pregnanc y history of prematur e delivery 816282665 Completed 2021 Geno failed with new insuranc e. pt giving up at 33+ weeks. Tracee Roman darshana duggan, [facility] 3 14:26:29 Past pregnanc y history of prematur e delivery 276536525 Active 2021 Geno failed with new insuranc e. pt giving up at 33+ weeks. Tracee gilliland olga lidia, [facility] 3 14:26:29 Chronic hyperten tiffany in obstetri c context 0056681 Completed supposed to be taking labetalo l 200 BID, delivery 38w Tracee gilliland olga lidia, [facility] 3 14:26:29 Anemia 760929657 Completed slowfe 1 tab Tracee Roman darshana duggan, [facility] 3 14:26:28 Essentia l hyperten tiffany 20575435 Active 2021 Lea Segura MD [address], [place], [address], [facility] 2 11:25:46 Severe obesity complica ting pregnanc y 6442733497 3043093 Active Gabrielle duggan, [facility] 4 15:48:56 Pregnanc y 34829296 Completed 202205/25/2023 Carol Devine null, [facility] 5 17:49:46 Chlamydi al infectio n 223816447 Completed 2022 MENA neg - recheck 3rd trimeste r! Ady El null, [facility] 3 17:01:16 Chronic hyperten tiffany in obstetri c context 0047865 Completed supposed to be taking labetalo l 200 BID, delivery 38w, ante testing 32w Ady Condonle null, [facility] 3 17:01:16 Pregnanc y-induce d hyperten tiffany 98867410 Completed Labetalo l Lea Segura MD [address], [place], [address], [facility] 3 15:18:38 Prematur e delivery 409657399 Completed 36 weeks - first pregnanc y Ady lE null, [facility] 3 17:01:16 Social problem 543107694 Active with worsenin g MS, can barely walk Nitzay Nikko [facility], [facility] 3 17:01:16 Social problem 432649634 Completed with worsenin g MS, can barely walk Ady Condonle [facility], [facility] 3 17:01:16 Obesity 732022865 Completed Antenata l testing @ 34wks Ady Condonle null, [facility] 3 17:01:16 Pregnanc y 51100481 Active 2024 Carol Devine null, [facility] 5 17:49:46 Maternal hyperten tiffany 424310612 Active delivere d at 38 weeks in last two pregnanc ies, well controll ed without medicati ons; baseline labs ordered; discusse d 32 week antenata l testing and 38 week DANIELA HARRISON MD [address], [place], [address], [facility] 5 17:54:57 Maternal hyperten tiffany 055522906 Active delivere d at 38 weeks in last two pregnanc ies, well controll ed without medicati ons; baseline labs ordered; discusse d 32 week antenata l testing and 38 week MIL LOIS HARRISON MD [address], [place], [address], [facility] 5 17:55:02 Erythema nodosum 62769278 Active LOIS HARRISON MD [address], [place], [address], [facility] 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 5 13:47:13 Body mass index 40+ - severely obese 318985661 Active BMI antenata l testing to start at 34wks [facility] 5 13:50:22 Body mass index 40+ - severely obese 294461854 Active BMI antenata l testing to start at 34wks Fern [facility] 5 13:50:22 Anemia of pregnanc y 99112488 Active 2024 Gabrielle Jo [facility] 5 12:26:33 Problem Notes None recorded. Procedures Surgical History Date Name Laterality Status Provider Name and Address Organization Details Recorded Time 09/24/19 23 Date of Last Pap Smear completed Carol Devine [facility] 08/11/2024 17:15:32 08/10/19 12 Date of Last Colonoscopy completed Gabrielle Jo [facility] 10/18/2021 15:09:05 08/10/19 12 Colonoscopy completed Gabrielle Jo [facility] 10/18/2021 16:52:20 08/10/19 09 Laparoscopy completed Gabrielle Sandhutz [facility] 10/17/2021 15:56:58 08/10/19 06 cholecystectomy completed Gabrielle Jo [facility] 10/18/2021 16:53:20 Imaging Results None recorded. Procedure Notes None recorded. Medical Equipment None Reported. Allergies Allergen ID Allergen Name Allergen Category Reaction Reaction Severity Criticality Documentation Date Start Date Code Code System Note Provider Name and Address Organization Details Recorded Time 08290 morphine medicatio n Not available Not available Not available 10/18/2021 7052 RxNorm [facility] 2 16:28:38 89759 latex environme nt,medica tion hives Not available Not available 10/18/2021 02734 91 RxNorm Gabrielle Jobismark duggan [facility] 2 15:07:48 Medications Name Sig Start [...] Prescrib ed Anatolyher e: No Locat ion: Jess [facility]quivel [facility] M odify By: [email or web address] h Encoun ter DateTime : 09/16/19 12 09:00:00 AM [...] Updated DateTime 01/18/2025 170.82 cm 44.1 kg/m2 241290.2 3 g 140 mm[Hg] 93 mm[Hg] Gabrielle Jo [facility] 19:30:24 Social History Question Answer Notes LastModified by Organizat ion Details LastModified Time Tobacco Smoking Status Former Smoker Lara Branch olga lidia, [facility] 06/16/2023 11:15:34 Do You Have An Advance Directive? No Information not available 10/18/2021 If You Are , What Was Your Level Of Alcohol Consumption Prior To ? Occasional [email or web address] Information not available 07/13/2024 Are You Blind Or Do You Have Difficulty Seeing? No [email or web address] Information not available 10/18/2021 What Is Your Level Of Caffeine Consumption? Occasional [email or web address] Information not available 10/18/2021 How Much Tobacco Do You Chew? None [email or web address] Information not available 10/18/2021 In The 14 Days Before Symptom Onset, Have You Had Close Contact With A Laboratory-confir med COVID-19 While That Case Was Ill? No [email or web address] Information not available 10/18/2021 In The 14 Days Before Symptom Onset, Have You Had Close Contact With A Person Who Is Under Investigation For COVID-19 While That Person Was Ill? No [email or web address] Information not available 10/18/2021 Have You Been To An Area Known To Be High Risk For COVID-19? No [email or web address] Information not available 10/18/2021 Are You Deaf Or Do You Have Serious Difficulty Hearing? No [email or web address] Information not available 10/18/2021 What Type Of Diet Are You Following? REGULAR [email or web address] Information not available 08/11/2024 What Is The Highest Grade Or Level Of School You Have Completed Or The Highest Degree You Have Received? CX79112-8 [email or web address] Information not available 10/18/2021 Are There Any Guns Present In Your Home? No [email or web address] Information not available 10/18/2021 Have You Ever Been Counseled For Unhealthy Alcohol Use? No Information not available 06/16/2023 Do You Use Protection During Sex? No [email or web address] Information not available 10/18/2021 Do You Use Your Seat Belt Or Car Seat Routinely? Yes [email or web address] Information not available 10/18/2021 Do You Have Smoke And Carbon Monoxide Detectors In Your Home? Yes [email or web address] Information not available 10/18/2021 How Much Tobacco Do You Smoke? No Information not available 10/18/2021 Do You Use Sunscreen Routinely? No [email or web address] Information not available 10/18/2021 Has Tobacco Cessation Counseling Been Provided? No [email or web address] Information not available 06/16/2023 Have You Used IV Drugs? No [email or web address] Information not available 10/18/2021 Do You Have Difficulty Walking Or Climbing Stairs? No Information not available 06/16/2023 Sex: Unknown Functional Status Question Answer Note LastModified by Organizat ion Details LastModified Time Do you use any illicit or recreational drugs? No [email or web address] Information not available 10/18/2021 Do you or have you ever used any other forms of tobacco or nicotine? No [email or web address] Information not available 06/16/2023 What is your level of alcohol consumption? None [email or web address] Information not available 07/13/2024 Are you able to walk? YESWOREST [email or web address] Information not available 10/18/2021 Are you able to care for yourself? 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 No [email or web address] Information not available 06/16/2023 What is your exercise level? Occasional [email or web address] Information not available 10/18/2021 Mental Status Question Answer Note LastModified by Organization D etails LastModified Time Do you feel stressed (tense, restless, nervous, or anxious, or unable to sleep at night)? [id number] [email or web address] Information not available 05/04/2023 Family History Relationship Description Onset Age of this Age Resolved Age Notes LastModified by Organization Details LastModified Time Maternal Grandmother Diabetes mellitus Not available 10/17 15:55:49 Mother Diabetes mellitus [email or web address] Not available 10/17 15:55:57 Mother Asthma [email or web address] Not available 10/17/2021 15:56:16 Mother Disorder of thyroid gland [email or web address] Not available 10/17 15:56:33 Sister Asthma [email or web address] Not available 10/17/2021 15:56:16 Paternal Grandmother Diabetes mellitus [email or web address] Not available 10/18 15:11:24 Maternal Uncle Malignant neoplasm of prostate [email or web address] Not available 11/2024 16:09:40 Maternal Aunt Malignant tumor of breast [email or web address] Not available 10/18 15:12:15 Medical History Condition [...] SNOMED-CT Code Diagnosis ICD10 Code Diagnosis [facility] [id number] [facility] [address] [address] 12/21/2024 09:23:24 12/21/2024 10:15:55 Severe obesity complicating 4797024574 9331096 O99.211 Chronic hy pertension complicating AND/OR reason for care during 99835794 O10.919 [id number] Gomez Edwards MD [facility] [address],[place] [address] 12/21/2024 09:24:04 12/21/2024 10:40:34 Obesity 006540974 O99.213 O10.013 Z3A.32 [id number] [facility] [address],[place] [address] 12/21/2024 09:24:20 12/22/2024 17:47:58 [id number] [facility] [address] [place] [address] 12/23/2024 15:52:46 12/24/2024 11:20:42 Pruritic disorder of skin 1243760004 L29.9 Gestation period, 33 weeks 39181583 Z3A.33 [id number] Gomez Edwards MD [facility] [address],[place] [address] 12/28/2024 14:59:15 12/28/2024 15:57:40 Pre-existing hypertension in obstetric context 21999908 O10.919 O99.210 Z3A.33 [id number] [facility] [address] [place] [address] 12/28/2024 15:01:07 12/29/2024 14:02:16 Chronic hypertension complicating AND/OR reason for care during 09908473 O10.919 [id number] [facility] [address] [place] [address] 12/28/2024 15:01:39 12/28/2024 16:42:04 Gestation period, 33 weeks 84787737 Z3A.33 [id number] Gomez Edwards MD [facility] [address],[place] [address] 01/04/2025 16:26:50 01/04/2025 17:11:03 Chronic hypertension complicating AND/OR reason for care during 45585463 O10.919 O99.210 Z3A.34 [id number] Mel Carlson [facility] [address],[place] [address] 01/04/2025 16:29:22 01/05/2025 09:46:19 Hypertensive disorder 65491715 I10 [id number] Mel Carlson [facility] [address],[place] [address] 01/04/2025 16:29:49 01/06/2025 02:17:54 Gestation period, 35 weeks 66181417 Z3A.35 [id number] Gomez Edwards MD [facility] [address],[place] [address] 01/11/2025 16:07:36 01/11/2025 17:16:44 Essential hypertension complicating AND/OR reason for care during 10552119 O10.013 O99.213 Z3A.35 [id number] [facility] [address],[place] [address] 01/11/2025 16:08:59 01/12/2025 09:05:23 Chronic hypertension complicating AND/OR reason for care during 20494977 O10.919 [id number] [facility] [address],[place] [address] 01/11/2025 16:09:27 01/12/2025 09:07:05 Gestation period, 35 weeks 40034534 Z3A.35 [id number] Gomez Edwards MD [facility] [address],[place] [address] 01/16/2025 14:33:01 01/17/2025 09:33:08 Chronic hypertension complicating AND/OR reason for care during 75508882 O10.913 O99.210 Z3A.36 [id number] Gomez Edwards MD [facility] [address],[place] [address] 01/18/2025 16:25:22 01/18/2025 17:10:41 Essential hypertension complicating AND/OR reason for care during 23179601 O10.013 Z3A.36 [id number] [facility] [address],[place] [address] 01/18/2025 16:27:14 01/18/2025 18:51:00 [id number] LOIS HARRISON MD [facility] [address],[place] [address] 01/18/2025 16:27:43 01/19/2025 09:07:57 Pre-existing hypertension in obstetric context 76085538 O10.919 Health Concerns Section Related Observation LastModified by Organization Detai ls LastModified Time None Recorded Concern Status LastModified by Organization Details LastModified Time None Recorded Payers Encounter Date Sequence Insurance Name Policy Number Policy Acosta Covered Member ID Acosta Member ID Guarantor Name 01/18/2025 1 [place] [id number] Samantha Ceballos [id number] Samantha Ceballos OBGyn Episode Ob Episode Information Episode Created Date Number of Fetuses Patient Bloodtype Patient rh Status Prepregnancy Weight lbs Domestic Partner Domestic Partner Phone Father Name Executive Account Manager Status 08/11/19 25 1 A Positive OPEN Fetus Data First Name Last Name Admitted to NICU Weight (g) Sex Living Outcome Pediatric Complications Fetus ID Race Codes Race Delivery Type [id number] Problems Problem Notes Problem Name Start Date End Date Resolution Snomed Code Not e Erythema nodosum 94635314 Body mass index 40+ - severely obese 855052724 BMI testing to start at 34wks Maternal hypertension 22533071 1 delivered at 38 weeks in last two pregnancies, well controlled without medications; baseline labs ordered; discussed 32 week testing and 38 week MIL Dilatation of renal pelvis 286765114 Anemia of 12/05/2024 53082664 Rafal Calculation Initial Rafal Date Initial Exam [...] Date Ultra Sound Latest Days Gestation 0 [email or web address] 08/11/2024 02/10/20 25 0 Pre-annmarie Flowsheet Flowsheet Date 08/11/2024 Mark Score Blood Edema Fundus Height Fundus Units Glucose Ketones Leukocytes Nitrite Labor Signs Protein Cervic Dilation Cervic Effacement Cervic Station Type Weight in lbs Pre/Post Dialysis Refused Weight 272.526747453960 BP Diastolic BP Location Tested BP Systolic BP Type 84 L arm 136 sitting Fetus Heart Rate Present A Present Fetus Movement Comments Patient presents to [facility]. Has had some swelling in [...] Type Weight in lbs Pre/Post Dialysis Refused 276.361343001761 BP Diastolic BP Location Tested BP Systolic [...] Type Weight in lbs Pre/Post Dialysis Refused 276.017628688496 BP Diastolic BP Location Tested BP Systolic [...] Weight in lbs Pre/Post Dialysis Refused Weight 278.40003958428 BP Diastolic BP Location Tested BP Systolic [...] Weight in lbs Pre/Post Dialysis Refused Weight 281.330055874123 BP Diastolic BP Location Tested BP Systolic [...] Type Weight in lbs Pre/Post Dialysis Refused 281.703848736613 BP Diastolic BP Location Tested BP Systolic [...] Type Weight in lbs Pre/Post Dialysis Refused 284.388923423002 BP Diastolic BP Location Tested BP Systolic [...] Type Weight in lbs Pre/Post Dialysis Refused 285.461325163618 BP Diastolic BP Location Tested BP Systolic [...] Weight in lbs Pre/Post Dialysis Refused Weight 286.905566638046 BP Diastolic BP Location Tested BP Systolic BP Type 87 141 Fetus Heart Rate Present Fetus Movement Comments Flowsheet Date 12/28/2024 Mark Score Blood Edema Fundus Height Fundus Units Glucose Ketones Leukocytes Nitrite Labor Signs Protein Cervic Dilation Cervic Effacement Cervic Station neg none Type Weight in lbs Pre/Post Dialysis Refused 286.486013716093 BP Diastolic BP Location Tested BP Systolic [...] Weight in lbs Pre/Post Dialysis Refused Weight 283.46247423295 BP Diastolic BP Location Tested BP Systolic BP Type 97 149 Fetus Heart Rate Present Fetus Movement Comments Flowsheet Date 01/04/2025 Mark Score Blood Edema Fundus Height Fundus Units Glucose Ketones Leukocytes Nitrite Labor Signs Protein Cervic Dilation Cervic Effacement Cervic Station neg trace Type Weight in lbs Pre/Post Dialysis Refused [id number] BP Diastolic BP Location Tested BP Systolic [...] Weight in lbs Pre/Post Dialysis Refused Weight 283.23697694639 BP Diastolic BP Location Tested BP Systolic BP Type 90 L arm 137 sitting Fetus Heart Rate Present Fetus Movement Comments Flowsheet Date 01/11/2025 Mark Score Blood Edema Fundus Height Fundus Units Glucose Ketones Leukocytes Nitrite Labor Signs Protein Cervic Dilation Cervic Effacement Cervic Station neg none Type Weight in lbs Pre/Post Dialysis Refused [id number] BP Diastolic BP Location Tested BP Systolic [...] Weight in lbs Pre/Post Dialysis Refused Weight 284.112115790582 BP Diastolic BP Location Tested BP Systolic [...]
--- OUTSIDE RECORDS SUMMARY | 2025-01-19 16:09 | XMS_ITS | Data Portability ---
Author Organization [facility] Address [address] [place] [address] [place] [address] Assessment No assessment recorded. Plan of Treatment [...] d. Imaging non-str ess test 2024 025 [email or web address] [address], [address], [address], [place], [address], 01/19/2025 10:14:56 US, obstetr ic, biophys ical profile + non-str ess test 2024 025 [email or web address] [address], [address], [place], [address], 01/18/2025 19:10:16 US, obstetr ic, follow- up 2024 025 [email or web address] [address], [address], [place], [address], 01/17/2025 09:33:08 US, obstetr ic, biophys ical profile 2024 025 [email or web address] [address], [address], [place], [address], 01/17/2025 09:33:08 Medication Orders None recorde d. Patient TargetsNo targets recorded. Patient InstructionsNo instructions recorded. Reason for Referral None Reported. Results Created Date Observation Date Name Description Value Unit Range Abnormal Flag Note LastModifiedBy Organization Detail LastModifiedTime 12/24/1912/23/2024 CBC W/DIF F WBC 14.4 10'3/ uL 3.5-10 .5 high Not Available [facility] (Lab) [address], [place], [address], 12/26/2024 10:38:36 12/24/1912/23/2024 CBC W/DIF F RBC 4.48 10'6/ uL (based on docume nted legal sex) 3.80-5 .20 Not Available [facility] (Lab) [address], [place], [address], 12/26/2024 10:38:36 12/24/1912/23/2024 CBC W/DIF F HGB 10.7 g/dL (based on docume nted legal sex) 11.6-1 5.4 low Not Available [facility] (Lab) [address], [place], [address], 12/26/2024 10:38:36 12/24/19 25 12/23/2024 CBC W/DIF F HCT 35.5 % (based on docume nted legal sex) 34.0-4 5.0 Not Available [facility] (Lab) [address], [place], [address], 12/26/2024 10:38:36 12/24/19 25 12/23/2024 CBC W/DIF F MCV 79.2 fL 80.0-9 9.0 low Not Available [facility] (Lab) [address], [place], [address], 12/26/2024 10:38:36 12/24/19 25 12/23/2024 CBC W/DIF F MCH 23.9 pg 27.0-3 4.0 low Not Available [facility] (Lab) [address], [place], [address], 12/26/2024 10:38:36 12/24/19 25 12/23/2024 CBC W/DIF F MCHC 30.1 g/dL 32.0-3 5.5 low Not Available [facility] (Lab) [address], [place], [address], 12/26/2024 10:38:36 12/24/19 25 12/23/2024 CBC W/DIF F RDW 14.9 % 11.0-1 5.0 Not Available [facility] (Lab) [address], [place], [address], 12/26/2024 10:38:36 12/24/19 25 12/23/2024 CBC W/DIF F plt 376 10'3/ uL 150-40 0 Not Available [facility] (Lab) [address], [place], [address], 12/26/2024 10:38:36 12/24/19 25 12/23/2024 CBC W/DIF F MPV 11.3 fL 8.8-12 .1 Not Available [facility] (Lab) [address], [place], [address], 12/26/2024 10:38:36 12/24/19 25 12/23/2024 CBC W/DIF F NRBC's 0.0 % 0.0 Not Available [facility] (Lab) [address], [place], [address], 12/26/2024 10:38:36 12/24/19 25 12/23/2024 CBC W/DIF F absolute NRBCs 0.0 10'3/ uL no refere nce range establ ished Not Available [facility] (Lab) [address], [place], [address], 12/26/2024 10:38:36 12/24/19 25 12/23/2024 CBC W/DIF F neutrophils 72.7 % 34.0-7 3.0 Not Available [facility] (Lab) [address], [place], [address], 12/26/2024 10:38:36 12/24/19 25 12/23/2024 CBC W/DIF F lymphocytes 18.0 % 15.0-5 0.0 Not Available [facility] (Lab) [address], [place], [address], 12/26/2024 10:38:36 12/24/19 25 12/23/2024 CBC W/DIF F monocytes 5.5 % 1.0-15 .0 Not Available [facility] (Lab) [address], [place], [address], 12/26/2024 10:38:36 12/24/19 25 12/23/2024 CBC W/DIF F eosinophils 2.7 % 0.0-8. 0 Not Available [facility] (Lab) [address] [place], [address], 12/26/2024 10:38:36 12/24/19 25 12/23/2024 CBC W/DIF F basophils 0.4 % 0.0-2. 0 Not Available [facility] (Lab) [address], [place], [address], 12/26/2024 10:38:36 12/24/19 25 12/23/2024 CBC W/DIF [...] separ ately if prese nt. Not Available [facility] (Lab) [address], [place], [address], 12/26/2024 10:38:36 12/24/19 25 12/23/2024 CBC W/DIF F absolute neutrophils 10.5 10'3/ uL 1.5-8. 0 high Not Available [facility] (Lab) [address], [place], [address], 12/26/2024 10:38:36 12/24/19 25 12/23/2024 CBC W/DIF F absolute lymphocytes 2.6 10'3/ uL 1.0-4. 0 Not Available [facility] (Lab) [address], [place], [address], 12/26/2024 10:38:36 12/24/19 25 12/23/2024 CBC W/DIF F absolute monocytes 0.8 10'3/ uL 0.2-1. 0 Not Available [facility] (Lab) [address], [place], [address], 12/26/2024 10:38:36 12/24/19 25 12/23/2024 CBC W/DIF F absolute eosinophils 0.4 10'3/ uL 0.0-0. 6 Not Available [facility] (Lab) [address], [place], [address], 12/26/2024 10:38:36 12/24/19 25 12/23/2024 CBC W/DIF F absolute basophils 0.1 10'3/ uL 0.0-0. 3 Not Available [facility] (Lab) [address] [place], [address], 12/26/2024 10:38:36 12/24/19 25 12/23/2024 CBC W/DIF F absolute immature granulocytes 0.1 10'3/ uL 0.00-0 .10 Refer ence range s for nonbi nary/ inter sex or unspe cifie d gende r patie nts have not been estab lishe d. Leatha e refer to the [facility] table for range s estab lishe d for cisge nder patie nts and evalu ate in the clini candis sobeida xt of the indiv idual patie nt: https ://puma quiros book. nm.or g/gen derx Not Available [facility] (Lab) [address], [place], [address], 12/26/2024 10:38:36 12/24/19 25 12/23/2024 PROTE IN/CR EATIN INE RATIO , URINE creatinine, urine 25.4 mg/dL R-No refer ence range estab lishe d for this assay Not Available [facility] (Lab) [address], [place], [address], 12/26/2024 10:38:37 12/24/19 25 12/23/2024 PROTE IN/CR EATIN INE RATIO , URINE protein, urine <4 mg/dL R-No refer ence range estab lishe d for this assay Not Available [facility] (Lab) [address], [place], [address], 12/26/2024 10:38:37 12/24/19 25 12/23/2024 PROTE IN/CR [...] fican t prote inuri a. Not Available [facility] (Lab) [address], [place], [address], 12/26/2024 10:38:37 12/24/19 25 12/23/2024 CMP(C OMPRE HENSI VE METAB OLIC PANEL ) sodium 136 mmol/ L 133-14 6 Not Available [facility] (Lab) [address], [place], [address], 12/26/2024 10:38:37 12/24/19 25 12/23/2024 CMP(C OMPRE HENSI VE METAB OLIC PANEL ) potassium 3.7 mmol/ L 3.5-5. 1 Not Available [facility] (Lab) [address], [place], [address], 12/26/2024 10:38:37 12/24/19 25 12/23/2024 CMP(C OMPRE HENSI VE METAB OLIC PANEL ) chloride 103 mmol/ L 98-107 Not Available [facility] (Lab) [address] [place], [address], 12/26/2024 10:38:37 12/24/19 25 12/23/2024 CMP(C OMPRE HENSI VE METAB OLIC PANEL ) carbon dioxide 25 mmol/ L 21-31 Not Available [facility] (Lab) [address], [place], [address], 12/26/2024 10:38:37 12/24/19 25 12/23/2024 CMP(C OMPRE HENSI VE METAB OLIC PANEL ) anion gap 8 mmol/ L 4-13 Not Available [facility] (Lab) [address] [place], [address], 12/26/2024 10:38:37 12/24/19 25 12/23/2024 CMP(C OMPRE HENSI VE METAB OLIC PANEL ) blood urea nitrogen 3 mg/dL 7-25 low Not Available [facility] (Lab) [address], [place], [address], 12/26/2024 10:38:37 12/24/19 25 12/23/2024 CMP(C OMPRE HENSI VE METAB OLIC PANEL ) creatinine 0.77 mg/dL 0.60-1 .30 Not Available [facility] (Lab) [address], [place], [address], 12/26/2024 10:38:37 12/24/19 25 12/23/2024 CMP(C OMPRE HENSI VE METAB OLIC PANEL ) egfrcr (CKD-epi 2020) >90 mL/mi n/1.7 3_m2 >=60 Not Available [facility] (Lab) [address], [place], [address], 12/26/2024 10:38:37 12/24/19 25 12/23/2024 CMP(C OMPRE HENSI VE METAB OLIC PANEL ) calcium 9.0 mg/dL 8.3-10 .5 Not Available [facility] (Lab) [address], [place], [address], 12/26/2024 10:38:37 12/24/19 25 12/23/2024 CMP(C OMPRE HENSI VE METAB OLIC PANEL ) glucose 81 mg/dL 70-100 Not Available [facility] (Lab) [address], [place], [address], 12/26/2024 10:38:37 12/24/19 25 12/23/2024 CMP(C OMPRE HENSI VE METAB OLIC PANEL ) protein, total 6.4 g/dL 6.4-8. 3 Not Available [facility] (Lab) [address], [place], [address], 12/26/2024 10:38:37 12/24/19 25 12/23/2024 CMP(C OMPRE HENSI VE METAB OLIC PANEL ) albumin 3.6 g/dL 3.5-5. 0 Not Available [facility] (Lab) [address], [place], [address], 12/26/2024 10:38:37 12/24/19 25 12/23/2024 CMP(C OMPRE HENSI VE METAB OLIC PANEL ) ALT 7 units /L 9-43 low Not Available [facility] (Lab) [address], [place], [address], 12/26/2024 10:38:37 12/24/19 25 12/23/2024 CMP(C OMPRE HENSI VE METAB OLIC PANEL ) alkaline phosphatase 114 units /L 34-104 high Not Available [facility] (Lab) [address], [place], [address], 12/26/2024 10:38:37 12/24/19 25 12/23/2024 CMP(C OMPRE HENSI VE METAB OLIC PANEL ) AST 9 units /L 13-39 low Not Available [facility] (Lab) [address], [place], [address], 12/26/2024 10:38:37 12/24/19 25 12/23/2024 CMP(C OMPRE HENSI VE METAB OLIC PANEL ) bilirubin, total 0.3 mg/dL 0.2-1. 2 Not Available [facility] (Lab) [address], [place], [address], 12/26/2024 10:38:37 12/24/19 25 12/23/2024 URIC ACID uric acid 4.6 mg/dL 2.3-6. 6 Not Available [facility] (Lab) [address], [place], [address], 12/26/2024 10:38:38 12/24/19 25 12/23/2024 BILE ACIDS , TOTAL bile acids, total 5 umol/ L 0-10 Test Perfo rmed by: [facility] [address] [place] [address] Not Available [facility] (Lab) [address] [place], [address], 12/26/2024 10:38:38 01/13/20 25 01/12/2025 CULTU RE: GROUP B STREP SCREE N, REFLE X SUSCE PTIBI LITY result report SEE RESULT S BELOW Test: Cultu re: Group B Strep , Refle x Susce ptibi lity ([facility]/ [facility]/K H/[facility] ) Speci men Sourc e: Vagin a/Rec rere Speci men Type: Vagin al/Re ctal Speci men Date: 025 0821 Resul t Date: 025 1420 Resul t Statu s: Final resul t Abnor mal: No Resul ting Lab: [facility] [address] [facility] [address] Tel: CULTU RE ----- ----- ----- --- No Group B strep isola radha at 2 days (laura ctive broth enhan cemen t) Not Available [facility] (Lab) [address] [place], [address], 01/15/2025 15:23:02 12/22/19 25 12/21/2024 non-s tress test No observ ation record ed. [email or web address] [facility] [address], [place], [address], 12/21/2024 10:14:42 12/22/19 non-s tress test No observ ation record ed. [email or web address] [facility] [address], [place], [address], 12/21/2024 10:17:15 12/22/19 25 12/21/2024 US, obste tric, bioph ysica l profi le + non-s tress test No observ ation record ed. [email or web address] [facility] [address], [place], [address], 12/21/2024 10:41:15 12/22/1912/21/2024 US, obste tric, follo w-up No observ ation record ed. [email or web address] [address], [place], [address], 12/22/2024 11:35:09 12/29/19 25 12/29/2024 US, obste tric, follo w-up No observ ation record ed. [email or web address] [facility] [address], [place], [address], 12/29/2024 11:29:40 12/29/19 25 12/29/2024 US, obste tric, bioph ysica l profi le + non-s tress test No observ ation record ed. [email or web address] [facility] [address], [place], [address], 12/29/2024 11:29:51 12/29/19 25 12/28/2024 US, obste tric, follo w-up No observ ation record ed. [email or web address] [address], [place], [address], 01/03/2025 22:22:46 12/29/19 25 12/28/2024 non-s tress test No observ ation record ed. [email or web address] [facility] [address], [place], [address], 12/28/2024 20:00:54 12/29/1912/28/2024 non-s tress test No observ ation record ed. [email or web address] [facility] [address], [place], [address], 12/28/2024 20:03:00 01/05/20 25 01/04/2025 US, obste tric, bioph ysica l profi le + non-s tress test No observ ation record ed. [email or web address] [facility] [address], [place], [address], 01/04/2025 17:31:59 01/05/20 25 01/04/2025 US, obste tric, follo w-up No observ ation record ed. [email or web address] [address], [place], [address], 01/10/2025 18:37:23 01/05/20 25 01/04/2025 non-s tress test No observ ation record ed. [facility] [address], [place], [address], 01/04/2025 20:54:26 01/05/20 25 01/04/2025 non-s tress test No observ ation record ed. [email or web address] [facility] [address], [place], [address], 01/04/2025 20:56:03 01/12/20 25 01/11/2025 US, adilene tric, bioph ysica l profi le + non-s tress test No observ ation record ed. [email or web address] [facility] [address], [place], [address], 01/11/2025 17:38:17 01/12/20 25 01/11/2025 US, obste tric, follo w-up No observ ation record ed. [email or web address] [address], [place], [address], 01/12/2025 13:11:40 01/12/20 25 01/11/2025 non-s tress test No observ ation record ed. [email or web address] [facility] [address], [place], [address], 01/11/2025 19:24:45 01/17/20 25 01/16/2025 US, obste tric, follo w-up No observ ation record ed. [facility] [address], [place], [address], 01/16/2025 18:50:02 01/17/20 25 01/16/2025 US, obste tric, bioph ysica l profi le No observ ation record ed. [facility] [address], [place], [address], 01/16/2025 18:50:11 01/19/20 25 01/16/2025 US, obste tric, follo w-up No observ ation record ed. [email or web address], [place], [address], 01/18/2025 09:32:42 01/19/20 25 01/18/2025 US, obste tric, bioph ysica l profi le + non-s tress test No observ ation record ed. [email or web address] [facility] [address], [place], [address], 01/18/2025 18:29:36 01/19/20 25 01/18/2025 US, obste tric, bioph ysica l profi le + non-s tress test No observ ation record ed. [email or web address], [place], [address], 01/18/2025 17:15:28 01/19/20 25 01/18/2025 non-s tress test No observ ation record ed. [email or web address] [facility] [address], [place], [address], 01/18/2025 19:31:49 01/19/20 25 01/18/2025 non-s tress test No observ ation record ed. [email or web address] [facility] [address], [place], [address], 01/18/2025 19:33:38 Result Notes None recorded. Problems Name Problem SNOMED Code Status Onset Date Resolution Date Notes Provider Name and Address Organization Details Recorded Time Polycyst ic ovaries Completed 201010/18/2021 Polycyst ic ovaries; Recorded Elsewher e: No Locat ion: [facility] S ource: EHR Trauma Nurse wes: N Practi ce ID: [id number] Sampson lable Time: 12:00:00 PM Gabrielle duggan [facility] 2 15:08:07 Type 2 diabetes mellitus without complica tion 534272711 Completed 201010/18/2021 Diabetes Mellitus Type 2, Uncompli cated;Re corded Elsewher e: No Locat ion: [facility] S ource: EHR Trauma Nurse wes: N Practi ce ID: [id number] Sampson lable Time: 12:00:00 PM Gabrielle duggan, [facility] 2 15:08:18 Amenorrh ea 96063530 Completed 201010/18/2021 Absence of menstrua tion;Rec orded Elsewher e: No Locat ion: [facility] S ource: EHR Trauma Nurse wes: N Practi ce ID: [id number] Sampson lable Time: 12:00:00 PM Gabrielle duggan [facility] 2 15:07:58 Ill-defi tamara intestin al infectio n Completed 201210/18/2021 No Show Fee;Devin akiko ID: [email or web address] Gabrielle duggan, [facility] 2 15:08:01 Pregnanc y 23308470 Completed 202109/11/2022 Carol duggan, [facility] 5 17:49:46 Pregnanc y-induce d hyperten tiffany 42500369 Completed ASA, Baseline PIH labs WNL Lea Segura MD [address], [place], [address], [facility] 2 17:12:54 Prematur e delivery 655238718 Completed Geno. Cleaton is approved with insuranc e & sent form to [facility]. Lea Segura MD [address], [place], [address], [facility] 2 16:42:24 Obesity 815888361 Completed Antenata l testing @ 34wks Tracee duggan, [facility] 3 14:26:29 Chlamydi al infectio n [id number] Completed 2021 rpt MENA 12/16 Tracee duggan, [facility] 3 14:26:29 Past pregnanc y history of prematur e delivery 943332522 Completed 2021 Geno failed with new insuranc e. pt giving up at 33+ weeks. Tracee duggan, [facility] 3 14:26:29 Past pregnanc y history of prematur e delivery 657748176 Active 2021 Cleaton failed with new insuranc e. pt giving up at 33+ weeks. Tracee duggan, [facility] 3 14:26:29 Chronic hyperten tiffany in obstetri c context 0719016 Completed supposed to be taking labetalo l 200 BID, delivery 38w Tracee duggan [facility] 3 14:26:29 Anemia 540091431 Completed slowfe 1 tab Tracee duggan, [facility] 3 14:26:28 Essentia l hyperten tiffany 07305562 Active 2021 Lea Segura MD [address], [place], [address], [facility] 2 11:25:46 Severe obesity complica ting pregnanc y 1602385931 4108892 Active Gabrielle Sandhutz null, [facility] 4 15:48:56 Pregnanc y 54398761 Completed 202205/25/2023 Carol Devine null, [facility] 5 17:49:46 Chlamydi al infectio n [id number] Completed 2022 MENA neg - recheck 3rd trimeste r! Britaney Nikko null, [facility] 3 17:01:16 Chronic hyperten tiffany in obstetri c context 9937059 Completed supposed to be taking labetalo l 200 BID, delivery 38w, ante testing 32w Britaney Nikko null, [facility] 3 17:01:16 Pregnanc y-induce d hyperten tiffany 67279837 Completed Labetalo l Lea Segura MD [address], [place], [address], [facility] 3 15:18:38 Prematur e delivery 900623258 Completed 36 weeks - first pregnanc y Britaney Nikko null, [facility] 3 17:01:16 Social problem 614962082 Active with worsenin g MS, can barely walk Britaney Nikko null, [facility] 3 17:01:16 Social problem 131654558 Completed with worsenin g MS, can barely walk Britaney Nikko null, [facility] 3 17:01:16 Obesity 053302685 Completed Antenata l testing @ 34wks Ady El null, [facility] 3 17:01:16 Pregnanc y 96168563 Active 2024 Carol Devine null, [facility] 5 17:49:46 Maternal hyperten tiffany 235318682 Active delivere d at 38 weeks in last two pregnanc ies, well controll ed without medicati ons; baseline labs ordered; discusse d 32 week antenata l testing and 38 week DANIELA HARRISON MD [address], [place], [address], [facility] 5 17:54:57 Maternal hyperten tiffany 631104380 Active delivere d at 38 weeks in last two pregnanc ies, well controll ed without medicati ons; baseline labs ordered; discusse d 32 week antenata l testing and 38 week DANIELA HARRISON MD [address], [place], [address], [facility] 5 17:55:02 Erythema nodosum 67731562 Active LOIS HARRISON MD [address], [place], [address], [facility] 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 5 13:47:13 Body mass index 40+ - severely obese 659290719 Active BMI antenata l testing to start at 34wks Fern Hutchinson [facility], [facility] 5 13:50:22 Body mass index 40+ - severely obese 365819120 Active BMI antenata l testing to start at 34wks Fern Hutchinson [facility], [facility] 5 13:50:22 Anemia of pregnanc y 69936177 Active 2024 Gabrielle Jo [facility] 5 12:26:33 Problem Notes None recorded. Procedures Surgical History Date Name Laterality Status Provider Name and Address Organization Details Recorded Time 09/24/19 23 Date of Last Pap Smear completed Carol Devine [facility] 08/11/2024 17:15:32 08/10/19 12 Date of Last Colonoscopy completed [facility] 10/18/2021 15:09:05 08/10/19 12 Colonoscopy completed [facility] 10/18/2021 16:52:20 08/10/19 09 Laparoscopy completed [facility] 10/17/2021 15:56:58 08/10/19 06 cholecystectomy completed [facility] 10/18/2021 16:53:20 Imaging Results None recorded. Procedure Notes None recorded. Medical Equipment None Reported. Allergies Allergen ID Allergen Name Allergen Category Reaction Reaction Severity Criticality Documentation Date Start Date Code Code System Note Provider Name and Address Organization Details Recorded Time 37476 morphine medicatio n Not available Not available Not available 10/18/2021 7052 RxNorm Nevaeh Holman [facility] 2 16:28:38 06893 latex environme nt,medica tion hives Not available Not available 10/18/2021 99057 91 [facility]Norm [facility] 15:07:48 Medications Name Sig Start [...] oral route every day 10/17 completed Prescrib casper Ferrer e: No [facility] By: martha franklin DateTime : 09/16/19 09:00:00 AM Not Available Not Available Not Available Cleaton (PF) 275 mg/1.1 mL subcutane ous auto-inje ctor Weekly injectio n 05/19 completed Not Available Not Available Not Available Vitals Date Recorded Body height Body mass index (BMI) Body weight Systolic blood pressure Diastolic blood pressure Provider Name and Address Organization Details Last Updated DateTime 01/18/2025 170.82 cm 44.1 kg/m2 960743.2 3 g 140 mm[Hg] 93 mm[Hg] Gabrielle Jo [facility] 19:30:24 Social History Question Answer Notes LastModified by Organizat ion Details LastModified Time Tobacco Smoking Status Former Smoker Lara Jose Carlos [facility] 06/16/2023 11:15:34 Do You Have An Advance Directive? No [email or web address] Information not available 10/18/2021 If You Are , What Was Your Level Of Alcohol Consumption Prior To ? Occasional [email or web address] Information not available 07/13/2024 Are You Blind Or Do You Have Difficulty Seeing? No [email or web address] Information not available 10/18/2021 What Is Your Level Of Caffeine Consumption? Occasional [email or web address] Information not available 10/18/2021 How Much Tobacco Do You Chew? None [email or web address] Information not available 10/18/2021 In The 14 Days Before Symptom Onset, Have You Had Close Contact With A Laboratory-confir med COVID-19 While That Case Was Ill? No [email or web address] Information not available 10/18/2021 In The 14 Days Before Symptom Onset, Have You Had Close Contact With A Person Who Is Under Investigation For COVID-19 While That Person Was Ill? No [email or web address] Information not available 10/18/2021 Have You Been To An Area Known To Be High Risk For COVID-19? No [email or web address] Information not available 10/18/2021 Are You Deaf Or Do You Have Serious Difficulty Hearing? No [email or web address] Information not available 10/18/2021 What Type Of Diet Are You Following? REGULAR [email or web address] Information not available 08/11/2024 What Is The Highest Grade Or Level Of School You Have Completed Or The Highest Degree You Have Received? [id number] [email or web address] Information not available 10/18/2021 Are There Any Guns Present In Your Home? No [email or web address] Information not available 10/18/2021 Have You Ever Been Counseled For Unhealthy Alcohol Use? No [email or web address] Information not available 06/16/2023 Do You Use Protection During Sex? No [email or web address] Information not available 10/18/2021 Do You Use Your Seat Belt Or Car Seat Routinely? Yes [email or web address] Information not available 10/18/2021 Do You Have Smoke And Carbon Monoxide Detectors In Your Home? Yes [email or web address] Information not available 10/18/2021 How Much Tobacco Do You Smoke? No [email or web address] Information not available 10/18/2021 Do You Use Sunscreen Routinely? No [email or web address] Information not available 10/18/2021 Has Tobacco Cessation Counseling Been Provided? No [email or web address] Information not available 06/16/2023 Have You Used IV Drugs? No [email or web address] Information not available 10/18/2021 Do You Have Difficulty Walking Or Climbing Stairs? No [email or web address] Information not available 06/16/2023 Sex: Unknown Functional Status Question Answer Note LastModified by Organizat ion Details LastModified Time Do you use any illicit or recreational drugs? No Information not available 10/18/2021 Do you or have you ever used any other forms of tobacco or nicotine? No [email or web address] Information not available 06/16/2023 What is your level of alcohol consumption? None [email or web address] Information not available 07/13/2024 Are you able to walk? YESWOREST [email or web address] Information not available 10/18/2021 Are you able to care for yourself? 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 No [email or web address] Information not available 06/16/2023 What is your exercise level? Occasional Information not available 10/18/2021 Mental Status Question Answer Note LastModified by Organization D etails LastModified Time Do you feel stressed (tense, restless, nervous, or anxious, or unable to sleep at night)? [id number] [email or web address] Information not available 05/04/2023 Family History Relationship Description Onset Age of this Age Resolved Age Notes LastModified by Organization Details LastModified Time Maternal Grandmother Diabetes mellitus Not available 10/17 15:55:49 Mother Diabetes mellitus Not available 10/17 15:55:57 Mother Asthma [email or web address] Not available 10/17/2021 15:56:16 Mother Disorder of thyroid gland [email or web address] Not available 10/17 15:56:33 Sister Asthma [email or web address] Not available 10/17/2021 15:56:16 Paternal Grandmother Diabetes mellitus [email or web address] Not available 10/18 15:11:24 Maternal Uncle Malignant neoplasm of prostate [email or web address] Not available 11/2024 16:09:40 Maternal Aunt Malignant tumor of breast [email or web address] Not available 10/18 15:12:15 Medical History Condition [...] SNOMED-CT Code Diagnosis ICD10 Code Diagnosis Note [id number] Gomez Edwards MD [facility] [address],[place] [address] 10/18/2021 13:32:18 10/18/2021 14:30:28 screening 796960281 Z36.87 [id number] Mel Carlson [facility] [address] [place] [address] 10/18/2021 13:33:22 10/18/2021 15:31:44 Amenorrhea 80421251 N91.2 Hypertensive disorder 38 644845 I10 [id number] Mel Carlson [facility] [address],[place] [address] 10/23/2021 18:17:01 10/24/2021 17:15:49 Nausea and vomiting 41444930 R11.2 Chronic hy pertension complicating AND/OR reason for care during 03791816 O16.9 [id number] Gomez Edwards MD [facility] [address],[place] [address] 11/18/2021 15:27:10 11/18/2021 16:08:36 screening 616945862 Z36.82 [id number] Gomez Edwards MD [facility] [address],[place] [address] 11/18/2021 15:27:51 11/18/2021 17:16:53 Routine care 987688059 Z34.81 [id number] Lea Segura MD [facility] [address],[place] [address] 1 12/16/2021 16:22:10 12/17/2021 14:47:59 Past history of premature delivery 733856167 Z87.51 Chlamydial infection 105 982309 A74.9 Routine an tenatal care 288561920 Z34.82 [id number] Gomez Edwards MD [facility] [address],[place] [address] 12/24/2021 13:19:27 12/25/2021 14:29:18 Past history of premature delivery 819160989 Z87.51 [id number] Gomez Edwards MD [facility] [address],[place] [address] 1 12/30/2021 14:41:36 12/31/2021 10:14:17 Past history of premature delivery 443471553 Z87.51 [id number] MD Minor Anders [address],[place] [address] 1 01/07/2022 09:30:43 01/09/2022 15:24:53 Past history of premature delivery 730206937 Z87.51 [id number] MD Minor Anders [address],[place] [address] 1 01/13/2022 09:32:04 01/14/2022 15:28:16 Past history of premature delivery 405603605 Z87.51 [id number] MD Minor Anders [address],[place] [address] 01/20/2022 15:24:35 01/20/2022 16:34:42 screening for malformation 170774330 Z36.3 [id number] MD Minor Anders [address],[place] [address] 1 01/20/2022 15:25:06 01/21/2022 13:44:14 Past history of premature delivery 636521811 Z87.51 [id number] Gomez Edwards MD [facility] [address],[place] [address] 01/27/2022 09:31:52 01/27/2022 17:17:15 Past history of premature delivery 802381293 Z87.51 [id number] Lea Segura MD [facility] [address],[place] [address] 1 02/17/2022 15:07:15 02/18/2022 15:20:43 Routine care 711388353 Z34.82 Past pregn eric history of premature delivery 805100149 Z87.51 [id number] Lea Segura MD [facility] [address],[place] [address] 03/12/2022 15:17:08 03/13/2022 15:11:28 Chronic hypertension in obstetric context 3505903 O16.9 Past pregn eric history of premature delivery 093649275 Z87.51 Obesity 404167409 E66.9 [id number] Lea Segura MD [facility] [address],[place] [address] 03/24/2022 16:40:28 03/24/2022 17:52:00 Past history of premature delivery 311382111 Z87.51 Chronic hy pertension in obstetric context 6764722 O16.9 [id number] Lea Segura MD [facility] [address],[place] [address] 04/07/2022 16:23:25 04/07/2022 17:27:28 Chronic hypertension complicating AND/OR reason for care during 74168760 O10.013 O99.213 Z3A.31 [id number] Lea Segura MD [facility] [address] [place] [address] 1 04/07/2022 16:24:48 04/07/2022 17:28:03 Maternal obesity complicating , childbirth and the puerperium, antepartum 9791586183 07 O99.213 [id number] Lea Segura MD [facility] [address],[place] [address] 1 04/07/2022 16:25:52 04/07/2022 17:08:28 Chronic hypertension in obstetric context 5538116 O16.9 Past pregn eric history of premature delivery 313090685 Z87.51 [id number] MD Minor Anders [address],[place] [address] 04/21/2022 15:48:52 04/21/2022 16:51:40 Maternal obesity complicating , childbirth and the puerperium, antepartum 4157544155 07 O99.213 [id number] Lea Segura MD [facility] [address],[place] [address] 1 04/21/2022 15:49:14 04/21/2022 17:14:13 Chronic hypertension complicating AND/OR reason for care during 66049574 O10.013 O99.213 Z3A.33 [id number] Lea Segura MD [facility] [address],[place] [address] 1 04/21/2022 15:49:33 04/23/2022 15:30:08 Chronic hypertension in obstetric context 5414305 O16.9 Past pregn eric history of premature delivery 590519699 Z87.51 Obesity 905454860 E66.9 [id number] Lea Segura MD [facility] [address],[place] [address] 1 04/28/2022 15:45:22 04/28/2022 16:43:01 Chronic hypertension complicating AND/OR reason for care during 98453743 O10.013 O99.213 Z3A.33 [id number] Lea Segura MD [facility] [address],[place] [address] 04/28/2022 15:45:55 04/28/2022 17:26:10 Chronic hypertension complicating AND/OR reason for care during 72315936 O10.013 O99.213 Z3A.34 [id number] Gomez Edwards MD [facility] [address],[place] [address] 1 04/28/2022 15:48:38 04/28/2022 18:03:31 Routine care 078977679 Z34.81 [id number] Lea Segura MD [facility] [address],[place] [address] 1 04/30/2022 09:02:33 04/30/2022 13:48:05 Benign essential hypertension complicating , childbirth and the puerperium - not delivered 412648959 O10.019 Pt here for BP check. BP [...] will call at 12:00. Rosalee lopez, [place] [id number] Lea Segura MD [facility] [address],[place] [address] 05/05/2022 15:54:29 05/05/2022 17:04:41 Chronic hypertension complicating AND/OR reason for care during 00121095 O10.013 O99.213 Z3A.34 [id number] Lea Segura MD [facility] [address],[place] [address] 1 05/05/2022 15:55:05 05/05/2022 17:43:34 Chronic hypertension complicating AND/OR reason for care during 99531191 O10.013 O99.213 Z3A.35 [id number] Lea Segura MD [facility] [address],[place] [address] 05/05/2022 15:55:58 05/06/2022 15:28:01 Chronic hypertension in obstetric context 1453173 O16.9 Past pregn eric history of premature delivery 138446603 Z87.51 Obesity 149278409 E66.9 [id number] MD Minor Anders [address],[place] [address] 1 05/12/2022 15:47:41 05/12/2022 16:25:06 Chronic hypertension complicating AND/OR reason for care during 33891064 O10.013 O99.213 Z3A.35 [id number] MD Minor Anders [address],[place] [address] 1 05/12/2022 15:48:05 05/12/2022 17:05:05 Chronic hypertension complicating AND/OR reason for care during 88742665 O10.113 Z3A.36 [id number] MD Minor Anders [address],[place] [address] 1 05/12/2022 15:48:27 05/12/2022 17:18:30 Chronic hypertension in obstetric context 9064718 O16.9 Past pregn eric history of premature delivery 300247347 Z87.51 [id number] MD Minor Anders [address],[place] [address] 05/19/2022 16:13:20 05/19/2022 17:55:29 Chronic hypertension complicating AND/OR reason for care during 10911928 O10.013 Z3A.37 O99.213 [id number] MD Minor Anders [address],[place] [address] 05/19/2022 16:13:43 05/19/2022 17:06:51 Chronic hypertension complicating AND/OR reason for care during 66450848 O10.013 Z3A.37 O99.213 [id number] MD Minor Anders [address],[place] [address] 1 05/19/2022 16:13:56 05/20/2022 15:31:05 Chronic hypertension in obstetric context 5360548 O16.9 [id number] MD Minor Anders [address],[place] [address] 05/30/2022 12:08:59 05/30/2022 13:36:25 Chronic hypertension in obstetric context 8478991 O16.9 Noncomplia nce with treatment 9810833 Z91.199 [id number] Lea Segura MD [facility] [address],[place] [address] 06/24/2022 10:54:51 06/24/2022 13:56:06 care 322243346 Z39.2 Essential hypertension 70471839 I10 [id number] Lea Segura MD [facility] [address],[place] [address] 09/24/2022 16:46:30 09/24/2022 17:39:08 Screening procedure 28843176 Z13.9 Gynecologi c examination 33187465 Z01.419 Z11.51 test positive 131271408 Z32.01 Chronic hy pertension in obstetric context 1089417 O16.9 Past pregn eric history of premature delivery 199423015 Z87.51 Severe obe sity complicating 3677738492 3122914 O99.211 [id number] Lea Segura MD [facility] [address],[place] [address] 09/24/2022 17:06:23 09/24/2022 17:55:06 Uncertain viability of 443915740 O36.80X0 Z3A.00 [id number] Lea Segura MD [facility] [address],[place] [address] 10/13/2022 15:28:25 10/13/2022 15:58:29 [id number] Lea Segura MD [facility] [address],[place] [address] 1 10/13/2022 15:28:51 10/15/2022 15:15:22 test positive 200630777 Z32.01 Chronic hy pertension in obstetric context 7173582 O16.9 Past pregn eric history of premature delivery 144646028 Z87.51 Severe obe sity complicating 3058427290 3879914 O99.211 Chlamydial infection 105 105032 A74.9 [id number] Gomez Edwards MD [facility] [address],[place] [address] 1 11/12/2022 16:52:23 11/12/2022 17:25:47 [id number] Gomez Edwards MD [facility] [address],[place] [address] 1 11/12/2022 16:53:05 11/12/2022 18:31:29 Routine care 879430146 Z34.81 [id number] Gomez Edwards MD [facility] [address],[place] [address] 12/10/2022 16:13:22 12/10/2022 18:28:33 screening 818066149 Z36.89 Routine an tenatal care 572201213 Z34.81 [id number] MD Minor Anders [address],[place] [address] 01/13/2023 13:54:02 01/13/2023 15:20:35 screening for malformation 247691220 Z36.3 [id number] MD Minor Anders [address],[place] [address] 1 01/13/2023 13:54:27 01/14/2023 10:11:31 Routine care 928537243 Z34.82 [id number] MD Minor Anders [address],[place] [address] 1 02/09/2023 16:37:02 02/11/2023 13:31:06 Routine care 423515548 Z34.82 Chronic hy pertension in obstetric context 6549353 O16.9 [id number] MD Minor Anders [address],[place] [address] 1 03/11/2023 14:55:14 03/11/2023 16:05:31 Chronic hypertension complicating AND/OR reason for care during 37572584 O16.9 O99.213 Z3A.28 [id number] MD Minor Anders [address],[place] [address] 03/11/2023 14:55:43 03/12/2023 17:08:32 Chronic hypertension in obstetric context 2346219 O16.9 Severe obe sity complicating 9416780981 0162648 O99.211 [id number] MD Minor Anders [address],[place] [address] 03/25/2023 16:53:00 03/26/2023 14:22:29 Chronic hypertension in obstetric context 8365982 O16.9 Severe obe sity complicating 5113490456 0401646 O99.211 Reduced fe geraldo movement 484923616 O36.8199 [id number] MD Minor Anders [address],[place] [address] 1 03/25/2023 17:22:43 03/25/2023 17:43:24 Reduced movement 272982200 O36.8199 [id number] MD [facility] [place] [address],[place] [address] 1 04/06/2023 16:01:53 04/06/2023 16:48:29 Chronic hypertension complicating AND/OR reason for care during 30781840 O10.013 O99.213 Z3A.32 [id number] Lea Segura MD [facility] [address],[place] [address] 04/06/2023 16:02:16 04/06/2023 17:21:40 Chronic hypertension complicating AND/OR reason for care during 97944191 O10.013 O99.213 Z3A.32 [id number] MD Minor Anders [address],[place] [address] 1 04/06/2023 16:02:39 05/03/2023 22:37:08 [id number] MD Minor Anders [address],[place] [address] 1 04/14/2023 15:20:06 04/14/2023 16:14:14 Chronic hypertension complicating AND/OR reason for care during 31655597 O10.013 O99.213 Z3A.33 [id number] Lea Segura MD [facility] [address],[place] [address] 1 04/14/2023 15:20:41 04/14/2023 17:59:20 Benign essential hypertension complicating , childbirth and the puerperium - not delivered 670923613 O10.019 Z3A.33 [id number] Lea Segura MD [facility] [address],[place] [address] 1 04/14/2023 15:21:03 04/15/2023 11:29:42 Chronic hypertension in obstetric context 5551169 O16.9 Severe obe sity complicating 3644264668 4348209 O99.211 [id number] Lea Segura MD [facility] [address],[place] [address] 1 04/20/2023 16:00:13 04/20/2023 17:36:43 Chronic hypertension complicating AND/OR reason for care during 75624981 O10.013 O99.213 Z3A.34 [id number] Lea Segura MD [facility] [address],[place] [address] 1 04/20/2023 16:00:36 04/20/2023 17:34:34 Chronic hypertension complicating AND/OR reason for care during 47579104 O10.013 O99.213 Z3A.34 [id number] Lea Segura MD [facility] [address],[place] [address] 04/20/2023 16:01:05 04/22/2023 16:05:59 Chronic hypertension in obstetric context 0576412 O16.9 Severe obe sity complicating 9245531802 9349072 O99.211 [id number] Lea Segura MD [facility] [address],[place] [address] 1 04/27/2023 16:06:06 04/27/2023 16:38:28 Chronic hypertension complicating AND/OR reason for care during 39266197 O13.3 O99.213 Z3A.35 [id number] Lea Segura MD [facility] [address],[place] [address] 1 04/27/2023 16:06:28 04/27/2023 17:16:42 Chronic hypertension complicating AND/OR reason for care during 74671163 O13.3 O99.213 Z3A.35 [id number] Lea Segura MD [facility] [address],[place] [address] 1 04/27/2023 16:07:06 04/29/2023 14:31:24 Chronic hypertension in obstetric context 4110593 O16.9 [id number] LOIS HARRISON MD [facility] [address],[place] [address] 1 05/04/2023 15:59:57 05/04/2023 16:42:13 Chronic hypertension complicating AND/OR reason for care during 16660354 O16.9 O99.213 Z3A.36 [id number] LOIS HARRISON MD [facility] [address] [address] 1 05/04/2023 16:00:17 05/04/2023 17:23:05 Chronic hypertension complicating AND/OR reason for care during 12141651 O16.9 O99.213 Z3A.36 [id number] LOIS HARRISON MD [facility] [address],[place] [address] 05/04/2023 16:01:30 05/04/2023 17:23:17 Routine care 139597374 Z34.93 [id number] Gomez Edwards MD [facility] [address],[place] [address] 05/11/2023 16:02:32 05/11/2023 16:56:26 Chronic hypertension complicating AND/OR reason for care during 59236102 O10.013 Z3A.37 [id number] Gomez Edwards MD [facility] [address],[place] [address] 05/11/2023 16:02:54 05/12/2023 09:43:24 -induced hypertension 30549594 O13.9 [id number] Gomez Edwards MD [facility] [address],[place] [address] 05/11/2023 16:03:10 05/11/2023 18:03:04 Routine care 024044929 Z34.82 [id number] Gomez Edwards MD [facility] [address],[place] [address] 1 06/16/2023 11:15:19 06/16/2023 12:25:19 care 036643644 Z39.2 32-year-ol d female presents for follow-up. She is breastfeed ing, she is not bleeding, she is not had sex. She is considerin g subcutaneo us implant or IUD for contracept ion. Her baby is doing well. She is doing well. She will follow-up in 2 months for woman exam. She is to call for contracept ion. [id number] Gomez Edwards MD [facility] [address],[place] [address] 07/13/2024 14:27:34 07/13/2024 15:10:51 [id number] Mel Carlson [facility] [address],[place] [address] 07/13/2024 14:28:47 07/13/2024 16:18:40 Venereal disease screening 744002950 Z11.3 Amenorrhea 70660176 N91. 2 [id number] Gomez Edwards MD [facility] [address],[place] [address] 1 08/11/2024 16:22:48 08/11/2024 17:16:29 screening 868410863 Z36.82 Z3A.14 [id number] LOIS HARRISON MD [facility] [address],[place] [address] 08/11/2024 16:58:25 08/12/2024 11:05:59 Routine care 693631059 Z34.93 Chronic hy pertension complicating AND/OR reason for care during 66933811 O16.9 O99.213 Z3A.36 - well controlled off BP meds- asymptomat ic- discussed 32 week testing and 38 week MIL Gestation period, 14 weeks 06899216 Z3A.14 [id number] LOIS HARRISON MD [facility] [address],[place] [address] 08/31/2024 16:37:16 09/01/2024 09:41:12 Nausea and vomiting 75587036 R11.2 Chronic hy pertension complicating AND/OR reason for care during 96308342 O16.9 - well controlled off BP meds- asymptomat ic- discussed 32 week testing and 38 week MIL Gestation period, 16 weeks 13571963 Z3A.16 [id number] Mel Carlson [facility] [address],[place] [address] 09/09/2024 12:08:20 09/09/2024 12:54:06 Urinary symptoms 544380793 R39.9 [id number] Gomez Edwards MD [facility] [address],[place] [address] 09/29/2024 16:03:36 09/29/2024 17:25:26 screening for malformation 176004332 Z36.3 Z3A.21 [id number] LOIS HARRISON MD [facility] [address],[place] [address] 1 09/30/2024 16:12:13 10/03/2024 09:16:07 Nausea and vomiting in 6951965782 O21.9 Headache 29073643 R51.9 Gestation period, 21 weeks 15357842 Z3A.21 [id number] Gomez Edwards MD [facility] [address],[place] [address] 1 10/25/2024 16:50:05 10/25/2024 17:52:31 screening 098037251 Z36.2 Z3A.24 [id number] LOIS HARRISON MD [facility] [address],[place] [address] 1 10/25/2024 16:54:01 11/01/2024 06:40:08 Maternal obesity complicating , childbirth and the puerperium, antepartum 6126800215 07 O99.212 - BMI 43- plan to start testing at 32 weeks for chronic HTN Chronic hy pertension complicating AND/OR reason for care during 13447249 O16.9 - well controlled off BP meds- asymptomat ic- discussed 32 week testing and 38 week MIL Gestation period, 24 weeks 679875398 Z3A.24 [id number] Gomez Edwards MD [facility] [address],[place] [address] 12/02/2024 11:39:11 12/02/2024 13:03:20 ultrasound scan abnormal 339330972 O35.EXX0 O99.213 Z3A.30 [id number] [facility] [address] [address] 12/02/2024 11:39:39 12/02/2024 13:29:17 Gestation period, 30 weeks 62970463 Z3A.30 Pruritic d isorder of skin 4146638889 L29.9 [id number] [facility] [address] [address] 12/21/2024 09:23:24 12/21/2024 10:15:55 Severe obesity complicating 0350628838 8223507 O99.211 Chronic hy pertension complicating AND/OR reason for care during 86583463 O10.919 [id number] Gomez Edwards MD [facility] [address],[place] [address] 1 12/21/2024 09:24:04 12/21/2024 10:40:34 Obesity 187096735 O99.213 O10.013 Z3A.32 [id number] [facility] [address] [place] [address] 1 12/21/2024 09:24:20 12/22/2024 17:47:58 [id number] Mel Carlson CNM [facility] [address] [place] [address] 1 12/23/2024 15:52:46 12/24/2024 11:20:42 Pruritic disorder of skin 2051368776 L29.9 Gestation period, 33 weeks 15149748 Z3A.33 [id number] Gomez Edwards MD [facility] [address],[place] [address] 1 12/28/2024 14:59:15 12/28/2024 15:57:40 Pre-existing hypertension in obstetric context 95875814 O10.919 O99.210 Z3A.33 [id number] Mel Carlson [facility] [address],[place] [address] 1 12/28/2024 15:01:07 12/29/2024 14:02:16 Chronic hypertension complicating AND/OR reason for care during 57504165 O10.919 [id number] Mel Carlson [facility] [address],[place] [address] 1 12/28/2024 15:01:39 12/28/2024 16:42:04 Gestation period, 33 weeks 05290139 Z3A.33 [id number] Gomez Edwards MD [facility] [address],[place] [address] 1 01/04/2025 16:26:50 01/04/2025 17:11:03 Chronic hypertension complicating AND/OR reason for care during 53328265 O10.919 O99.210 Z3A.34 [id number] Mel Carlson [facility] [address],[place] [address] 01/04/2025 16:29:22 01/05/2025 09:46:19 Hypertensive disorder 67203361 I10 [id number] Mel Carlson [facility] [address],[place] [address] 1 01/04/2025 16:29:49 01/06/2025 02:17:54 Gestation period, 35 weeks 80646101 Z3A.35 [id number] Gomez Edwards MD [facility] [address],[place] [address] 1 01/11/2025 16:07:36 01/11/2025 17:16:44 Essential hypertension complicating AND/OR reason for care during 26349169 O10.013 O99.213 Z3A.35 [id number] [facility] [address],[place] [address] 1 01/11/2025 16:08:59 01/12/2025 09:05:23 Chronic hypertension complicating AND/OR reason for care during 44077186 O10.919 [id number] Mel Carlson [facility] [address],[place] [address] 1 01/11/2025 16:09:27 01/12/2025 09:07:05 Gestation period, 35 weeks 38966931 Z3A.35 [id number] Gomez Edwards MD [facility] [address],[place] [address] 1 01/16/2025 14:33:01 01/17/2025 09:33:08 Chronic hypertension complicating AND/OR reason for care during 24104571 O10.913 O99.210 Z3A.36 [id number] Gomez Edwards MD [facility] [address] [address] 1 01/18/2025 16:25:22 01/18/2025 17:10:41 Essential hypertension complicating AND/OR reason for care during 10103751 O10.013 Z3A.36 [id number] Mel Carlson [facility] [address],[place] [address] 1 01/18/2025 16:27:14 01/18/2025 18:51:00 [id number] LOIS HARRISON MD [facility] [address] [place] [address] 1 01/18/2025 16:27:43 01/19/2025 09:07:57 Pre-existing hypertension in obstetric context 56221175 O10.919 Health Concerns Section Related Observation LastModified by Organization Detai ls LastModified Time None Recorded Concern Status LastModified by Organization Details LastModified Time None Recorded Advance Directives Directive N: Payers Insurance Date Sequence Insurance Name Policy Number Policy Acosta Covered Member ID Acosta Member ID Guarantor Name 01/18/2025 1 [id number] [facility]ipe [facility] [id number] Samantha Ceballos 01/12/2025 PAYMENT PLAN Samantha Ceballos 01/06/2025 1 [place] [facility] Samantha Templeton [id number] [facility] 01/06/2025 1 [facility] [id number] Joshfelipe Templeton [id number] Debordfelipe [facility] 01/06/2025 [facility] [id number] On License Of [facility] Jareth [id number] On License Of [facility] [facility] Episode Ob Episode Information Episode Created Date Number of Fetuses Patient Bloodtype Patient rh Status Prepregnancy Weight lbs Domestic Partner Domestic Partner Phone Father Name 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 pt giving up at 33+ weeks. Anemia 788015768 slowfe 1 t ab Chronic hypertension in obstetric context 0544927 supposed t o be taking labetalol 200 [...] Weight in lbs Pre/Post Dialysis Refused Weight 270.51018619697 BP Diastolic BP Location Tested BP Systolic [...] Weight in lbs Pre/Post Dialysis Refused Weight 270.73172106598 BP Diastolic BP Location Tested BP Systolic [...] in right hip, patient tolerated well. 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 Still awaiting a pproval of Cleaton from her new insurance. No s/sx PTL. [...] Weight in lbs Pre/Post Dialysis Refused Weight 275.090987198813 BP Diastolic BP Location Tested BP Systolic [...] Weight in lbs Pre/Post Dialysis Refused Weight 278.829862040181 BP Diastolic BP Location Tested BP Systolic BP Type 90 136 Fetus Heart Rate Present A 130 Fetus Movement A Yes Comments Doing well, great FM. [place] led for Tdap next week. NST reactive. US pending. BP stable on labetalol. Next week NST at [place] on holiday. Still trying to get Geno. [...] Weight in lbs Pre/Post Dialysis Refused Weight 279.156703091276 BP Diastolic BP Location Tested BP Systolic BP Type 86 128 Fetus Heart Rate Present A 165 Fetus Movement A Yes Comments Doing well. Giving up on Lisset trisha since almost 34w and hasn't had it most of the . BP great. BPP 10. Plan delivery 38w, GBs by 35ish. Flowsheet [...] Weight in lbs Pre/Post Dialysis Refused Weight 279.677965214595 BP Diastolic BP Location Tested BP Systolic [...] Weight in lbs Pre/Post Dialysis Refused Weight 282.097639794067 BP Diastolic BP Location Tested BP Systolic BP Type 88 134 Fetus Heart Rate Present A 145 Fetus Movement A No Comments Doing ok, just uncomfortable . Good FM. GBs done and discussed. US today 94%, ASHLEE 24, BPP 10/10. Precautions given, will schedule IOL 38w for [...] Weight in lbs Pre/Post Dialysis Refused Weight 278.530733641707 BP Diastolic BP Location Tested BP Systolic BP Type 87 137 Fetus Heart Rate Present A 140 Fetus Movement A Decreased Comments Really uncomforable and real ly wants to deliver. IOL next week. GBS neg. Precautions given. Less FM today, but R NST and BPP 03/17 with normal fluid. Will do kick counts. [...] Weight in lbs Pre/Post Dialysis Refused Weight 283.689843263015 BP Diastolic BP Location Tested BP Systolic [...] Weight in lbs Pre/Post Dialysis Refused Weight 263.187523228066 BP Diastolic BP Location Tested BP Systolic BP Type 96 150 100 152 98 130 Fetus Heart Rate Present Fetus Movement Comments Flowsheet Date 06/24/2022 Mark Score Blood Edema Fundus Height Fundus Units Glucose Ketones Leukocytes Nitrite Labor Signs Protein Cervic Dilation Cervic Effacement Cervic Station Type Weight in lbs Pre/Post Dialysis Refused Weight 264.476577488281 BP Diastolic BP Location Tested BP Systolic [...] Estim ated Date of Delivery false Thalassemia (Central African, East Timorese, Mediterranean, Or Background): MCV < 80 false Neural Tube Defect (Meningomyelocele, Spina Bifi da, Or Anencephaly) false Congenital Heart Defect false Down Syndrome false Shailesh-Sachs (eg, Cheondoism, Cajun, Surinamese-Northern Irish) f alse Daisy Disease false Sickle Cell Disease Or Trait () false Hemophilia Or Other Blood Disorders false Muscular Dystrophy false Cystic Fibrosis false Morovis's Chorea false Intellectual Disability/Autism false If Yes, [...] Domestic Partner Domestic Partner Phone Father Name 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 Chronic hypertension in obstetric context 8274906 supposed t o be taking labetalol 200 BID, delivery 38w, ante testing 32w Premature delivery 795751324 3 6 weeks - first Rafal Calculation [...] Weight in lbs Pre/Post Dialysis Refused Weight 274.648639246965 BP Diastolic BP Location Tested BP Systolic [...] Weight in lbs Pre/Post Dialysis Refused Weight 277.501817108964 BP Diastolic BP Location Tested BP Systolic [...] Weight in lbs Pre/Post Dialysis Refused Weight 278.488766995488 BP Diastolic BP Location Tested BP Systolic [...] Weight in lbs Pre/Post Dialysis Refused Weight 284.603812917972 BP Diastolic BP Location Tested BP Systolic [...] Weight in lbs Pre/Post Dialysis Refused Weight 290.6574007170 BP Diastolic BP Location Tested BP Systolic [...] Weight in lbs Pre/Post Dialysis Refused Weight 294.775619717137 BP Diastolic BP Location Tested BP Systolic BP Type 97 145 90 150 Fetus Heart Rate Present A 140 Fetus Movement A Decreased Comments Reports almost no FM for a w [place]. Hasn't slept much in the same amount [...] Weight in lbs Pre/Post Dialysis Refused Weight 293.200336538162 BP Diastolic BP Location Tested BP Systolic [...] Weight in lbs Pre/Post Dialysis Refused Weight 290.9674456954 BP Diastolic BP Location Tested BP Systolic [...] Weight in lbs Pre/Post Dialysis Refused Weight 292.774919092353 BP Diastolic BP Location Tested BP Systolic [...] Weight in lbs Pre/Post Dialysis Refused Weight 295.870684231177 BP Diastolic BP Location Tested BP Systolic BP Type 87 144 Fetus Heart Rate Present A 130 Fetus Movement A Yes Comments Reports painful contractions at night. Also reports leakage of clear fluid with standing and coughing. No vaginal bleeding. Good movement. Swelling stable. Denies other preeclampsia symptoms. BP stable. Sent to L&D for rule out rupture. BPP 8/8. NST reactive. Flowsheet Date 05/11/2023 Mark Score [...] Weight in lbs Pre/Post Dialysis Refused Weight 293.196191567846 BP Diastolic BP Location Tested BP Systolic [...] Estim ated Date of Delivery false Thalassemia (Central African, East Timorese, Mediterranean, Or Background): MCV < 80 false Neural Tube Defect (Meningomyelocele, Spina Bifi da, Or Anencephaly) false Congenital Heart Defect false Down Syndrome false Shailesh-Sachs (eg, Cheondoism, Cajun, Surinamese-Northern Irish) f alse Daisy Disease false Sickle Cell Disease Or Trait () false Hemophilia Or Other Blood Disorders false Muscular Dystrophy false Cystic Fibrosis false Morov[place]'s Chorea false Intellectual Disability/Autism false If Yes, [...] Sterilization Discharge Date Comments 3 Induce d [facility]-Ep idural 38 false Gomez Edwards MD Chlamydia l infection , GHTN, Chronic hypertens ion in obstetric context, Obesity Discharge Information Feeding Method Contraceptive Method Maternal HG B and HCT Levels Ob Episode Information Episode Created Date Number of Fetuses Patient Bloodtype Patient rh Status Prepregnancy Weight lbs Domestic Partner Domestic Partner Phone Father Name Boring 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 Operator Vertical Status 10/18/19 22 1 CLOSED Fetus Data First Name Last Name Admitted to NICU Weight (g) Sex Living Outcome Pediatric Complications Fetus ID Race Codes Race Delivery Type 2948.34 8 M Prematur e 32531 Vaginal Delivery Rafal Calculation Initial Rafal Date [...] Domestic Partner Domestic Partner Phone Father Name Boring Machine Operator Vertical Status 08/11/19 25 1 A Positive OPEN Fetus Data First Name Last Name Admitted to NICU Weight (g) Sex Living Outcome Pediatric Complications Fetus ID Race Codes Race Delivery Type 36585 Problems Problem Notes Problem Name Start Date End Date Resolution Snomed Code Not e Erythema nodosum 77123114 Body mass index 40+ - severely obese 010194585 BMI testing to start at 34wks Maternal hypertension 73117693 1 delivered at 38 weeks in last two pregnancies, well controlled without medications; baseline labs ordered; discussed 32 week testing and 38 week MIL Dilatation of renal pelvis 452236622 Anemia of 12/05/2024 16238587 Rafal Calculation Initial Rafal Date Initial Exam [...] Date Ultra Sound Latest Days Gestation 0 [id number] 08/11/2024 02/10/20 25 0 Pre- Flowsheet Flowsheet Date 08/11/2024 Mark Score Blood Edema Fundus Height Fundus Units Glucose Ketones Leukocytes Nitrite Labor Signs Protein Cervic Dilation Cervic Effacement Cervic Station Type Weight in lbs Pre/Post Dialysis Refused Weight 272.758357840121 BP Diastolic BP Location Tested BP Systolic BP Type 84 L arm 136 sitting Fetus Heart Rate Present A Present Fetus Movement Comments Patient presents to [facility] care. Has had some swelling in [...] Type Weight in lbs Pre/Post Dialysis Refused 276.622522047379 BP Diastolic BP Location Tested BP Systolic [...] Type Weight in lbs Pre/Post Dialysis Refused 276.796867915479 BP Diastolic BP Location Tested BP Systolic [...] Weight in lbs Pre/Post Dialysis Refused Weight 278.79233705535 BP Diastolic BP Location Tested BP Systolic [...] Weight in lbs Pre/Post Dialysis Refused Weight 281.457187100193 BP Diastolic BP Location Tested BP Systolic [...] Type Weight in lbs Pre/Post Dialysis Refused 281.019970782225 BP Diastolic BP Location Tested BP Systolic [...] Type Weight in lbs Pre/Post Dialysis Refused 284.892768035325 BP Diastolic BP Location Tested BP Systolic [...] Type Weight in lbs Pre/Post Dialysis Refused 285.679633327516 BP Diastolic BP Location Tested BP Systolic [...] Weight in lbs Pre/Post Dialysis Refused Weight 286.517023657071 BP Diastolic BP Location Tested BP Systolic BP Type 87 141 Fetus Heart Rate Present Fetus Movement Comments Flowsheet Date 12/28/2024 Mark Score Blood Edema Fundus Height Fundus Units Glucose Ketones Leukocytes Nitrite Labor Signs Protein Cervic Dilation Cervic Effacement Cervic Station neg none Type Weight in lbs Pre/Post Dialysis Refused 286.183986988729 BP Diastolic BP Location Tested BP Systolic [...] Weight in lbs Pre/Post Dialysis Refused Weight 283.66960624595 BP Diastolic BP Location Tested BP Systolic BP Type 97 149 Fetus Heart Rate Present Fetus Movement Comments Flowsheet Date 01/04/2025 Mark Score Blood Edema Fundus Height Fundus Units Glucose Ketones Leukocytes Nitrite Labor Signs Protein Cervic Dilation Cervic Effacement Cervic Station neg trace Type Weight in lbs Pre/Post Dialysis Refused 283.273554365209 BP Diastolic BP Location Tested BP Systolic [...] Weight in lbs Pre/Post Dialysis Refused Weight 283.24985157417 BP Diastolic BP Location Tested BP Systolic BP Type 90 L arm 137 sitting Fetus Heart Rate Present Fetus Movement Comments Flowsheet Date 01/11/2025 Mark Score Blood Edema Fundus Height Fundus Units Glucose Ketones Leukocytes Nitrite Labor Signs Protein Cervic Dilation Cervic Effacement Cervic Station neg none Type Weight in lbs Pre/Post Dialysis Refused 283.200246626613 BP Diastolic BP Location Tested BP Systolic BP Type 90 137 Fetus Heart Rate Present Fetus Movement A Yes Comments Patient is having some back pain, contractions, discharge, nausea and vomiting. baby footling breech, bpp 8/8, was vertex yesterday at hospital, plan US on thursday if breech, talk to karla about version thu or IOL?? +FM Flowsheet [...] Weight in lbs Pre/Post Dialysis Refused Weight 284.497814683210 BP Diastolic BP Location Tested BP Systolic [...]
[2025-01-19 16:58] LABS: Basophils Percent Auto 0.3 % (0.2-1.2); Eosinophils Absolute Auto 0.3 K/mm3 (0-0.3); Eosinophils Percent Auto 2.4 % (0-4.4); Hematocrit 32.4 % (37.0-47.0); Hemoglobin 10.2 g/dL (12.0-15.0); Immature Granulocyte Absolute 0.12 K/mm3 (0.00-0.031); Immature Granulocyte Percent A 0.9 % (0-0.5); Lymphocytes Absolute Auto 2.03 K/mm3 (0.9-3.2); Lymphocytes Percent Auto 15.5 % (18.3-44.2); Mean Corpuscular HGB Conc 31.5 g/dl (32-36); Mean Corpuscular Hemoglobin 23.8 pg (26-34); Mean Corpuscular Volume 75.7 fl (80-100); Mean Platelet Volume 10.7 fl (7.4-10.4); Monocytes Absolute Auto 0.8 K/mm3 (0.1-0.6); Monocytes Percent Auto 6.2 % (2.6-8.5); Neutrophils Absolute Auto 9.8 K/mm3 (1.3-6.7); Neutrophils Percent Auto 74.7 % (45.5-73.1); Platelet Count Result 330 k/mm3 (150-375); Red Blood Count 4.28 M/mm3 (4.2-5.4); Red Cell Distribution Width 15.1 % (11.5-14.5); White Blood Count 13.1 K/mm3 (4.5-10.0)
--- NOTE | 2025-01-19 16:58 | LDADM ---
This patient, Samantha Ceballos, was admitted to Labor/Delivery/Recovery 105 on 01/19/25 at 15:54. Plans for labor, pain management and were discussed with patient. Patient/family oriented to hospital policies and general routines including ID bracelet, bed and alarms, visiting hours, pain management, procedures, bathroom and other care routines, personal items, smoking policy, room service/diet and guest tray routines, infant security routines, and visiting hours. Patient/Family are encouraged to report perceived risks to care and to ask questions if they do not understand what they are told or what they should do. See OBIX for further documentation.
[2025-01-19] MEDS: OXYTOCIN 30 UNITS/NS 500 ML 30 UNITS/500 ML BAG IV CONT (17:00)
[2025-01-19] MEDS: LACTATED RINGERS 1,000 ML 125 ML IV CONT (17:08)
[2025-01-19 17:09] LABS: Alanine Aminotransferase 10 U/L (6-35); Albumin Level 3.4 g/dL (3.5-5.1); Alkaline Phosphatase 113 U/L (38-126); Anion Gap 6 mmol/L (4-12); Aspartate Amino Transferase 19 U/L (14-36); Bilirubin,Total 0.3 mg/dL (0.2-1.3); Blood Urea Nitrogen 5 mg/dL (7-17); Calcium 9.4 mg/dL (8.4-10.2); Carbon Dioxide 23 mmol/L (22-30); Chloride 105 mmol/L (98-107); Estimated Glomerular Filt Rate > 60; Glucose 89 mg/dL (65-110); Potassium 3.3 mmol/L (3.4-5.0); Sodium 134 mmol/L (137-145); Total Protein 6.4 g/dL (6.3-8.2)
[2025-01-19 17:37] LABS: Syphilis IgG/IgM Antibody Non-Reactive (Nonreactive)
[2025-01-19 17:49] LABS: HIV 1/2 Ab P24 Ag Result Negative (Negative)
--- NOTE | 2025-01-19 21:27 | WPDANESEPPF ---
Anes - Initial Pre Proc Eval Procedure: labor epidural Date/Time: 01/19/25 21:27 Surgeon: Gomez Govea MD Pre Op Diagnosis: labor pain Pre Op Diagnosis: Induction of Labor Patient Data Age: 34 Gender: F Height: 1.75 m Weight: 130 kg Last Vital Signs Temp 36.6 C 01/19/25 20:00 Pulse 89 01/19/25 20:00 Resp 20 01/19/25 20:00 BP 146/85 H 01/19/25 20:00 O2 Del Method Room Air 01/19/25 17:06 Allergies Allergy/AdvReac Type Severity Reaction Status Date / Time adhesive Allergy Itching, Verified 01/11/25 14:28 hives latex Allergy Rash, Hives Verified 01/11/25 14:28 Home Medications ?Medication ?Instructions ?Recorded ?Confirmed ?Type No Home Medications 01/11/25 01/11/25 History Laboratory Tests 01/19/25 16:52 WBC 13.1 H K/mm3 (4.5-10.0) RBC 4.28 M/mm3 (4.2-5.4) Hgb 10.2 L g/dL (12.0-15.0) Hct 32.4 L % (37.0-47.0) MCV 75.7 L fl (80-100) MCH 23.8 L pg (26-34) MCHC 31.5 L g/dl (32-36) RDW 15.1 H % (11.5-14.5) Plt Count 330 k/mm3 (150-375) MPV 10.7 H fl (7.4-10.4) Immature Gran % (Auto) 0.9 H % (0-0.5) Neut % (Auto) 74.7 H % (45.5-73.1) Lymph % (Auto) 15.5 L % (18.3-44.2) [place] % (Auto) 6.2 % (2.6-8.5) Eos % (Auto) 2.4 % (0-4.4) Baso % (Auto) 0.3 % (0.2-1.2) Lymph # (Auto) 2.03 K/mm3 (0.9-3.2) [place] # (Auto) 0.8 H K/mm3 (0.1-0.6) Eos # (Auto) 0.3 K/mm3 (0-0.3) Baso # (Auto) 0.0 K/mm3 (0.0-0.1) Abs Immat Gran (auto) 0.12 H K/mm3 (0.00-0.031) Absolute Neuts (auto) 9.8 H K/mm3 (1.3-6.7) Absolute Nucleated RBC 0.000 K/mm3 (0.0-0.012) Nucleated RBC % 0.0 % (0.0-0.2) Sodium 134 L mmol/L (137-145) Potassium 3.3 L mmol/L (3.4-5.0) Chloride 105 mmol/L (98-107) Carbon Dioxide 23 mmol/L (22-30) Anion Gap 6 mmol/L (4-12) BUN 5 L mg/dL (7-17) Creatinine 0.71 mg/dL (0.7-1.0) Estim Creat Clear Calc Not Reportable Estimated GFR > 60 (59 - ) Glucose 89 mg/dL (65-110) Calcium 9.4 mg/dL (8.4-10.2) Total Bilirubin 0.3 mg/dL (0.2-1.3) AST 19 U/L (14-36) ALT 10 U/L (6-35) Alkaline Phosphatase 113 U/L (38-126) Total Protein 6.4 g/dL (6.3-8.2) Albumin 3.4 L g/dL (3.5-5.1) Syphilis IgG/IgM Ab Non-reactive (Nonreactive) HIV 1&2 Ab/P24 Ag 4thGn Negative (Negative) Blood Type A Positive Antibody Screen Negative Patient hx anesthesia problems: none Family hx anesthesia problems: none Results Review: All pre-operative results and documents have been reviewed as part of the pre-operative evaluation. [facility] Past Medical History Medical History Diverticulitis Asthma as child Hypertension affecting Depression as adolescent ADHD (attention deficit hyperactivity disorder) as child 10 weeks gestation of No significant medical problems Surgical History Surgical History Hx of cholecystectomy No significant past surgical history Family History Family History Mother Diabetes mellitus Heart disease Hypertension Father Hypertension Social History Social History Smoking packs per day: 0.25 Smoking cigarettes per day: 5.0 Years smoked: 4 Smoking pack-years: 1.00 Smoking status: Former smoker Tobacco type: cigarettes Second hand tobacco smoke exposure: No Alcohol intake: never Substance use: never Do You Feel Safe in your Home?: Yes Lack of Transportation: No Lack of Food: Never True Current Housing: I Have Housing Concerned About Future Housing: No Difficulty Paying Gas/Electric Bills: No Difficulty Paying for Meds: No Currently Unemployed: No Education: Decline to Answer Difficulty w/ Childcare or Family Care: No Gender identity (if verbalized by the patient): Female Spiritual care concerns: No Anes - Eval Final PreProcedure Day of Procedure 01/19/25 21:27 Heart: regular rate and rhythm Lungs: clear to auscultation and normal air movement Airway: Mallampati scale class II Neurological: alert and oriented ASA classification: III Anesthetic plan: proceed Anesthesia type and monitoring: regional epidural and standard monitoring Results Review: All pre-operative results and documents have been reviewed as part of the pre-operative evaluation. Informed Consent: The patient's anesthetic plan and its attendant risks and benefits were discussed with the patient/family/POA. Questions were solicited and answers provided to the satisfaction of the patient/family/POA.
[2025-01-19] MEDS: FAMOTIDINE 20 MG/2 ML VIAL IV PUSH (22:24)
[2025-01-19] MEDS: ACETAMINOPHEN 500 MG TABLET 1000 MG PO (22:25)
[2025-01-19] MEDS: ceFAZolin 3 GM/D5W 100 ML 100 ML IVPB (22:26)
--- NOTE | 2025-01-19 22:45 | WPDHPUPDATE1 ---
History and Physical Update Update Date/Time: 01/19/25 22:45 History and Physical has been reviewed, including an updated exam of the patient. There are NO changes in the patient's condition. presentation transverse after AROM; then further malpositioned to breech. Will proceed with primary c section. Risks, benefits, and alternatives have been discussed and questions answered. Patient agrees to proceed with procedure.
--- NOTE | 2025-01-19 23:35 | P.PCNOB_ITS ---
OB - Delivery Note Procedure Delivery date: 01/19/25 Pre-op diagnosis: Breech Presentation and Gestational Hypertension Post-op Diagnosis: Same Induction method: AROM and Per Pitocin Protocol Delivery monitor: External FHT Prior to decision for section, ACOG/SMFM labor guidelines were considered and discussed with the patient and staff. Decision made to proceed with the section.: Yes Procedure Performed: Primary Primary branch: low cervical, transverse Surgeon: Ja Stock MD Anesthesia type: Epidural Description of Procedure/Findings: The patient was taken to the operating room where she was placed in the dorsal supine position with a leftward tilt. The electronic monitor was placed and heart rate was found to be reassuring. She was prepped and draped in the normal sterile fashion, and anesthesia was checked to be adequate. A Pfannenstiel skin incision was made with the scalpel and carried through to the underlying layer of fascia with the scalpel. The fascia was incised in the midline and the incision extended laterally with the Sánchez scissors. The superior aspect of the fascial incision was then grasped with Judie clamps, elevated, and the underlying rectus muscles dissected off bluntly and with Sánchez scissors. Attention was then turned to the inferior aspect of the fascial incision, which in similar fashion was grasped, elevated, and the rectus muscles dissected off.? The rectus muscles were then in the midline, and the peritoneum entered bluntly. The peritoneal incision was extended superiorly and inferiorly with good visualization of the bladder. With the bladder blade providing retraction and visualization, the lower uterine segment was incised in a transverse fashion with the scalpel. The uterine incision was then extended laterally. The bladder blade was removed and the infant's breech was elevated and delivered atraumatically. The remainder of the infant was then delivered without difficulty, and the infant's nose and mouth were suctioned with the bulb suction. The umbilical cord was doubly clamped and cut. The was then handed off to the waiting nursing staff. Specimens then obtained as listed below. The placenta was then removed manually and the uterus was exteriorized and cleared of all clots and debris. The uterine incision was repaired with 0- Monocryl in a running, interlocked fashion. The posterior cul-de-sac was manually cleared of all clots and debris. The uterus was returned to the abdomen. The gutters were then manually cleared of all clots and debris.? The uterine incision was visualized to be hemostatic. The fascia was reapproximated with 0-Vicryl in a running fashion. The subcutaneous tissues were irrigated with warmed normal saline, and hemostasis was assured. The subcutaneous tissue was greater than 2 cm and closed in a running fashion with 2-0 plain gut suture.? The skin was closed with 4-0 monocryl in a running subcuticular stitch. Fundal pressure was applied to express remaining intrauterine clots and debris. The patient tolerated the procedure well. Sponge, lap, and needle counts were correct times three per nursing. The patient was taken to the recovery room in stable condition. Specimen: No Estimated Blood Loss: 345 Pathology: None sent Complications: No immediate complications Condition: Stable Disposition: Floor Baby Date of : 01/19/25 Gestational Age by Date: 36 gender: Male Weight (pounds): 7 Weight (ounces): 8 presentation: breech position: Right Sacrum Anterior Placenta delivery description: Expressed Cord Vessel Description: 3 Vessels and Delayed Cord Clamping
[2025-01-20] VITALS (39 sets, daily range): BP systolic 118–149; BP diastolic 60–90; PULSE 68–85; RESP 16–20; TEMP 36.3–36.6; O2SAT 93–100
[2025-01-20] MEDS: miSOPROStol 200 MCG TABLET 800 MCG RECTAL (00:37)
[2025-01-20] MEDS: fentaNYL CITRATE INJ (*CRX) 100 MCG/2 ML VIAL IV PUSH (01:21)
--- NOTE | 2025-01-20 02:10 | OBPPTRN ---
Patient transferred to post room #281 via hospital bed. Support person present. Oriented to unit, room, information board, admission packet and security measures. Patient verbalizes understanding.
[2025-01-20] MEDS: LACTATED RINGERS 1,000 ML 125 ML IV CONT (02:43)
[2025-01-20] MEDS: oxyCODONE HCL (*CRX) 5 MG TAB IR 10 MG PO (02:43)
[2025-01-20] MEDS: LIDOCAINE 5% PATCH 1 PATCH TRANSDERM (02:44)
[2025-01-20] MEDS: ACETAMINOPHEN 500 MG TABLET 1000 MG PO ×3 (05:48→17:52)
[2025-01-20] MEDS: KETOROLAC 15 MG/ML VIAL (*BKC) IV PUSH ×2 (05:50→11:55)
[2025-01-20 06:02] LABS: Basophils Absolute Auto 0.1 K/mm3 (0.0-0.1); Basophils Percent Auto 0.3 % (0.2-1.2); Eosinophils Absolute Auto 0.1 K/mm3 (0-0.3); Eosinophils Percent Auto 0.8 % (0-4.4); Hematocrit 28.3 % (37.0-47.0); Hemoglobin 8.7 g/dL (12.0-15.0); Immature Granulocyte Absolute 0.11 K/mm3 (0.00-0.031); Immature Granulocyte Percent A 0.8 % (0-0.5); Lymphocytes Absolute Auto 1.82 K/mm3 (0.9-3.2); Lymphocytes Percent Auto 12.6 % (18.3-44.2); Mean Corpuscular HGB Conc 30.7 g/dl (32-36); Mean Corpuscular Hemoglobin 23.8 pg (26-34); Mean Corpuscular Volume 77.3 fl (80-100); Mean Platelet Volume 11.2 fl (7.4-10.4); Monocytes Absolute Auto 0.8 K/mm3 (0.1-0.6); Monocytes Percent Auto 5.5 % (2.6-8.5); Neutrophils Absolute Auto 11.6 K/mm3 (1.3-6.7); Platelet Count Result 263 k/mm3 (150-375); Red Blood Count 3.66 M/mm3 (4.2-5.4); Red Cell Distribution Width 15.3 % (11.5-14.5); White Blood Count 14.5 K/mm3 (4.5-10.0)
[2025-01-20 06:43] LABS: HIV 1/2 Ab P24 Ag Result Negative (Negative)
--- NOTE | 2025-01-20 07:31 | P.PNOB_ITS ---
OB - PN: Subj Subjective Date/time seen: 01/20/25 07:31 Interval history: pp c/s day 1 some c/o pain will try to ambulate today baby at [facility] OB - PN: Obj Data Labs 01/20/25 04:45 01/19/25 16:52 Labs: Laboratory Results - last 24 hr 01/19/25 01/20/25 16:52 04:45 WBC 13.1 H 14.5 H RBC 4.28 3.66 L Hgb 10.2 L 8.7 L Hct 32.4 L 28.3 L MCV 75.7 L 77.3 L MCH 23.8 L 23.8 L MCHC 31.5 L 30.7 L RDW 15.1 H 15.3 H Plt Count 330 263 MPV 10.7 H 11.2 H Immature Gran % (Auto) 0.9 H 0.8 H Neut % (Auto) 74.7 H 80.0 H Lymph % (Auto) 15.5 L 12.6 L [place] % (Auto) 6.2 5.5 Eos % (Auto) 2.4 0.8 Baso % (Auto) 0.3 0.3 Lymph # (Auto) 2.03 1.82 [place] # (Auto) 0.8 H 0.8 H Eos # (Auto) 0.3 0.1 Baso # (Auto) 0.0 0.1 Abs Immat Gran (auto) 0.12 H 0.11 H Absolute Neuts (auto) 9.8 H 11.6 H Absolute Nucleated RBC 0.000 0.000 Nucleated RBC % 0.0 0.0 Sodium 134 L Potassium 3.3 L Chloride 105 Carbon Dioxide 23 Anion Gap 6 BUN 5 L Creatinine 0.71 Estim Creat Clear Calc Not Reportable Estimated GFR > 60 Glucose 89 Calcium 9.4 Total Bilirubin 0.3 AST 19 ALT 10 Alkaline Phosphatase 113 Total Protein 6.4 Albumin 3.4 L Syphilis IgG/IgM Ab Non-reactive HIV 1&2 Ab/P24 Ag 4thGn Negative Negative Blood Type A Positive Antibody Screen Negative OB - PN A/P Plan day: 1 Plan: routine care Time Spent With Patient Time: Total time spent is greater than 50% in coordination of care (as documented) at patient's floor/unit and/or counseling patient: Review of Systems 2 Review of Systems: All systems reviewed & are unremarkable except as noted in HPI and below Exam 2 Const: General: cooperative and healthy appearing Neck: Neck: normal visual inspection Resp: Effort & Inspection: normal respiratory effort Cardio: Rate: regular rate GI: Other: incision CDI Back/Spine/Pelvis: Back: no CVA tenderness
[2025-01-20] MEDS: SIMETHICONE 80 MG TAB.CHEW PO ×3 (10:06→17:52)
[2025-01-20] MEDS: POLYSACCHARIDE IRON COMPLEX 150 MG CAPSULE PO ×2 (10:06→17:53)
[2025-01-20] MEDS: MULTIVIT/MIN/PREN/FOL AC/IRON TABLET 1 TAB PO (10:07)
[2025-01-20] MEDS: TETANUS,DIPHTHERIA,AC PERTUSSIS ADULT (0.5 ML) BOOSTRIX IM (10:07)
[2025-01-20] MEDS: DOCUSATE SODIUM 100 MG CAPSULE PO ×2 (10:07→17:53)
--- NOTE | 2025-01-20 14:23 | WPDANLDNPN2 ---
Anes-Prog Note L&D-Neuraxial Date/Time: 01/20/25 14:23 Neuraxial medications: epidural PF morphine Opiod-related complaints: none Patient feedback: Patient satisfied with post-operative pain management.
--- NOTE | 2025-01-20 14:23 | WPDANLDPN2 ---
Anes-Prog Note L&D Date/Time: 01/20/25 14:23 Comfortable throughout: labor and section Neuraxial method: epidural Epidural/Spinal procedure site: clean & non-tender Neuro status: Neuro function grossly intact. Cardiovascular status: normal Respiratory status: normal Airway patency: baseline Mental status: baseline Post-Op hydration status: normal Vital Signs: Last Vital Signs Temp 36.4 C 01/20/25 12:16 Pulse 74 01/20/25 12:16 Resp 16 01/20/25 12:16 BP 122/69 01/20/25 12:16 Pulse Ox 99 01/20/25 12:16 O2 Del Method Room Air 01/20/25 02:15 Pain score (VAS): 2 I/O: Intake & Output 01/19/25 01/20/25 01/20/25 23:59 07:59 15:59 Intake Total 2300 Output Total 345 423 800 Balance -345 2160 800 Patient feedback: Patient satisfied with anesthetic care.
[2025-01-20] MEDS: IBUPROFEN 600 MG TABLET PO (17:52)
[2025-01-21] MEDS: IBUPROFEN 600 MG TABLET PO ×2 (00:22→06:49)
[2025-01-21] MEDS: ACETAMINOPHEN 500 MG TABLET 1000 MG PO ×2 (00:24→06:49)
[2025-01-21 00:25] VITALS: BP 135/76; PULSE 73; RESP 16; TEMP 36.2; O2SAT 98
[2025-01-21 04:15] VITALS: BP 132/80; PULSE 74; RESP 16; TEMP 37.2; O2SAT 99
[2025-01-21] MEDS: LIDOCAINE 5% PATCH 1 PATCH TRANSDERM (06:49)
[2025-01-21] MEDS: DOCUSATE SODIUM 100 MG CAPSULE PO (06:49)
[2025-01-21] MEDS: POLYSACCHARIDE IRON COMPLEX 150 MG CAPSULE PO (06:49)
[2025-01-21] MEDS: SIMETHICONE 80 MG TAB.CHEW PO (06:49)
[2025-01-21] MEDS: MULTIVIT/MIN/PREN/FOL AC/IRON TABLET 1 TAB PO (06:49)
[2025-01-21 07:36] VITALS: BP 150/92; PULSE 67; RESP 18; TEMP 36.6; O2SAT 99
[2025-01-21 08:37] VITALS: BP 148/98
--- NOTE | 2025-01-21 08:41 | PM.OBPNVD ---
OB - PN: Subj Subjective Date/time seen: 01/21/25 08:41 Interval history: pp c/s day 2 pain improved, mild soreness today tolerating general diet passing flatus ambulating without issue desires discharge today, baby at [facility] OB - PN: Obj Data Labs 01/20/25 04:45 01/19/25 16:52 OB - PN A/P Assessment and Plan (1) S/P : Code(s): Z98.891 - History of uterine scar from previous surgery Status: Acute Plan day: 2 Plan: routine care and discharge home Time Spent With Patient Time: Total time spent is greater than 50% in coordination of care (as documented) at patient's floor/unit and/or counseling patient: Review of Systems Review of Systems: All systems reviewed & are unremarkable except as noted in HPI and below Exam Const: General: comfortable and no acute distress Orientation/consciousness: patient oriented x3 Resp: Effort & Inspection: normal respiratory effort GI: GI Palp: Yes Soft to palpation and No Tenderness to palpation present (GI) Other: incision c/d/i
--- NOTE | 2025-01-21 08:45 | P.DS_ITS ---
DS: Admitting Diagnosis Discharge Date 01/21/25 Admitting Diagnosis gestational hypertension, MIL OB - DS: Summary OB Procedures : None OB Procedures Intrapartum: low cervical, transverse OB Procedures: : None Peripartum Data Procedures: Procedures Operation Date: 01/19/25 23:00 <No data on this case meets the specified criteria> Time Spent with Patient Time attestation: Total time spent providing and/or coordinating discharge services: Discharge Plan Discharge Attending physician on discharge: Ja Sotck Consulting providers: Mel Carlson Discharging Clinician: Ja Stock Patient Disposition: Home Activity: may shower, no driving, as tolerated and pelvic rest Diet: as tolerated Patient Instructions: Antibiotic Form Patient Language: Taiwanese Stand Alone Forms: General Discharge Information Follow-up/Referrals: Ja Stcok MD [Physician] - 1 Week Discharge Medications: New docusate sodium 100 mg Capsule 100 mg PO BID Qty: 60 0RF ibuprofen 600 mg Tablet 600 mg PO Q6HR Qty: 30 0RF Date of admission: 01/19/25 15:54 Primary Care Provider: William Lobo Admitting Provider: Gomez Govea Attending physician on admission: Gomez Govea Condition: Stable
[2025-01-24 10:03] VITALS: BP 134/71; PULSE 71; RESP 18; TEMP 36.6; O2SAT 99
--- NOTE | 2025-01-24 12:30 | PM.IMHP ---
H&P: HPI History of Present Illness Date/Time: 01/19/25 23:00 Chief Complaint: breech presentation Narrative: Patient is a 34 year old who presented for induction of labor for gestational hypertension. testing has been normal and she is asymptomatic. Her is otherwise complicated by short interval and obesity. She was being induced with pitocin per protocol, however when AROM was performed, the fetus flipped to breech presentation. Risks and benefits were discussed with the patient who voices understanding with proceeding with primary c section. Review of Systems Review of Systems: All systems reviewed & are unremarkable except as noted in HPI and below PMFSH Past Medical History Medical History Diverticulitis Asthma as child Hypertension affecting Depression as adolescent ADHD (attention deficit hyperactivity disorder) as child 10 weeks gestation of No significant medical problems Surgical History Surgical History Hx of cholecystectomy No significant past surgical history Family History Family History Mother Diabetes mellitus Heart disease Hypertension Father Hypertension Social History Social History Smoking packs per day: 0.25 Smoking cigarettes per day: 5.0 Years smoked: 4 Smoking pack-years: 1.00 Smoking status: Former smoker Tobacco type: cigarettes Second hand tobacco smoke exposure: No Alcohol intake: never Substance use: never Do You Feel Safe in your Home?: Yes Lack of Transportation: No Lack of Food: Never True Current Housing: I Have Housing Concerned About Future Housing: No Difficulty Paying Gas/Electric Bills: No Difficulty Paying for Meds: No Currently Unemployed: No Education: Decline to Answer Difficulty w/ Childcare or Family Care: No Gender identity (if verbalized by the patient): Female Spiritual care concerns: No Meds Home Medications and Allergies Home Medications ?Medication ?Instructions ?Recorded ?Confirmed ?Type docusate sodium 100 mg capsule 100 mg PO BID #60 caps 01/21/25 Rx ibuprofen 600 mg tablet 600 mg PO Q6HR #30 tabs 01/21/25 Rx Allergies Allergy/AdvReac Type Severity Reaction Status Date / Time adhesive Allergy Itching, Verified 01/11/25 14:28 hives latex Allergy Rash, Hives Verified 01/11/25 14:28 Vital Signs Vital Signs - 24 hr 01/24/25 10:03 Temperature 97.8 F Pulse Rate 71 Respiratory Rate 18 Blood Pressure 134/71 Pulse Oximetry 99 Exam Const: General: comfortable and no acute distress Eyes: General: appearance normal, both eyes and all related structures Resp: Effort & Inspection: normal respiratory effort Cardio: Rate: regular rate Rhythm: regular rhythm Skin: General skin exam: normal color Extrem: General: normal to inspection Psych: Mental Status: mental status grossly normal Assessment and Plan Assessment and plan (1) Breech presentation of fetus: Code(s): O32.1XX0 - Maternal care for breech presentation, not applicable or unspecified Status: Acute Assessment and Plan: - fetus flipped to breech presentation after AROM - will proceed with c section
== END 2025-01-21 10:44 | disposition home or self-care (01) | DRG 788 ==
LOC: ANHOB2 01-21 08:45 → ANHLDR 01-24 08:00
PROVIDERS: Advanced Practice Midwife; Admitting Provider Obstetrics & Gynecology; PCP Emergency Medicine; Visit Provider Obstetrics & Gynecology
PROC: 10D00Z1 Extraction of Products of Conception, Low, Open Approach (ICD-10-PCS; CPT 59514; principal; 2025-01-19 23:00)
DX: O32.1XX0 Maternal care for breech presentation, not applicable or unspecified (principal); O13.4 Gestational [pregnancy-induced] hypertension without significant proteinuria, complicating childbirth; Z3A.36 36 weeks gestation of pregnancy; Z37.0 Single live birth; Z90.49 Acquired absence of other specified parts of digestive tract; Z87.891 Personal history of nicotine dependence
CPT/HCPCS: 36415; 80053; 85025; 86593; 86703; 86850; 86900; 86901; 90715; 99199; A9270; G0432; J0690; J1885; J2004; J2274; J2371; J2405; J2590; J2795; J3010; J7120